=== PATIENT | male | born 1945 | race Caucasian/White ===

== ENCOUNTER 2019-12-21 21:16 | Observation (INO) | payer MEDICARE, SELFPAY ==
--- NOTE | ~2019-12-21 | US_ITS ---
EXAMINATION: US right upper quadrant DATE: 12/24/2019 08:32 INDICATION: Abnormal liver function tests. TECHNIQUE: Multiple grayscale and Doppler ultrasound images of the abdomen were obtained. COMPARISON: CT abdomen and pelvis 03/08/2019 FINDINGS: The visualized portions of the head and body of pancreas are normal. There is diffuse hepat ic steatosis. No liver surface nodularity. There is normal flow in main portal vein. The gallbladder is normal in size. There are 2 mm polyps in the gallbladder, likely benign. No gallstones or gallblad matt wall thickening. There was no sonographic Claire sign. The common duct is normal and measures 3 m m. IMPRESSION: 1. Diffuse hepatic steatosis. Reviewed, dictated and finalized at location A.
--- NOTE | ~2019-12-21 | XR_ITS ---
EXAMINATION: XR chest 1V portable 12/21/2019 22:39 INDICATION: Generalized weakness. Dyspnea. PROCEDURE: AP portable chest COMPARISON: 01/12/2019 FINDINGS: The lungs are clear. The cardiomediastinal silhouette is within normal limits. There are no pleural effusions. There is no pneumothorax suspected. IMPRESSION: 1: NO ACUTE CARDIOPULMONARY DISEASE. Reviewed, dictated and finalized at location A.
--- NOTE | 2019-12-21 22:19 | ECG_ITS ---
Measurements Intervals [place] Rate: 80 P: 71 [place]: 156 QRS: 3 QRSD: 118 T: 52 QT: 396 QTc: 459 Interpretive Statements SINUS RHYTHM RSR' IN V1 OR V2, CONSIDER RIGHT VENTRICULAR HYPERTROPHY OR RIGHT VCD BORDERLINE ECG Electronically Signed On 12-22-2019 6:51:19 CDT by José Raymundo D.O.
[2019-12-21] MEDS: SODIUM CHLORIDE 0.9% IV 1,000 ML 2000 ML IV CONT (22:25)
[2019-12-21] MEDS: ONDANSETRON INJ 4 MG/2 ML VIAL IV PUSH (22:25)
[2019-12-21 22:26] VITALS: BP 165/98; PULSE 98; RESP 16; TEMP 37.1; O2SAT 98
[2019-12-21 23:01] LABS: Mean Corpuscular HGB Conc 34.2 g/dL (32.0-36.0); Mean Corpuscular Hemoglobin 34.2 pg (27.0-31.0); Mean Platelet Volume 8.9 fl (8.7-11.0); Platelet Count Result 164 K/mm3 (150-420); Red Cell Distribution Width 15.4 % (11.6-14.4); White Blood Count 3.4 K/mm3 (4.8-10.8)
[2019-12-21 23:02] LABS: Add Urine Microscopic? YES; Appearance Urine Clear (Clear); Bilirubin Urine 2+ (Negative); Blood Urine Negative (Negative); Color Urine Yellow (Yellow); Glucose Urine UA Negative (Negative); Ketones Urine 2+ (Negative); Leukocyte Esterase Ur Negative LEU/UL (Negative); Nitrate Urine Negative (Negative); Protein Urine Trace (Negative); Specific Grav Ur >= 1.030 (1.010-1.020); Urobilinogen Urine 0.2 mg/dL (0.2-1.0)
[2019-12-21 23:10] LABS: Bacteria Urine 1+ /hpf; RBC Urine 0-2 /hpf (0-2); Squamous Epithelial Cell Urine Occasional /hpf (Few); WBC Urine 0-3 /hpf (0-3)
[2019-12-21 23:11] LABS: Mucus Urine Few /lpf
[2019-12-21 23:18] LABS: Alanine Aminotransferase 124 U/L (16-63); Albumin Level 4.2 g/dL (3.4-5.0); Alkaline Phosphatase 95 U/L (46-116); Anion Gap 25.4 mmol/L (7-16); Aspartate Amino Transferase 257 U/L (15-37); Bilirubin,Total 1.2 mg/dL (0.00-1.00); Blood Urea Nitrogen 22 mg/dL (7-18); Calcium 8.7 mg/dL (8.5-10.1); Carbon Dioxide 22 mmol/L (21-32); Chloride 95 mmol/L (98-108); Estimated Glomerular Filt Rate 60; Glucose 89 mg/dL (70-99); Lipase 379 U/L (73-393); Osmolality Calculated 288 mOsm/kg (285-295); Potassium 4.4 mmol/L (3.5-5.1); Sodium 138 mmol/L (136-145); Total Protein 7.4 g/dL (6.4-8.2)
[2019-12-21 23:22] LABS: Troponin I < 0.02 ng/mL (0.00-0.056)
[2019-12-21 23:23] VITALS: BP 111/70; PULSE 68; RESP 16
[2019-12-21 23:23] LABS: Band Neutrophils Percent 0 % (0-6); Basophils Absolute Manual 0.03 K/mm3 (0-0.1); Basophils Percent Manual 1 % (0-1); Eosinophils Percent Manual 0 % (1-6); Lymphocytes Absolute Manual 0.47 K/mm3 (1.1-4.5); Lymphocytes Percent Manual 14 % (18-44); Monocytes Absolute Manual 0.57 K/mm3 (0.1-0.90); Monocytes Percent Manual 17 % (3-9); Neutrophils Absolute Manual 2.31 K/mm3 (1.3-6.7); Neutrophils Percent Manual 68 % (46-73); Platelet Estimate Adequate (Adequate)
--- NOTE | 2019-12-21 23:53 | ED.WEAKNESS ---
HPI - Weakness General Chief complaint: Weakness Stated complaint: weak Source: patient Mode of arrival: ambulatory Limitations: no limitations History of Present Illness HPI Narrative: Pt reports that a week ago he fell down and had a large bruise on his chest He is very scared to be living alone and feels he is simply to weak to manuver around his house. He says 2 weeks ago he was getting around with his cane, but he has been using double canes and having trouble standing up at all. He said he has been vomiting for 2 days, and unable to tolerate even liquids. Complaint: generalized weakness Onset (ago): day(s) Duration: progressively worsening Location: generalized Migration: none Severity: moderate Relieving factors: none Exacerbating factors: none and exertion Associated symptoms: easy bruising, loss of appetite, nausea/vomiting and myalgias Related Data Home Medications Medication Instructions Recorded Confirmed pantoprazole [Protonix] See Rx Instructions .ROUTE .COMPLEX 12/21/19 12/21/19 Allergies Allergy/AdvReac Type Severity Reaction Status Date / Time Penicillins Allergy Mild Verified 10/01/15 15:02 Review of Systems Constitutional: Constitutional: Denies chills, Reports fatigue, Denies fever(s) and Reports weakness Eyes: Eyes: Reports no additional eye complaints ENT: Reports system reviewed and no additional complaints, except as documented Cardiovascular: Cardiovascular: Reports no additional cardiovascular complaints Respiratory: Respiratory: Reports no additional respiratory complaints Gastrointestinal: Gastrointestinal: Denies abdominal pain, Denies bloating, Denies constipation, Denies heartburn, Reports diarrhea, Reports nausea and Reports vomiting Genitourinary: Genitourinary: Reports no additional male genitourinary complaints Musculoskeletal: Musculoskeletal: Reports arthralgias (left shoulder) Integumentary/Breasts: Skin/Breast: Reports system reviewed and no additional complaints, except as docu Neurologic: Reports system reviewed and no additional complaints, except as documented Psychiatric: Psychiatric: Reports no additional psychiatric complaints Hematologic/Lymphatic: Hematologic/Lymphatic: Reports no additional hematologic/lymphatic complaints Allergic/Immunologic: Allergic/Immunologic: Reports no additional allergic/immunologic complaints [facility] Past Medical History Medical History Alcohol abuse HTN (hypertension) Social History Social History (Updated 12/21/19 @ 23:59 by Manju Moore MD) Social History: pt lives alone, and is fearful of falling Alcohol intake: current Alcohol use details: wine nightly Substance use: never Living arrangements: alone Exam Const: General: no acute distress Nutritional Appearance: thin Orientation/consciousness: patient oriented x3 and No confusion Limitations: No altered mental status HENMT: Head: normal to inspection Eyes: Conjunctivae: conjunctivae normal Pupils: Equal, round and reactive pupils present Chest: Chest palpation & inspection: normal inspection of the chest Resp: Effort & Inspection: normal respiratory effort Auscultation: clear to auscultation bilaterally Cardio: Rate: regular rate Rhythm: regular rhythm GI: GI Palp: Yes Soft to palpation, No Tenderness to palpation present (GI), No Guarding due to palpation present (GI), No Rigid due to palpation, No Hernia present, No Palpable mass present and No Rebound tenderness present Percussion: Yes normal to percussion Auscultation: normal bowel sounds Back/Spine/Pelvis: Back: no CVA tenderness Skin: General skin exam: normal color Other: large bruise on left chest wall Neuro: General: patient oriented x3 and moves all extremities Speech: normal speech Psych: Appearance: grossly normal Mental Status: mental status grossly normal Thought content: Yes Normal thought co
[2019-12-22] VITALS (7 sets, daily range): BP systolic 98–140; BP diastolic 60–78; PULSE 65–88; RESP 16–18; TEMP 36.6–37.5; O2SAT 95–100; BMI 19.5
--- NOTE | 2019-12-22 01:00 | PC.NURSE ---
Skin dry, scaly, poor turgor.
--- NOTE | 2019-12-22 01:35 | ADMGEN ---
This patient, Rik Thakur, was admitted to 2nd Floor Room 226-1 per stretcher for weakness,shakiness and history of falls and inability to care for self lately. reports a weight loss of 15 lbs in 2-3 weeks. Patient oriented to hospital policies and general routines including ID bracelet, bed and alarms, visiting hours, pain management, procedures, bathroom and other care routines, personal items, smoking policy, room service/diet, and visiting hours. Valuables list has been completed. Information on how to activate the Rapid Response Team has been discussed. Patient/Family are encouraged to report perceived risks to care and to ask questions if they do not understand what they are told or what they should do.
--- NOTE | 2019-12-22 01:58 | PC.NURSE ---
Stated had Flu shot last week; Unsure of Pneumonia shot date.
--- NOTE | 2019-12-22 03:30 | PC.NURSE ---
Sleeping, IV 1000ml 0.9NS infusing per pump @125ml/hr
--- NOTE | 2019-12-22 05:06 | PC.NURSE ---
1000ml 0.9NS hung in ER completed with 1000ml infused at 125ml per pump.
[2019-12-22] MEDS: SODIUM CHLORIDE 0.9% IV 1,000 ML 125 ML IV CONT ×3 (05:07→22:15)
--- NOTE | 2019-12-22 05:20 | PC.NURSE ---
States has to go to the bathroom. Refused to get out of bed; given bedpan per request
[2019-12-22 08:36] LABS: GGT 481 U/L (15-85)
[2019-12-22] MEDS: ACETAMINOPHEN 325 MG TABLET 650 MG PO (08:46)
[2019-12-22 10:37] LABS: Creatine Kinase 276 U/L (39-308)
--- NOTE | 2019-12-22 11:22 | PM.IMHP ---
H&P: HPI History of Present Illness Chief complaint: weak,vomiting <JACY Miller - Last Filed: 12/22/19 11:57> Narrative: Rik Thakur is a 74 year old male THAT WAS ADMITTED YESTERDAY FOR GENERALIZED WEAKNESS. PATIENT HAS A PAST MEDICAL HISTORY ALCOHOL ABUSE AND HYPERTENSION. ACCORDING TO PATIENT 2 WEEKS AGO HE FELL DOWN A FLIGHT OF STAIRS. HE WAS UNABLE TO TELL ME THE AMOUNT OF STAIRS HE FELL DOWN. A RESULT OF HE DEVELOPS A LARGE HEMATOMA TO HIS LEFT SHOULDER , HE ALSO HAS A SMALL BRUISE TO HIS LEFT LEG NEAR HIS KNEE. ACCORDING TO PATIENT HE DID VISIT HIS PRIMARY CARE PHYSICIAN WHO COMPLETED AN X-RAY. THERE WAS NO FRACTURE INDICATED ON THE X-RAY. PATIENT NOTED THAT THE BRUISING WORSENED ON HIS SHOULDER HE THEN WENT BACK TO HIS DOCTOR'S OFFICE , NO INTERVENTION NEEDED AT THAT TIME. PATIENT NOTED THAT HE WAS SO WEAK THAT HE HAD TO WALK WITH 2 CANES HE ALSO DEVELOPED NAUSEA WITH VOMITING WITH A DECREASED APPETITE. PATIENT USUALLY DRINKS 2 CHARDONNAY A DAY AND IF HE HAVE COMPANY HE WILL DRINK UP TO 3. PATIENT NOTED FOR THE LAST 3-4 DAYS HE HAS NOT HAD ANY WINE. HE SAID THAT HE NOTIFIED HIS WIRE TESTER AND CAKE KNOCKER WHEN HE BECAME WEAK ONCE THEY NOTICED HIS APPEARANCE THEY INSISTED THAT HE COME TO THE ED. HIS VITAL SIGNS CURRENTLY ARE 98/60, 73, 16, 99.5 AND 98% ON ROOM AIR. WHILE PATIENT WAS IN THE ED A CHEST X-RAY WAS COMPLETED WHICH WAS UNREMARKABLE EKG INDICATED SINUS RHYTHM. HE DID RECEIVE IV FLUID PATIENT TROPONIN WAS NEGATIVE LIPASE WAS NEGATIVE HIS LIVER FUNCTION TESTS WAS ELEVATED HIS GGT WAS ALSO ELEVATED. PATIENT IS BEING ADMITTED FOR GENERALIZED WEAKNESS , DEHYDRATION AND ELEVATED LIVER FUNCTION TESTS. PATIENT ALSO NOTED THAT HE DID HAVE DIARRHEA AND HE REMAINS WEAK HE WAS ABLE TO TOLERATE HIS CLEAR LIQUID DIET TODAY WITHOUT ANY NAUSEA VOMITING . PATIENT DENIES SOB, CP, PALPITATION, EXTREMITY NUMBNESS, LIGHTHEADNESS, DIZZINESS, CONSTIPATION, , CHILLS OR FEVER. PATIENT DOES STAY AT HOME ALONE HAS SOME CONCERNS ABOUT RETURNING HOME DUE TO HIS WEAKNESS. PATIENT IS CURRENTLY A HIGH FALL RISK. <JACY Miller - Last Filed: 12/22/19 11:57> Review of Systems Constitutional: Constitutional: Reports fatigue, Reports frequent falls, Reports poor appetite and Reports weakness <JACY Miller - Last Filed: 12/22/19 11:57> Cardiovascular: Cardiovascular: Denies chest pain, Denies pedal edema, Denies lightheadedness and Denies dyspnea <TIFFANIE Miller Last Filed: 12/22/19 11:57> Respiratory: Respiratory: Denies cough, Denies pain with cough, Denies dyspnea and Denies wheezing <NAUN MillerPM[place] Last Filed: 12/22/19 11:57> Gastrointestinal: Gastrointestinal: Denies abdominal pain, Denies melena, Denies hematochezia, Reports diarrhea, Reports nausea and Reports vomiting <[facility] [employer] Last Filed: 12/22/19 11:57> Genitourinary: Genitourinary: Denies hematuria, Denies dysuria, Denies urinary frequency, Denies urinary hesitancy and Denies urinary urgency <NAUN [facility] Last Filed: 12/22/19 11:57> Musculoskeletal: Musculoskeletal: Reports muscle weakness <[facility] Filed: 12/22/19 11:57> Integumentary/Breasts: Skin/Breast: Reports system reviewed and no additional complaints, except as docu <NAUN [facility] Filed: 12/22/19 11:57> Neurologic: Denies confusion, Denies vertigo, Denies dizziness, Denies syncope, Reports frequent falls, Denies headache(s), Denies seizure-like activity and Reports weakness <NAUN [facility] Last Filed: 12/22/19 11:57> Psychiatric: Psychiatric: Denies confusion, Denies depression and Denies hopelessness <NAUN [facility] Last Filed: 12/22/19 11:57> Endocrine: Endocrine: Reports fatigue <ARABELLA Miller [employer] [facility] Filed: 12/22/19 11:57> Hematologic/Lymphatic: Hematologic/Lymphatic: Reports no additional hematologic/lymphatic complaints <NAUN MillerPNetspira Networks [employer] [facility] F
--- NOTE | 2019-12-22 11:48 | P.PNCROSS_ITS ---
Event Note Event Note Event Note: Pt is feeling much stronger since receiving IVF. He denies vomiting or diarrhea. Wants to wait until tomorrow before he starts eating. Pt admits to drinking 2 - 3 Chardonnays daily. Pt. gave a vague answered when asked about previous abnormal liver tests. o). [place]. Pleasant male. Bruising on left upper chest. Abd. is soft and nontender without a liver edge palpated. Discussed with Clarence Haney, agree with note and plan. AST more than 2x ALT strongly suggests alcoholic hepatitis. Clarence will enquire with Dr. Rodriguez's office RE: previous hepatitis evaluation. Pt. to go to swing bed if he's a candidate, otherwise retirement for rehab.
--- NOTE | 2019-12-22 19:28 | PM.EVENT ---
Event Note Event Note Event Note: 19:15. Pt is starving; states he has been on a clear liquid diet since he fell and contused his chest 2 weeks ago. He is hungry and wants to pasta, chicken or something other than jello. He denies abdominal pain, nausea or recent vomiting. O) abdomen is flat, soft, no masses or organomegaly. No tenderness. A) pt. withhx of vomiting but now hungry. I think it's worth having him eat and monitoring response.
[2019-12-23] VITALS: BP 125/60; PULSE 58; RESP 20; TEMP 37.4; O2SAT 99
[2019-12-23] MEDS: SODIUM CHLORIDE 0.9% IV 1,000 ML 125 ML IV CONT (06:17)
[2019-12-23 07:05] LABS: Acetaminophen 3 ug/mL (10-30); Alanine Aminotransferase 69 U/L (16-63); Albumin Level 2.9 g/dL (3.4-5.0); Alkaline Phosphatase 62 U/L (46-116); Anion Gap 15.9 mmol/L (7-16); Aspartate Amino Transferase 104 U/L (15-37); Bilirubin Direct 0.4 mg/dL (0-0.2); Bilirubin,Total 1.1 mg/dL (0.00-1.00); Blood Urea Nitrogen 10 mg/dL (7-18); Calcium 7.7 mg/dL (8.5-10.1); Carbon Dioxide 23 mmol/L (21-32); Chloride 101 mmol/L (98-108); Estimated CRCL calculation 57 ml/min; Estimated Glomerular Filt Rate > 60; Ferritin 972 ng/mL (26-388); Folic Acid 8.9 ng/mL (8.6->20); Glucose 70 mg/dL (70-99); Iron 149 ug/dL (65-175); Osmolality Calculated 279 mOsm/kg (285-295); Percent Iron Saturation 58 % (12-57); Potassium 3.9 mmol/L (3.5-5.1); Sodium 136 mmol/L (136-145); Total Protein 5.4 g/dL (6.4-8.2); Vitamin B12 279 pg/mL (193-986)
[2019-12-23 07:07] LABS: Ammonia < 10 umol/L (11-32)
[2019-12-23 07:12] LABS: CRP < 0.2 mg/dL (0.0-0.9)
[2019-12-23 07:24] LABS: Magnesium 1.4 mg/dL (1.8-2.4); Phosphorus 2.5 mg/dL (2.6-4.7)
[2019-12-23 07:36] LABS: Thyroid Stimulating Hormone Reflex 3.17 u/IU/mL (0.36-3.74)
[2019-12-23 07:59] LABS: Hematocrit 33.1 % (37.0-46.0); Hemoglobin 11.3 g/dL (12.4-15.3); Mean Corpuscular HGB Conc 34.1 g/dL (32.0-36.0); Mean Corpuscular Hemoglobin 34.1 pg (27.0-31.0); Mean Platelet Volume 9.1 fl (8.7-11.0); Platelet Count Result 140 K/mm3 (150-420); Red Blood Count 3.31 M/mm3 (4.70-6.10); Red Cell Distribution Width 15.2 % (11.6-14.4); White Blood Count 3.2 K/mm3 (4.8-10.8)
[2019-12-23 08:00] VITALS: TEMP 36.6
[2019-12-23 08:27] LABS: INR 1.3; Partial Thromboplastin Time 28.7 SEC (22.3-31.6); Prothrombin Time 13.6 Seconds (9.64-11.0)
[2019-12-23] MEDS: FOLIC ACID 1 MG TABLET 0.5 MG PO (09:24)
[2019-12-23] MEDS: THIAMINE HCL 100 MG TABLET 50 MG PO (09:24)
[2019-12-23] MEDS: NIACIN SA 500 MG TABLET PO (09:32)
[2019-12-23 10:42] VITALS: BP 130/78; PULSE 71; RESP 14; TEMP 36.6; O2SAT 99
[2019-12-23] MEDS: MAGNESIUM SULF 4 GM/WATER100ML 4 GM/100 ML BAG IVPB (11:28)
--- NOTE | 2019-12-23 13:26 | P.PNIM_ITS ---
Progress Note: A&P Assessment and Plan (1) Weakness: Code(s): R53.1 - Weakness Status: Acute Assessment and Plan: * EXHIBIT TOLERANCE DURING PHYSICAL ACTIVITY EVIDENCED BY A NORMAL FLUCTUATION OF VITAL SIGNS DURING PHYSICAL ACTIVITY. * PATIENT WILL BE ABILITY TO PERFORM REQUIRED ACTIVITIES OF DAILY LIVING. * PROVIDE APPROPRIATE NUTRITION FOR HEALING AND STRENGTH. * USE APPROPRIATE TO PREVENT FALLS. * CONTINUE PHYSICAL THERAPY/OCCUPATIONAL THERAPY. * PATIENT WILL TRANSFER TO SWING BED/ REHAB ON TUESDAY (2) Nausea & vomiting: Qualifiers: Vomiting Intractability: unspecified Vomiting type: unspecified Qualified Code(s): R11.2 - Nausea with vomiting, unspecified Code(s): R11.2 - Nausea with vomiting, unspecified Status: Acute Assessment and Plan: * RESOLVED * POSSIBLY SECONDARY TO ALCOHOL USE * PATIENT ABLE TO TOLERATED CLEAR LIQUID DIET WITH ADVANCE DIET TOLERATED * CONTINUE ZOFRAN (3) Elevated liver function tests: Code(s): R79.89 - Other specified abnormal findings of blood chemistry Status: Acute Assessment and Plan: * POSSIBLY SECONDARY TO ALCOHOL ABUSE, ACCORDING TO RECORDS THIS IS NEW FOR THE PATIENT * HEPATIC PANEL PENDING * ACCORDING TO RECORDS ON 01/12/2019 AST 50 ALT 37, ON 03/10/2019 AST 47 ALT 53 * ULTRASOUND PENDING WILL BE COMPLETED ON TUESDAY * AVOID HEPATOTOXIC AGENTS * ammonia wnl, bili, ferritin elevated MARYANNE, mitrochonfdrin, IgG ab and hep panel pending (4) DVT prophylaxis: Code(s): Z29.9 - Encounter for prophylactic measures, unspecified Status: Acute Assessment and Plan: * CONTINUE LOVENOX (5) Dehydration: Code(s): E86.0 - Dehydration Status: Acute Assessment and Plan: * RESOLVED * SECONDARY TO NAUSEA VOMITING * CONTINUE IV HYDRATION (6) Alcohol abuse: Code(s): F10.10 - Alcohol abuse, uncomplicated Status: Acute Assessment and Plan: * PATIENT HAS 2-3 CUPS TO 1 A DAY * PATIENT EDUCATED ON ETOH ABUSE CESSATION * HAS ORDERED ATIVAN FOR WITHDRAWALS * PATIENT HAS NOT HAD A DRINK FOR 3-4 DAYS DUE TO NAUSEA VOMITING Subjective Date/time seen: 12/23/19 13:26 patient is in bed today he denies any nausea vomiting he was able to tolerate a regular meal. The only complaint patient has today is that his bed sheets were not changed. patient also noted that he would like outpatient PT OT instead of swing bed. I agree that this patient is suitable for outpatient PT OT. he is ambulating on the unit with a walker without a problem. Patient able to tolerate all meals , slept well and ambulate at baseline. Patient denies SOB, CP, palpitation, extremity numbness, lightheadness, dizziness, constipation, diarrhea, chills or fever. plan to discharge patient tomorrow after ultrasound and will contact his primary care physician concerning his elevated liver enzymes. Review of Systems Constitutional: Constitutional: Denies fatigue, Reports frequent falls, Denies headache(s), Denies poor appetite and Denies weakness ENT: Denies vertigo, Denies dizziness and Denies headache(s) Cardiovascular: Cardiovascular: Denies chest pain, Denies syncope, Denies pedal edema, Denies lightheadedness and Denies dyspnea Respiratory: Respiratory: Denies cough, Denies pain with cough, Denies dyspnea and Denies wheezing Gastrointestinal: Gastrointestinal: Denies abdominal pain, Denies melena, Denies hematochezia, Reports diarrhea, Reports nausea and Reports vomiting Genitourina
--- NOTE | 2019-12-23 13:26 | PM.IMPN ---
Progress Note: A&P Assessment and Plan (1) Weakness: Code(s): R53.1 - Weakness Status: Acute Assessment and Plan: EXHIBIT TOLERANCE DURING PHYSICAL ACTIVITY EVIDENCED BY A NORMAL FLUCTUATION OF VITAL SIGNS DURING PHYSICAL ACTIVITY. PATIENT WILL BE ABILITY TO PERFORM REQUIRED ACTIVITIES OF DAILY LIVING. PROVIDE APPROPRIATE NUTRITION FOR HEALING AND STRENGTH. USE APPROPRIATE TO PREVENT FALLS. CONTINUE PHYSICAL THERAPY/OCCUPATIONAL THERAPY. PATIENT WILL TRANSFER TO SWING BED/ REHAB ON TUESDAY (2) Nausea & vomiting: Qualifiers: Vomiting Intractability: unspecified Vomiting type: unspecified Qualified Code(s): R11.2 - Nausea with vomiting, unspecified Code(s): R11.2 - Nausea with vomiting, unspecified Status: Acute Assessment and Plan: RESOLVED POSSIBLY SECONDARY TO ALCOHOL USE PATIENT ABLE TO TOLERATED CLEAR LIQUID DIET WITH ADVANCE DIET TOLERATED CONTINUE ZOFRAN (3) Elevated liver function tests: Code(s): R79.89 - Other specified abnormal findings of blood chemistry Status: Acute Assessment and Plan: POSSIBLY SECONDARY TO ALCOHOL ABUSE, ACCORDING TO RECORDS THIS IS NEW FOR THE PATIENT HEPATIC PANEL PENDING ACCORDING TO RECORDS ON 01/12/2019 AST 50 ALT 37, ON 03/10/2019 AST 47 ALT 53 ULTRASOUND PENDING WILL BE COMPLETED ON TUESDAY AVOID HEPATOTOXIC AGENTS ammonia wnl, bili, ferritin elevated MARYANNE, mitrochonfdrin, IgG ab and hep panel pending (4) DVT prophylaxis: Code(s): Z29.9 - Encounter for prophylactic measures, unspecified Status: Acute Assessment and Plan: CONTINUE LOVENOX (5) Dehydration: Code(s): E86.0 - Dehydration Status: Acute Assessment and Plan: RESOLVED SECONDARY TO NAUSEA VOMITING CONTINUE IV HYDRATION (6) Alcohol abuse: Code(s): F10.10 - Alcohol abuse, uncomplicated Status: Acute Assessment and Plan: PATIENT HAS 2-3 CUPS TO 1 A DAY PATIENT EDUCATED ON ETOH ABUSE CESSATION HAS ORDERED ATIVAN FOR WITHDRAWALS PATIENT HAS NOT HAD A DRINK FOR 3-4 DAYS DUE TO NAUSEA VOMITING Subjective Date/time seen: 12/23/19 13:26 patient is in bed today he denies any nausea vomiting he was able to tolerate a regular meal. The only complaint patient has today is that his bed sheets were not changed. patient also noted that he would like outpatient PT OT instead of swing bed. I agree that this patient is suitable for outpatient PT OT. he is ambulating on the unit with a walker without a problem. Patient able to tolerate all meals , slept well and ambulate at baseline. Patient denies SOB, CP, palpitation, extremity numbness, lightheadness, dizziness, constipation, diarrhea, chills or fever. plan to discharge patient tomorrow after ultrasound and will contact his primary care physician concerning his elevated liver enzymes. Review of Systems Constitutional: Constitutional: Denies fatigue, Reports frequent falls, Denies headache(s), Denies poor appetite and Denies weakness ENT: Denies vertigo, Denies dizziness and Denies headache(s) Cardiovascular: Cardiovascular: Denies chest pain, Denies syncope, Denies pedal edema, Denies lightheadedness and Denies dyspnea Respiratory: Respiratory: Denies cough, Denies pain with cough, Denies dyspnea and Denies wheezing Gastrointestinal: Gastrointestinal: Denies abdominal pain, Denies melena, Denies hematochezia, Reports diarrhea, Reports nausea and Reports vomiting Genitourinary: Genitourinary: Denies hematuria, Denies dysuria, Denies urinary frequency, Denies urinary hesitancy and Denies urinary urgency Musculoskeletal: Musculoskeletal: Denies muscle weakness Integumentary/Breasts: Skin/Breast: Reports system reviewed and no additional complaints, except as docu Neurologic: Denies confusion, Denies vertigo, Denies dizziness, Denies syncope, Reports frequent falls, Denies headache(s), Denies seizur
[2019-12-23 16:00] VITALS: BP 121/75; PULSE 72; RESP 16; TEMP 36.6; O2SAT 98
--- NOTE | 2019-12-23 17:43 | PC.NURSE ---
notified that patient states he wants his IV taken out and that it was his body and he says to take the IV out. Dr. Castillo gave order to d/c IV.
--- NOTE | 2019-12-23 17:52 | PC.NURSE ---
IV to right forearm removed without difficulty.
--- NOTE | 2019-12-23 21:50 | PM.EVENT ---
Event Note Event Note Event Note: Patient clears and he does not want an IV after his car when infiltrated. Only IV medication at present is his Ativan. Alert and oriented. No acute distress. Lungs are clear to auscultation bilaterally. Regular rate and rhythm without murmur or gallop. Extremities are warm dry and pink. Abdomen is soft nontender. LFTs are improving. Ultrasound of the right upper quadrant tomorrow. Home soon with outpatient PT and OT. I have examined the patient and reviewed the chart. I discussed the patient's care with Edilia Haney APN and agree with her assessment and plan.
[2019-12-24] VITALS: BP 137/84; PULSE 84; RESP 16; TEMP 36.9; O2SAT 98
--- NOTE | 2019-12-24 00:34 | PC.NURSE ---
Pt resting quietly on his side and doesnt voice any c/o discomfort.
--- NOTE | 2019-12-24 01:40 | PC.NURSE ---
Pt asleep and no signs of discomfort noted.
--- NOTE | 2019-12-24 02:26 | PC.NURSE ---
Pt asleep and no signs of discomfort noted.
--- NOTE | 2019-12-24 03:36 | PC.NURSE ---
Pt asleep and no signs of discomfort noted.
--- NOTE | 2019-12-24 04:28 | PC.NURSE ---
Pt asleep and no signs of discomfort noted.
--- NOTE | 2019-12-24 05:23 | PC.NURSE ---
Pt asleep and no signs of discomfort noted.
[2019-12-24 06:16] LABS: Hematocrit 34.5 % (37.0-46.0); Hemoglobin 11.8 g/dL (12.4-15.3); Mean Corpuscular HGB Conc 34.2 g/dL (32.0-36.0); Mean Corpuscular Hemoglobin 34.1 pg (27.0-31.0); Mean Corpuscular Volume 99.7 fL (78.0-102.0); Mean Platelet Volume 9.2 fl (8.7-11.0); Platelet Count Result 144 K/mm3 (150-420); Red Blood Count 3.46 M/mm3 (4.70-6.10); Red Cell Distribution Width 15.1 % (11.6-14.4); White Blood Count 3.1 K/mm3 (4.8-10.8)
[2019-12-24 06:38] LABS: Band Neutrophils Percent 0 % (0-6); Basophils Percent Manual 0 % (0-1); Eosinophils Percent Manual 0 % (1-6); Lymphocytes Absolute Manual 0.93 K/mm3 (1.1-4.5); Lymphocytes Percent Manual 30 % (18-44); Monocytes Percent Manual 13 % (3-9); Neutrophils Absolute Manual 1.76 K/mm3 (1.3-6.7); Neutrophils Percent Manual 57 % (46-73); Platelet Estimate Adequate (Adequate); Total Cells Counted 100
--- NOTE | 2019-12-24 06:38 | PC.NURSE ---
Pt voided 450 ml of light, yello clear urine in the urinal. Pt doesnt voice any c/o discomfort.
[2019-12-24 06:39] LABS: Alanine Aminotransferase 69 U/L (16-63); Albumin Level 3.2 g/dL (3.4-5.0); Alkaline Phosphatase 65 U/L (46-116); Anion Gap 11.6 mmol/L (7-16); Aspartate Amino Transferase 88 U/L (15-37); Bilirubin,Total 0.9 mg/dL (0.00-1.00); Blood Urea Nitrogen 7 mg/dL (7-18); Calcium 8.2 mg/dL (8.5-10.1); Carbon Dioxide 28 mmol/L (21-32); Chloride 106 mmol/L (98-108); Estimated CRCL calculation 57 ml/min; Estimated Glomerular Filt Rate > 60; Glucose 80 mg/dL (70-99); Osmolality Calculated 291 mOsm/kg (285-295); Potassium 3.6 mmol/L (3.5-5.1); Sodium 142 mmol/L (136-145); Total Protein 5.6 g/dL (6.4-8.2)
[2019-12-24 08:00] VITALS: BP 148/97; PULSE 64; RESP 18; TEMP 37.4; O2SAT 100
[2019-12-24] MEDS: FOLIC ACID 1 MG TABLET 0.5 MG PO (08:46)
[2019-12-24] MEDS: NIACIN SA 500 MG TABLET PO (08:47)
[2019-12-24] MEDS: THIAMINE HCL 100 MG TABLET 50 MG PO (08:48)
--- NOTE | 2019-12-24 09:53 | PC.NURSE ---
Patient up walking in the hallways using wheeled walker and no assist. Patient reminded to call when he is getting up. Gait and balance steady
--- NOTE | 2019-12-24 11:27 | P.DS_ITS ---
DS: Diagnosis Admitting Diagnosis Admitting Diagnosis: Weakness Discharge Diagnosis (1) Weakness: Code(s): R53.1 - Weakness Status: Acute Assessment and Plan: * EXHIBIT TOLERANCE DURING PHYSICAL ACTIVITY EVIDENCED BY A NORMAL FLUCTUATION OF VITAL SIGNS DURING PHYSICAL ACTIVITY. * PATIENT WILL BE ABILITY TO PERFORM REQUIRED ACTIVITIES OF DAILY LIVING. * PROVIDE APPROPRIATE NUTRITION FOR HEALING AND STRENGTH. * USE APPROPRIATE TO PREVENT FALLS. * CONTINUE PHYSICAL THERAPY/OCCUPATIONAL THERAPY. * PATIENT WILL DISCHARGE WITH OUTPATIENT PHYSICA (2) Nausea & vomiting: Qualifiers: Vomiting Intractability: unspecified Vomiting type: unspecified Qualified Code(s): R11.2 - Nausea with vomiting, unspecified Code(s): R11.2 - Nausea with vomiting, unspecified Status: Acute Assessment and Plan: * RESOLVED * POSSIBLY SECONDARY TO ALCOHOL USE * PATIENT ABLE TO TOLERATED CLEAR LIQUID DIET WITH ADVANCE DIET TOLERATED * CONTINUE ZOFRAN (3) Elevated liver function tests: Code(s): R79.89 - Other specified abnormal findings of blood chemistry Status: Acute Assessment and Plan: * POSSIBLY SECONDARY TO ALCOHOL ABUSE, ACCORDING TO RECORDS THIS IS NEW FOR THE PATIENT * HEPATIC PANEL PENDING * ACCORDING TO RECORDS ON 01/12/2019 AST 50 ALT 37, ON 03/10/2019 AST 47 ALT 53 * ULTRASOUND PENDING WILL BE COMPLETED ON TUESDAY * AVOID HEPATOTOXIC AGENTS * ammonia wnl, bili, ferritin elevated MARYANNE, mitrochonfdrin, IgG ab and hep panel pending * PATIENT'S PRIMARY CARE PHYSICIAN NOTIFIED PENDING LIVER FUNCTION TESTS WILL FOLLOW-UP (4) DVT prophylaxis: Code(s): Z29.9 - Encounter for prophylactic measures, unspecified Status: Acute Assessment and Plan: * CONTINUE LOVENOX (5) Dehydration: Code(s): E86.0 - Dehydration Status: Acute Assessment and Plan: * RESOLVED * SECONDARY TO NAUSEA VOMITING (6) Alcohol abuse: Code(s): F10.10 - Alcohol abuse, uncomplicated Status: Acute Assessment and Plan: * PATIENT HAS 2-3 CUPS TO 1 A DAY * PATIENT EDUCATED ON ETOH ABUSE CESSATION * HAS ORDERED ATIVAN FOR WITHDRAWALS * PATIENT HAS NOT HAD A DRINK FOR 3-4 DAYS DUE TO NAUSEA VOMITING DS: Summary Hospital Course Hospital Course: ADMISSION FOR 12/22/2019 H&P Rik Thakur is a 74 year old male THAT WAS ADMITTED YESTERDAY FOR GENERALIZED WEAKNESS. PATIENT HAS A PAST MEDICAL HISTORY ALCOHOL ABUSE AND HYPERTENSION. ACCORDING TO PATIENT 2 WEEKS AGO HE FELL DOWN A FLIGHT OF STAIRS. HE WAS UNABLE TO TELL ME THE AMOUNT OF STAIRS HE FELL DOWN. A RESULT OF HE DEVELOPS A LARGE HEMATOMA TO HIS LEFT SHOULDER , HE ALSO HAS A SMALL BRUISE TO HIS LEFT LEG NEAR HIS KNEE. ACCORDING TO PATIENT HE DID VISIT HIS PRIMARY CARE PHYSICIAN WHO COMPLETED AN X-RAY. THERE WAS NO FRACTURE INDICATED ON THE X-RAY. PATIENT NOTED THAT THE BRUISING WORSENED ON HIS SHOULDER HE THEN WENT BACK TO HIS DOCTOR'S OFFICE , NO INTERVENTION NEEDED AT THAT TIME. PATIENT NOTED THAT HE WAS SO WEAK THAT HE HAD TO WALK WITH 2 CANES HE ALSO DEVELOPED NAUSEA WITH VOMITING WITH A DECREASED APPETITE. PATIENT USUALLY DRINKS 2 CHARDONNAY A DAY AND IF HE HAVE COMPANY HE WILL DRINK UP TO 3. PATIENT NOTED FOR THE LAST 3-4 DAYS HE HAS NOT HAD ANY WINE. HE SAID THAT HE NOTIFIED HIS RHINESTONE SETTER AND CREATIVE SERVICES COORDINATOR WHEN HE BECAME WEAK ONCE THEY NOTICED HIS APPEARANCE THEY INSISTED THAT HE COME TO THE ED. HIS VITAL SIGNS CURRENTLY ARE 98/60, 73, 16, 99.5 AND 98% ON ROOM AIR. WHILE PATIENT WAS IN THE ED A CHEST X-RAY WAS COMPLETED
--- NOTE | 2019-12-24 11:27 | PM.DS ---
DS: Diagnosis Admitting Diagnosis Admitting Diagnosis: Weakness Discharge Diagnosis (1) Weakness: Code(s): R53.1 - Weakness Status: Acute Assessment and Plan: EXHIBIT TOLERANCE DURING PHYSICAL ACTIVITY EVIDENCED BY A NORMAL FLUCTUATION OF VITAL SIGNS DURING PHYSICAL ACTIVITY. PATIENT WILL BE ABILITY TO PERFORM REQUIRED ACTIVITIES OF DAILY LIVING. PROVIDE APPROPRIATE NUTRITION FOR HEALING AND STRENGTH. USE APPROPRIATE TO PREVENT FALLS. CONTINUE PHYSICAL THERAPY/OCCUPATIONAL THERAPY. PATIENT WILL DISCHARGE WITH OUTPATIENT PHYSICA (2) Nausea & vomiting: Qualifiers: Vomiting Intractability: unspecified Vomiting type: unspecified Qualified Code(s): R11.2 - Nausea with vomiting, unspecified Code(s): R11.2 - Nausea with vomiting, unspecified Status: Acute Assessment and Plan: RESOLVED POSSIBLY SECONDARY TO ALCOHOL USE PATIENT ABLE TO TOLERATED CLEAR LIQUID DIET WITH ADVANCE DIET TOLERATED CONTINUE ZOFRAN (3) Elevated liver function tests: Code(s): R79.89 - Other specified abnormal findings of blood chemistry Status: Acute Assessment and Plan: POSSIBLY SECONDARY TO ALCOHOL ABUSE, ACCORDING TO RECORDS THIS IS NEW FOR THE PATIENT HEPATIC PANEL PENDING ACCORDING TO RECORDS ON 01/12/2019 AST 50 ALT 37, ON 03/10/2019 AST 47 ALT 53 ULTRASOUND PENDING WILL BE COMPLETED ON TUESDAY AVOID HEPATOTOXIC AGENTS ammonia wnl, bili, ferritin elevated MARYANNE, mitrochonfdrin, IgG ab and hep panel pending PATIENT'S PRIMARY CARE PHYSICIAN NOTIFIED PENDING LIVER FUNCTION TESTS WILL FOLLOW-UP (4) DVT prophylaxis: Code(s): Z29.9 - Encounter for prophylactic measures, unspecified Status: Acute Assessment and Plan: CONTINUE LOVENOX (5) Dehydration: Code(s): E86.0 - Dehydration Status: Acute Assessment and Plan: RESOLVED SECONDARY TO NAUSEA VOMITING (6) Alcohol abuse: Code(s): F10.10 - Alcohol abuse, uncomplicated Status: Acute Assessment and Plan: PATIENT HAS 2-3 CUPS TO 1 A DAY PATIENT EDUCATED ON ETOH ABUSE CESSATION HAS ORDERED ATIVAN FOR WITHDRAWALS PATIENT HAS NOT HAD A DRINK FOR 3-4 DAYS DUE TO NAUSEA VOMITING DS: Summary Hospital Course Hospital Course: ADMISSION FOR 12/22/2019 H&P Rik Thakur is a 74 year old male THAT WAS ADMITTED YESTERDAY FOR GENERALIZED WEAKNESS. PATIENT HAS A PAST MEDICAL HISTORY ALCOHOL ABUSE AND HYPERTENSION. ACCORDING TO PATIENT 2 WEEKS AGO HE FELL DOWN A FLIGHT OF STAIRS. HE WAS UNABLE TO TELL ME THE AMOUNT OF STAIRS HE FELL DOWN. A RESULT OF HE DEVELOPS A LARGE HEMATOMA TO HIS LEFT SHOULDER , HE ALSO HAS A SMALL BRUISE TO HIS LEFT LEG NEAR HIS KNEE. ACCORDING TO PATIENT HE DID VISIT HIS PRIMARY CARE PHYSICIAN WHO COMPLETED AN X-RAY. THERE WAS NO FRACTURE INDICATED ON THE X-RAY. PATIENT NOTED THAT THE BRUISING WORSENED ON HIS SHOULDER HE THEN WENT BACK TO HIS DOCTOR'S OFFICE , NO INTERVENTION NEEDED AT THAT TIME. PATIENT NOTED THAT HE WAS SO WEAK THAT HE HAD TO WALK WITH 2 CANES HE ALSO DEVELOPED NAUSEA WITH VOMITING WITH A DECREASED APPETITE. PATIENT USUALLY DRINKS 2 CHARDONNAY A DAY AND IF HE HAVE COMPANY HE WILL DRINK UP TO 3. PATIENT NOTED FOR THE LAST 3-4 DAYS HE HAS NOT HAD ANY WINE. HE SAID THAT HE NOTIFIED HIS SHIPPING MANAGER AND STATION MASTER WHEN HE BECAME WEAK ONCE THEY NOTICED HIS APPEARANCE THEY INSISTED THAT HE COME TO THE ED. HIS VITAL SIGNS CURRENTLY ARE 98/60, 73, 16, 99.5 AND 98% ON ROOM AIR. WHILE PATIENT WAS IN THE ED A CHEST X-RAY WAS COMPLETED WHICH WAS UNREMARKABLE EKG INDICATED SINUS RHYTHM. HE DID RECEIVE IV FLUID PATIENT TROPONIN WAS NEGATIVE LIPASE WAS NEGATIVE HIS LIVER FUNCTION TESTS WAS ELEVATED HIS GGT WAS ALSO ELEVATED. PATIENT IS BEING ADMITTED FOR GENERALIZED WEAKNESS , DEHYDRATION AND ELEVATED LIVER FUNCTION TESTS. PATIENT ALSO NOTED THAT HE DID HAVE DIARRHEA AND HE REMAINS WEAK HE WAS ABLE TO LILIAN
[2019-12-26 02:32] LABS: Hepatitis B Surface Antibody Reactive (Nonreactive); Hepatitis C Signal to Cutoff 0.02 ratio (<1.00); Hepatitis C Virus Antibody Nonreactive (Nonreactive)
[2019-12-26 20:23] LABS: Ceruloplasmin 20 mg/dL (18-36)
[2019-12-27 10:37] LABS: Mitochondrial (M2) Ab (IgG) <=20.0 U (<=20.0)
[2019-12-27 10:43] LABS: Actin Antibody (IgG) <20 U (<20)
[2019-12-27 13:32] LABS: Anti Nuclear Antibody Titer 1:40 (Negative)
== END 2019-12-24 13:45 | disposition home health service (06) ==
LOC: CHSED 12-22 00:04 → CHS2ND 12-22 00:41
PROVIDERS: Family Medicine; Nurse Practitioner; Admitting Provider Emergency Medicine; Emergency Provider Emergency Medicine; PCP Internal Medicine; Visit Provider Emergency Medicine
DX: E86.0 Dehydration (principal); R53.1 Weakness; R11.2 Nausea with vomiting, unspecified; I10 Essential (primary) hypertension; F10.10 Alcohol abuse, uncomplicated; S40.012D Contusion of left shoulder, subsequent encounter; W10.9XXD Fall (on) (from) unspecified stairs and steps, subsequent encounter; Z87.891 Personal history of nicotine dependence; R74.8 Abnormal levels of other serum enzymes; K76.0 Fatty (change of) liver, not elsewhere classified
CPT/HCPCS: 36415; 71045; 76705; 80053; 80307; 81001; 82103; 82140; 82248; 82390; 82550; 82607; 82728; 82746; 82977; 83516; 83520; 83540; 83550; 83690; 83735; 84100; 84443; 84484; 85025; 85027; 85610; 85730; 86038; 86039; 86140; 86706; 93005; 96361; 96365; 96374; 96375; 97161; 99285; A9270; G0378; J2405; J3475; J7030

== ENCOUNTER 2019-12-28 12:58 | Outpatient (RCR) | payer MEDICARE, SELFPAY ==
--- NOTE | 2019-12-28 13:39 | PTOPEVAL ---
Thank you for referring Rik Thakur to [facility]. Please review, sign, date and return this plan of care JP. I agree with and certify that the following plan of care is medically necessary. Referring Physician Date Admitting Provider: Attending Provider: JACY Miller Referring Provider: ESTHER Outpatient Evaluation Start: 12/28/19 12:59 Freq: Status: Active Protocol: Document 12/28/19 12:59 J (Rec: 12/28/19 13:30 GUNNER [id number]) Therapy Assessment Status Assessment Status Assessment Status Evaluation Outpatient Past Medical History Gastrointestinal History Hx Gastroesophageal Reflux Disease Yes Musculoskeletal History Hx Orthopedic Surgery Yes: BILATERAL HIP Other History Hx Other Surgeries Yes: Appendicitis Evaluation Information Problem Diagnosis generalized weakness Onset 12/23/19 Subjective Information patient reports he was Query Text:As Reported By Patient/ recently in the hospital for a Family few days due to dehydration. he reports he did have a fall due to not drinking enough fluids. he reports he was having difficulty getting up from a chair. he reports he is back home now. he reports he has been feeling much better since leaving the hospital. he reports he is wanting therapy to get stronger to get back to gardening and house work. 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 he reports he also swartz s alot of other work in his yard around the house. patient reports he has been walking with his cane since the hospital admittance. Pain Assessment Timing of Pain Assessment Timing of Pain Assessment Assessment Self Report Self Report Pain Level 0 Pain Score Pain Score 0: Self Report Lower Extremity Muscle Strength Testing Hip Strength Bilateral Hip Flexion Strength 4 Good Hip Extension Strength 4 Good Hip Abduction Strength 4 Good Knee Strength Bilateral Knee Flexion Strength 5 Normal Knee Extension Strength 4+ Good + Posture Posture Standing Position Head/C-Spine Posture Flexed,Forward Head Thoracic Spine Posture Increased Kyphosis Lumbar Spine Posture Decreased
== END 2020-01-15 15:24 | disposition home or self-care (01) ==
LOC: CHSPT 12:58
PROVIDERS: PCP Internal Medicine; Visit Provider Nurse Practitioner
DX: R53.1 Weakness (principal)
CPT/HCPCS: 97110; 97112; 97161

== ENCOUNTER 2020-02-01 08:36 | Outpatient (CLI) | payer MEDICARE, SELFPAY ==
[2020-02-01 08:47] LABS: Hematocrit 39.4 % (37.0-46.0); Hemoglobin 13.9 g/dL (12.4-15.3); Mean Corpuscular HGB Conc 35.3 g/dL (32.0-36.0); Mean Corpuscular Hemoglobin 35.6 pg (27.0-31.0); Mean Platelet Volume 8.9 fl (8.7-11.0); Platelet Count Result 217 K/mm3 (150-420); Red Cell Distribution Width 13.7 % (11.6-14.4); White Blood Count 2.9 K/mm3 (4.8-10.8)
[2020-02-01 09:20] LABS: Band Neutrophils Percent 3 % (0-6); Basophils Absolute Manual 0.05 K/mm3 (0-0.1); Basophils Percent Manual 2 % (0-1); Eosinophils Absolute Manual 0.08 K/mm3 (0.02-0.5); Eosinophils Percent Manual 3 % (1-6); Lymphocytes Absolute Manual 1.24 K/mm3 (1.1-4.5); Lymphocytes Percent Manual 43 % (18-44); Monocytes Absolute Manual 0.37 K/mm3 (0.1-0.90); Monocytes Percent Manual 13 % (3-9); Neutrophils Absolute Manual 1.13 K/mm3 (1.3-6.7); Neutrophils Percent Manual 36 % (46-73); Platelet Estimate Adequate (Adequate); Total Cells Counted 100
[2020-02-01 10:09] LABS: Alanine Aminotransferase 116 U/L (16-63); Albumin Level 3.8 g/dL (3.4-5.0); Alkaline Phosphatase 81 U/L (46-116); Anion Gap 12.7 mmol/L (7-16); Aspartate Amino Transferase 154 U/L (15-37); Bilirubin,Total 0.7 mg/dL (0.00-1.00); Blood Urea Nitrogen 4 mg/dL (7-18); Calcium 9.2 mg/dL (8.5-10.1); Carbon Dioxide 31 mmol/L (21-32); Chloride 96 mmol/L (98-108); Estimated Glomerular Filt Rate > 60; Glucose 72 mg/dL (70-99); Osmolality Calculated 275 mOsm/kg (285-295); Potassium 4.7 mmol/L (3.5-5.1); Sodium 135 mmol/L (136-145); Total Protein 6.9 g/dL (6.4-8.2)
== END 2020-02-01 08:37 | disposition home or self-care (01) ==
LOC: CHSLAB 08:38
PROVIDERS: PCP Internal Medicine; Visit Provider Internal Medicine
DX: K75.9 Inflammatory liver disease, unspecified (principal)
CPT/HCPCS: 36415; 80053; 85025

== ENCOUNTER 2020-03-19 17:15 | Outpatient (CLI) | payer MEDICARE, SELFPAY ==
[2020-03-19 17:44] LABS: Alanine Aminotransferase 207 U/L (16-63); Albumin Level 3.8 g/dL (3.4-5.0); Alkaline Phosphatase 112 U/L (46-116); Anion Gap 14.6 mmol/L (7-16); Aspartate Amino Transferase 296 U/L (15-37); Blood Urea Nitrogen 12 mg/dL (7-18); Calcium 9.7 mg/dL (8.5-10.1); Carbon Dioxide 26 mmol/L (21-32); Chloride 95 mmol/L (98-108); Estimated Glomerular Filt Rate > 60; Glucose 140 mg/dL (70-99); Magnesium 1.8 mg/dL (1.8-2.4); Osmolality Calculated 273 mOsm/kg (285-295); Potassium 4.6 mmol/L (3.5-5.1); Sodium 131 mmol/L (136-145); Total Protein 6.9 g/dL (6.4-8.2)
== END 2020-03-19 17:16 | disposition home or self-care (01) ==
LOC: CHSLAB 17:16
PROVIDERS: PCP Internal Medicine; Visit Provider Internal Medicine
DX: E87.5 Hyperkalemia (principal)
CPT/HCPCS: 36415; 80053; 83735

== ENCOUNTER 2020-03-30 17:04 | Inpatient (IN) | payer MEDICARE, SELFPAY ==
[2020-03-30] VITALS (12 sets, daily range): BP systolic 107–156; BP diastolic 67–97; PULSE 77–99; RESP 12–20; TEMP 36.6–36.9; O2SAT 97–100
--- NOTE | ~2020-03-30 | XR_ITS ---
EXAMINATION: XR knee RT min 4V EXAM DATE: 03/31/2020 09:10 INDICATION: Contusion, status post fall days ago. Generalized right knee pain. Patellar pain. TECHNIQUE: Right knee frontal, crosstable lateral, orthogonal oblique projections for interpretation . Comparison is made to prior examination from 05/20/2009. FINDINGS: There is been interval total right knee replacement. The hardware is in expected position. No periprosthetic lucency. There is small joint effusion. There are no acute fractures identified. T here is some edema within Hoffa's fat pad. IMPRESSION: 1. Intact right knee arthroplasty. 2. Small joint effusion. 3. Mild anterior edema. Reviewed, dictated and finalized at location B.
--- NOTE | ~2020-03-30 | CT_ITS ---
EXAMINATION: CT pelvis wo con DATE: 03/30/2020 20:27 INDICATION: Severe right hip pain. Possible occult fracture TECHNIQUE: Computed tomography (CT) of the pelvis was performed without intravenous contrast. Automat ed exposure control and iterative reconstruction technique were employed. Exam dose: 176.93 mGy-cm t otal exam DLP. COMPARISON: 03/30/2020 right hip FINDINGS: There is a virtually nondisplaced fracture of the right inferior pubic ramus. No other pelv ic fracture is detected. Normal alignment at the sacroiliac joints and pubic symphysis. There are bilateral fat-containing inguinal hernias. IMPRESSION: Virtually nondisplaced right inferior pubic ramus fracture Reviewed, dictated and finalized at Location A. Reviewed, dictated and finalized at location A.
--- NOTE | ~2020-03-30 | XR_ITS ---
XR hip RT 2V w AP pelvis DATE: 03/30/2020 18:08 INDICATION: Fall. Right hip pain. TECHNIQUE: AP pelvis. AP and lateral views of right hip COMPARISON: None FINDINGS: The pubic symphysis and sacroiliac joints are intact. No pelvic fracture or bone destructio n is detected. There is moderate osteopenia. Hip joint spaces are relatively preserved. There is abdominal aortic and bilateral iliac and femoral artery calcification. Incidentally noted is some degenerative disc disease of the lower lumbar spine. IMPRESSION: Osteopenia No pelvic or right hip fracture is evident Reviewed, dictated and finalized at location A.
--- NOTE | ~2020-03-30 | XR_ITS ---
EXAMINATION: XR shoulder LT min 2V DATE: 04/03/2020 13:03 INDICATION: Left shoulder pain. Fall. TECHNIQUE: 5 views of left shoulder were obtained. COMPARISON: None. FINDINGS: Bone alignment is normal. No fracture. There is mild osteoarthritis of glenohumeral and acr omioclavicular joint. IMPRESSION: 1. Mild polyarticular osteoarthritis. Reviewed, dictated and finalized at location A.
[2020-03-30] MEDS: ACETAMINOPHEN 325 MG TABLET 650 MG PO (17:50)
--- NOTE | 2020-03-30 17:55 | ED.FALL ---
HPI - Fall General Chief Complaint: Fall Stated Complaint: fever, fall Source: patient Mode of arrival: ambulatory Limitations: clinical condition History of Present Illness HPI Narrative: Lost balance and fell on right knee and right hip yesterday. Hip pain with flexion and attempted walking since, worse today. Lives alone in 3 story house. Had to scoot down steps on his buttocks because of pain with standing. Lives alone. Drinks alcohol daily. Hx. of elevated LFTs and chronic alcohol abuse. Related Data Home Medications Medication Instructions Recorded Confirmed timolol maleate 1 drp OPHTHALMIC (EYE) DAILY 03/30/20 03/30/20 Allergies Allergy/AdvReac Type Severity Reaction Status Date / Time Penicillins Allergy Mild Verified 10/01/15 15:02 Review of Systems Constitutional: Constitutional: Denies chills and Denies fever(s) Eyes: Eyes: Denies change in vision ENT: Denies vertigo and Denies dizziness Cardiovascular: Cardiovascular: Denies chest pain Gastrointestinal: Gastrointestinal: Denies abdominal pain, Reports diarrhea (chronic), Denies nausea and Denies vomiting Genitourinary: Genitourinary: Denies hematuria Musculoskeletal: Musculoskeletal: Reports no additional musculoskeletal complaints Integumentary/Breasts: Comments: rash on right knee Psychiatric: Psychiatric: Reports anxiety PMFSH Past Medical History Medical History (Updated 03/31/20 @ 08:45 by Rik Hermosillo MD) Alcohol abuse Anxiety Failed total knee replacement GERD (gastroesophageal reflux disease) Hip fracture HTN (hypertension) Surgical History Surgical History (Updated 03/31/20 @ 06:26 by Rik Hermosillo MD) History of appendectomy Family History Family History (Updated 12/22/19 @ 01:57 by Charlotte Owens RN) Mother Old age Father Old age Social History Social History Social History: pt lives alone, and is fearful of falling Smoking packs per day: 3 Smoking cigarettes per day: 60.0 Years smoked: 45 Smoking pack-years: 135.00 Smoking status: Former smoker Tobacco type: cigarettes Second hand tobacco smoke exposure: No Smoking end date: 08/15/87 Alcohol intake: current Drinks per week: 28 Substance use: never Substance use type: does not use Gender identity (if verbalized by the patient): Male Spiritual care concerns: No Exam Const: Nutritional Appearance: thin (Appears uncomfortable. Winces with any right leg movement. ) Orientation/consciousness: patient oriented x3 HENMT: Head: normal to inspection and no contusions Face and sinus: abnormal facial exam Eyes: Conjunctivae: conjunctivae normal Neck: Neck: no lymphadenopathy Other: No cervical tenderness. Chest: Chest palpation & inspection: normal inspection of the chest Resp: Auscultation: clear to auscultation bilaterally Cardio: Rate: regular rate Rhythm: regular rhythm GI: Other: nontender Back/Spine/Pelvis: Back: no CVA tenderness Skin: Rashes: no rashes Neuro: General: patient oriented x3 Extrem: Other: No right leg shortening. No greater trochanter tenderness. Abrasion over right medial patella. No patellor or knee tenderness or swelling. pain with rotation of right hip. no greater trochanter tenderness. No patellar tenderness. Course Course Emergency Course: Pain not controlled with morphine, switched to dilaudid. Dx. of pubic ramus fx. discussed. Pt. does not want an orthopedic doctor consult until after consulting with Dr. Rodriguez tomorrow. Pt admitted for pain control or right inferior ramus fx. I will sign off to Clarence Haney in the AM to arrange contact with orthopedic doctor regarding care and follow up. Reevaluation(s) Reevaluation #1: X ray of hip negative. Will check CT scan. Continued pain. Will tx. with [facility]. Date: 03/30/20 Time: 19:35 Vital Signs Vital signs: Vital Signs Temperature 36.9 C 03/30/20 17:10
[2020-03-30 18:34] LABS: Basophils Absolute Auto 0.05 K/mm3 (0.00-0.10); Basophils Percent Auto 1.1 % (0.0-1.0); Eosinophils Absolute Auto 0.02 K/mm3 (0.02-0.50); Eosinophils Percent Auto 0.4 % (1.0-6.0); Hematocrit 36.6 % (37.0-46.0); Hemoglobin 12.7 g/dL (12.4-15.3); Immature Granulocyte Absolute 0.02 K/mm3 (0.00-0.00); Immature Granulocyte Percent A 0.4 % (0.0-0.0); Lymphocytes Absolute Auto 1.14 K/mm3 (1.10-4.50); Lymphocytes Percent Auto 25.1 % (18.0-42.0); Mean Corpuscular HGB Conc 34.7 g/dL (32.0-36.0); Mean Corpuscular Hemoglobin 35.7 pg (27.0-31.0); Mean Corpuscular Volume 102.8 fL (78.0-102.0); Mean Platelet Volume 9.6 fl (8.7-11.0); Monocytes Absolute Auto 0.64 K/mm3 (0.10-0.90); Monocytes Percent Auto 14.1 % (2.0-11.0); Neutrophils Absolute Auto 2.7 K/mm3 (1.7-7.2); Neutrophils Percent Auto 58.9 % (50.0-70.0); Platelet Count Result 218 K/mm3 (150-420); Red Blood Count 3.56 M/mm3 (4.70-6.10); Red Cell Distribution Width 13.1 % (11.6-14.4); White Blood Count 4.5 K/mm3 (4.8-10.8)
[2020-03-30 18:49] LABS: Add Urine Microscopic? YES; Appearance Urine Clear (Clear); Bilirubin Urine 1+ (Negative); Blood Urine Negative (Negative); Color Urine Amber (Yellow); Glucose Urine UA Negative (Negative); Ketones Urine 1+ (Negative); Leukocyte Esterase Ur Negative (Negative); Nitrate Urine Negative (Negative); Protein Urine Negative (Negative); Urobilinogen Urine 0.2 mg/dL (0.2-1.0); pH Urine 6.5 (5.0-8.0)
[2020-03-30 18:55] LABS: RBC Urine None seen /hpf (0-2); WBC Urine None seen /hpf (0-3)
[2020-03-30 18:56] LABS: Bacteria Urine Trace /hpf; Mucus Urine Few /lpf; Squamous Epithelial Cell Urine Rare /hpf (Few)
[2020-03-30 18:58] LABS: Alanine Aminotransferase 125 U/L (16-63); Albumin Level 3.6 g/dL (3.4-5.0); Alkaline Phosphatase 101 U/L (46-116); Anion Gap 9 mmol/L (8-16); Aspartate Amino Transferase 146 U/L (15-37); Bilirubin,Total 0.8 mg/dL (0.00-1.00); Blood Urea Nitrogen 11 mg/dL (7-18); Calcium 9.2 mg/dL (8.5-10.1); Carbon Dioxide 29 mmol/L (21-32); Chloride 97 mmol/L (98-108); Creatine Kinase 162 U/L (39-308); Estimated CRCL calculation 46 ml/min; Estimated Glomerular Filt Rate > 60; Glucose 118 mg/dL (70-99); Osmolality Calculated 280 mOsm/kg (285-295); Potassium 4.3 mmol/L (3.5-5.1); Sodium 135 mmol/L (136-145); Total Protein 6.8 g/dL (6.4-8.2)
[2020-03-30] MEDS: MORPHINE SULFATE 2 MG/ML INJ IV PUSH (20:10)
[2020-03-30] MEDS: ONDANSETRON INJ 4 MG/2 ML VIAL IV PUSH (20:10)
--- NOTE | 2020-03-30 21:40 | PC.NURSE ---
RN CONTACTED EMMANUELLE VITAL RN, AT [id number] TO REQUEST INPATIENT ROOM ASSIGNMENT. ROOM 202 PROVIDED. REGISTRATION NOTIFIED.
[2020-03-30] MEDS: HYDROmorphone HCL 2 MG/ML VIAL 0.5 MG IV PUSH (21:45)
--- NOTE | 2020-03-30 23:12 | ADMGEN ---
This patient, Rik Thakur, was admitted to 2nd Floor Room 202-2. Patient oriented to hospital policies and general routines including ID bracelet, bed and alarms, visiting hours, pain management, procedures, bathroom and other care routines, personal items, smoking policy, room service/diet, and visiting hours. Valuables list includes clothing, 2 wallets, watch, 2 hearing aids, cell phone and sales floor manager. Information on how to activate the Rapid Response Team has been discussed. Patient are encouraged to report perceived risks to care and to ask questions if they do not understand what they are told or what they should do.
[2020-03-31] VITALS: BP 139/89; PULSE 83; RESP 18; TEMP 36.8; O2SAT 95
--- NOTE | 2020-03-31 03:11 | PC.NURSE ---
Notified Dr. Hermosillo of pt's c/o not being able to go back to sleep.
[2020-03-31] MEDS: ALPRAZolam 0.25 MG TABLET PO (03:42)
[2020-03-31 08:00] VITALS: BP 123/81; PULSE 65; RESP 18; TEMP 36.4; O2SAT 98
[2020-03-31] MEDS: TIMOLOL MALEATE 0.5% OP SOLN 5 ML BOTTLE 1 DROP EACH EYE (09:49)
[2020-03-31] MEDS: ENOXAPARIN 40 MG/0.4 ML SYRINGE SUB-Q (09:49)
--- NOTE | 2020-03-31 11:18 | PM.SD ---
Same Day Admit/Disch: HPI History of Present Illness Chief complaint: r pelvic fracture Narrative: Rik Thakur is a 75 year old male that presented to ED with right hip and knee pain post fall. Patient has a past medical history alcohol abuse, anxiety, failed total knee replacement, GERD, hip fracture, hypertension. According to patient he was at home yesterday attempting to change his seng litter and his lower extremities weekend and he fell on his left side. he was able to get himself up but had pain to the right hip with weight bearing. he then called his house keeper and maintenance vini to transfer him to the ED. Patient's vital Signs 139/89, 83, 18, 98.2, 95% on air. Patient's liver enzymes elevated, CT of the pelvis indicates Virtually nondisplaced right inferior pubic ramus fracture. imaging of the knee indicates some mild anterior edema no fractures noted I did contact the orthopedic for suggestions concerning weight bearing. does suggest that patient has weight-bearing as tolerated with walker it was also verified that this particular fracture is nonoperable. will treat this patient's for pain and possibly transfer swing bed.. Patient denies SOB, CP, palpitation, extremity numbness, lightheadness, dizziness, constipation, diarrhea, chills or fever. [facility] Past Medical History Medical History (Updated 03/31/20 @ 08:45 by Rik Hermosillo MD) Alcohol abuse Anxiety Failed total knee replacement GERD (gastroesophageal reflux disease) Hip fracture HTN (hypertension) Surgical History Surgical History (Updated 03/31/20 @ 06:26 by Rik Hermosillo MD) History of appendectomy Family History Family History (Updated 12/22/19 @ 01:57 by Charlotte Owens RN) Mother Old age Father Old age Social History Social History Social History: pt lives alone, and is fearful of falling Smoking packs per day: 3 Smoking cigarettes per day: 60.0 Years smoked: 45 Smoking pack-years: 135.00 Smoking status: Former smoker Tobacco type: cigarettes Second hand tobacco smoke exposure: No Smoking end date: 08/15/87 Alcohol intake: current Drinks per week: 28 Substance use: never Substance use type: does not use Gender identity (if verbalized by the patient): Male Spiritual care concerns: No Same Day Admit/Disch: Med Pre-admit Medications Home Medications Medication Instructions Recorded Confirmed Type timolol maleate 1 drp OPHTHALMIC (EYE) DAILY 03/30/20 03/30/20 History hydrocodone-acetaminophen 1 tablet PO Q6H PRN #20 tablet 03/31/20 Rx Exam Narrative: Exam Narrative: General: Frail in bed no acute distress. tenderness to the pelvis area HEENT: Normocephalic, atraumatic. PERRL, EOMI. Sclerae anicteric. Oral mucosa moist. Oropharynx clear. Neck: Supple. Respiratory: Lungs are clear to auscultation bilaterally. Cardiovascular: Regular rate and rhythm with S1-S2. Gastrointestinal: Abdomen is soft, nontender, and nondistended with positive bowel sounds. No organomegaly. Skin: Warm, dry, and slightly pale.. No rash or lesions on limited exam. Extremities: No cyanosis, clubbing, or edema. Radial and pedal pulses intact. limited range of motion with right lower extremity Neurological: Alert. Cranial nerves 2-12 are grossly intact. No gross focal deficits to casual conversation. Psychiatric: Pleasant and cooperative with normal mood and affect. Judgment and insight intact. DS: Data Data Completed and Pending Labs on day of discharge: Labs from last 24 hours 03/30/20 03/30/20 03/30/20 18:27 18:27 17:25 WBC 4.5 L RBC 3.56 L Hgb 12.7 Hct 36.6 L MCV 102.8 H MCH 35.7 H MCHC 34.7 RDW 13.1 Plt Count 218 MPV 9.6 Immature Gran % (Auto) 0.4 H Neut % (Auto) 58.9 Lymph % (Auto) 25.1 Wise % (Auto) 14.1 H Eos % (Auto) 0.4 L Baso % (Auto) 1.1 H Lymph # (Auto) 1.14 Wise #
[2020-03-31] MEDS: HYDROmorphone HCL 2 MG/ML VIAL 0.5 MG IV PUSH (15:24)
[2020-03-31 15:34] VITALS: BP 124/79; PULSE 67; RESP 18; TEMP 36.4; O2SAT 96
[2020-03-31] MEDS: ALPRAZolam 0.25 MG TABLET 0.125 MG PO (17:19)
[2020-03-31] MEDS: DOCUSATE SODIUM 100 MG CAPSULE PO (17:19)
[2020-03-31] MEDS: chlordiazePOXIDE 25 MG CAPSULE PO (20:41)
[2020-04-01] VITALS: BP 97/65; PULSE 66; RESP 16; TEMP 36.7; O2SAT 93
[2020-04-01 05:43] LABS: Hematocrit 33.8 % (37.0-46.0); Hemoglobin 11.3 g/dL (12.4-15.3); Mean Corpuscular HGB Conc 33.4 g/dL (32.0-36.0); Mean Corpuscular Hemoglobin 35.3 pg (27.0-31.0); Mean Corpuscular Volume 105.6 fL (78.0-102.0); Mean Platelet Volume 8.9 fl (8.7-11.0); Platelet Count Result 160 K/mm3 (150-420); Red Cell Distribution Width 13.1 % (11.6-14.4); White Blood Count 3.1 K/mm3 (4.8-10.8)
[2020-04-01 05:59] LABS: Alanine Aminotransferase 82 U/L (16-63); Alkaline Phosphatase 78 U/L (46-116); Anion Gap 4 mmol/L (8-16); Aspartate Amino Transferase 81 U/L (15-37); Bilirubin,Total 0.9 mg/dL (0.00-1.00); Blood Urea Nitrogen 7 mg/dL (7-18); Calcium 8.6 mg/dL (8.5-10.1); Carbon Dioxide 33 mmol/L (21-32); Chloride 98 mmol/L (98-108); Estimated CRCL calculation 50 ml/min; Estimated Glomerular Filt Rate > 60; Glucose 78 mg/dL (70-99); Osmolality Calculated 277 mOsm/kg (285-295); Potassium 4.4 mmol/L (3.5-5.1); Sodium 135 mmol/L (136-145); Total Protein 5.8 g/dL (6.4-8.2)
[2020-04-01 08:00] VITALS: BP 106/72; PULSE 69; RESP 16; TEMP 37.3; O2SAT 97
[2020-04-01] MEDS: HYDROmorphone HCL 2 MG/ML VIAL 0.5 MG IV PUSH ×3 (09:30→18:21)
[2020-04-01] MEDS: TIMOLOL MALEATE 0.5% OP SOLN 5 ML BOTTLE 1 DROP EACH EYE (09:33)
[2020-04-01] MEDS: ENOXAPARIN 40 MG/0.4 ML SYRINGE SUB-Q (09:33)
[2020-04-01] MEDS: PANTOPRAZOLE SOD SESQUIHYDRATE 20 MG TAB PO (09:34)
[2020-04-01] MEDS: chlordiazePOXIDE 25 MG CAPSULE PO ×2 (09:34→21:20)
[2020-04-01] MEDS: DOCUSATE SODIUM 100 MG CAPSULE PO (09:34)
--- NOTE | 2020-04-01 12:39 | PC.NURSE ---
PT UP IN BED WATCHING TV WITHOUT COMPLAINT. REMINDED TO CALL WITH NEEDS.
--- NOTE | 2020-04-01 12:44 | WPDPN ---
Progress Note: A&P Assessment and Plan (1) GERD (gastroesophageal reflux disease): Code(s): K21.9 - Gastro-esophageal reflux disease without esophagitis Status: Acute Assessment and Plan: started Protonix (2) Anxiety: Code(s): F41.9 - Anxiety disorder, unspecified Status: Acute Assessment and Plan: continue Xanax And Librium for withdrawal symptoms (3) Closed fracture of single pubic ramus of pelvis: Qualifiers: Encounter type: initial encounter Laterality: right Qualified Code(s): S32.591A - Other specified fracture of right pubis, initial encounter for closed fracture Code(s): S32.509A - Unspecified fracture of unspecified pubis, initial encounter for closed fracture Status: Acute Assessment and Plan: imaging indicates Virtually nondisplaced right inferior pubic ramus fracture manage pain weight-bearing as tolerated use walker non operable no need to follow-up with ortho (4) Alcohol abuse: Code(s): F10.10 - Alcohol abuse, uncomplicated Status: Acute Assessment and Plan: patient denies use of alcohol with this fall patient has a history of falls with the use of alcohol and has been admitted as results patient educated on cessation patient noted that he will probably eliminate alcohol use due to his age started Librium for withdrawal symptoms (5) Elevated liver function tests: Code(s): R79.89 - Other specified abnormal findings of blood chemistry Status: Acute Assessment and Plan: secondary to alcohol use patient liver enzymes at baseline will continue to monitor liver enzymes (6) Weakness: Code(s): R53.1 - Weakness Status: Acute Assessment and Plan: Exhibit tolerance during physical activity as evidenced by a normal fluctuation of vital signs during physical activity. Patient will be ability to perform required activities of daily living. Provide appropriate nutrition for healing and strength. Use appropriate to prevent falls. Continue physical therapy/occupational therapy. Review of Systems Review of Systems: All systems reviewed & are unremarkable except as noted in HPI and below ( Ten system review) Exam Narrative: Exam Narrative: .Exam Narrative: General: Frail in bed no acute distress. tenderness to the pelvis area HEENT: Normocephalic, atraumatic. PERRL, EOMI. Sclerae anicteric. Oral mucosa moist. Oropharynx clear. Neck: Supple. Respiratory: Lungs are clear to auscultation bilaterally. Cardiovascular: Regular rate and rhythm with S1-S2. Gastrointestinal: Abdomen is soft, nontender, and nondistended with positive bowel sounds. No organomegaly. Skin: Warm, dry, and slightly pale.. No rash or lesions on limited exam. Extremities: No cyanosis, clubbing, or edema. Radial and pedal pulses intact. limited range of motion with right lower extremity Neurological: Alert. Cranial nerves 2-12 are grossly intact. No gross focal deficits to casual conversation. Psychiatric: Pleasant and cooperative with normal mood and affect. Judgment and insight intact. Objective Data Vital Signs Vital Signs: Vital Signs - 24 hr 03/31/20 15:34 04/01/20 00:00 04/01/20 08:00 Temperature 97.6 F 98.0 F 99.1 F Pulse Rate 67 66 69 Respiratory Rate 18 16 16 Blood Pressure 124/79 97/65 L 106/72 Pulse Oximetry 96 93 97 Intake/Output Intake/Output: Intake & Output 03/29/20 03/30/20 03/31/20 04/01/20 23:59 23:59 23:59 23:59 Intake Total 1040 660 Output Total 200 675 Balance 840 -15 Meds/Results Medications: Active Medications Generic Name Dose Route Start Last Admin Trade Name Freq PRN Reason Stop Dose Admin Acetaminophen 650 mg 03/31/20 11:55 Tylenol Tablet PO Q4H PRN Mild Pain (1-3) or Fever Hydrocodone Bitart/Acetaminophen 1 tab 03/31/20 11:55 04/01/20 09:34 Steen 5-325 Mg PO 1 tab Q4H PRN Administra
--- NOTE | 2020-04-01 14:14 | PC.NURSE ---
Working in room with physical therapy.
[2020-04-01 16:00] VITALS: BP 96/65; PULSE 70; RESP 16; TEMP 36.4; O2SAT 96
--- NOTE | 2020-04-01 23:21 | PM.EVENT ---
Event Note Event Note Event Note: I have examined the patient and reviewed the chart. I discussed the patient's care with Edilia Haney APN and agree with her assessment and plan.
[2020-04-02] VITALS: BP 117/77; PULSE 78; RESP 16; TEMP 36.8; O2SAT 98
--- NOTE | 2020-04-02 05:36 | PC.NURSE ---
Pt expelled lg mushy brown BM.
[2020-04-02 05:55] LABS: Hemoglobin 10.7 g/dL (12.4-15.3); Mean Corpuscular HGB Conc 33.4 g/dL (32.0-36.0); Mean Corpuscular Hemoglobin 35.8 pg (27.0-31.0); Mean Platelet Volume 10.8 fl (8.7-11.0); Platelet Count Result 33 K/mm3 (150-420); Red Blood Count 2.99 M/mm3 (4.70-6.10); Red Cell Distribution Width 13.1 % (11.6-14.4); White Blood Count 2.8 K/mm3 (4.8-10.8)
[2020-04-02 06:14] LABS: Alanine Aminotransferase 84 U/L (16-63); Alkaline Phosphatase 77 U/L (46-116); Anion Gap 4 mmol/L (8-16); Aspartate Amino Transferase 101 U/L (15-37); Bilirubin,Total 0.7 mg/dL (0.00-1.00); Blood Urea Nitrogen 7 mg/dL (7-18); Calcium 8.8 mg/dL (8.5-10.1); Carbon Dioxide 32 mmol/L (21-32); Chloride 100 mmol/L (98-108); Estimated CRCL calculation 60 ml/min; Estimated Glomerular Filt Rate > 60; Glucose 74 mg/dL (70-99); Osmolality Calculated 279 mOsm/kg (285-295); Potassium 4.8 mmol/L (3.5-5.1); Sodium 136 mmol/L (136-145); Total Protein 5.7 g/dL (6.4-8.2)
[2020-04-02 08:00] VITALS: BP 122/59; PULSE 74; RESP 18; TEMP 37.2; O2SAT 98
[2020-04-02] MEDS: ENOXAPARIN 40 MG/0.4 ML SYRINGE SUB-Q (10:02)
[2020-04-02] MEDS: chlordiazePOXIDE 25 MG CAPSULE PO ×2 (10:02→20:22)
[2020-04-02] MEDS: PANTOPRAZOLE SOD SESQUIHYDRATE 20 MG TAB PO (10:02)
[2020-04-02] MEDS: DOCUSATE SODIUM 100 MG CAPSULE PO (10:02)
[2020-04-02] MEDS: TIMOLOL MALEATE 0.5% OP SOLN 5 ML BOTTLE 1 DROP EACH EYE (10:03)
[2020-04-02] MEDS: HYDROmorphone HCL 2 MG/ML VIAL 0.5 MG IV PUSH (10:40)
--- NOTE | 2020-04-02 11:28 | P.PN_ITS ---
Progress Note: A&P Assessment and Plan (1) GERD (gastroesophageal reflux disease): Code(s): K21.9 - Gastro-esophageal reflux disease without esophagitis <Clarence HaneyJACY - Last Filed: 04/02/20 11:35> Status: Acute <Clarence Haney ART SALES CONSULTANT-C - Last Filed: 04/02/20 11:35> Assessment and Plan: * continue Protonix <Clarence HaneyJACY - Last Filed: 04/02/20 11:35> (2) Anxiety: Code(s): F41.9 - Anxiety disorder, unspecified <Clarence Haney ART SALES CONSULTANT-C - Last Filed: 04/02/20 11:35> Status: Acute <Clarence Haney ART SALES CONSULTANT-C - Last Filed: 04/02/20 11:35> Assessment and Plan: * continue Xanax * And Librium q.12 hours schedule for withdrawal symptoms <Clarence Malhotra JACY Haney - Last Filed: 04/02/20 11:35> (3) Closed fracture of single pubic ramus of pelvis: Qualifiers: Encounter type: initial encounter Laterality: right Qualified Code(s): S32.591A - Other specified fracture of right pubis, initial encounter for closed fracture <Clarence HaneyJACY - Last Filed: 04/02/20 11:35> Code(s): S32.509A - Unspecified fracture of unspecified pubis, initial encounter for closed fracture <Clarence HaneyJACY - Last Filed: 04/02/20 11:35> Status: Acute <Clarence HaneyJACY - Last Filed: 04/02/20 11:35> Assessment and Plan: * imaging indicates Virtually nondisplaced right inferior pubic ramus fracture * manage pain patient Dilaudid discontinue. [place] increase 10-325 mg q.4 hours to better control pain * weight-bearing as tolerated use walker * non operable no need to follow-up with ortho <Clraence Malhotra JACY Haney - Last Filed: 04/02/20 11:35> (4) Alcohol abuse: Code(s): F10.10 - Alcohol abuse, uncomplicated <JACY Miller - Last Filed: 04/02/20 11:35> Status: Acute <JACY Miller - Last Filed: 04/02/20 11:35> Assessment and Plan: * patient denies use of alcohol with this fall * patient has a history of falls with the use of alcohol and has been admitted as results * patient educated on cessation * patient noted that he will probably eliminate alcohol use due to his age * started Librium for withdrawal symptoms <JACY Miller - Last Filed: 04/02/20 11:35> (5) Elevated liver function tests: Code(s): R79.89 - Other specified abnormal findings of blood chemistry <JACY Miller - Last Filed: 04/02/20 11:35> Status: Acute <JACY Miller - Last Filed: 04/02/20 11:35> Assessment and Plan: * patient with a history of 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 * Patient will be ability to perform required activities of daily living. * Provide appropriate nutrition for healing and strength. * Use appropriate to prevent falls. * Continue physical therapy/occupational therapy. <JACY Miller - Last Filed: 04/02/20 11:35> (7) Insomnia: Code(s): G47.00 - Insomnia, unspecified <JACY Miller - Last Filed: 04/02/20 11:35> Status:
--- NOTE | 2020-04-02 11:28 | WPDPN ---
Progress Note: A&P Assessment and Plan (1) GERD (gastroesophageal reflux disease): Code(s): K21.9 - Gastro-esophageal reflux disease without esophagitis <Clarence Malhotra JACY Haney - Last Filed: 04/02/20 11:35> Status: Acute <Clarence HaneyTIFFANIEC - Last Filed: 04/02/20 11:35> Assessment and Plan: continue Protonix <Clarence Malhotra JACY Haney - Last Filed: 04/02/20 11:35> (2) Anxiety: Code(s): F41.9 - Anxiety disorder, unspecified <Clarence Malhotra TIFFANIE HaneyC - Last Filed: 04/02/20 11:35> Status: Acute <Clarence Malhotra JACY Haney - Last Filed: 04/02/20 11:35> Assessment and Plan: continue Xanax And Librium q.12 hours schedule for withdrawal symptoms <Clarence OraJACY Bates - Last Filed: 04/02/20 11:35> (3) Closed fracture of single pubic ramus of pelvis: Qualifiers: Encounter type: initial encounter Laterality: right Qualified Code(s): S32.591A - Other specified fracture of right pubis, initial encounter for closed fracture <Clarence PayanJACY Bates - Last Filed: 04/02/20 11:35> Code(s): S32.509A - Unspecified fracture of unspecified pubis, initial encounter for closed fracture <Warrendashawn OraTIFFANIE BatesC - Last Filed: 04/02/20 11:35> Status: Acute <Clarence PayanTIFFANIE BatesC - Last Filed: 04/02/20 11:35> Assessment and Plan: imaging indicates Virtually nondisplaced right inferior pubic ramus fracture manage pain patient Dilaudid discontinue. [place] increase 10-325 mg q.4 hours to better control pain weight-bearing as tolerated use walker non operable no need to follow-up with ortho <JACY Miller - Last Filed: 04/02/20 11:35> (4) Alcohol abuse: Code(s): F10.10 - Alcohol abuse, uncomplicated <Clarence RJACY Bates - Last Filed: 04/02/20 11:35> Status: Acute <JACY Miller - Last Filed: 04/02/20 11:35> Assessment and Plan: patient denies use of alcohol with this fall patient has a history of falls with the use of alcohol and has been admitted as results patient educated on cessation patient noted that he will probably eliminate alcohol use due to his age started Librium for withdrawal symptoms <JACY Miller - Last Filed: 04/02/20 11:35> (5) Elevated liver function tests: Code(s): R79.89 - Other specified abnormal findings of blood chemistry <JACY Miller - Last Filed: 04/02/20 11:35> Status: Acute <JACY Miller - Last Filed: 04/02/20 11:35> Assessment and Plan: patient with a history of hepatitis secondary to alcohol use patient liver enzymes at baseline will continue to monitor liver enzymes <JACY Miller - Last Filed: 04/02/20 11:35> (6) Weakness: Code(s): R53.1 - Weakness <JACY Miller - Last Filed: 04/02/20 11:35> Status: Acute <JACY Miller - Last Filed: 04/02/20 11:35> Assessment and Plan: Exhibit tolerance during physical activity as evidenced by a normal fluctuation of vital signs during physical activity. Patient will be ability to perform required activities of daily living. Provide appropriate nutrition for healing and strength. Use appropriate to prevent falls. Continue physical therapy/occupational therapy. <Clarence Haney JACY - Last Filed: 04/02/20 11:35> (7) Insomnia: Code(s): G47.00 - Insomnia, unspecified <Clarence Haney JACY - Last Filed: 04/02/20 11:35> Status: Acute <Clarence Haney JACY - Last Filed: 04/02/20 11:35> Assessment and Plan: started trazodone <Clarence Haney JACY - Last Filed: 04/02/20 11:35> Review of Systems Review of Systems: All systems reviewed & are unremarkable except as noted in HPI and below ( 10 point system review) <Clarence Haney, PROGRAMMER BUSINESS-C - Last Filed: 04/02/
[2020-04-02 13:30] VITALS: BP 87/62; PULSE 64; RESP 18; TEMP 36.7; O2SAT 99
[2020-04-02 16:00] VITALS: BP 111/72; PULSE 70; RESP 18; TEMP 36.4; O2SAT 98
[2020-04-02] MEDS: LOPERAMIDE HCL 2 MG CAPSULE PO (17:36)
[2020-04-02] MEDS: traZODone HCL 25 MG TABLET PO (20:22)
[2020-04-03] VITALS: BP 97/64; PULSE 70; RESP 20; TEMP 36.7; O2SAT 96
--- NOTE | 2020-04-03 02:45 | PC.NURSE ---
pt had liquid stool in the bedside commode, cleaned up bsc and floor, pt sleeping respirations even and regular
[2020-04-03 04:20] VITALS: O2SAT 99
[2020-04-03] MEDS: LOPERAMIDE HCL 2 MG CAPSULE PO (04:22)
[2020-04-03 05:42] LABS: Hematocrit 32.9 % (37.0-46.0); Hemoglobin 11.1 g/dL (12.4-15.3); Mean Corpuscular HGB Conc 33.7 g/dL (32.0-36.0); Mean Corpuscular Hemoglobin 35.4 pg (27.0-31.0); Mean Corpuscular Volume 104.8 fL (78.0-102.0); Mean Platelet Volume 9.5 fl (8.7-11.0); Platelet Count Result 161 K/mm3 (150-420); Red Blood Count 3.14 M/mm3 (4.70-6.10); White Blood Count 2.9 K/mm3 (4.8-10.8)
[2020-04-03 06:04] LABS: Alanine Aminotransferase 75 U/L (16-63); Albumin Level 2.8 g/dL (3.4-5.0); Alkaline Phosphatase 68 U/L (46-116); Anion Gap 7 mmol/L (8-16); Aspartate Amino Transferase 86 U/L (15-37); Bilirubin,Total 0.6 mg/dL (0.00-1.00); Blood Urea Nitrogen 6 mg/dL (7-18); Calcium 8.6 mg/dL (8.5-10.1); Carbon Dioxide 29 mmol/L (21-32); Chloride 101 mmol/L (98-108); Estimated CRCL calculation 49 ml/min; Estimated Glomerular Filt Rate > 60; Glucose 85 mg/dL (70-99); Magnesium 1.4 mg/dL (1.8-2.4); Osmolality Calculated 280 mOsm/kg (285-295); Potassium 3.4 mmol/L (3.5-5.1); Sodium 137 mmol/L (136-145); Total Protein 5.6 g/dL (6.4-8.2)
[2020-04-03 06:11] LABS: Band Neutrophils Percent 0 % (0-6); Basophils Absolute Manual 0.02 K/mm3 (0-0.1); Basophils Percent Manual 1 % (0-1); Eosinophils Absolute Manual 0.02 K/mm3 (0.02-0.5); Eosinophils Percent Manual 1 % (1-6); Lymphocytes Absolute Manual 1.13 K/mm3 (1.1-4.5); Lymphocytes Percent Manual 39 % (18-44); Monocytes Absolute Manual 0.26 K/mm3 (0.1-0.90); Monocytes Percent Manual 9 % (3-9); Neutrophils Absolute Manual 1.45 K/mm3 (1.3-6.7); Neutrophils Percent Manual 50 % (46-73); Platelet Estimate Adequate (Adequate)
[2020-04-03] MEDS: ACETAMINOPHEN 325 MG TABLET 650 MG PO (07:33)
--- NOTE | 2020-04-03 07:33 | PC.NURSE ---
right hip pain, tylenol given
[2020-04-03 07:46] VITALS: BP 90/51; PULSE 70; RESP 18; TEMP 36.8; O2SAT 95
[2020-04-03] MEDS: TIMOLOL MALEATE 0.5% OP SOLN 5 ML BOTTLE 1 DROP EACH EYE (08:35)
[2020-04-03] MEDS: chlordiazePOXIDE 25 MG CAPSULE PO (08:36)
[2020-04-03] MEDS: PANTOPRAZOLE SOD SESQUIHYDRATE 20 MG TAB PO (08:36)
[2020-04-03] MEDS: MAGNESIUM SULF 4 GM/WATER100ML 4 GM/100 ML BAG IVPB (11:17)
[2020-04-03] MEDS: POTASSIUM CHLORIDE 20 MEQ PACKET (FOR LIQUID) 40 MEQ PO (11:17)
--- NOTE | 2020-04-03 12:58 | P.DS_ITS ---
DS: Admitting Diagnosis Admitting Diagnosis Admitting Diagnosis: r pelvic fracture DS: Discharge Diagnosis Discharge Diagnosis (1) GERD (gastroesophageal reflux disease): Code(s): K21.9 - Gastro-esophageal reflux disease without esophagitis Status: Acute Assessment and Plan: * continue Protonix (2) Anxiety: Code(s): F41.9 - Anxiety disorder, unspecified Status: Acute Assessment and Plan: * continue Xanax * And Librium q.12 hours schedule for withdrawal symptoms (3) Closed fracture of single pubic ramus of pelvis: Qualifiers: Encounter type: initial encounter Laterality: right Qualified Code(s): S32.591A - Other specified fracture of right pubis, initial encounter for closed fracture Code(s): S32.509A - Unspecified fracture of unspecified pubis, initial encounter for closed fracture Status: Acute Assessment and Plan: * imaging indicates Virtually nondisplaced right inferior pubic ramus fracture * manage pain patient Dilaudid discontinue. [place] increase 10-325 mg q.4 hours to better control pain * weight-bearing as tolerated use walker * non operable no need to follow-up with ortho (4) Alcohol abuse: Code(s): F10.10 - Alcohol abuse, uncomplicated Status: Acute Assessment and Plan: * patient denies use of alcohol with this fall * patient has a history of falls with the use of alcohol and has been admitted as results * patient educated on cessation * patient noted that he will probably eliminate alcohol use due to his age * started Librium for withdrawal symptoms (5) Elevated liver function tests: Code(s): R79.89 - Other specified abnormal findings of blood chemistry Status: Acute Assessment and Plan: * patient 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 * Patient will be ability to perform required activities of daily living. * Provide appropriate nutrition for healing and strength. * Use appropriate to prevent falls. * Continue physical therapy/occupational therapy. (7) Insomnia: Code(s): G47.00 - Insomnia, unspecified Status: Acute Assessment and Plan: * started trazodone DS: Summary Time Spent with Patient Time attestation: Total time spent providing and/or coordinating discharge services: Exam Narrative: Exam Narrative: .Exam Narrative: General: Frail in bed no acute distress. tenderness to the pelvis area HEENT: Normocephalic, atraumatic. PERRL, EOMI. Sclerae anicteric. Oral mucosa moist. Oropharynx clear. Neck: Supple. Respiratory: Lungs are clear to auscultation bilaterally. Cardiovascular: Regular rate and rhythm with S1-S2. Gastrointestinal: Abdomen is soft, nontender, and nondistended with positive bowel sounds. No organomegaly. Skin: Warm, dry, and slightly pale.. No rash or lesions on limited exam. Extremities: No cyanosis, clubbing, or edema. Radial and pedal pulses intact. limited range of motion with right lower extremity left shoulder pain Neurological: Alert. Cranial nerves 2-12 are grossly intact. No gross focal deficits to casual conversation. Psychiatric: Pleasant and cooperative with normal mood and affect. Judgment and insight intact.
--- NOTE | 2020-04-03 12:58 | PM.DS ---
DS: Admitting Diagnosis Admitting Diagnosis Admitting Diagnosis: r pelvic fracture DS: Discharge Diagnosis Discharge Diagnosis (1) GERD (gastroesophageal reflux disease): Code(s): K21.9 - Gastro-esophageal reflux disease without esophagitis Status: Acute Assessment and Plan: continue Protonix (2) Anxiety: Code(s): F41.9 - Anxiety disorder, unspecified Status: Acute Assessment and Plan: continue Xanax And Librium q.12 hours schedule for withdrawal symptoms (3) Closed fracture of single pubic ramus of pelvis: Qualifiers: Encounter type: initial encounter Laterality: right Qualified Code(s): S32.591A - Other specified fracture of right pubis, initial encounter for closed fracture Code(s): S32.509A - Unspecified fracture of unspecified pubis, initial encounter for closed fracture Status: Acute Assessment and Plan: imaging indicates Virtually nondisplaced right inferior pubic ramus fracture manage pain patient Dilaudid discontinue. [place] increase 10-325 mg q.4 hours to better control pain weight-bearing as tolerated use walker non operable no need to follow-up with ortho (4) Alcohol abuse: Code(s): F10.10 - Alcohol abuse, uncomplicated Status: Acute Assessment and Plan: patient denies use of alcohol with this fall patient has a history of falls with the use of alcohol and has been admitted as results patient educated on cessation patient noted that he will probably eliminate alcohol use due to his age started Librium for withdrawal symptoms (5) Elevated liver function tests: Code(s): R79.89 - Other specified abnormal findings of blood chemistry Status: Acute Assessment and Plan: patient with a history of hepatitis secondary to alcohol use patient liver enzymes at baseline will continue to monitor liver enzymes (6) Weakness: Code(s): R53.1 - Weakness Status: Acute Assessment and Plan: Exhibit tolerance during physical activity as evidenced by a normal fluctuation of vital signs during physical activity. Patient will be ability to perform required activities of daily living. Provide appropriate nutrition for healing and strength. Use appropriate to prevent falls. Continue physical therapy/occupational therapy. (7) Insomnia: Code(s): G47.00 - Insomnia, unspecified Status: Acute Assessment and Plan: started trazodone DS: Summary Time Spent with Patient Time attestation: Total time spent providing and/or coordinating discharge services: Exam Narrative: Exam Narrative: .Exam Narrative: General: Frail in bed no acute distress. tenderness to the pelvis area HEENT: Normocephalic, atraumatic. PERRL, EOMI. Sclerae anicteric. Oral mucosa moist. Oropharynx clear. Neck: Supple. Respiratory: Lungs are clear to auscultation bilaterally. Cardiovascular: Regular rate and rhythm with S1-S2. Gastrointestinal: Abdomen is soft, nontender, and nondistended with positive bowel sounds. No organomegaly. Skin: Warm, dry, and slightly pale.. No rash or lesions on limited exam. Extremities: No cyanosis, clubbing, or edema. Radial and pedal pulses intact. limited range of motion with right lower extremity left shoulder pain Neurological: Alert. Cranial nerves 2-12 are grossly intact. No gross focal deficits to casual conversation. Psychiatric: Pleasant and cooperative with normal mood and affect. Judgment and insight intact. DS: Data Data Completed and Pending Labs on day of discharge: Labs from last 24 hours 04/03/20 04/03/20 05:31 05:31 WBC 2.9 L RBC 3.14 L Hgb 11.1 L Hct 32.9 L MCV 104.8 H MCH 35.4 H MCHC 33.7 RDW 13.0 Plt Count 161 MPV 9.5 Immature Gran % (Auto) Not Reportable Neut % (Auto) Not Reportable Lymph % (Auto) Not Reportable [place] % (Auto) Not Reportable Eos % (Auto) Not Rep
--- NOTE | 2020-04-03 13:00 | PC.NURSE ---
switched to skilled swing bed
== END 2020-04-03 12:59 | disposition swing bed (61) | DRG 536 ==
LOC: CHSED 17:06 → CHS2ND 21:39
PROVIDERS: Nurse Practitioner; Admitting Provider Family Medicine; Emergency Provider Family Medicine; PCP Internal Medicine; Visit Provider Family Medicine
DX: S32.591A Other specified fracture of right pubis, initial encounter for closed fracture (principal); S80.01XA Contusion of right knee, initial encounter; I10 Essential (primary) hypertension; K21.9 Gastro-esophageal reflux disease without esophagitis; K52.9 Noninfective gastroenteritis and colitis, unspecified; F41.9 Anxiety disorder, unspecified; F10.10 Alcohol abuse, uncomplicated; W19.XXXA Unspecified fall, initial encounter; Y92.009 Unspecified place in unspecified non-institutional (private) residence as the place of occurrence of the external cause; Z91.81 History of falling; Z87.891 Personal history of nicotine dependence; Z96.651 Presence of right artificial knee joint; Y92.019 Unspecified place in single-family (private) house as the place of occurrence of the external cause
CPT/HCPCS: 36415; 72192; 73030; 73502; 73564; 80053; 81001; 82550; 83735; 85025; 85027; 96374; 96375; 97110; 97161; 97165; 97530; 99283; 99285; A9270; J1170; J1650; J2270; J2405; J3475

== ENCOUNTER 2020-04-03 13:00 | Inpatient (IN) | payer MEDICARE, SELFPAY ==
[2020-04-03 13:10] VITALS: BP 90/48; PULSE 60; RESP 18; TEMP 36.3; O2SAT 95; BMI 17.9
--- NOTE | 2020-04-03 13:10 | PC.NURSE ---
Admitted to skilled swing bed status, recent pelvic fracture, continue therapy due to pain and weakness, oriented to room and call system
--- NOTE | 2020-04-03 14:17 | PM.IMHP ---
H&P: HPI History of Present Illness Date/Time: 04/03/20 14:17 Chief complaint: R PELVIC FRACTURE Narrative: Rik Thakur is a 75 year old male that presented to ED with right hip and knee pain post fall. Patient has a past medical history alcohol abuse, anxiety, failed total knee replacement, GERD, hip fracture, hypertension. According to patient he was at home attempting to change his seng litter and his lower extremities weaken and he fell on his left side. he later admitted to having alcoholic for verge. he was able to get himself up but had pain to the right hip with weight bearing. he then called his house keeper and maintenance vini to transfer him to the ED. CT of the pelvis indicates Virtually nondisplaced right inferior pubic ramus fracture. Patient admitted in swing bed for rehabilitation due to decreased balance decreased mobility in severe limited function endurant and/or mobility. patient continues to complain about right hip pain and left shoulder pain. Review of Systems Review of Systems: All systems reviewed & are unremarkable except as noted in HPI and below ( 10 point review systems) [facility] Past Medical History Medical History (Updated 04/03/20 @ 09:08 by TIFFANIE MillerC) Alcohol abuse Anxiety Failed total knee replacement GERD (gastroesophageal reflux disease) Hip fracture HTN (hypertension) Surgical History Surgical History (Updated 03/31/20 @ 06:26 by Rik Hermosillo MD) History of appendectomy Family History Family History (Updated 12/22/19 @ 01:57 by Charlotte Owens RN) Mother Old age Father Old age Social History Social History Social History: pt lives alone, and is fearful of falling Smoking packs per day: 3 Smoking cigarettes per day: 60.0 Years smoked: 45 Smoking pack-years: 135.00 Smoking status: Former smoker Tobacco type: cigarettes Second hand tobacco smoke exposure: No Smoking end date: 08/15/87 Alcohol intake: current Drinks per week: 7 Substance use: never Substance use type: does not use Gender identity (if verbalized by the patient): Male Spiritual care concerns: No Meds Home Medications and Allergies Home Medications Medication Instructions Recorded Confirmed Type timolol maleate 1 drp OPHTHALMIC (EYE) DAILY 03/30/20 04/03/20 History hydrocodone-acetaminophen 1 tablet PO Q6H PRN #20 tablet 03/31/20 04/03/20 Rx acetaminophen [Mapap 650 mg PO Q4H PRN #30 tablet 04/03/20 04/03/20 Rx (acetaminophen)] alprazolam 0.125 mg PO TID PRN #30 tablet 04/03/20 04/03/20 Rx alum-mag hydroxide-simeth [Mag-Al 30 ml PO QID PRN #30 ml 04/03/20 04/03/20 Rx Plus] chlordiazepoxide HCl 25 mg PO Q12HR #30 cap 04/03/20 04/03/20 Rx cyclobenzaprine 5 mg PO Q8H PRN #30 tablet 04/03/20 04/03/20 Rx docusate sodium 100 mg PO BID #30 cap 04/03/20 04/03/20 Rx hydrocodone-acetaminophen [Nazlini] 1 tab PO Q4H PRN #30 tablet 04/03/20 04/03/20 Rx lidocaine [Lidoderm] 1 patch TRANSDERMAL DAILY #30 ea 04/03/20 04/03/20 Rx loperamide 2 mg PO PRN PRN #30 cap 04/03/20 04/03/20 Rx ondansetron HCl (PF) 4 mg IVPUSH Q6H PRN #30 ml 04/03/20 04/03/20 Rx pantoprazole [Protonix] 20 mg PO QAM #30 tablet 04/03/20 04/03/20 Rx potassium chloride 20 meq PO DAILY #30 ea 04/03/20 04/03/20 Rx trazodone 50 mg PO HS #30 tablet 04/03/20 04/03/20 Rx Allergies Allergy/AdvReac Type Severity Reaction Status Date / Time Penicillins Allergy Mild Verified 10/01/15 15:02 Vital Signs Vital Signs - 24 hr 04/03/20 13:10 Temperature 97.4 F L Pulse Rate 60 Respiratory Rate 18 Blood Pressure 90/48 L Pulse Oximetry 95 Exam Narrative: Exam Narrative: Exam Narrative: General: Frail in bed no acute distress. tenderness to the pelvis area HEENT: Normocephalic, atraumatic. PERRL, EOMI. Sclerae anicteric. Oral mucosa moist. Oropharynx clear. Neck: Supple. Respiratory: Lungs are clear to auscultation bilater
[2020-04-03 16:00] VITALS: BP 94/66; PULSE 60; RESP 16; TEMP 36.1; O2SAT 100
--- NOTE | 2020-04-03 16:19 | PC.NURSE ---
pt found in restroom upon entering room, reminded to call for assistance when getting up, walks back to bed sba with walker, pt asks when next pain med is due and if iv can come out, no other complaints
--- NOTE | 2020-04-03 19:03 | PC.NURSE ---
pt found out in hallway, asks how he can lock the door so he is protected from others trying to enter his room, assured no one but the nurses will enter the room, pt asks if we have alcohol, asks if someone can bring him alcohol, pt reminded there is no alcohol allowed on the floor, pt reminded of need to call for help when getting up and not to wander hallways unassisted
[2020-04-03] MEDS: chlordiazePOXIDE 25 MG CAPSULE PO (20:57)
[2020-04-03] MEDS: traZODone HCL 50 MG TABLET PO (20:57)
[2020-04-03] MEDS: traMADol HCL 50 MG TABLET PO (20:57)
--- NOTE | 2020-04-03 20:59 | PC.NURSE ---
pt is agitated due to bed alarm going off, informed it is on due to his getting up repeatedly without calling for assistance, pt states im ready to check out in the morning, this is ridiculous , pt walked to restroom and back to bed
[2020-04-04] VITALS: BP 95/61; PULSE 62; RESP 20; TEMP 36.4; O2SAT 98
--- NOTE | 2020-04-04 02:30 | PC.NURSE ---
Alarm sounding, typewriter mechanic found patient up on bedside commode, there was liquid BM on the bed, the floor, all over the commode, and on the wall. Swimming Pool Maintenance went to get linens to clean up the room and the patient and came back to find the patient bent over wiping up the floor with bath wipes. Swimming Pool Maintenance assisted patient with cleaning up and changing gown and socks and assisted him to the bedside chair and then changed bed linen and cleaned floor, commode and wall. once every thing was cleaned typewriter mechanic assisted the patient back to bed. Patient has a weak gait. He insists on walking with the walker and the cane at the same time and he refuses to wear the gait belt. Patient is asking that bed alarm be turned off typewriter mechanic explained that it was on because he was a a high risk for falls and that it needed to be left on for his safety. Before leaving the room typewriter mechanic explained to the patient that he needed to call for assistance with the call light before getting out of bed.
--- NOTE | 2020-04-04 02:45 | PC.NURSE ---
Patient called out to nurses station stating that he needed to use the commode. Allergist Immunologist entered the room and brought commode over to bed and asked the patient if he would rather use his cane or the walker to transfer. Patient became verbally aggressive and demanded to use both at the same time. When marketing writer explained that it was not safe to do that he held up the cane as though he were going to hit with it. Patient transferred independently to the commode. Once done, he refused to get back in bed until the commode was placed in a certain spot and the trash can had to in a particular spot as well, he became very agitated and combative when marketing writer moved the trash can to get to the commode to empty the bucket. Patient has a weak gait and he continues to refuse any assistance while ambulating. Once back in bed the patient was again reminded to call the nurse for assistance when getting out of bed.
--- NOTE | 2020-04-04 03:30 | PC.NURSE ---
Alarm sounding. Patient found up walking toward hallway stating that he is trying to turn off the lights. Explained to the patient that the lights are in the hallway and he became combative. Patient is able to answer orientation questions appropriately but he appears confused and he is exhibiting odd behaviors. Patient is becoming physically aggressive and is refusing any assistance.
[2020-04-04] MEDS: ALPRAZolam 0.25 MG TABLET 0.125 MG PO (04:07)
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
--- NOTE | 2020-04-04 04:19 | PC.NURSE ---
Patient is very confused. He is wandering around room and refuses to go back to bed but he is also refusing any assistance with ambulation. He is insistent on ambulating with both his walker and his cane, He refuses the gait belt. He is going around poking things with his cane stating that he is trying to get things in place. Once patient sat down he was holding on the his walker but also stating that he wanted nurses to bring him his walker from the [address] when we explained to him that he had ahold of his walker he would look at it and state that he wanted the other one from the [facility]. Patient was moved to room 207 for safety.
[2020-04-04 08:00] VITALS: BP 92/58; PULSE 58; RESP 18; TEMP 36.1; O2SAT 95
[2020-04-04] MEDS: LIDOCAINE 5% PATCH 1 PATCH TRANSDERM (09:12)
[2020-04-04] MEDS: TIMOLOL MALEATE 0.5% OP SOLN 5 ML BOTTLE 1 DROP EACH EYE (09:13)
[2020-04-04] MEDS: PANTOPRAZOLE SOD SESQUIHYDRATE 20 MG TAB PO (09:14)
[2020-04-04] MEDS: chlordiazePOXIDE 25 MG CAPSULE PO ×2 (09:14→21:07)
[2020-04-04] MEDS: traMADol HCL 50 MG TABLET PO ×2 (09:14→21:07)
[2020-04-04] MEDS: POTASSIUM CHLORIDE 20 MEQ PACKET (FOR LIQUID) PO (09:21)
--- NOTE | 2020-04-04 10:37 | PC.NURSE ---
Patient dressed self and is wanting to go home, states can go home with his sister, hospitalist in to speak with patient
--- NOTE | 2020-04-04 11:16 | PC.NURSE ---
PT dept in to work with patient, awaiting call back from sister to find out if he can go home with her
--- NOTE | 2020-04-04 13:22 | PC.NURSE ---
in chair, denies needs, awaiting to hear back from sister regarding going home with her
--- NOTE | 2020-04-04 14:08 | PC.NURSE ---
patient on the phone with health care power of piecer
[2020-04-04 15:24] VITALS: BP 121/67; PULSE 62; RESP 18; TEMP 36.1; O2SAT 93
--- NOTE | 2020-04-04 15:24 | PC.NURSE ---
Patient reports that he is agreeable to stay the weekend to get stronger, up in room with walker, tolerating well, denies pain at this time
--- NOTE | 2020-04-04 18:36 | PC.NURSE ---
Sitting on edge of bed, ate well for dinner, denies needs, no evidence of pain noted
[2020-04-04] MEDS: traZODone HCL 50 MG TABLET PO (21:07)
[2020-04-05] VITALS: BP 144/78; PULSE 71; RESP 18; TEMP 36.2; O2SAT 99
[2020-04-05 05:30] LABS: Hemoglobin 10.4 g/dL (12.4-15.3); Mean Corpuscular HGB Conc 33.5 g/dL (32.0-36.0); Mean Corpuscular Hemoglobin 34.9 pg (27.0-31.0); Mean Platelet Volume 9.5 fl (8.7-11.0); Platelet Count Result 150 K/mm3 (150-420); Red Blood Count 2.98 M/mm3 (4.70-6.10); Red Cell Distribution Width 13.2 % (11.6-14.4); White Blood Count 2.7 K/mm3 (4.8-10.8)
[2020-04-05 05:47] LABS: Alanine Aminotransferase 74 U/L (16-63); Albumin Level 2.6 g/dL (3.4-5.0); Alkaline Phosphatase 66 U/L (46-116); Anion Gap 6 mmol/L (8-16); Aspartate Amino Transferase 93 U/L (15-37); Bilirubin,Total 0.4 mg/dL (0.00-1.00); Blood Urea Nitrogen 7 mg/dL (7-18); Calcium 8.2 mg/dL (8.5-10.1); Carbon Dioxide 28 mmol/L (21-32); Chloride 102 mmol/L (98-108); Estimated CRCL calculation 61 ml/min; Estimated Glomerular Filt Rate > 60; Glucose 80 mg/dL (70-99); Magnesium 1.6 mg/dL (1.8-2.4); Osmolality Calculated 279 mOsm/kg (285-295); Potassium 4.1 mmol/L (3.5-5.1); Sodium 136 mmol/L (136-145); Total Protein 5.1 g/dL (6.4-8.2)
[2020-04-05 07:30] VITALS: BP 86/59; PULSE 74; RESP 18; TEMP 36.8; O2SAT 99
--- NOTE | 2020-04-05 07:48 | ECG_ITS ---
Measurements Intervals [place] Rate: 73 P: 47 AR: 174 QRS: -12 QRSD: 109 T: 39 QT: 381 QTc: 420 Interpretive Statements SINUS RHYTHM LOW QRS VOLTAGE IN PRECORDIAL LEADS RSR' IN V1 OR V2, CONSIDER RIGHT VENTRICULAR HYPERTROPHY OR RIGHT VCD BASELINE ARTIFACT- I, II, III, AVR, AVL, AVF, V1-V6 ABNORMAL ECG Electronically Signed On 04-05-2020 12:45:21 CDT by José Raymundo D.O.
--- NOTE | 2020-04-05 08:21 | P.PNIM_ITS ---
Progress Note: A&P Assessment and Plan (1) Hepatitis: Code(s): K75.9 - Inflammatory liver disease, unspecified <Lolis Villanueva NP - Last Filed: 04/05/20 15:20> Status: Acute <Lolis Villanueva NP - Last Filed: 04/05/20 15:20> Assessment and Plan: * secondary to alcohol use * patient liver enzymes at baseline * will continue to monitor liver enzymes * liver enzymes continue to improve with a normal alk-phos, ALT is down to 74 and AST is down to 93. * ammonia level is normal and found to be 13 today. * WBC 2.7, no fevers noted. <Lolis Villanueva NP - Last Filed: 04/05/20 15:20> (2) Insomnia: Code(s): G47.00 - Insomnia, unspecified <Lolis Villanueva NP - Last Filed: 04/05/20 15:20> Status: Acute <Lolis Villanueva NP - Last Filed: 04/05/20 15:20> Assessment and Plan: * continue trazodone * no complaints or fatigue noted at this time. <Lolis Villanueva NP - Last Filed: 04/05/20 15:20> (3) GERD (gastroesophageal reflux disease): Code(s): K21.9 - Gastro-esophageal reflux disease without esophagitis <Lolis Villanueva NP - Last Filed: 04/05/20 15:20> Status: Acute <Lolis Villanueva NP - Last Filed: 04/05/20 15:20> Assessment and Plan: * continue Protonix * no complaints or GERD/bleching/burping noted at this time. <Lolis Villanueva NP - Last Filed: 04/05/20 15:20> (4) Anxiety: Code(s): F41.9 - Anxiety disorder, unspecified <Lolis Villanueva NP - Last Filed: 04/05/20 15:20> Status: Acute <Lolis Villanueva NP - Last Filed: 04/05/20 15:20> Assessment and Plan: * continue Xanax * No sign of DTs at this time * continue Librium p.r.n. <Lolis Villanueva NP - Last Filed: 04/05/20 15:20> (5) Closed fracture of single pubic ramus of pelvis: Qualifiers: Encounter type: initial encounter Laterality: right Qualified Code(s): S32.591A - Other specified fracture of right pubis, initial encounter for closed fracture <Lolis Villanueva NP - Last Filed: 04/05/20 15:20> Code(s): S32.509A - Unspecified fracture of unspecified pubis, initial encounter for closed fracture <Lolis Villanueva NP - Last Filed: 04/05/20 15:20> Status: Acute <Lolis Villanueva NP - Last Filed: 04/05/20 15:20> Assessment and Plan: * imaging indicates Virtually nondisplaced right inferior pubic ramus fracture * manage/controlled pain at this time, continue tramadol 50 mg b.i.d. schedule and oxycodone 10 mg q.6 hours p.r.n. * weight-bearing as tolerated use walker * non operable no need to follow-up with ortho <Lolis Villanueva NP - Last Filed: 04/05/20 15:20> (6) Alcohol abuse: Code(s): F10.10 - Alcohol abuse, uncomplicated <Lolis Villanueva NP - Last Filed: 04/05/20 15:20> Status: Acute <Lolis Villanueva NP - Last Filed: 04/05/20 15:20> Assessment and Plan: * patient denies use of alcohol with this fall * patient has a history of falls with the use of alcohol and has been admitted as results * patient educated on cessation of alcohol * patient noted that he will probably eliminate alcohol use due to his age * no signs of alcohol withdrawal, no tremors, no agitation, no anxiety or anger, no DTs, no noted tachycardia on his vital signs, heart rate in the 70s with blood pressure is well controlled. * Potassium today was 4.1. And creatinine 0.68. * liver enzymes continue to improve with a normal alk-phos, ALT is down to 74 and AST is down to 93. * ammonia level is normal and found to be 13 today. * Nat
--- NOTE | 2020-04-05 08:21 | PM.IMPN ---
Progress Note: A&P Assessment and Plan (1) Hepatitis: Code(s): K75.9 - Inflammatory liver disease, unspecified <Lolis Villanueva NP - Last Filed: 04/05/20 15:20> Status: Acute <Lolis Villanueva NP - Last Filed: 04/05/20 15:20> Assessment and Plan: secondary to alcohol use patient liver enzymes at baseline will continue to monitor liver enzymes liver enzymes continue to improve with a normal alk-phos, ALT is down to 74 and AST is down to 93. ammonia level is normal and found to be 13 today. WBC 2.7, no fevers noted. <Lolis Villanueva NP - Last Filed: 04/05/20 15:20> (2) Insomnia: Code(s): G47.00 - Insomnia, unspecified <Lolis Villanueva NP - Last Filed: 04/05/20 15:20> Status: Acute <Lolis Villanueva NP - Last Filed: 04/05/20 15:20> Assessment and Plan: continue trazodone no complaints or fatigue noted at this time. <Lolis Villanueva NP - Last Filed: 04/05/20 15:20> (3) GERD (gastroesophageal reflux disease): Code(s): K21.9 - Gastro-esophageal reflux disease without esophagitis <Lolis Villanueva NP - Last Filed: 04/05/20 15:20> Status: Acute <Lolis Villanueva NP - Last Filed: 04/05/20 15:20> Assessment and Plan: continue Protonix no complaints or GERD/bleching/burping noted at this time. <Lolis Villanueva NP - Last Filed: 04/05/20 15:20> (4) Anxiety: Code(s): F41.9 - Anxiety disorder, unspecified <Lolis Villanueva NP - Last Filed: 04/05/20 15:20> Status: Acute <Lolis Villanueva NP - Last Filed: 04/05/20 15:20> Assessment and Plan: continue Xanax No sign of DTs at this time continue Librium p.r.n. <Lolis Villanueva NP - Last Filed: 04/05/20 15:20> (5) Closed fracture of single pubic ramus of pelvis: Qualifiers: Encounter type: initial encounter Laterality: right Qualified Code(s): S32.591A - Other specified fracture of right pubis, initial encounter for closed fracture <Lolis Villanueva NP - Last Filed: 04/05/20 15:20> Code(s): S32.509A - Unspecified fracture of unspecified pubis, initial encounter for closed fracture <Lolis Villanueva NP - Last Filed: 04/05/20 15:20> Status: Acute <Lolis Villanueva NP - Last Filed: 04/05/20 15:20> Assessment and Plan: imaging indicates Virtually nondisplaced right inferior pubic ramus fracture manage/controlled pain at this time, continue tramadol 50 mg b.i.d. schedule and oxycodone 10 mg q.6 hours p.r.n. weight-bearing as tolerated use walker non operable no need to follow-up with ortho <Lolis Villanueva NP - Last Filed: 04/05/20 15:20> (6) Alcohol abuse: Code(s): F10.10 - Alcohol abuse, uncomplicated <Lolis Villanueva NP - Last Filed: 04/05/20 15:20> Status: Acute <Lolis Villanueva NP - Last Filed: 04/05/20 15:20> Assessment and Plan: patient denies use of alcohol with this fall patient has a history of falls with the use of alcohol and has been admitted as results patient educated on cessation of alcohol patient noted that he will probably eliminate alcohol use due to his age no signs of alcohol withdrawal, no tremors, no agitation, no anxiety or anger, no DTs, no noted tachycardia on his vital signs, heart rate in the 70s with blood pressure is well controlled. Potassium today was 4.1. And creatinine 0.68. liver enzymes continue to improve with a normal alk-phos, ALT is down to 74 and AST is down to 93. ammonia level is normal and found to be 13 today. Magnesium was 1.6, given a Mag IV rider and started on oral Mag daily. low blood pressures may be due to combining Librium with tramadol with oxycodone. continues to have diarrhea per the nursing staff so have ordered stool cultures. intake and output record shows 2 BMs today and 1 BM yesterday - not necessarily evidence of diarrhea may be from alcohol wit
[2020-04-05 08:41] LABS: Ammonia 13 umol/L (11-32)
[2020-04-05 09:09] LABS: Occult Blood Negative (Negative)
[2020-04-05] MEDS: POTASSIUM CHLORIDE 20 MEQ PACKET (FOR LIQUID) PO (09:19)
[2020-04-05] MEDS: traMADol HCL 50 MG TABLET PO ×2 (09:19→21:11)
[2020-04-05] MEDS: LIDOCAINE 5% PATCH 2 PATCH TRANSDERM (09:19)
[2020-04-05] MEDS: TIMOLOL MALEATE 0.5% OP SOLN 5 ML BOTTLE 1 DROP EACH EYE (09:19)
[2020-04-05] MEDS: PANTOPRAZOLE SOD SESQUIHYDRATE 20 MG TAB PO (09:19)
[2020-04-05] MEDS: MAGNESIUM SULF 2 GM/WATER 50ML 2 GM/50 ML BAG IVPB (10:24)
[2020-04-05 12:00] VITALS: BP 126/67; PULSE 76; RESP 18; TEMP 36.4; O2SAT 98
[2020-04-05 16:00] VITALS: BP 122/64; PULSE 82; RESP 16; TEMP 36.5; O2SAT 97
[2020-04-05 20:00] VITALS: BP 85/56; PULSE 88; RESP 16; TEMP 37.1; O2SAT 96
[2020-04-05] MEDS: traZODone HCL 50 MG TABLET 25 MG PO (21:10)
[2020-04-06] VITALS (9 sets, daily range): BP systolic 80–131; BP diastolic 48–82; PULSE 68–79; RESP 12–18; TEMP 36.4–37.2; O2SAT 92–99
--- NOTE | 2020-04-06 02:10 | PC.NURSE ---
0210 foun up in bathroom by self, incontinent of stool and urine. cleaned self up, and returned to bed with assist of 1 and walker. reminded to call for assistance if needs to get up again.
[2020-04-06] MEDS: MAGNESIUM OXIDE 400 MG TABLET PO (09:02)
[2020-04-06] MEDS: TIMOLOL MALEATE 0.5% OP SOLN 5 ML BOTTLE 1 DROP EACH EYE (09:02)
[2020-04-06] MEDS: PANTOPRAZOLE SOD SESQUIHYDRATE 20 MG TAB PO (09:02)
[2020-04-06] MEDS: traMADol HCL 50 MG TABLET PO ×2 (09:03→20:44)
[2020-04-06] MEDS: POTASSIUM CHLORIDE 20 MEQ PACKET (FOR LIQUID) PO (09:03)
[2020-04-06] MEDS: LIDOCAINE 5% PATCH 2 PATCH TRANSDERM (09:03)
[2020-04-06] MEDS: traZODone HCL 50 MG TABLET 25 MG PO (20:44)
[2020-04-07 04:00] VITALS: BP 111/75; PULSE 79; RESP 16; TEMP 36.6; O2SAT 97
[2020-04-07 08:00] VITALS: BP 90/65; PULSE 76; RESP 18; TEMP 36.9; O2SAT 98
--- NOTE | 2020-04-07 08:00 | PC.NURSE ---
SN knocked on patients door, patient standing behind door holding cane. SN entered to assist patient, retrieved walker for patient. Patient refuses to unhand cane, holding onto walker and cane together. SN advised this is an unsafe practice and may may trip patient. He continued to refuse to release cane. SN stood by to assist patient back to bed, requested patient call for help when he needs to get up. Patient states he doesn't see why he needs anyone to walk with him when he has been doing it by himself.
[2020-04-07] MEDS: LIDOCAINE 5% PATCH 2 PATCH TRANSDERM (09:14)
[2020-04-07] MEDS: POTASSIUM CHLORIDE 20 MEQ PACKET (FOR LIQUID) PO (09:14)
[2020-04-07] MEDS: traMADol HCL 50 MG TABLET PO ×2 (09:14→21:00)
[2020-04-07] MEDS: PANTOPRAZOLE SOD SESQUIHYDRATE 20 MG TAB PO (09:14)
[2020-04-07] MEDS: MAGNESIUM OXIDE 400 MG TABLET PO (09:14)
[2020-04-07] MEDS: TIMOLOL MALEATE 0.5% OP SOLN 5 ML BOTTLE 1 DROP EACH EYE (09:16)
[2020-04-07 12:00] VITALS: BP 110/68; PULSE 79; RESP 18; TEMP 36.4; O2SAT 98
[2020-04-07 16:00] VITALS: BP 126/78; PULSE 73; RESP 18; TEMP 36.6; O2SAT 99
--- NOTE | 2020-04-07 19:27 | PC.NURSE ---
Patient lying in bed. When asked if he needed anything, stated he wanted cat food and water for the cat. When I attempted to reorient to time and place, he said it was for a stray cat that had come into the room
[2020-04-07 20:00] VITALS: BP 124/87; PULSE 72; RESP 14; TEMP 37.3; O2SAT 97
[2020-04-07] MEDS: ALPRAZolam 0.25 MG TABLET 0.125 MG PO (20:42)
[2020-04-07] MEDS: traZODone HCL 50 MG TABLET 25 MG PO (20:42)
[2020-04-08] VITALS: BP 105/58; PULSE 68; RESP 14; TEMP 36.6; O2SAT 98
[2020-04-08 07:55] VITALS: BP 103/65; PULSE 67; RESP 18; TEMP 36.1; O2SAT 99
[2020-04-08] MEDS: LIDOCAINE 5% PATCH 2 PATCH TRANSDERM (09:05)
[2020-04-08] MEDS: TIMOLOL MALEATE 0.5% OP SOLN 5 ML BOTTLE 1 DROP EACH EYE (09:06)
[2020-04-08] MEDS: POTASSIUM CHLORIDE 20 MEQ PACKET (FOR LIQUID) PO (09:06)
[2020-04-08] MEDS: PANTOPRAZOLE SOD SESQUIHYDRATE 20 MG TAB PO (09:06)
[2020-04-08] MEDS: MAGNESIUM OXIDE 400 MG TABLET PO (09:06)
[2020-04-08] MEDS: traMADol HCL 50 MG TABLET PO ×2 (09:06→21:17)
[2020-04-08 11:15] VITALS: BP 106/71; PULSE 66; RESP 20; O2SAT 100
[2020-04-08] MEDS: ACETAMINOPHEN 500 MG TABLET 1000 MG PO (12:11)
[2020-04-08 15:55] VITALS: BP 85/55; PULSE 58; RESP 18; TEMP 35.9; O2SAT 99
[2020-04-08 16:36] LABS: Add Urine Microscopic? NO; Appearance Urine Clear (Clear); Bilirubin Urine Negative (Negative); Blood Urine Negative (Negative); Color Urine Yellow (Yellow); Glucose Urine UA Negative (Negative); Ketones Urine Negative (Negative); Leukocyte Esterase Ur Negative LEU/UL (Negative); Nitrate Urine Negative (Negative); Protein Urine Negative (Negative); Specific Grav Ur 1.025 (1.010-1.020); Urobilinogen Urine 0.2 mg/dL (0.2-1.0)
--- NOTE | 2020-04-08 18:50 | PC.NURSE ---
Nurse noted patient sitting on floor by bed. Patient states he was on his way back from the bathroom. Patient did not call for assist to walk back. Patient any denies pain. No signs of injury noted. Patient reports that he caught himself but that he bumped his head, but not very hard. Patient assisted to sitting position on side of bed by 2x nurses. Bed alarm applied. Patient reminded to call for assist before getting up.MD to be notified.
--- NOTE | 2020-04-08 19:40 | PC.NURSE ---
notified that patient attempted to amb without assist and fell to his knees landing on a pillow. No new orders at this time.
[2020-04-08 20:00] VITALS: BP 102/58; PULSE 61; RESP 22; TEMP 36.1; O2SAT 99
[2020-04-08] MEDS: traZODone HCL 50 MG TABLET 25 MG PO (21:16)
--- NOTE | 2020-04-08 21:27 | PC.NURSE ---
04/08/[id number] MD in patient's room examining patient after fall. No new orders at this time.
--- NOTE | 2020-04-08 23:06 | PM.EVENT ---
Event Note Event Note Event Note: Patient was noted to have had a fall trying to get out of bed. There is a pill on the floor and he landed on the pillow. He denies hurting his head and denies having any pain in his knees, hips, back, head or elsewhere. He denies hitting his head having loss of consciousness or weakness or chest pain. Exam finds him alert and cooperative. Pupils are equal and equally reactive to light. Head is atraumatic and nontender. Neck is atraumatic and nontender. Trunk is a to medic and nontender. Lungs are clear to auscultation bilaterally. heart sounds are regular and without murmur. Distal pulses are full and symmetric and there is no tenderness with range of motion of ankles knees and hips. Plan: Observation for debility or increasing pain.
[2020-04-09] VITALS: BP 99/70; PULSE 72; RESP 18; TEMP 36.2; O2SAT 99
--- NOTE | 2020-04-09 | PC.NURSE ---
Patient denies having any injury/pain from fall this evening. Denies pain/complaints/needs @ this time. No distress noted. Call light in reach.
--- NOTE | 2020-04-09 00:12 | PC.NURSE ---
report received from Chayito KIMBALL, transfer of care at this time.
[2020-04-09 08:00] VITALS: BP 105/69; PULSE 64; RESP 18; TEMP 36.3; O2SAT 95
--- NOTE | 2020-04-09 08:05 | PC.NURSE ---
Sitting on edge of bed to eat breakfast, no needs voiced, reminded to call for assistance up call light in reach
[2020-04-09] MEDS: LIDOCAINE 5% PATCH 2 PATCH TRANSDERM (08:46)
[2020-04-09] MEDS: POTASSIUM CHLORIDE 20 MEQ PACKET (FOR LIQUID) PO (08:48)
[2020-04-09] MEDS: PANTOPRAZOLE SOD SESQUIHYDRATE 20 MG TAB PO (08:49)
[2020-04-09] MEDS: TIMOLOL MALEATE 0.5% OP SOLN 5 ML BOTTLE 1 DROP EACH EYE (08:49)
[2020-04-09] MEDS: MAGNESIUM OXIDE 400 MG TABLET PO (08:50)
[2020-04-09] MEDS: traMADol HCL 50 MG TABLET PO ×2 (08:50→20:50)
[2020-04-09 12:00] VITALS: BP 98/62; PULSE 60; RESP 18; TEMP 36.3; O2SAT 95
[2020-04-09] MEDS: ACETAMINOPHEN 500 MG TABLET 1000 MG PO (13:44)
[2020-04-09 16:00] VITALS: BP 93/62; PULSE 71; RESP 18; TEMP 36.8; O2SAT 95
[2020-04-09 18:19] LABS: SARS-CoV-2 RNA PCR Negative
--- NOTE | 2020-04-09 18:25 | PC.NURSE ---
slow and steady gait with walker, is unsteady when using cane, encouraged to use walker until stronger, personal items in reach of patient
[2020-04-09 20:00] VITALS: BP 92/64; PULSE 70; RESP 18; TEMP 36.2; O2SAT 99
[2020-04-09] MEDS: traZODone HCL 50 MG TABLET 25 MG PO (20:50)
[2020-04-10] VITALS: BP 104/67; PULSE 62; RESP 20; TEMP 36.4; O2SAT 96
[2020-04-10 08:00] VITALS: BP 133/68; PULSE 80; RESP 16; TEMP 37.1; O2SAT 97
[2020-04-10 08:52] LABS: Hematocrit 36.7 % (37.0-46.0); Hemoglobin 12.2 g/dL (12.4-15.3); Mean Corpuscular HGB Conc 33.2 g/dL (32.0-36.0); Mean Corpuscular Hemoglobin 34.6 pg (27.0-31.0); Mean Platelet Volume 9.5 fl (8.7-11.0); Platelet Count Result 300 K/mm3 (150-420); Red Blood Count 3.53 M/mm3 (4.70-6.10); Red Cell Distribution Width 13.2 % (11.6-14.4); White Blood Count 3.8 K/mm3 (4.8-10.8)
[2020-04-10] MEDS: POTASSIUM CHLORIDE 20 MEQ PACKET (FOR LIQUID) PO (08:54)
[2020-04-10] MEDS: LIDOCAINE 5% PATCH 2 PATCH TRANSDERM (08:54)
[2020-04-10] MEDS: TIMOLOL MALEATE 0.5% OP SOLN 5 ML BOTTLE 1 DROP EACH EYE (08:54)
[2020-04-10] MEDS: MAGNESIUM OXIDE 400 MG TABLET PO ×2 (08:54→16:38)
[2020-04-10] MEDS: traMADol HCL 50 MG TABLET PO ×2 (08:54→20:10)
[2020-04-10] MEDS: PANTOPRAZOLE SOD SESQUIHYDRATE 20 MG TAB PO (08:54)
[2020-04-10 09:18] LABS: Alanine Aminotransferase 80 U/L (16-63); Albumin Level 2.9 g/dL (3.4-5.0); Alkaline Phosphatase 118 U/L (46-116); Anion Gap 5 mmol/L (8-16); Aspartate Amino Transferase 85 U/L (15-37); Bilirubin,Total 0.5 mg/dL (0.00-1.00); Blood Urea Nitrogen 7 mg/dL (7-18); Calcium 8.9 mg/dL (8.5-10.1); Carbon Dioxide 30 mmol/L (21-32); Chloride 102 mmol/L (98-108); Estimated CRCL calculation 61 ml/min; Estimated Glomerular Filt Rate > 60; Glucose 80 mg/dL (70-99); Magnesium 1.6 mg/dL (1.8-2.4); Osmolality Calculated 281 mOsm/kg (285-295); Phosphorus 4.2 mg/dL (2.6-4.7); Potassium 4.1 mmol/L (3.5-5.1); Sodium 137 mmol/L (136-145); Total Protein 6.4 g/dL (6.4-8.2)
[2020-04-10 09:32] LABS: Band Neutrophils Percent 2 % (0-6); Basophils Percent Manual 0 % (0-1); Eosinophils Absolute Manual 0.03 K/mm3 (0.02-0.5); Eosinophils Percent Manual 1 % (1-6); Lymphocytes Absolute Manual 1.29 K/mm3 (1.1-4.5); Lymphocytes Percent Manual 34 % (18-44); Monocytes Absolute Manual 0.53 K/mm3 (0.1-0.90); Monocytes Percent Manual 14 % (3-9); Neutrophils Absolute Manual 1.93 K/mm3 (1.3-6.7); Neutrophils Percent Manual 49 % (46-73); Platelet Estimate Adequate (Adequate); Total Cells Counted 100
[2020-04-10 12:00] VITALS: BP 104/72; PULSE 80; RESP 18; TEMP 37; O2SAT 96
--- NOTE | 2020-04-10 12:13 | PM.EVENT ---
Event Note Event Note Event Note: Closed fracture of single pubic ramus of pelvis: weight-bearing as tolerated and MUST use walker non operable no need to follow-up with ortho patient has a history of falls Patient will benefit from use of walker status post fall with fracture and now has significant impairment requiring the use of a walker. His mobility is significantly impaired and requires the use of a walker to safely complete his ADLs at home and at the assisted living facility. This is necessary to reduce his risk of injury while performing his ADLs at home. Rik is alert and able to safely use a walker to resolve this mobility deficit. Weakness: Exhibit tolerance during physical activity as evidenced by a normal fluctuation of vital signs during physical activity. Patient will be ability to perform required activities of daily living. Provide appropriate nutrition for healing and strength. Use appropriate DME to prevent falls. Patient will benefit from use of walker status post fall with fracture and now has significant impairment requiring the use of a walker. His mobility is significantly impaired and requires the use of a walker to safely complete his ADLs at home and at the assisted living facility. This is necessary to reduce his risk of injury while performing his ADLs at home. Rik is alert and able to safely use a walker to resolve this mobility deficit. Continue physical therapy/occupational therapy. PT/OT / Swing Rehab
--- NOTE | 2020-04-10 12:16 | P.PNIM_ITS ---
Progress Note: A&P Assessment and Plan (1) Hepatitis: Code(s): K75.9 - Inflammatory liver disease, unspecified Status: Acute Assessment and Plan: * secondary to alcohol use * patient liver enzymes at baseline * will continue to monitor liver enzymes * liver enzymes stable, mildly elevated and fluctuate slightly, need to keep up with oral hydration better too. * avoid hepatic toxic medications such as statins, etc. * no ascites or swelling or edema on exam * ammonia level is normal and found to be 13 * WBC 2.7 and 3.8, no fevers noted. (2) Insomnia: Code(s): G47.00 - Insomnia, unspecified Status: Acute Assessment and Plan: * continue trazodone * no complaints or fatigue noted at this time. (3) GERD (gastroesophageal reflux disease): Code(s): K21.9 - Gastro-esophageal reflux disease without esophagitis Status: Acute Assessment and Plan: * continue Protonix * no complaints or GERD/bleching/burping noted at this time. (4) Anxiety: Code(s): F41.9 - Anxiety disorder, unspecified Status: Acute Assessment and Plan: * continue Xanax * No sign of DTs at this time * continue Librium p.r.n. (5) Closed fracture of single pubic ramus of pelvis: Qualifiers: Encounter type: initial encounter Laterality: right Qualified Code(s): S32.591A - Other specified fracture of right pubis, initial encounter for closed fracture Code(s): S32.509A - Unspecified fracture of unspecified pubis, initial encounter for closed fracture Status: Acute Assessment and Plan: * imaging indicates Virtually nondisplaced right inferior pubic ramus fracture * manage/controlled pain at this time, continue tramadol 50 mg b.i.d. schedule and oxycodone 10 mg q.6 hours p.r.n. * weight-bearing as tolerated and MUST use walker * non operable no need to follow-up with ortho * patient has a history of falls * Patient will benefit from use of walker status post fall with fracture and now has significant impairment requiring the use of a walker. His mobility is significantly impaired and requires the use of a walker to safely complete his ADLs at home and at the assisted living facility. This is necessary to reduce his risk of injury while performing his ADLs at home. Rik is alert and able to safely use a walker to resolve this mobility deficit. (6) Alcohol abuse: Code(s): F10.10 - Alcohol abuse, uncomplicated Status: Acute Assessment and Plan: * patient denies use of alcohol with this fall * patient has a history of falls with the use of alcohol and has been admitted as results * patient educated on cessation of alcohol * patient noted that he will probably eliminate alcohol use due to his age * no signs of alcohol withdrawal, no tremors, no agitation, no anxiety or anger, no DTs, no noted tachycardia on his vital signs, heart rate in the 70s with blood pressure is well controlled. * Potassium stable was 4.1. And creatinine 0.68. * ammonia level and liver enzymes discussed above * Magnesium was 1.6, given a Mag IV rider and started on oral Mag daily. * low blood pressures may be due to combining Librium with tramadol with oxycodone. * no further diarrhea, stool cultures pending * checked orthostatic blood pressures, changed to Librium to p.r.n.. (7) Weakness: Code(s): R53.1 - Weakness Status: Acute Assessment and Plan: * Exhibit tolerance during physical activity as evidenced by a normal fluctuation of vital signs during physical activity. * Patient will be amor
--- NOTE | 2020-04-10 12:16 | PM.IMPN ---
Progress Note: A&P Assessment and Plan (1) Hepatitis: Code(s): K75.9 - Inflammatory liver disease, unspecified Status: Acute Assessment and Plan: secondary to alcohol use patient liver enzymes at baseline will continue to monitor liver enzymes liver enzymes stable, mildly elevated and fluctuate slightly, need to keep up with oral hydration better too. avoid hepatic toxic medications such as statins, etc. no ascites or swelling or edema on exam ammonia level is normal and found to be 13 WBC 2.7 and 3.8, no fevers noted. (2) Insomnia: Code(s): G47.00 - Insomnia, unspecified Status: Acute Assessment and Plan: continue trazodone no complaints or fatigue noted at this time. (3) GERD (gastroesophageal reflux disease): Code(s): K21.9 - Gastro-esophageal reflux disease without esophagitis Status: Acute Assessment and Plan: continue Protonix no complaints or GERD/bleching/burping noted at this time. (4) Anxiety: Code(s): F41.9 - Anxiety disorder, unspecified Status: Acute Assessment and Plan: continue Xanax No sign of DTs at this time continue Librium p.r.n. (5) Closed fracture of single pubic ramus of pelvis: Qualifiers: Encounter type: initial encounter Laterality: right Qualified Code(s): S32.591A - Other specified fracture of right pubis, initial encounter for closed fracture Code(s): S32.509A - Unspecified fracture of unspecified pubis, initial encounter for closed fracture Status: Acute Assessment and Plan: imaging indicates Virtually nondisplaced right inferior pubic ramus fracture manage/controlled pain at this time, continue tramadol 50 mg b.i.d. schedule and oxycodone 10 mg q.6 hours p.r.n. weight-bearing as tolerated and MUST use walker non operable no need to follow-up with ortho patient has a history of falls Patient will benefit from use of walker status post fall with fracture and now has significant impairment requiring the use of a walker. His mobility is significantly impaired and requires the use of a walker to safely complete his ADLs at home and at the assisted living facility. This is necessary to reduce his risk of injury while performing his ADLs at home. Rik is alert and able to safely use a walker to resolve this mobility deficit. (6) Alcohol abuse: Code(s): F10.10 - Alcohol abuse, uncomplicated Status: Acute Assessment and Plan: patient denies use of alcohol with this fall patient has a history of falls with the use of alcohol and has been admitted as results patient educated on cessation of alcohol patient noted that he will probably eliminate alcohol use due to his age no signs of alcohol withdrawal, no tremors, no agitation, no anxiety or anger, no DTs, no noted tachycardia on his vital signs, heart rate in the 70s with blood pressure is well controlled. Potassium stable was 4.1. And creatinine 0.68. ammonia level and liver enzymes discussed above Magnesium was 1.6, given a Mag IV rider and started on oral Mag daily. low blood pressures may be due to combining Librium with tramadol with oxycodone. no further diarrhea, stool cultures pending checked orthostatic blood pressures, changed to Librium to p.r.n.. (7) Weakness: Code(s): R53.1 - Weakness Status: Acute Assessment and Plan: Exhibit tolerance during physical activity as evidenced by a normal fluctuation of vital signs during physical activity. Patient will be ability to perform required activities of daily living. Provide appropriate nutrition for healing and strength. Use appropriate DME to prevent falls. Continue physical therapy/occupational therapy. PT/OT / Swing Rehab Patient will benefit from use of walker status post fall with fracture and now has significant impairment requiring the use of a walker. His mobility is significantly i
[2020-04-10 16:00] VITALS: BP 102/74; PULSE 74; RESP 18; TEMP 36.6; O2SAT 97
[2020-04-10 19:45] VITALS: BP 136/85; PULSE 71; RESP 18; TEMP 36.3; O2SAT 100
[2020-04-10] MEDS: traZODone HCL 50 MG TABLET 25 MG PO (20:09)
[2020-04-10 23:53] VITALS: PULSE 73; RESP 16; O2SAT 99
[2020-04-11 08:00] VITALS: BP 104/68; PULSE 64; RESP 16; TEMP 36.2; O2SAT 98
[2020-04-11] MEDS: LIDOCAINE 5% PATCH 2 PATCH TRANSDERM (08:57)
[2020-04-11] MEDS: MAGNESIUM OXIDE 400 MG TABLET PO (08:58)
[2020-04-11] MEDS: traMADol HCL 50 MG TABLET PO (08:58)
[2020-04-11] MEDS: POTASSIUM CHLORIDE 20 MEQ PACKET (FOR LIQUID) PO (08:58)
[2020-04-11] MEDS: PANTOPRAZOLE SOD SESQUIHYDRATE 20 MG TAB PO (08:58)
[2020-04-11] MEDS: TIMOLOL MALEATE 0.5% OP SOLN 5 ML BOTTLE 1 DROP EACH EYE (08:58)
--- NOTE | 2020-04-11 11:42 | P.DS_ITS ---
DS: Admitting Diagnosis Admitting Diagnosis Admitting Diagnosis: R PELVIC FRACTURE DS: Discharge Diagnosis Discharge Diagnosis (1) Hepatitis: Code(s): K75.9 - Inflammatory liver disease, unspecified Status: Acute Assessment and Plan: * secondary to alcohol use * patient liver enzymes at baseline * Follow up with PCP * liver enzymes stable, mildly elevated and fluctuate slightly, need to keep up with oral hydration better too. * avoid hepatic toxic medications such as statins, etc. * no ascites or swelling or edema on exam * ammonia level is normal and found to be 13 * WBC 2.7 and 3.8, no fevers noted. (2) Insomnia: Code(s): G47.00 - Insomnia, unspecified Status: Acute Assessment and Plan: * sleeping better now that alcohol withdrawal has resolved, and patient has been weaned from Multi-pharmacy medications. * no complaints or fatigue noted at this time. (3) GERD (gastroesophageal reflux disease): Code(s): K21.9 - Gastro-esophageal reflux disease without esophagitis Status: Acute Assessment and Plan: * continue Protonix * no complaints or GERD/bleching/burping noted at this time. (4) Anxiety: Code(s): F41.9 - Anxiety disorder, unspecified Status: Acute Assessment and Plan: * has not had Xanax dose for >3 days. * No sign of DTs at this time * has not had Librium for >3 days. (5) Closed fracture of single pubic ramus of pelvis: Qualifiers: Encounter type: initial encounter Laterality: right Qualified Code(s): S32.591A - Other specified fracture of right pubis, initial encounter for closed fracture Code(s): S32.509A - Unspecified fracture of unspecified pubis, initial encounter for closed fracture Status: Acute Assessment and Plan: * imaging indicates Virtually nondisplaced right inferior pubic ramus fracture * manage/controlled pain at this time, continue tramadol 50 mg b.i.d. schedule and oxycodone 10 mg q.6 hours p.r.n. * weight-bearing as tolerated and MUST use walker * non operable and currently no complications noted; but if patient continues to have pain after 4-6 weeks, then he may need to follow-up with ortho for eval. on outpatient basis * patient has a history of falls * Patient will benefit from use of walker status post fall with fracture and now has significant impairment requiring the use of a walker. His mobility is significantly impaired and requires the use of a walker to safely complete his ADLs at home and at the assisted living facility. This is necessary to reduce his risk of injury while performing his ADLs at home. Rik is alert and able to safely use a walker to resolve this mobility deficit. (6) Alcohol abuse: Code(s): F10.10 - Alcohol abuse, uncomplicated Status: Acute Assessment and Plan: * patient denies use of alcohol with this fall * patient has a history of falls with the use of alcohol and has been admitted as results * patient educated on cessation of alcohol * patient noted that he will probably eliminate alcohol use due to his age * no signs of alcohol withdrawal, no tremors, no agitation, no anxiety or anger, no DTs, no noted tachycardia on his vital signs, heart rate in the 70s with blood pressure is well controlled. * Potassium stable was 4.1. And creatinine 0.68. * ammonia level and liver enzymes discussed above * Magnesium was 1.6, given a Mag IV rider and started on oral Mag daily. * low blood pressures may be due to combining Librium with tramadol with oxycodone. * no further diarrhea, sto
--- NOTE | 2020-04-11 11:42 | PM.DS ---
DS: Admitting Diagnosis Admitting Diagnosis Admitting Diagnosis: R PELVIC FRACTURE DS: Discharge Diagnosis Discharge Diagnosis (1) Hepatitis: Code(s): K75.9 - Inflammatory liver disease, unspecified Status: Acute Assessment and Plan: secondary to alcohol use patient liver enzymes at baseline Follow up with PCP liver enzymes stable, mildly elevated and fluctuate slightly, need to keep up with oral hydration better too. avoid hepatic toxic medications such as statins, etc. no ascites or swelling or edema on exam ammonia level is normal and found to be 13 WBC 2.7 and 3.8, no fevers noted. (2) Insomnia: Code(s): G47.00 - Insomnia, unspecified Status: Acute Assessment and Plan: sleeping better now that alcohol withdrawal has resolved, and patient has been weaned from Multi-pharmacy medications. no complaints or fatigue noted at this time. (3) GERD (gastroesophageal reflux disease): Code(s): K21.9 - Gastro-esophageal reflux disease without esophagitis Status: Acute Assessment and Plan: continue Protonix no complaints or GERD/bleching/burping noted at this time. (4) Anxiety: Code(s): F41.9 - Anxiety disorder, unspecified Status: Acute Assessment and Plan: has not had Xanax dose for >3 days. No sign of DTs at this time has not had Librium for >3 days. (5) Closed fracture of single pubic ramus of pelvis: Qualifiers: Encounter type: initial encounter Laterality: right Qualified Code(s): S32.591A - Other specified fracture of right pubis, initial encounter for closed fracture Code(s): S32.509A - Unspecified fracture of unspecified pubis, initial encounter for closed fracture Status: Acute Assessment and Plan: imaging indicates Virtually nondisplaced right inferior pubic ramus fracture manage/controlled pain at this time, continue tramadol 50 mg b.i.d. schedule and oxycodone 10 mg q.6 hours p.r.n. weight-bearing as tolerated and MUST use walker non operable and currently no complications noted; but if patient continues to have pain after 4-6 weeks, then he may need to follow-up with ortho for eval. on outpatient basis patient has a history of falls Patient will benefit from use of walker status post fall with fracture and now has significant impairment requiring the use of a walker. His mobility is significantly impaired and requires the use of a walker to safely complete his ADLs at home and at the assisted living facility. This is necessary to reduce his risk of injury while performing his ADLs at home. Rik is alert and able to safely use a walker to resolve this mobility deficit. (6) Alcohol abuse: Code(s): F10.10 - Alcohol abuse, uncomplicated Status: Acute Assessment and Plan: patient denies use of alcohol with this fall patient has a history of falls with the use of alcohol and has been admitted as results patient educated on cessation of alcohol patient noted that he will probably eliminate alcohol use due to his age no signs of alcohol withdrawal, no tremors, no agitation, no anxiety or anger, no DTs, no noted tachycardia on his vital signs, heart rate in the 70s with blood pressure is well controlled. Potassium stable was 4.1. And creatinine 0.68. ammonia level and liver enzymes discussed above Magnesium was 1.6, given a Mag IV rider and started on oral Mag daily. low blood pressures may be due to combining Librium with tramadol with oxycodone. no further diarrhea, stool cultures pending checked orthostatic blood pressures, changed to Librium to p.r.n.. (7) Weakness: Code(s): R53.1 - Weakness Status: Acute Assessment and Plan: Exhibit tolerance during physical activity as evidenced by a normal fluctuation of vital signs during physical activity. Patient will be ability to perform required activities of daily living. Pr
[2020-04-11 12:00] VITALS: BP 102/48; PULSE 74; RESP 18; TEMP 36.6; O2SAT 97
[2020-04-11 16:00] VITALS: BP 155/95; PULSE 64; RESP 16; TEMP 35.9; O2SAT 100
--- NOTE | 2020-04-12 01:36 | PM.EVENT ---
Event Note Event Note Event Note: For 04/11/20: I have examined the patient and reviewed chart. I discussed the patient's care with A Rich RIBEIRO and agree with her assessment and plan.
== END 2020-04-11 18:50 | DRG 561 ==
PROVIDERS: Nurse Practitioner; Admitting Provider Emergency Medicine; PCP Internal Medicine; Visit Provider Emergency Medicine
DX: S32.591D Other specified fracture of right pubis, subsequent encounter for fracture with routine healing (principal); K75.9 Inflammatory liver disease, unspecified; K21.9 Gastro-esophageal reflux disease without esophagitis; I10 Essential (primary) hypertension; G47.00 Insomnia, unspecified; F41.9 Anxiety disorder, unspecified; F10.10 Alcohol abuse, uncomplicated; W19.XXXD Unspecified fall, subsequent encounter; Z20.828 Contact with and (suspected) exposure to other viral communicable diseases; Z96.659 Presence of unspecified artificial knee joint; Z91.81 History of falling; Z87.891 Personal history of nicotine dependence
CPT/HCPCS: 36415; 80053; 81003; 82140; 83735; 84100; 85025; 85027; 87045; 87046; 87177; 87209; 87269; 87272; 87324; 87427; 87635; 89055; 93005; 97110; 97161; 97165; 97530; 97535; A9270; C9803; J3475; U0003

== ENCOUNTER 2020-04-11 22:39 | Emergency (ER) | payer MEDICARE, SELFPAY ==
[2020-04-11 22:46] VITALS: BP 138/70; PULSE 78; RESP 18; TEMP 36.6; O2SAT 96
--- NOTE | 2020-04-11 22:55 | ED.GENADULT ---
HPI - General Adult General Chief complaint: Unspecified Stated complaint: Left assisted living Time Seen by Provider: 04/11/20 22:55 Source: patient and police Mode of arrival: ambulatory Limitations: no limitations History of Present Illness HPI narrative: 75-year-old man brought into the emergency department today for by the police. He was found walking down the road. Patient states he does not want to stay at the [facility]. Patient was admitted to this hospital on March 31 after a pelvic ramus fracture. He went to [facility] and was discharged today to the [facility]. Patient was well aware of the discharge plans. Patient states that he wants to stay closer to [place], namely his house. His sister states his house is filthy (including cat feces on the floor), hot and has broken windows. She also states that he has piles of unpaid bills. He denies falls or injury. Onset (ago): hour(s) (1) Related Data Home Medications Medication Instructions Recorded Confirmed acetaminophen [Acetaminophen Extra 1,000 mg PO Q6H PRN 04/11/20 04/11/20 Strength] docusate sodium [Colace] 100 mg PO BID PRN 04/11/20 04/11/20 timolol maleate [Timoptic] 1 drp OPHTHALMIC (EYE) DAILY 04/11/20 04/11/20 Allergies Allergy/AdvReac Type Severity Reaction Status Date / Time Penicillins Allergy Mild Verified 10/01/15 15:02 Review of Systems Constitutional: Constitutional: Denies chills and Denies fever(s) Cardiovascular: Cardiovascular: Denies chest pain and Denies radiating jaw, neck or arm pain Respiratory: Respiratory: Denies cough and Denies dyspnea Gastrointestinal: Gastrointestinal: Denies abdominal pain, Denies nausea and Denies vomiting Musculoskeletal: Musculoskeletal: Reports arthralgias ( Chronic) and Denies joint swelling Integumentary/Breasts: Skin/Breast: Denies pruritus, Denies erythema and Denies rash Neurologic: Denies vertigo, Denies dizziness, Denies syncope, Denies focal weakness and Denies numbness Hematologic/Lymphatic: Hematologic/Lymphatic: Denies easy bleeding and Denies easy bruising Allergic/Immunologic: Allergic/Immunologic: Denies lip swelling, Denies throat swelling and Denies tongue swelling PMFSH Past Medical History Medical History Alcohol abuse Anxiety Failed total knee replacement GERD (gastroesophageal reflux disease) Hip fracture HTN (hypertension) Surgical History Surgical History History of appendectomy Family History Family History (Updated 12/22/19 @ 01:57 by Charlotte Owens RN) Mother Old age Father Old age Social History Social History Social History: pt lives alone, and is fearful of falling Smoking packs per day: 3 Smoking cigarettes per day: 60.0 Years smoked: 45 Smoking pack-years: 135.00 Smoking status: Former smoker Tobacco type: cigarettes Second hand tobacco smoke exposure: No Smoking end date: 08/15/87 Alcohol intake: current Drinks per week: 7 Substance use: never Substance use type: does not use Gender identity (if verbalized by the patient): Male Spiritual care concerns: No Exam Const: General: no acute distress and alert Orientation/consciousness: patient oriented x3 Limitations: no limitations Resp: Effort & Inspection: normal respiratory effort and not labored Auscultation: clear to auscultation bilaterally, no rales, no rhonchi and no wheezes Cardio: Rate: regular rate Rhythm: regular rhythm Heart sounds: no murmurs GI: Inspection: non-distended GI Palp: Yes Soft to palpation, No Tenderness to palpation present (GI) and No Guarding due to palpation present (GI) Skin: General skin exam: normal color, no jaundice and no pallor Rashes: no rashes Neuro: General: patient oriented x3, moves all extremities, no focal motor deficits and CN's II-XI i
--- NOTE | 2020-04-11 23:28 | PC.NURSE ---
sister feels like he doesn't have a safe home, he is a hoarder. The sister dropped him off at the [facility], she got into a fight with him & left. She would not answer phone for [place] or the patient when he called.
--- NOTE | 2020-04-11 23:34 | PC.NURSE ---
freelance writer called Shiloh Kaplan [phone] a friend, she refuse to come get him. States he is unstable, freelance writer asked how is he unstable. She said his house is dirty & he hoards. Paperboard Box Maker explained that is not unstable thats a life choice. Shiloh went on to say, he isn't himself he wanted the [facility] and now he doesn't. He wants to go home explained. Shiloh states talk to the sister.
--- NOTE | 2020-04-12 00:21 | PC.NURSE ---
patient sleeping, trying to make a plan of care. No social service on weekend at hosp.
[2020-04-12 00:22] VITALS: BP 132/66; PULSE 77; RESP 18
--- NOTE | 2020-04-12 00:47 | PC.NURSE ---
MD reviewing old notes, family not wanting to be involved--patient agrees to spend weekend at [facility]. Called [facility], trying to find a ride. Sister & friend will not answer phone now for ride to [facility].
--- NOTE | 2020-04-12 01:05 | PC.NURSE ---
[facility] enmariela to get patient home --he cont to agree tos spend the weekend at [facility]
[2020-04-12 01:25] VITALS: BP 138/76; PULSE 80; RESP 18; TEMP 36.6; O2SAT 97
== END 2020-04-12 01:27 ==
PROVIDERS: Emergency Provider Emergency Medicine; PCP Internal Medicine
DX: Z04.89 Encounter for examination and observation for other specified reasons (principal)
CPT/HCPCS: 99281

== ENCOUNTER 2020-06-02 10:46 | Outpatient (NON) | payer MEDICARE, SELFPAY ==
[2020-06-02 11:18] LABS: Basophils Absolute Auto 0.07 K/mm3 (0.00-0.10); Basophils Percent Auto 1.2 % (0.0-1.0); Eosinophils Absolute Auto 0.12 K/mm3 (0.02-0.50); Eosinophils Percent Auto 2.1 % (1.0-6.0); Hematocrit 38.7 % (37.0-46.0); Hemoglobin 13.1 g/dL (12.4-15.3); Immature Granulocyte Absolute 0.04 K/mm3 (0.00-0.00); Immature Granulocyte Percent A 0.7 % (0.0-0.0); Lymphocytes Percent Auto 33.6 % (18.0-42.0); Mean Corpuscular HGB Conc 33.9 g/dL (32.0-36.0); Mean Corpuscular Hemoglobin 31.3 pg (27.0-31.0); Mean Corpuscular Volume 92.6 fL (78.0-102.0); Mean Platelet Volume 9.8 fl (8.7-11.0); Monocytes Absolute Auto 0.75 K/mm3 (0.10-0.90); Monocytes Percent Auto 13.3 % (2.0-11.0); Neutrophils Absolute Auto 2.8 K/mm3 (1.7-7.2); Neutrophils Percent Auto 49.1 % (50.0-70.0); Platelet Count Result 282 K/mm3 (150-420); Red Blood Count 4.18 M/mm3 (4.70-6.10); Red Cell Distribution Width 12.7 % (11.6-14.4); White Blood Count 5.7 K/mm3 (4.8-10.8)
[2020-06-02 11:37] LABS: Alanine Aminotransferase 71 U/L (16-63); Albumin Level 4.2 g/dL (3.4-5.0); Alkaline Phosphatase 90 U/L (46-116); Anion Gap 7 mmol/L (8-16); Aspartate Amino Transferase 55 U/L (15-37); Bilirubin,Total 0.6 mg/dL (0.00-1.00); Blood Urea Nitrogen 7 mg/dL (7-18); Calcium 9.6 mg/dL (8.5-10.1); Carbon Dioxide 32 mmol/L (21-32); Chloride 95 mmol/L (98-108); Estimated Glomerular Filt Rate > 60; Glucose 56 mg/dL (70-99); Osmolality Calculated 274 mOsm/kg (285-295); Potassium 3.7 mmol/L (3.5-5.1); Sodium 134 mmol/L (136-145); Total Protein 7.5 g/dL (6.4-8.2)
== END 2020-06-02 10:47 ==
LOC: CHSLAB 10:47
PROVIDERS: Visit Provider Internal Medicine
DX: E87.1 Hypo-osmolality and hyponatremia (principal)
CPT/HCPCS: 36415; 80053; 85025

== ENCOUNTER 2020-06-30 09:57 | Outpatient (NON) | payer MEDICARE, SELFPAY ==
[2020-06-30 11:31] LABS: Basophils Absolute Auto 0.04 K/mm3 (0.00-0.10); Basophils Percent Auto 0.9 % (0.0-1.0); Eosinophils Absolute Auto 0.09 K/mm3 (0.02-0.50); Hematocrit 39.4 % (37.0-46.0); Hemoglobin 13.4 g/dL (12.4-15.3); Immature Granulocyte Absolute 0.01 K/mm3 (0.00-0.00); Immature Granulocyte Percent A 0.2 % (0.0-0.0); Lymphocytes Percent Auto 42.7 % (18.0-42.0); Mean Corpuscular Hemoglobin 30.6 pg (27.0-31.0); Mean Platelet Volume 10.6 fl (8.7-11.0); Monocytes Absolute Auto 0.44 K/mm3 (0.10-0.90); Monocytes Percent Auto 9.9 % (2.0-11.0); Neutrophils Percent Auto 44.3 % (50.0-70.0); Platelet Count Result 269 K/mm3 (150-420); Red Blood Count 4.38 M/mm3 (4.70-6.10); Red Cell Distribution Width 13.5 % (11.6-14.4); White Blood Count 4.5 K/mm3 (4.8-10.8)
== END 2020-06-30 09:58 ==
PROVIDERS: Visit Provider Internal Medicine
DX: D64.9 Anemia, unspecified (principal)
CPT/HCPCS: 36415; 85025

== ENCOUNTER 2020-08-10 09:43 | Observation (INO) | payer MEDICARE, SELFPAY ==
--- NOTE | ~2020-08-10 | CT_ITS ---
EXAMINATION: CT chest abdomen pelvis w con EXAM DATE: 08/10/2020 11:45 INDICATION: Left lower chest pain, lactic acidosis. TECHNIQUE: Spiral CT of the chest, abdomen and pelvis was performed following intravenous injection o f 100 mL Omnipaque 350. Axial, coronal and sagittal images were reviewed. Coronal maximum intensity pixel images of chest reviewed. The dose-length product (DLP) for this examination was 287.24 mGy-c m. The exposure was tailored according to patient size (auto mA exposure control), and iterative rec onstruction (ASIR) was used as additional dose reduction technique. Comparison is made to prior exami nation from 02/26/2019. FINDINGS: CHEST: Small amount of right upper lobe reticulonodular airspace disease not significantly changed, likely postinfectious. No central pulmonary emboli. There are no pleural or pericardial effusions. Tracheobronchial tree is patent. There is no mediastinal, hilar or axillary lymphadenopathy. The re is no pneumothorax. Heart normal in size. There are likely coronary arterial stent or stents. Correlate with prior cardiac history. ABDOMEN PELVIS: There is hepatic steatosis without suspicious focal lesion identified. Spleen, adrena l glands, pancreas are unremarkable. Gallbladder is unremarkable. No biliary obstruction. Portal a nd splenic veins are patent. Kidneys enhance symmetrically. There is no hydronephrosis. There is m ild prostatomegaly. The bladder is unremarkable. There is no retroperitoneal or pelvic lymphadenopa thy. There is moderate scattered arteriosclerotic disease. Small to moderate left, small right ingu inal fat-containing hernias. The appendix is not positively visualized. There is no pericecal inflammatory change to suggest appe ndicitis. The stomach and small bowel are unremarkable. There is colonic fluid, correlate for diar pattie. The mesenteric vasculature enhances as expected. No free intraperitoneal gas. There are no os teoblastic or osteolytic lesions identified. Old left rib fractures. IMPRESSION: 1. Colonic fluid, correlate for diarrhea. No colonic wall thickening. 2. Small to moderate left, small right inguinal fat-containing hernia. 3. Hepatic steatosis. Reviewed, dictated and finalized at location A. [facility] ASSOC[facility]ATE
[2020-08-10 09:45] VITALS: BP 113/87; PULSE 70; RESP 20; TEMP 36.3; O2SAT 78
[2020-08-10] MEDS: KETOROLAC 30 MG/ML VIAL (*BKC) IM (10:26)
[2020-08-10 10:32] LABS: Basophils Absolute Auto 0.04 K/mm3 (0.00-0.10); Basophils Percent Auto 0.9 % (0.0-1.0); Eosinophils Absolute Auto 0.02 K/mm3 (0.02-0.50); Eosinophils Percent Auto 0.5 % (1.0-6.0); Hematocrit 44.4 % (37.0-46.0); Hemoglobin 15.2 g/dL (12.4-15.3); Immature Granulocyte Absolute 0.01 K/mm3 (0.00-0.00); Immature Granulocyte Percent A 0.2 % (0.0-0.0); Lymphocytes Absolute Auto 1.24 K/mm3 (1.10-4.50); Lymphocytes Percent Auto 28.3 % (18.0-42.0); Mean Corpuscular HGB Conc 34.2 g/dL (32.0-36.0); Mean Corpuscular Hemoglobin 30.3 pg (27.0-31.0); Mean Corpuscular Volume 88.4 fL (78.0-102.0); Mean Platelet Volume 8.9 fl (8.7-11.0); Monocytes Absolute Auto 0.58 K/mm3 (0.10-0.90); Monocytes Percent Auto 13.2 % (2.0-11.0); Neutrophils Absolute Auto 2.5 K/mm3 (1.7-7.2); Neutrophils Percent Auto 56.9 % (50.0-70.0); Platelet Count Result 191 K/mm3 (150-420); Red Blood Count 5.02 M/mm3 (4.70-6.10); Red Cell Distribution Width 15.7 % (11.6-14.4); White Blood Count 4.4 K/mm3 (4.8-10.8)
[2020-08-10 10:33] LABS: Add Urine Microscopic? NO; Appearance Urine Clear (Clear); Bilirubin Urine Negative (Negative); Blood Urine Negative (Negative); Color Urine Yellow (Yellow); Glucose Urine UA Negative (Negative); Ketones Urine Negative (Negative); Leukocyte Esterase Ur Negative (Negative); Nitrate Urine Negative (Negative); Protein Urine Negative (Negative); Urobilinogen Urine 0.2 mg/dL (0.2-1.0)
--- NOTE | 2020-08-10 10:37 | PC.NURSE ---
report to helen zapata
[2020-08-10 10:48] LABS: Alanine Aminotransferase 48 U/L (16-63); Albumin Level 4.5 g/dL (3.4-5.0); Alkaline Phosphatase 102 U/L (46-116); Anion Gap 14 mmol/L (8-16); Aspartate Amino Transferase 65 U/L (15-37); Bilirubin,Total 1.5 mg/dL (0.00-1.00); Blood Urea Nitrogen 11 mg/dL (7-18); Calcium 9.4 mg/dL (8.5-10.1); Carbon Dioxide 28 mmol/L (21-32); Chloride 93 mmol/L (98-108); Estimated CRCL calculation 48 ml/min; Estimated Glomerular Filt Rate > 60; Glucose 84 mg/dL (70-99); Osmolality Calculated 278 mOsm/kg (285-295); Potassium 3.8 mmol/L (3.5-5.1); Sodium 135 mmol/L (136-145); Total Protein 8.1 g/dL (6.4-8.2)
[2020-08-10 10:51] LABS: Lactic Acid Reflex 5.9 mmol/L (0.4-2.0)
--- NOTE | 2020-08-10 10:57 | ECG_ITS ---
Measurements Intervals [place] Rate: 88 P: 70 VA: 169 QRS: -17 QRSD: 113 T: 52 QT: 395 QTc: 479 Interpretive Statements SINUS RHYTHM RIGHT BUNDLE BRANCH BLOCK BASELINE ARTIFACT- II, III, AVL, AVF ABNORMAL ECG Electronically Signed On 08-11-2020 7:21:13 MACHINE DEBURRER by Jsoé Raymundo D.O.
[2020-08-10 11:22] LABS: Troponin I 7.9 ng/L (0.00-60.4)
[2020-08-10 11:30] LABS: BNP 17 pg/mL (0-100)
[2020-08-10] MEDS: SODIUM CHLORIDE 0.9% IV 1,000 ML 500 ML IV CONT (11:51)
[2020-08-10 12:50] VITALS: BP 124/83; PULSE 71; O2SAT 100
[2020-08-10 13:00] VITALS: BP 107/65; PULSE 89; RESP 16; TEMP 37.2; O2SAT 97
[2020-08-10 13:27] LABS: Reflex Lactic Acid Yes or No Add Lactic
[2020-08-10 14:02] LABS: Lactic Acid 2.5 mmol/L (0.4-2.0)
--- NOTE | 2020-08-10 14:03 | PM.IMHP ---
H&P: HPI History of Present Illness Date/Time: 08/10/20 14:03 <GUILLAUME Rowley - Last Filed: 08/10/20 14:56> Chief Complaint: Feels like he is falling apart <GUILLAUME Rowley - Last Filed: 08/10/20 14:56> Narrative: Rik Thakur is a 75 year old male who admits to getting depressed around the holidays and resorts to EtOH. Pt states he lost his partner he was with for 50 years and that his parents have also and does not have contact with the rest of his family. He states that he is falling apart and that he has been falling down frequently lately. He points out bruising and to a tender area to his left lower ribs. Pt admits to drinking a bottle of wine a day and that his last drink was 2 days ago. <GUILLAUME Rowley - Last Filed: 08/10/20 14:56> Review of Systems Constitutional: Constitutional: Reports no additional constitutional complaints <GUILLAUME Rowley - Last Filed: 08/10/20 14:56> Cardiovascular: Cardiovascular: Reports no additional cardiovascular complaints, Denies chest pain, Denies chest pain at rest and Denies chest pain with activity <GUILLAUME Rowley - Last Filed: 08/10/20 14:56> Respiratory: Respiratory: Reports no additional respiratory complaints, Denies dyspnea and Denies dyspnea on exertion <GUILLAUME Rowley - Last Filed: 08/10/20 14:56> Gastrointestinal: Comments: Pt admits to having diarrhea <GUILLAUME Rowley - Last Filed: 08/10/20 14:56> Genitourinary: Genitourinary: Reports no additional male genitourinary complaints <GUILLAUME Rowley - Last Filed: 08/10/20 14:56> Musculoskeletal: Comments: denies having any tremmors <GUILLAUME Rowley - Last Filed: 08/10/20 14:56> PMF Past Medical History Medical History: Medical History (Updated 08/10/20 @ 14:51 by GUILLAUME Rowley) Alcohol abuse Anxiety Failed total knee replacement GERD (gastroesophageal reflux disease) Hip fracture HTN (hypertension) <GUILLAUME Rowley - Last Filed: 08/10/20 14:56> Surgical History Surgical History: Surgical History History of appendectomy <GUILLAUME Rowley - Last Filed: 08/10/20 14:56> Family History Family History: Family History Mother Old age Father Old age <GUILLAUME Rowley - Last Filed: 08/10/20 14:56> Social History Social History: Social History Social History: pt lives alone, and is fearful of falling Smoking packs per day: 3 Smoking cigarettes per day: 60.0 Years smoked: 25 Smoking pack-years: 75.00 Smoking status: Former smoker Tobacco type: cigarettes Second hand tobacco smoke exposure: No Smoking end date: 08/15/87 Alcohol intake: current Drinks per week: 7 Substance use: never Substance use type: does not use Gender identity (if verbalized by the patient): Male Spiritual care concerns: No <GUILLAUME Rowley - Last Filed: 08/10/20 14:56> Meds Home Medications and Allergies Home medications: Home Medications Medication Instructions Recorded Confirmed Type hydrocodone-acetaminophen 1 tablet PO Q6H PRN #20 tablet 03/31/20 04/03/20 Rx acetaminophen [Acetaminophen Extra 1,000 mg PO Q6H PRN 04/11/20 08/10/20 History Strength] docusate sodium [Colace] 100 mg PO BID PRN 04/11/20 08/10/20 History lidocaine [Lidoderm] 3 patch TRANSDERMAL DAILY 30 Days 04/11/20 08/10/20 Rx #90 each magnesium oxide 400 mg PO BID 90 Days #180 tablet 04/11/20 08/10/20 Rx pantoprazole [Protonix] 20 mg PO QAM 30 Days #30 tablet 04/11/20 08/10/20 Rx potassium chloride 20 meq PO DAILY 30 Days #30 ea 04/11/20 08/10/20 Rx timolol maleate [Timoptic] 1 drp OPHTHALMIC (EYE) DAILY 04/11/20 08/10/20 History tramadol 50 mg PO Q12HR PRN 30 Days #20 04/11/20 08/10/20 Rx tab
[2020-08-10 15:04] VITALS: BMI 19.3
[2020-08-10] MEDS: SODIUM CHLORIDE 0.9% IV 1,000 ML 100 ML IV CONT (15:30)
[2020-08-10 16:00] VITALS: BP 142/82; PULSE 76; RESP 16; TEMP 37; O2SAT 100
[2020-08-10] MEDS: MAGNESIUM OXIDE 400 MG TABLET PO (16:46)
--- NOTE | 2020-08-10 20:08 | ED.WEAKNESS ---
HPI - Weakness General Source: patient Mode of arrival: ambulatory Limitations: no limitations History of Present Illness HPI Narrative: Patient presents with weakness, and says he has had constant diarrhea for several days. He states this is severe and ongoing, to the point he can't get to the bathroom before he goes. He cannot think of anything it is related to. He also complains of severe pain in left upper quadrant and lower left chest. Duration is ongoing. He says this is related to a fall on the floor some days ago. MD Complaint: generalized weakness Duration: constant Location: generalized Relieving factors: none Context: new medication Related Data Home Medications Medication Instructions Recorded Confirmed acetaminophen [Acetaminophen Extra 1,000 mg PO Q6H PRN 04/11/20 08/10/20 Strength] docusate sodium [Colace] 100 mg PO BID PRN 04/11/20 08/10/20 timolol maleate [Timoptic] 1 drp OPHTHALMIC (EYE) DAILY 04/11/20 08/10/20 Allergies Allergy/AdvReac Type Severity Reaction Status Date / Time Penicillins Allergy Mild Verified 10/01/15 15:02 Review of Systems Constitutional: Constitutional: Reports no additional constitutional complaints Eyes: Eyes: Reports no additional eye complaints ENT: Reports system reviewed and no additional complaints, except as documented Cardiovascular: Cardiovascular: Reports no additional cardiovascular complaints Respiratory: Respiratory: Reports no additional respiratory complaints Gastrointestinal: Gastrointestinal: Reports no additional gastrointestinal complaints Genitourinary: Genitourinary: Reports no additional male genitourinary complaints Musculoskeletal: Comments: weakness, diffuse muscle pain Integumentary/Breasts: Skin/Breast: Reports system reviewed and no additional complaints, except as docu Neurologic: Reports system reviewed and no additional complaints, except as documented Psychiatric: Psychiatric: Reports no additional psychiatric complaints Endocrine: Endocrine: Reports no additional endocrine complaints Hematologic/Lymphatic: Hematologic/Lymphatic: Reports no additional hematologic/lymphatic complaints Allergic/Immunologic: Allergic/Immunologic: Reports no additional allergic/immunologic complaints [facility] Past Medical History Medical History (Updated 08/10/20 @ 20:40 by Jaiden Guerrero MD) Alcohol abuse Anxiety Failed total knee replacement GERD (gastroesophageal reflux disease) Hip fracture HTN (hypertension) Surgical History Surgical History History of appendectomy Family History Family History Mother Old age Father Old age Social History Social History Social History: pt lives alone, and is fearful of falling Smoking packs per day: 3 Smoking cigarettes per day: 60.0 Years smoked: 25 Smoking pack-years: 75.00 Smoking status: Former smoker Tobacco type: cigarettes Second hand tobacco smoke exposure: No Smoking end date: 08/15/87 Alcohol intake: current Drinks per week: 7 Substance use: never Substance use type: does not use Gender identity (if verbalized by the patient): Male Spiritual care concerns: No Exam Const: General: no acute distress Other: Appears chronically ill HENMT: Head: normal to inspection Ears: external ears normal and TM's normal bilaterally Face and sinus: normal facial exam Eyes: Conjunctivae: conjunctivae normal Neck: Neck: normal visual inspection Chest: Chest palpation & inspection: normal inspection of the chest Resp: Effort & Inspection: normal respiratory effort Auscultation: clear to auscultation bilaterally Cardio: Rate: regular rate Rhythm: regular rhythm GI: GI Palp: Yes Soft to palpation (nontender ) Skin: General skin exam: normal color Neuro: General: patient oriented x3 and moves a
[2020-08-10] MEDS: traMADol HCL (*CRX) 50 MG TABLET PO (20:13)
[2020-08-10] MEDS: LORazepam (*CRX) 1 MG TABLET PO (20:15)
--- NOTE | 2020-08-10 22:05 | PC.NURSE ---
pt resting in bed, iv running, rails up, pt states ativan has helped, c/o bruised feeling in ribs, pt reports this is where he landed when he fell at the [facility], no bruising noted on ribs
[2020-08-10] MEDS: SODIUM CHLORIDE 0.9% IV 1,000 ML 150 ML IV CONT (22:07)
--- NOTE | 2020-08-10 22:15 | PC.NURSE ---
2205 new bag ns started at 150/hr, unable to document in mar
[2020-08-10 23:00] VITALS: BP 114/74; PULSE 62; RESP 18; TEMP 36.2; O2SAT 99
[2020-08-11] MEDS: SODIUM CHLORIDE 0.9% IV 1,000 ML 100 ML IV CONT (04:50)
[2020-08-11 07:15] LABS: Hematocrit 37.3 % (37.0-46.0); Hemoglobin 12.7 g/dL (12.4-15.3); Mean Corpuscular Hemoglobin 30.9 pg (27.0-31.0); Mean Corpuscular Volume 90.8 fL (78.0-102.0); Mean Platelet Volume 9.2 fl (8.7-11.0); Platelet Count Result 150 K/mm3 (150-420); Red Blood Count 4.11 M/mm3 (4.70-6.10); Red Cell Distribution Width 15.5 % (11.6-14.4); White Blood Count 3.5 K/mm3 (4.8-10.8)
[2020-08-11 07:27] LABS: Anion Gap 5 mmol/L (8-16); Blood Urea Nitrogen 10 mg/dL (7-18); Calcium 8.4 mg/dL (8.5-10.1); Carbon Dioxide 30 mmol/L (21-32); Chloride 96 mmol/L (98-108); Estimated CRCL calculation 46 ml/min; Estimated Glomerular Filt Rate > 60; Glucose 86 mg/dL (70-99); Osmolality Calculated 270 mOsm/kg (285-295); Potassium 3.8 mmol/L (3.5-5.1); Sodium 131 mmol/L (136-145)
[2020-08-11 07:36] LABS: Lactic Acid Reflex 0.9 mmol/L (0.4-2.0)
[2020-08-11 08:00] VITALS: BP 124/88; PULSE 62; RESP 16; TEMP 36.6; O2SAT 97
[2020-08-11] MEDS: traMADol HCL (*CRX) 50 MG TABLET PO (08:01)
[2020-08-11] MEDS: LIDOCAINE 5% PATCH 3 PATCH TRANSDERM (08:02)
[2020-08-11] MEDS: LORazepam (*CRX) 1 MG TABLET PO (08:02)
[2020-08-11] MEDS: PANTOPRAZOLE SOD SESQUIHYDRATE 20 MG TAB PO (08:02)
[2020-08-11] MEDS: POTASSIUM CHLORIDE 20 MEQ PACKET (FOR LIQUID) PO (08:02)
[2020-08-11] MEDS: ENOXAPARIN 40 MG/0.4 ML SYRINGE SUB-Q (08:02)
[2020-08-11] MEDS: TIMOLOL MALEATE 0.25% OP SOLN 5 ML BOTTLE 1 DROP EACH EYE (08:02)
[2020-08-11] MEDS: MAGNESIUM OXIDE 400 MG TABLET PO (08:02)
[2020-08-11] MEDS: SODIUM CHLORIDE 1 GM TABLET PO (08:31)
--- NOTE | 2020-08-11 10:30 | PM.DS ---
DS: Admitting Diagnosis Admitting Diagnosis Admitting Diagnosis: LL rib pain, EtOH abuse/withdrawal <MONALISA RowleyC - Last Filed: 08/11/20 12:02> DS: Discharge Diagnosis Discharge Diagnosis (1) Diarrhea: Code(s): R19.7 - Diarrhea, unspecified <Rd Mckeon APN-C - Last Filed: 08/11/20 12:02> Status: Acute <Rd EdiliaMONALISA CaseyC - Last Filed: 08/11/20 12:02> Assessment and Plan: 08/10/2020 Stool Cx, C-diff, Stool WBC ordered, IV fluids NS @ 100mL/h 08/11/2020 patient tolerating oral fluids well <MONALISA RowleyC - Last Filed: 08/11/20 12:02> (2) Rib pain on left side: Code(s): R07.81 - Pleurodynia <MONALISA RowleyC - Last Filed: 08/11/20 12:02> Status: Acute <Rd Mckeon APN-C - Last Filed: 08/11/20 12:02> Assessment and Plan: 08/10/2020 No rib Fx on CT, will order pain meds if needed 08/11/2020 will discharge patient with a short script of tramadol patient will then need to follow-up primary care provider for any further medication <MONALISA RowleyC - Last Filed: 08/11/20 12:02> (3) Alcohol withdrawal: Code(s): F10.239 - Alcohol dependence with withdrawal, unspecified <MONALISA RowleyC - Last Filed: 08/11/20 12:02> Status: Acute <Rd Mckeon APN-C - Last Filed: 08/11/20 12:02> Assessment and Plan: 08/10/2020 Ativan PRN for withdrawal symptoms 08/11/2020 patient has been symptom free over the last 24 hours <MONALISA RowleyC - Last Filed: 08/11/20 12:02> (4) Lactic acidosis: Code(s): E87.2 - Acidosis <Rd Mckeon APN-C - Last Filed: 08/11/20 12:02> Status: Acute <Rd Mortensen GUILLAUME Mckeon - Last Filed: 08/11/20 12:02> Assessment and Plan: 08/10/2020 This has improved since initial 5.9 down to 2.5 08/11/2020 levels this morning was 0.9 <Rd EdiliaGUILLAUME Casey - Last Filed: 08/11/20 12:02> (5) Electrolyte abnormality: Code(s): E87.8 - Other disorders of electrolyte and fluid balance, not elsewhere classified <Rd EdiliaGUILLAUME Casey - Last Filed: 08/11/20 12:02> Status: Acute <Rd EdiliaGUILLAUME Casey - Last Filed: 08/11/20 12:02> Assessment and Plan: 08/10/2020 low Na and Cl, NS @ 100 mL/h 08/11/2020 will discharge patient on sodium chloride tabs and patient will need to follow-up with his PCP to follow-up on his electrolytes <GUILLAUME Rowley - Last Filed: 08/11/20 12:02> DS: Summary Hospital Course Hospital Course: patient has improved, no signs of alcohol withdrawal, electrolytes normalizing, patient still has left lower rib pain will need to follow with primary care provider <GUILLAUME Rowley - Last Filed: 08/11/20 12:02> Time Spent with Patient Time attestation: Total time spent providing and/or coordinating discharge services: < 30 minutes <GUILLAUME Rowley - Last Filed: 08/11/20 12:02> Exam Const: General: cooperative, comfortable, no acute distress, alert, awake and Physically active <GUILLAUME Rowley - Last Filed: 08/11/20 12:02> Nutritional Appearance: average body habitus <GUILLAUME Rowley - Last Filed: 08/11/20 12:02> Chest: Other: tenderness to left lower rib area, has lidocaine patches in place <GUILLAUME Rowley - Last Filed: 08/11/20 12:02> Resp: Effort & Inspection: normal respiratory effort <GUILLAUME Rowley - Last Filed: 08/11/20 12:02> Auscultation: clear to auscultation bilaterally <GUILLAUME Rowley - Last Filed: 08/11/20 12:02> Cardio: Rate: regular rate <GUILLAUME Rowley - Last Filed: 08/11/20 12:02> Rhythm: regular rhythm <GUILLAUME Rowley - Last Filed: 08/11/20 12:02> Heart sounds: S1 normal heart sound present and S2 normal heart sound present <GUILLAUME Rowley - Last Filed: 08/11/20 12:02> GI: GI Palp: Yes Soft to palpation and No Tenderness to palpation present (GI)
--- NOTE | 2020-08-21 11:48 | PC.NURSE ---
Pt states he received and understood his discharge instructions. Pt also states you took excellent care of me .
== END 2020-08-11 14:05 | disposition home health service (06) ==
LOC: CHSED 09:46 → CHS2ND 12:39
PROVIDERS: Nurse Practitioner Family; Admitting Provider Emergency Medicine; Emergency Provider Emergency Medicine; PCP Internal Medicine; Visit Provider Emergency Medicine
DX: R19.7 Diarrhea, unspecified (principal); E87.2 Acidosis; R07.81 Pleurodynia; K21.9 Gastro-esophageal reflux disease without esophagitis; I10 Essential (primary) hypertension; R29.6 Repeated falls; F10.139 Alcohol abuse with withdrawal, unspecified; F10.10 Alcohol abuse, uncomplicated; F41.9 Anxiety disorder, unspecified; Z87.891 Personal history of nicotine dependence; Z91.81 History of falling; E87.8 Other disorders of electrolyte and fluid balance, not elsewhere classified
CPT/HCPCS: 36415; 71260; 74177; 80048; 80053; 81003; 83605; 83880; 84484; 85025; 85027; 87177; 87209; 87269; 87272; 87324; 89055; 93005; 96360; 96361; 96372; 97161; 99285; A9270; G0378; J1650; J1885; J7030; Q9965; Q9967

== ENCOUNTER 2020-08-12 08:31 | Outpatient (CLI) | payer MEDICARE, SELFPAY ==
--- NOTE | ~2020-08-12 | XR_ITS ---
EXAMINATION: XR UGIAC wo kub EXAM DATE: 08/12/2020 09:23 INDICATION: Dysphagia, pt losing wt due to difficulty swallowing. Had growth removed from throat 3 m onths ago. TECHNIQUE: Limited double contrast barium upper GI examination was performed according to patient ab ilities. There is no prior study for comparison. FINDINGS: Small amount of contrast suspected within the airway penetration to the level of the vocal cords. No cough was elicited. Consider modified esophagram. Some tortuosity of the esophagus, with no focal stricturing or mucosal abnormality identified. Stomac h has normal contour, no evidence of mass. Duodenal bulb and duodenum are normal in appearance. IMPRESSION: Suspect laryngeal penetration to level of vocal cords. Consider modified esophagram. Reviewed, dictated and finalized at location B. R MARINE IMPRESSION: Suspect laryngeal penetration to level of vocal cords. Consider mo dified esophagram.
== END 2020-08-12 08:32 | disposition home or self-care (01) ==
LOC: CHSIMG 08:33
PROVIDERS: PCP Internal Medicine; Visit Provider Internal Medicine
DX: R13.10 Dysphagia, unspecified (principal)
CPT/HCPCS: 74246

== ENCOUNTER 2020-09-01 17:36 | Emergency (ER) | payer MEDICARE, SELFPAY ==
--- NOTE | ~2020-09-01 | XR_ITS ---
EXAMINATION: XR abdomen obstructive series DATE: 09/01/2020 19:20 INDICATION: Nausea and vomiting TECHNIQUE: Upright and supine views of the abdomen were obtained. COMPARISON: None. FINDINGS: There is no free intraperitoneal gas. No dilated loops of bowel are evident. The visualized lung bases are clear. There is levocurvature of the lumbar spine. Calcified atherosclerosis is noted . IMPRESSION: 1. Nonobstructive bowel gas pattern. Reviewed, dictated and finalized at location A. OR ELECTRICAL ENGINEER
--- NOTE | ~2020-09-01 | XR_ITS ---
EXAMINATION: XR chest 1V INDICATION: Vomiting and fever TECHNIQUE: PA view of the chest is obtained. COMPARISON: 12/21/2019 FINDINGS: The lungs are free of acute opacities. There is no pleural effusion or pneumothorax. There is tortuosity of the thoracic aorta. The visualized osseous structures are unremarkable. IMPRESSION: 1. No acute cardiopulmonary abnormality. Reviewed, dictated and finalized at location A. ATING SYSTEM DESIGNER
[2020-09-01 17:40] VITALS: BP 170/103; PULSE 89; RESP 14; TEMP 36.5; O2SAT 98
--- NOTE | 2020-09-01 17:51 | ED.NAVMDI ---
HPI - Nausea/Vomiting/Diarrhea General Chief complaint: Nausea/Vomiting/Diarrhea Stated complaint: AMB Time Seen by Provider: 09/01/20 17:51 Source: patient Mode of arrival: EMS Limitations: physical limitation (hard of hearing) History of Present Illness HPI Narrative: 75-year-old man brought to the emergency department by EMS after he began complaining at the [place] of having chills and nausea. Took a small sip of water and vomited it. He has had no vomiting since. Patient states he has been drinking and has had no abdominal pain, cough or cold symptoms, chest pain, shortness of breath, fever, abdominal pain, dysuria or syncope. Patient states that he has had watery diarrhea for few days. Patient was given IV thiamine by EMS. MD elicited complaint: nausea, vomiting and diarrhea Pertinent past history: alcohol abuse Onset (ago): hour(s) Description of vomiting: food contents and watery Description of diarrhea: watery Associated nausea: Yes Associated abdominal pain: No Exacerbating factors: eating Relieving factors: none Associated symptoms: fever/chills and nausea/vomiting Treatment prior to arrival: none Related Data Home Medications Medication Instructions Recorded Confirmed acetaminophen 1,000 mg PO BID 09/01/20 09/01/20 torsemide 10 mg PO QAM 09/01/20 09/01/20 Allergies Allergy/AdvReac Type Severity Reaction Status Date / Time Penicillins Allergy Mild Verified 10/01/15 15:02 Review of Systems Constitutional: Constitutional: Reports chills, Denies fatigue, Denies fever(s) and Denies weakness Eyes: Eyes: Denies change in vision and Denies photophobia ENT: Denies dysphagia, Denies nasal congestion and Denies sore throat Cardiovascular: Cardiovascular: Denies chest pain and Denies radiating jaw, neck or arm pain Respiratory: Respiratory: Denies cough, Denies dyspnea and Denies wheezing Gastrointestinal: Gastrointestinal: Denies abdominal pain, Reports diarrhea, Reports nausea and Reports vomiting Genitourinary: Genitourinary: Denies hematuria and Denies dysuria Musculoskeletal: Musculoskeletal: Denies arthralgias and Denies joint swelling Integumentary/Breasts: Skin/Breast: Denies pruritus, Denies erythema and Denies rash Neurologic: Denies vertigo, Denies dizziness and Denies syncope Hematologic/Lymphatic: Hematologic/Lymphatic: Denies easy bleeding and Denies easy bruising Allergic/Immunologic: Allergic/Immunologic: Denies lip swelling and Denies throat swelling PMFSH Past Medical History Medical History (Updated 09/01/20 @ 19:54 by Rik Castillo MD) Alcohol abuse Anxiety Failed total knee replacement GERD (gastroesophageal reflux disease) Hip fracture HTN (hypertension) Surgical History Surgical History History of appendectomy Family History Family History Mother Old age Father Old age Social History Social History (Updated 09/01/20 @ 18:08 by Rik Castillo MD) Smoking packs per day: 3 Smoking cigarettes per day: 60.0 Years smoked: 25 Smoking pack-years: 75.00 Smoking status: Former smoker Tobacco type: cigarettes Second hand tobacco smoke exposure: No Smoking end date: 08/15/87 Alcohol intake: current Drinks per week: 7 Substance use: never Substance use type: does not use Living arrangements: assisted living Gender identity (if verbalized by the patient): Male Spiritual care concerns: No Exam Const: General: no acute distress, alert and ill appearing chronically Nutritional Appearance: thin HENMT: Head: normal to inspection Ears: external ears normal, TM's normal bilaterally and EAC's normal General nose exam: Normal nares present Face and sinus: normal facial exam Mouth: Yes moist mucous membranes Throat: posterior oropharynx normal Eyes: Cornea: corneas normal EOM: EOMs intact bilaterally Resp: Effort & Ins
--- NOTE | 2020-09-01 17:53 | ECG_ITS ---
Measurements Intervals Sarah Ann Rate: 87 P: 67 [place]: 174 QRS: -43 QRSD: 119 T: 8 QT: 390 QTc: 471 Interpretive Statements SINUS RHYTHM LEFT AXIS DEVIATION RIGHT BUNDLE BRANCH BLOCK ABNORMAL ECG Electronically Signed On 09-01-2020 21:51:37 HEAD COOK by José Raymundo D.O.
[2020-09-01 18:08] VITALS: BP 144/97
[2020-09-01 18:24] LABS: Basophils Absolute Auto 0.04 K/mm3 (0.00-0.10); Basophils Percent Auto 0.9 % (0.0-1.0); Eosinophils Absolute Auto 0.02 K/mm3 (0.02-0.50); Eosinophils Percent Auto 0.5 % (1.0-6.0); Hematocrit 40.6 % (37.0-46.0); Hemoglobin 14.1 g/dL (12.4-15.3); Immature Granulocyte Absolute 0.01 K/mm3 (0.00-0.00); Immature Granulocyte Percent A 0.2 % (0.0-0.0); Lymphocytes Absolute Auto 1.57 K/mm3 (1.10-4.50); Lymphocytes Percent Auto 35.5 % (18.0-42.0); Mean Corpuscular HGB Conc 34.7 g/dL (32.0-36.0); Mean Corpuscular Hemoglobin 31.7 pg (27.0-31.0); Mean Corpuscular Volume 91.2 fL (78.0-102.0); Mean Platelet Volume 9.6 fl (8.7-11.0); Monocytes Absolute Auto 0.45 K/mm3 (0.10-0.90); Monocytes Percent Auto 10.2 % (2.0-11.0); Neutrophils Absolute Auto 2.3 K/mm3 (1.7-7.2); Neutrophils Percent Auto 52.7 % (50.0-70.0); Platelet Count Result 204 K/mm3 (150-420); Red Blood Count 4.45 M/mm3 (4.70-6.10); Red Cell Distribution Width 16.9 % (11.6-14.4); White Blood Count 4.4 K/mm3 (4.8-10.8)
[2020-09-01 18:25] LABS: Add Urine Microscopic? YES; Appearance Urine Clear (Clear); Bilirubin Urine Negative (Negative); Blood Urine Negative (Negative); Color Urine Yellow (Yellow); Glucose Urine UA Negative (Negative); Ketones Urine Trace (Negative); Leukocyte Esterase Ur Negative LEU/UL (Negative); Nitrate Urine Negative (Negative); Protein Urine Negative (Negative); Specific Grav Ur 1.025 (1.010-1.020); Urobilinogen Urine 0.2 mg/dL (0.2-1.0)
[2020-09-01 18:30] LABS: Bacteria Urine Trace /hpf; Mucus Urine Few /lpf; RBC Urine None seen /hpf (0-2); Squamous Epithelial Cell Urine Rare /hpf (Few); WBC Urine None seen /hpf (0-3)
[2020-09-01 18:37] LABS: Partial Thromboplastin Time 26.8 SEC (23.90-30.70); Prothrombin Time 11.4 Seconds (9.50-12.10)
[2020-09-01 18:38] LABS: SARS-CoV-2 Ag Negative (Negative)
[2020-09-01 18:40] LABS: Alanine Aminotransferase 54 U/L (16-63); Albumin Level 4.2 g/dL (3.4-5.0); Alkaline Phosphatase 100 U/L (46-116); Anion Gap 12 mmol/L (8-16); Aspartate Amino Transferase 73 U/L (15-37); Bilirubin,Total 0.9 mg/dL (0.00-1.00); Blood Urea Nitrogen 11 mg/dL (7-18); Calcium 9.1 mg/dL (8.5-10.1); Carbon Dioxide 30 mmol/L (21-32); Chloride 95 mmol/L (98-108); Estimated Glomerular Filt Rate > 60; Glucose 108 mg/dL (70-99); Lipase 150 U/L (73-393); Osmolality Calculated 284 mOsm/kg (285-295); Potassium 3.7 mmol/L (3.5-5.1); Sodium 137 mmol/L (136-145); Total Protein 7.8 g/dL (6.4-8.2); Troponin I 5.8 ng/L (0.00-60.4)
[2020-09-01 18:41] LABS: CRP < 0.2 mg/dL (0.0-0.9); Ethanol 3 mg/dL (0-6)
[2020-09-01 18:43] LABS: Lactic Acid Reflex 1.9 mmol/L (0.4-2.0)
[2020-09-01 19:28] VITALS: BP 142/93; PULSE 81; RESP 20; O2SAT 100
[2020-09-01] MEDS: ONDANSETRON INJ 4 MG/2 ML VIAL IV PUSH (19:39)
[2020-09-01 19:53] VITALS: BP 134/89; PULSE 91; RESP 20; TEMP 37.1; O2SAT 97
--- NOTE | 2020-09-01 20:16 | PC.NURSE ---
[facility] information given to pt and friend bubba. calling [facility] [employer]
== END 2020-09-01 19:59 ==
PROVIDERS: Emergency Provider Emergency Medicine; PCP Internal Medicine
DX: F10.10 Alcohol abuse, uncomplicated (principal); K52.9 Noninfective gastroenteritis and colitis, unspecified; K21.9 Gastro-esophageal reflux disease without esophagitis; I10 Essential (primary) hypertension; Z87.891 Personal history of nicotine dependence; Z79.899 Other long term (current) drug therapy; Z20.822 Contact with and (suspected) exposure to COVID-19
CPT/HCPCS: 36415; 71045; 74019; 80053; 80307; 81001; 83605; 83690; 84484; 85025; 85610; 85730; 86140; 87040; 87426; 93005; 96374; 99283; 99284; C9803; J2405

== ENCOUNTER 2020-10-14 09:40 | Outpatient (CLI) | payer MEDICARE, SELFPAY ==
[2020-10-14 10:13] LABS: Basophils Absolute Auto 0.04 K/mm3 (0.00-0.10); Basophils Percent Auto 0.9 % (0.0-1.0); Eosinophils Absolute Auto 0.15 K/mm3 (0.02-0.50); Eosinophils Percent Auto 3.2 % (1.0-6.0); Hematocrit 42.3 % (37.0-46.0); Hemoglobin 14.1 g/dL (12.4-15.3); Immature Granulocyte Absolute 0.01 K/mm3 (0.00-0.00); Immature Granulocyte Percent A 0.2 % (0.0-0.0); Lymphocytes Absolute Auto 1.93 K/mm3 (1.10-4.50); Lymphocytes Percent Auto 41.8 % (18.0-42.0); Mean Corpuscular HGB Conc 33.3 g/dL (32.0-36.0); Mean Corpuscular Hemoglobin 31.5 pg (27.0-31.0); Mean Corpuscular Volume 94.6 fL (78.0-102.0); Mean Platelet Volume 9.3 fl (8.7-11.0); Monocytes Absolute Auto 0.49 K/mm3 (0.10-0.90); Monocytes Percent Auto 10.6 % (2.0-11.0); Neutrophils Percent Auto 43.3 % (50.0-70.0); Platelet Count Result 298 K/mm3 (150-420); Red Blood Count 4.47 M/mm3 (4.70-6.10); Red Cell Distribution Width 14.6 % (11.6-14.4); White Blood Count 4.6 K/mm3 (4.8-10.8)
[2020-10-14 11:23] LABS: Alanine Aminotransferase 51 U/L (16-63); Albumin Level 3.8 g/dL (3.4-5.0); Alkaline Phosphatase 120 U/L (46-116); Anion Gap 9 mmol/L (8-16); Aspartate Amino Transferase 38 U/L (15-37); Bilirubin,Total 0.5 mg/dL (0.00-1.00); Blood Urea Nitrogen 3 mg/dL (7-18); Calcium 9.6 mg/dL (8.5-10.1); Carbon Dioxide 29 mmol/L (21-32); Chloride 101 mmol/L (98-108); Estimated Glomerular Filt Rate > 60; Glucose 88 mg/dL (70-99); Magnesium 1.8 mg/dL (1.8-2.4); Osmolality Calculated 283 mOsm/kg (285-295); Potassium 4.4 mmol/L (3.5-5.1); Sodium 139 mmol/L (136-145); Total Protein 6.9 g/dL (6.4-8.2)
[2020-10-14 13:47] LABS: Ethanol < 3 mg/dL (0-6)
== END 2020-10-14 09:41 | disposition home or self-care (01) ==
LOC: CHSLAB 09:42
PROVIDERS: PCP Internal Medicine; Visit Provider Internal Medicine
DX: I10 Essential (primary) hypertension (principal); F10.10 Alcohol abuse, uncomplicated; Z79.899 Other long term (current) drug therapy
CPT/HCPCS: 36415; 80053; 80307; 83735; 85025

== ENCOUNTER 2020-11-24 15:00 | Outpatient (CLI) | payer MEDICARE, SELFPAY ==
[2020-11-24 15:17] LABS: Basophils Absolute Auto 0.04 K/mm3 (0.00-0.10); Basophils Percent Auto 0.8 % (0.0-1.0); Eosinophils Percent Auto 8.4 % (1.0-6.0); Hematocrit 36.2 % (37.0-46.0); Hemoglobin 11.9 g/dL (12.4-15.3); Immature Granulocyte Absolute 0.01 K/mm3 (0.00-0.00); Immature Granulocyte Percent A 0.2 % (0.0-0.0); Lymphocytes Absolute Auto 1.75 K/mm3 (1.10-4.50); Lymphocytes Percent Auto 36.8 % (18.0-42.0); Mean Corpuscular HGB Conc 32.9 g/dL (32.0-36.0); Mean Corpuscular Hemoglobin 30.2 pg (27.0-31.0); Mean Corpuscular Volume 91.9 fL (78.0-102.0); Mean Platelet Volume 9.7 fl (8.7-11.0); Monocytes Absolute Auto 0.52 K/mm3 (0.10-0.90); Monocytes Percent Auto 10.9 % (2.0-11.0); Neutrophils Percent Auto 42.9 % (50.0-70.0); Platelet Count Result 219 K/mm3 (150-420); Red Blood Count 3.94 M/mm3 (4.70-6.10); Red Cell Distribution Width 13.2 % (11.6-14.4); White Blood Count 4.8 K/mm3 (4.8-10.8)
[2020-11-24 15:42] LABS: Alanine Aminotransferase 40 U/L (16-63); Albumin Level 3.7 g/dL (3.4-5.0); Alkaline Phosphatase 79 U/L (46-116); Anion Gap 9 mmol/L (8-16); Aspartate Amino Transferase 37 U/L (15-37); Bilirubin,Total 0.5 mg/dL (0.00-1.00); Blood Urea Nitrogen 10 mg/dL (7-18); Calcium 9.1 mg/dL (8.5-10.1); Carbon Dioxide 26 mmol/L (21-32); Chloride 97 mmol/L (98-108); Estimated Glomerular Filt Rate > 60; Glucose 100 mg/dL (70-99); Osmolality Calculated 273 mOsm/kg (285-295); Potassium 3.9 mmol/L (3.5-5.1); Sodium 132 mmol/L (136-145); Total Protein 6.6 g/dL (6.4-8.2)
== END 2020-11-24 15:01 | disposition home or self-care (01) ==
LOC: CHSLAB 15:02
PROVIDERS: PCP Internal Medicine; Visit Provider Internal Medicine
DX: I10 Essential (primary) hypertension (principal)
CPT/HCPCS: 36415; 80053; 85025

== ENCOUNTER 2021-02-25 10:41 | Observation (INO) | payer MEDICARE, SELFPAY ==
[2021-02-25 11:16] VITALS: BP 149/98; PULSE 84; RESP 16; TEMP 36.3; O2SAT 98
[2021-02-25 11:46] LABS: Basophils Absolute Auto 0.04 K/mm3 (0.00-0.10); Basophils Percent Auto 0.6 % (0.0-1.0); Eosinophils Absolute Auto 0.01 K/mm3 (0.02-0.50); Eosinophils Percent Auto 0.2 % (1.0-6.0); Hematocrit 42.8 % (37.0-46.0); Hemoglobin 15.1 g/dL (12.4-15.3); Immature Granulocyte Absolute 0.02 K/mm3 (0.00-0.00); Immature Granulocyte Percent A 0.3 % (0.0-0.0); Lymphocytes Absolute Auto 1.93 K/mm3 (1.10-4.50); Lymphocytes Percent Auto 30.3 % (18.0-42.0); Mean Corpuscular HGB Conc 35.3 g/dL (32.0-36.0); Mean Corpuscular Hemoglobin 30.2 pg (27.0-31.0); Mean Corpuscular Volume 85.6 fL (78.0-102.0); Mean Platelet Volume 9.7 fl (8.7-11.0); Monocytes Absolute Auto 0.48 K/mm3 (0.10-0.90); Monocytes Percent Auto 7.5 % (2.0-11.0); Neutrophils Absolute Auto 3.9 K/mm3 (1.7-7.2); Neutrophils Percent Auto 61.1 % (50.0-70.0); Platelet Count Result 215 K/mm3 (150-420); Red Cell Distribution Width 14.7 % (11.6-14.4); White Blood Count 6.4 K/mm3 (4.8-10.8)
--- NOTE | 2021-02-25 11:49 | ED.GENADULT ---
HPI - General Adult General Chief complaint: Nausea/Vomiting/Diarrhea Stated complaint: vomiting/possible alcohol withdrawal Source: patient and family Mode of arrival: ambulatory Limitations: no limitations History of Present Illness HPI narrative: Rik Thakur is a 75M with a PMH of insomnia, GERD, anxiety/depression, pubic rami fracture and alcohol abuse that presented to the ER with agitation, nausea, vomiting and diarrhea. He was sober for 5 months but fell off the wagon a few weeks ago and has been drinking a few small bottles of wine daily. Last drink was last night. He reports that he has had a lot of agitation today and racing thoughts. He prayed for yesterday but has no plan and says he would not do it himself. He also has had nausea and vomiting with watery diarrhea for a few days. He also reports being very depressed for about 6 years since his partner . No hallucinations, delusions, CP or SOB. Related Data Home Medications Medication Instructions Recorded Confirmed No Home Medications 02/25/21 02/25/21 Allergies Allergy/AdvReac Type Severity Reaction Status Date / Time Penicillins Allergy Mild Verified 10/01/15 15:02 Review of Systems Constitutional: Constitutional: Denies chills, Reports fatigue and Denies fever(s) Eyes: Eyes: Reports no additional eye complaints ENT: Reports system reviewed and no additional complaints, except as documented Cardiovascular: Cardiovascular: Reports no additional cardiovascular complaints Respiratory: Respiratory: Reports no additional respiratory complaints Gastrointestinal: Gastrointestinal: Reports as per HPI Genitourinary: Genitourinary: Reports no additional male genitourinary complaints Musculoskeletal: Musculoskeletal: Reports no additional musculoskeletal complaints Integumentary/Breasts: Skin/Breast: Reports system reviewed and no additional complaints, except as docu Neurologic: Reports system reviewed and no additional complaints, except as documented Psychiatric: Psychiatric: Reports as per HPI Endocrine: Endocrine: Reports no additional endocrine complaints Hematologic/Lymphatic: Hematologic/Lymphatic: Reports no additional hematologic/lymphatic complaints Allergic/Immunologic: Allergic/Immunologic: Reports no additional allergic/immunologic complaints [facility] Past Medical History Medical History (Updated 02/25/21 @ 15:17 by Saad Overton DO) Alcohol abuse Failed total knee replacement GERD (gastroesophageal reflux disease) Hip fracture HTN (hypertension) Surgical History Surgical History History of appendectomy Family History Family History Mother Old age Father Old age Social History Social History Smoking packs per day: 3 Smoking cigarettes per day: 60.0 Years smoked: 25 Smoking pack-years: 75.00 Smoking status: Former smoker Tobacco type: cigarettes Second hand tobacco smoke exposure: No Smoking end date: 08/15/87 Alcohol intake: current Drinks per week: 7 Alcohol use details: wine nightly Substance use: never Substance use type: does not use Gender identity (if verbalized by the patient): Male Spiritual care concerns: No Exam Const: General: no acute distress and alert Orientation/consciousness: patient oriented x3 Limitations: No altered mental status HENMT: Head: normal to inspection Mouth: Yes Normal oral and palatal mucosa present Other: atraumatic Eyes: Conjunctivae: conjunctivae normal Pupils: Equal, round and reactive pupils present Neck: Neck: normal visual inspection Chest: Chest palpation & inspection: normal inspection of the chest Resp: Effort & Inspection: normal respiratory effort Cardio: Rate: regular rate Rhythm: regular rhythm GI: Inspection: non-distended GI Palp: Yes So
[2021-02-25 12:02] LABS: Alanine Aminotransferase 45 U/L (16-63); Albumin Level 4.3 g/dL (3.4-5.0); Alkaline Phosphatase 85 U/L (46-116); Anion Gap 17 mmol/L (8-16); Aspartate Amino Transferase 58 U/L (15-37); Bilirubin,Total 1.5 mg/dL (0.00-1.00); Blood Urea Nitrogen 12 mg/dL (7-18); Calcium 9.2 mg/dL (8.5-10.1); Carbon Dioxide 21 mmol/L (21-32); Chloride 98 mmol/L (98-108); Estimated Glomerular Filt Rate > 60; Glucose 89 mg/dL (70-99); Lipase 172 U/L (73-393); Osmolality Calculated 280 mOsm/kg (285-295); Potassium 3.9 mmol/L (3.5-5.1); Sodium 136 mmol/L (136-145); Total Protein 7.4 g/dL (6.4-8.2)
[2021-02-25 12:05] LABS: Lactic Acid Reflex 1.2 mmol/L (0.4-2.0)
[2021-02-25] MEDS: diazePAM (*CRX) 5 MG TABLET PO (12:08)
[2021-02-25] MEDS: ONDANSETRON INJ 4 MG/2 ML VIAL IV PUSH (12:15)
--- NOTE | 2021-02-25 12:26 | PC.NURSE ---
RN REQUESTS ROOM FROM EMMANUELLE BARKER RN. ROOM 205 PROVIDED.
[2021-02-25 12:41] VITALS: PULSE 77; RESP 16; O2SAT 99
[2021-02-25 12:54] VITALS: BP 110/78; PULSE 80; RESP 14; O2SAT 98
--- NOTE | 2021-02-25 13:05 | PC.NURSE ---
Patient admitted to 205 observation status for alcohol withdrawal and monitoring.
--- NOTE | 2021-02-25 13:24 | PM.IMHP ---
H&P: HPI History of Present Illness Date/Time: 02/25/21 13:24 this is a 75-year-old gentleman that is well-known to our establishment who is being admitted for observation for alcohol withdrawal. Patient does have a history of alcohol abuse, anxiety, GERD and hypertension. Patient came to our emergency department with complaints of agitation, nausea, vomiting and diarrhea. Patient does not have his hearing aid in that he is very hard of hearing right now. Patient has been sober for 5-month but had his first drink after 5 months of sobriety last night. Afterward he started to experiencing nausea vomiting ,diarrhea and shaking. Patient's vital signs and labs are stable. He is being admitted for observation and to manage his withdrawal symptoms. The patient denies SOB, CP, palpitation, extremity numbness, lightheadedness, dizziness, constipation,, chills, or fever. Patient continues to feel shaky, agitated has diarrhea and nausea. <JACY Miller - Last Filed: 02/25/21 13:45> Chief Complaint: Withdrawal symptoms <JACY Miller - Last Filed: 02/25/21 13:45> Review of Systems Review of Systems: Narrative: A 14 organ system Review of Systems was performed and pertinent positives included in the HPI, otherwise remaining ROS is negative. <JACY Miller - Last Filed: 02/25/21 13:45> All systems reviewed & are unremarkable except as noted in HPI and below <JACY Miller - Last Filed: 02/25/21 13:45> [facility] Past Medical History Medical History: Medical History (Updated 02/25/21 @ 15:17 by Saad Overton DO) Alcohol abuse Failed total knee replacement GERD (gastroesophageal reflux disease) Hip fracture HTN (hypertension) <JACY Miller - Last Filed: 02/25/21 13:45> Surgical History Surgical History: Surgical History History of appendectomy <JACY Miller - Last Filed: 02/25/21 13:45> Family History Family History: Family History Mother Old age Father Old age <JACY Miller - Last Filed: 02/25/21 13:45> Social History Social History: Social History Smoking packs per day: 3 Smoking cigarettes per day: 60.0 Years smoked: 25 Smoking pack-years: 75.00 Smoking status: Former smoker Tobacco type: cigarettes Second hand tobacco smoke exposure: No Smoking end date: 08/15/87 Alcohol intake: current Drinks per week: 7 Alcohol use details: wine nightly Substance use: never Substance use type: does not use Gender identity (if verbalized by the patient): Male Spiritual care concerns: No <JACY Miller - Last Filed: 02/25/21 13:45> Meds Home Medications and Allergies Home medications: Home Medications Medication Instructions Recorded Confirmed Type hydrocodone-acetaminophen 1 tablet PO Q6H PRN #20 tablet 03/31/20 04/03/20 Rx No Home Medications 02/25/21 02/25/21 History <JACY Miller - Last Filed: 02/25/21 13:45> Allergies/Adverse reactions: Allergies Allergy/AdvReac Type Severity Reaction Status Date / Time Penicillins Allergy Mild Verified 10/01/15 15:02 <JACY Miller - Last Filed: 02/25/21 13:45> Vital Signs Vital Signs - 24 hr 02/25/21 11:16 02/25/21 12:54 Temperature 97.3 F L Pulse Rate 84 80 Respiratory Rate 16 14 Blood Pressure 149/98 H 110/78 Pulse Oximetry 98 98 <JACY Miller - Last Filed: 02/25/21 13:45> Exam Narrative: Exam Narrative: GENERAL: Elderly frail gentleman, in no apparent distress. HEAD: normocephalic, atraumatic. EYES: PERRL. Sclera clear/white. Vision is grossly intact. EARS: External ears normal, auditory canals clear and without drainage, TMs normal without perforation. Hearing grossly intact. NOSE: Externa
[2021-02-25 14:00] VITALS: BP 113/84; PULSE 77; RESP 16; TEMP 36.4; O2SAT 99
[2021-02-25] MEDS: chlordiazePOXIDE (*CRX) 25 MG CAPSULE PO ×2 (14:13→20:57)
[2021-02-25] MEDS: THIAMINE HCL INJ 100 MG, FOLIC ACID INJ 1 MG, MULTIVITAMINS-12 INJ VIAL 1 5 ML, MULTIVI... 150 MG IV CONT (14:17)
[2021-02-25 14:49] LABS: Add Urine Microscopic? YES; Appearance Urine Clear (Clear); Bilirubin Urine 2+ (Negative); Blood Urine Negative (Negative); Color Urine Yellow (Yellow); Glucose Urine UA Negative (Negative); Ketones Urine 3+ (Negative); Leukocyte Esterase Ur Negative LEU/UL (Negative); Nitrate Urine Negative (Negative); Protein Urine 1+ (Negative); Specific Grav Ur >= 1.030 (1.010-1.020); Urobilinogen Urine 0.2 mg/dL (0.2-1.0)
[2021-02-25 15:20] LABS: Calcium Oxalate Crystals Urine Present /hpf; RBC Urine None seen /hpf (0-2); Squamous Epithelial Cell Urine Rare /hpf (Few); WBC Urine None seen /hpf (0-3)
[2021-02-25 15:21] LABS: Bacteria Urine Trace /hpf; Mucus Urine Few /lpf
[2021-02-25 16:00] VITALS: BP 141/84; PULSE 68; RESP 18; TEMP 36.4; O2SAT 100
[2021-02-25] MEDS: DOCUSATE SODIUM 100 MG CAPSULE PO (16:44)
[2021-02-25] MEDS: ENOXAPARIN 40 MG/0.4 ML SYRINGE SUB-Q (16:44)
[2021-02-25 20:00] VITALS: PULSE 74
--- NOTE | 2021-02-25 20:16 | PC.NURSE ---
Patient ambulated with mask on in hallways with cane and typewriter aligner KATIE. Ambulated well. Denies any pain, chills or shakes at this time. Continues with IV fluids. A/O x4.
[2021-02-25] MEDS: SODIUM CHLORIDE 0.9% IV 1,000 ML 100 ML IV CONT (20:58)
[2021-02-25] MEDS: traZODone HCL 50 MG TABLET PO (20:58)
[2021-02-26] VITALS: BP 92/54; PULSE 75; RESP 18; TEMP 37.1; O2SAT 98
--- NOTE | 2021-02-26 00:02 | PC.NURSE ---
Patient is resting comfortably at this time. Denies any c/o pain. CIWA score of 0. Continues with IV fluids to RFA, 20g, at 100cc/hr.
--- NOTE | 2021-02-26 00:24 | PC.NURSE ---
Stool specimen was sent to lab for C.diff. Awaiting results. Stool was dark, mucous present and loose. ammunition components inspector notified.
[2021-02-26 04:00] VITALS: PULSE 72
[2021-02-26 05:17] LABS: Hematocrit 36.6 % (37.0-46.0); Hemoglobin 12.6 g/dL (12.4-15.3); Mean Corpuscular HGB Conc 34.4 g/dL (32.0-36.0); Mean Corpuscular Hemoglobin 29.6 pg (27.0-31.0); Mean Corpuscular Volume 85.9 fL (78.0-102.0); Mean Platelet Volume 9.5 fl (8.7-11.0); Platelet Count Result 174 K/mm3 (150-420); Red Blood Count 4.26 M/mm3 (4.70-6.10); Red Cell Distribution Width 14.8 % (11.6-14.4); White Blood Count 3.8 K/mm3 (4.8-10.8)
[2021-02-26] MEDS: chlordiazePOXIDE (*CRX) 25 MG CAPSULE PO ×3 (05:22→21:28)
--- NOTE | 2021-02-26 05:28 | PC.NURSE ---
Patient rested well this shift. Denies any c/o pain. Ambulates well with can and SBA. CIWA score of 0. Continues with IV fluids.
[2021-02-26 05:38] LABS: Alanine Aminotransferase 35 U/L (16-63); Albumin Level 3.1 g/dL (3.4-5.0); Alkaline Phosphatase 65 U/L (46-116); Anion Gap 10 mmol/L (8-16); Aspartate Amino Transferase 33 U/L (15-37); Bilirubin,Total 0.8 mg/dL (0.00-1.00); Blood Urea Nitrogen 10 mg/dL (7-18); Calcium 8.4 mg/dL (8.5-10.1); Carbon Dioxide 26 mmol/L (21-32); Chloride 104 mmol/L (98-108); Estimated Glomerular Filt Rate > 60; Glucose 118 mg/dL (70-99); Magnesium 1.7 mg/dL (1.8-2.4); Osmolality Calculated 290 mOsm/kg (285-295); Potassium 3.2 mmol/L (3.5-5.1); Sodium 140 mmol/L (136-145); Total Protein 5.5 g/dL (6.4-8.2)
[2021-02-26 07:24] VITALS: BP 116/72; PULSE 60; RESP 16; TEMP 36.1; O2SAT 100
--- NOTE | 2021-02-26 08:00 | WPDPN ---
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 difficile ordered Imodium ordered (3) Insomnia: Qualifiers: Insomnia type: primary Qualified Code(s): F51.01 - Primary insomnia Code(s): G47.00 - Insomnia, unspecified Status: Acute Assessment and Plan: Chronic Continue trazodone (4) GERD (gastroesophageal reflux disease): Qualifiers: Esophagitis presence: without esophagitis Qualified Code(s): K21.9 - Gastro-esophageal reflux disease without esophagitis Code(s): K21.9 - Gastro-esophageal reflux disease without esophagitis Status: Acute Assessment and Plan: Pantoprazole ordered (5) Weakness: Code(s): R53.1 - Weakness Status: Acute Assessment and Plan: Will consult PT OT (6) Nausea & vomiting: Qualifiers: Vomiting Intractability: unspecified Vomiting type: unspecified Qualified Code(s): R11.2 - Nausea with vomiting, unspecified Code(s): R11.2 - Nausea with vomiting, unspecified Status: Acute Assessment and Plan: Secondary to withdrawal symptoms (7) Anxiety: Code(s): F41.9 - Anxiety disorder, unspecified Status: Acute Assessment and Plan: Chronic Patient receiving scheduled Librium, as needed Ativan hydroxyzine for anxiety (8) Hypertension: Qualifiers: Hypertension type: primary hypertension Qualified Code(s): I10 - Essential (primary) hypertension Code(s): I10 - Essential (primary) hypertension Status: Acute Assessment and Plan: Blood pressure stable soft right now Vital signs as ordered Hydralazine with parameters (9) Electrolyte imbalance: Code(s): E87.8 - Other disorders of electrolyte and fluid balance, not elsewhere classified Status: Acute Assessment and Plan: Hypokalemia with hypomagnesia Replace with supplement (10) Depression: Code(s): F32.9 - Major depressive disorder, single episode, unspecified Status: Acute Assessment and Plan: Patient denies any SI/HI Started Prozac 20 mg daily Will need to follow-up with PCP for any adjustments Subjective Date/time seen: 02/26/21 08:00 patient notes that he had a difficult time sleeping overnight but after taking his sleep day he slept well he also continues to have diarrhea and complaints of weakness and depression. Patient was under the assumption that he could stay here for depression I explained to patient that this is not a behavioral health facility and he would need to transfer to outside hospital to be treated for his depression. Patient notes that he is unable to go home due to his weakness,will place a PT/ OT consult. I did speak to patient's family member he will be able to go back to [facility] living on Tuesday. The patient denies SOB, CP, palpitation, extremity numbness, lightheadedness, dizziness, constipation, chills, or fever. Observation Time spent 60 minutes Disposition discharge to assisted living Review of Systems Review of Systems: Narrative: A 14 organ system Review of Systems was performed and pertinent pos
--- NOTE | 2021-02-26 08:02 | PC.NURSE ---
Patient awake and alert w/CIWA score of 0 for alcohol withdrawal. No c/o pain or discomfort noted at this time.
[2021-02-26] MEDS: POTASSIUM CHLORIDE 20 MEQ TABLET 40 MEQ PO (08:39)
[2021-02-26] MEDS: THIAMINE HCL 100 MG TABLET PO (08:39)
[2021-02-26] MEDS: DOCUSATE SODIUM 100 MG CAPSULE PO (08:39)
[2021-02-26] MEDS: FLUoxetine HCL 10 MG CAPSULE 20 MG PO (08:39)
[2021-02-26] MEDS: FOLIC ACID 1 MG TABLET PO (08:39)
[2021-02-26] MEDS: MAGNESIUM OXIDE 400 MG TABLET PO (08:39)
[2021-02-26] MEDS: PANTOPRAZOLE SODIUM IV 40 MG VIAL IV PUSH (08:40)
[2021-02-26] MEDS: TIMOLOL MALEATE 0.5% OP SOLN 5 ML BOTTLE 1 DROP EACH EYE ×2 (08:42→21:28)
[2021-02-26] MEDS: SODIUM CHLORIDE 0.9% IV 1,000 ML 100 ML IV CONT (11:08)
[2021-02-26 16:00] VITALS: BP 123/76; PULSE 59; RESP 16; TEMP 36.2; O2SAT 100
[2021-02-26] MEDS: ENOXAPARIN 40 MG/0.4 ML SYRINGE SUB-Q (16:27)
[2021-02-26] MEDS: traZODone HCL 50 MG TABLET 100 MG PO (21:27)
[2021-02-27] VITALS: BP 116/70; PULSE 58; RESP 18; TEMP 36.1; O2SAT 98
[2021-02-27 05:29] LABS: Hematocrit 37.3 % (37.0-46.0); Hemoglobin 12.6 g/dL (12.4-15.3); Mean Corpuscular HGB Conc 33.8 g/dL (32.0-36.0); Mean Corpuscular Hemoglobin 29.6 pg (27.0-31.0); Mean Corpuscular Volume 87.8 fL (78.0-102.0); Platelet Count Result 170 K/mm3 (150-420); Red Blood Count 4.25 M/mm3 (4.70-6.10); Red Cell Distribution Width 15.4 % (11.6-14.4); White Blood Count 2.8 K/mm3 (4.8-10.8)
[2021-02-27 05:52] LABS: Alanine Aminotransferase 30 U/L (16-63); Albumin Level 3.1 g/dL (3.4-5.0); Alkaline Phosphatase 60 U/L (46-116); Anion Gap 8 mmol/L (8-16); Aspartate Amino Transferase 27 U/L (15-37); Bilirubin,Total 0.6 mg/dL (0.00-1.00); Blood Urea Nitrogen 7 mg/dL (7-18); Calcium 8.6 mg/dL (8.5-10.1); Carbon Dioxide 26 mmol/L (21-32); Chloride 109 mmol/L (98-108); Estimated Glomerular Filt Rate > 60; Glucose 109 mg/dL (70-99); Osmolality Calculated 295 mOsm/kg (285-295); Potassium 3.7 mmol/L (3.5-5.1); Sodium 143 mmol/L (136-145); Total Protein 5.5 g/dL (6.4-8.2)
[2021-02-27] MEDS: chlordiazePOXIDE (*CRX) 25 MG CAPSULE PO ×2 (05:58→13:30)
[2021-02-27 07:00] VITALS: BP 126/81; PULSE 64; RESP 16; TEMP 36.3; O2SAT 99
--- NOTE | 2021-02-27 07:27 | PM.DS ---
DS: Admitting Diagnosis Admitting Diagnosis Admitting Diagnosis: Withdrawal DS: Discharge Diagnosis Discharge Diagnosis (1) Alcohol withdrawal: Qualifiers: Complication of substance-induced condition: uncomplicated Qualified Code(s): F10.230 - Alcohol dependence with withdrawal, uncomplicated Code(s): F10.239 - Alcohol dependence with withdrawal, unspecified Status: Acute Assessment and Plan: Resolved History of alcohol abuse Patient received banana bag Started scheduled Librium, as needed Ativan, hydroxyzine, dicyclomine and methocarbamol for muscle cramping, abdominal and anxiety CIWA implemented (2) Diarrhea: Qualifiers: Diarrhea type: due to malabsorption Qualified Code(s): 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 difficile ordered Imodium ordered (3) Insomnia: Qualifiers: Insomnia type: primary Qualified Code(s): F51.01 - Primary insomnia Code(s): G47.00 - Insomnia, unspecified Status: Acute Assessment and Plan: Chronic Continue trazodone (4) GERD (gastroesophageal reflux disease): Qualifiers: Esophagitis presence: without esophagitis Qualified Code(s): K21.9 - Gastro-esophageal reflux disease without esophagitis Code(s): K21.9 - Gastro-esophageal reflux disease without esophagitis Status: Acute Assessment and Plan: Pantoprazole ordered (5) Weakness: Code(s): R53.1 - Weakness Status: Acute Assessment and Plan: consulted PT OT (6) Nausea & vomiting: Qualifiers: Vomiting Intractability: unspecified Vomiting type: unspecified Qualified Code(s): R11.2 - Nausea with vomiting, unspecified Code(s): R11.2 - Nausea with vomiting, unspecified Status: Acute Assessment and Plan: Secondary to withdrawal symptoms (7) Anxiety: Code(s): F41.9 - Anxiety disorder, unspecified Status: Acute Assessment and Plan: Chronic Patient receiving scheduled Librium, as needed Ativan hydroxyzine for anxiety (8) Hypertension: Qualifiers: Hypertension type: primary hypertension Qualified Code(s): I10 - Essential (primary) hypertension Code(s): I10 - Essential (primary) hypertension Status: Acute Assessment and Plan: Blood pressure stable soft right now (9) Electrolyte imbalance: Code(s): E87.8 - Other disorders of electrolyte and fluid balance, not elsewhere classified Status: Acute Assessment and Plan: Hypokalemia with hypomagnesia Replace with supplement (10) Depression: Code(s): F32.9 - Major depressive disorder, single episode, unspecified Status: Acute Assessment and Plan: Patient denies any SI/HI Started Prozac 20 mg daily Will need to follow-up with PCP for any adjustment DS: Summary Hospital Course Hospital Course: this is a 75-year-old gentleman that is well-known to our establishment was admitted for observation for alcohol withdrawal. Patient does have a history of alcohol abuse, anxiety, GERD and hypertension. Patient came to our emergency department with complaints of agitation, nausea, vomiting and diarrhea. Patient was sober for 5-month but had his first drink after 5 months of sobriety the day of admission. Afterward he started to experiencing nausea vomiting ,diarrhea and shaking. Patient's vital signs and labs are stable. He will be discharged to an assisted living and follow-up with counseling for alcohol addiction. The patient denies SOB, CP, palpitation, extremity numbness, lightheadedness, dizziness, constipation,, chills, or fever. Patient is currently not experiencing withdrawal symptoms Time spent 60 minutes Disposition discharge to assisted living Obs[facility]
[2021-02-27] MEDS: PANTOPRAZOLE SODIUM IV 40 MG VIAL IV PUSH (08:21)
[2021-02-27] MEDS: TIMOLOL MALEATE 0.5% OP SOLN 5 ML BOTTLE 1 DROP EACH EYE (08:21)
[2021-02-27] MEDS: POTASSIUM CHLORIDE 20 MEQ TABLET 40 MEQ PO (08:22)
[2021-02-27] MEDS: THIAMINE HCL 100 MG TABLET PO (08:22)
[2021-02-27] MEDS: FOLIC ACID 1 MG TABLET PO (08:22)
[2021-02-27] MEDS: FLUoxetine HCL 10 MG CAPSULE 20 MG PO (08:22)
[2021-02-27] MEDS: MAGNESIUM OXIDE 400 MG TABLET PO (08:22)
--- NOTE | 2021-02-27 08:40 | PC.NURSE ---
Patient up ad abram in room and currently in chair for breakfast w/no c/o pain or discomfort at this time.
[2021-02-27 16:00] VITALS: BP 125/85; PULSE 71; RESP 16; TEMP 36.3; O2SAT 99
[2021-02-27] MEDS: ENOXAPARIN 40 MG/0.4 ML SYRINGE SUB-Q (16:43)
--- NOTE | 2021-02-27 18:31 | PC.NURSE ---
Patient discharged to [facility] and transported by [facility] staff. All personal property sent with patient to facility. Sister has been notified that [facility] transported patient and that there are medications to be picked up at [facility].
--- NOTE | 2021-03-05 14:34 | PC.NURSE ---
Unable to contact [facility] for discharge call back.
== END 2021-02-27 18:25 ==
LOC: CHSED 10:45 → CHS2ND 12:50
PROVIDERS: Nurse Practitioner; Admitting Provider Family Medicine; Emergency Provider Family Medicine; PCP Internal Medicine; Visit Provider Family Medicine
DX: F10.239 Alcohol dependence with withdrawal, unspecified (principal); R11.2 Nausea with vomiting, unspecified; R19.7 Diarrhea, unspecified; E87.8 Other disorders of electrolyte and fluid balance, not elsewhere classified; K21.9 Gastro-esophageal reflux disease without esophagitis; I10 Essential (primary) hypertension; R53.1 Weakness; G47.00 Insomnia, unspecified; F41.9 Anxiety disorder, unspecified; F32.9 Major depressive disorder, single episode, unspecified; Z87.891 Personal history of nicotine dependence
CPT/HCPCS: 36415; 80053; 81001; 83605; 83690; 83735; 85025; 85027; 87324; 96361; 96365; 96366; 96372; 96374; 96375; 96376; 97161; 97165; 99284; 99285; A9270; C9113; G0378; J1650; J2405; J3411; J7030; J7120

== ENCOUNTER 2021-05-04 14:00 | Outpatient (RCR) | payer MEDICARE, SELFPAY | END 2021-05-05 09:53 | LOC: CHSSENLIFE 14:00 | PROVIDERS: PCP Internal Medicine; Visit Provider Psychiatry & Neurology Psychiatry | DX: F33.1 Major depressive disorder, recurrent, moderate (principal); F01.50 Vascular dementia, unspecified severity, without behavioral disturbance, psychotic disturbance, mood disturbance, and anxiety | CPT/HCPCS: 90792; 90837 ==

== ENCOUNTER 2021-06-15 14:11 | Outpatient (CLI) | payer MEDICARE, SELFPAY ==
[2021-06-15 14:42] LABS: Basophils Absolute Auto 0.05 K/mm3 (0.00-0.10); Basophils Percent Auto 0.8 % (0.0-1.0); Eosinophils Absolute Auto 0.07 K/mm3 (0.02-0.50); Eosinophils Percent Auto 1.1 % (1.0-6.0); Hematocrit 43.9 % (37.0-46.0); Hemoglobin 14.8 g/dL (12.4-15.3); Immature Granulocyte Absolute 0.02 K/mm3 (0.00-0.00); Immature Granulocyte Percent A 0.3 % (0.0-0.0); Lymphocytes Absolute Auto 1.59 K/mm3 (1.10-4.50); Lymphocytes Percent Auto 25.3 % (18.0-42.0); Mean Corpuscular HGB Conc 33.7 g/dL (32.0-36.0); Mean Corpuscular Hemoglobin 29.8 pg (27.0-31.0); Mean Corpuscular Volume 88.3 fL (78.0-102.0); Mean Platelet Volume 9.3 fl (8.7-11.0); Monocytes Absolute Auto 0.66 K/mm3 (0.10-0.90); Monocytes Percent Auto 10.5 % (2.0-11.0); Neutrophils Absolute Auto 3.9 K/mm3 (1.7-7.2); Platelet Count Result 239 K/mm3 (150-420); Red Blood Count 4.97 M/mm3 (4.70-6.10); Red Cell Distribution Width 13.8 % (11.6-14.4); White Blood Count 6.3 K/mm3 (4.8-10.8)
[2021-06-15 14:47] LABS: Add Urine Microscopic? YES; Appearance Urine Clear (Clear); Bilirubin Urine Negative (Negative); Blood Urine Negative (Negative); Color Urine Dark Yellow (Yellow); Glucose Urine UA Negative (Negative); Ketones Urine Trace (Negative); Leukocyte Esterase Ur Negative LEU/UL (Negative); Nitrate Urine Negative (Negative); Protein Urine 1+ (Negative); Specific Grav Ur 1.025 (1.010-1.020); Urobilinogen Urine 0.2 mg/dL (0.2-1.0)
[2021-06-15 14:57] LABS: Bacteria Urine 1+ /hpf; Squamous Epithelial Cell Urine Few /hpf (Few)
[2021-06-15 15:30] LABS: Alanine Aminotransferase 33 U/L (16-63); Albumin Level 4.4 g/dL (3.4-5.0); Alkaline Phosphatase 75 U/L (46-116); Anion Gap 11 mmol/L (8-16); Aspartate Amino Transferase 24 U/L (15-37); Bilirubin,Total 0.7 mg/dL (0.00-1.00); Blood Urea Nitrogen 10 mg/dL (7-18); Carbon Dioxide 27 mmol/L (21-32); Chloride 99 mmol/L (98-108); Estimated Glomerular Filt Rate > 60; Glucose 94 mg/dL (70-99); Osmolality Calculated 283 mOsm/kg (285-295); Potassium 4.1 mmol/L (3.5-5.1); Prostate Specific Antigen 7.5 ng/mL (< OR = 4.0); Sodium 137 mmol/L (136-145); Thyroid Stimulating Hormone 2.26 uIU/mL (0.36-3.74); Total Protein 7.5 g/dL (6.4-8.2); Vitamin B12 599 pg/mL (193-986)
[2021-06-15 15:43] LABS: Ammonia 23 umol/L (11-32)
[2021-06-15 15:51] LABS: Calcium 9.7 mg/dL (8.5-10.1)
[2021-06-18 11:56] LABS: Red Blood Cell Folate 680 ng/mL RBC (>280)
[2021-06-19 11:25] LABS: Methylmalonic Acid 138 nmol/L (87-318)
== END 2021-06-15 14:12 | disposition home or self-care (01) ==
PROVIDERS: PCP Internal Medicine; Visit Provider Internal Medicine
DX: K76.89 Other specified diseases of liver (principal); R97.20 Elevated prostate specific antigen [PSA]; R41.89 Other symptoms and signs involving cognitive functions and awareness; R63.4 Abnormal weight loss; R53.83 Other fatigue
CPT/HCPCS: 36415; 80053; 81001; 82140; 82607; 82747; 83921; 84153; 84443; 85025; G0103

== ENCOUNTER 2021-10-19 21:07 | Emergency (ER) | payer MEDICARE, SELFPAY ==
--- NOTE | ~2021-10-19 | CT_ITS ---
EXAMINATION: CT abdomen pelvis wo con DATE: 10/19/2021 22:29 INDICATION: Lower abdominal and pelvic pain TECHNIQUE: Computed tomography (CT) of the abdomen and pelvis was performed without intravenous contr ast. Automated exposure control and iterative reconstruction technique were employed. The dose-length product was 244.02 mGy-cm. COMPARISON: 08/10/2020 FINDINGS: Mild bibasilar atelectasis. Mild cardiomegaly. Atherosclerotic coronary artery calcification. Aortic valve calcific lesion. No pericardial effusion. Small sliding-type hiatal hernia. A few small splenic and hepatic calcifications consistent with old granulomatous disease. Gallbladder, pancreas, bilater al adrenal glands are normal. A few tiny less than 2 mm calcification is at both kidneys which could represent either nonobstructing renal stones or atherosclerotic calcifications. A couple subcentimete r low-attenuation left renal cyst. 8.3 cm diameter ball of stool at the rectum suggestive of constipa tion with fecal impaction. There is moderate amount of additional stool in the sigmoid colon and flui d layering in the more proximal colon consistent with diarrhea. No dilated small bowel to suggest obs truction. There is diffuse mild wall thickening of the partially decompressed bladder. Prostatomegaly . No free intraperitoneal gas or fluid. No pathologically enlarged abdominal or pelvic lymphadenopath y. Small bilateral fat-containing inguinal hernias. Mild lumbar levocurvature with mild spondylosis. IMPRESSION: 1. 8.3 cm diameter ball of stool at rectum suggestive of constipation with fecal impaction. 2. Small sliding-type hiatal hernia. 3. Mild cardiomegaly. 4. Tiny bilateral renal calcifications which could represent either nonobstructing nephrolithiasis or atherosclerotic calcifications. 5. Mild wall thickening of the bladder which could be due to partially decompressed state, obstructi on from the enlarged prostate or cystitis either acute or chronic. 6. Bilateral small fat-containing inguinal hernias. Reviewed, dictated and finalized at location [facility]. [facility] IMPRESSION: 1. 8.3 cm diameter ball of stool at rectum suggestive of constipation with feca l impaction. 2. Small sliding-type hiatal hernia. 3. Mild cardiomegaly. 4. Tiny bilateral renal calcifications which could represent either nonobstruct ing nephrolithiasis or atherosclerotic calcifications. 5. Mild wall thickening of the bladder which could be due to partially decompre ssed state, obstruction from the enlarged prostate or cystitis either acute or chronic. 6. Bilateral small fat-containing inguinal hernias.
--- NOTE | 2021-10-19 21:16 | ED.ABDPAIN ---
HPI - Abdominal Pain General Chief Complaint: Abdominal Pain Stated Complaint: stomach pain Time Seen by Provider: 10/19/21 21:18 Source: patient Mode of arrival: ambulatory Limitations: no limitations History of Present Illness MD elicited complaint: abdominal pain Onset (ago): hour(s) (12) Pain Consistency: intermittent Location: diffuse Severity: severe Quality: stabbing and sharp Radiation: other (rectum) Migration to: no migration Exacerbating factors: movement Relieving factors: nothing Associated symptoms: constipation and anorexia Related Data Home Medications Medication Instructions Recorded Confirmed memantine 10 mg tablet 10 mg PO BID 07/01/21 10/19/21 duloxetine 20 mg PO DAILY 10/19/21 10/19/21 jtxjoyyixtzy-xnwfyzzh-lvxiim 1 tablet PO DAILY 10/19/21 10/19/21 [Centrum Silver] vit C,X-Kf-vzrlg-lutein-zeaxan 1 tablet PO BID 10/19/21 10/19/21 [PreserVision AREDS-2] Allergies Allergy/AdvReac Type Severity Reaction Status Date / Time Penicillins Allergy Mild unknown Verified 07/01/21 10:06 Review of Systems Review of Systems: All systems reviewed & are unremarkable except as noted in HPI and below Constitutional: Constitutional: Denies chills and Denies fever(s) Gastrointestinal: Gastrointestinal: Denies diarrhea, Reports nausea and Denies vomiting Genitourinary: Genitourinary: Denies hematuria, Denies oliguria, Denies dysuria and Denies urinary frequency PMF Past Medical History Medical History Alcohol abuse Failed total knee replacement GERD (gastroesophageal reflux disease) Hip fracture HTN (hypertension) Surgical History Surgical History History of appendectomy Family History Family History Mother Old age Father Old age Social History Social History Years smoked: 25 Smoking status: Former smoker Tobacco type: cigarettes Second hand tobacco smoke exposure: No Smoking end date: 08/15/87 Alcohol intake: former Drinks per week: 7 Alcohol use details: wine nightly Substance use: never Substance use type: does not use Gender identity (if verbalized by the patient): Male Spiritual care concerns: No Exam Const: General: healthy appearing, no acute distress and alert Nutritional Appearance: well nourished Orientation/consciousness: patient oriented x3 HENMT: Head: normal to inspection Ears: external ears normal Face and sinus: normal facial exam Eyes: Conjunctivae: conjunctivae normal Pupils: Equal, round and reactive pupils present EOM: EOMs intact bilaterally Neck: Neck: normal visual inspection Resp: Effort & Inspection: normal respiratory effort Auscultation: clear to auscultation bilaterally Cardio: Rate: regular rate Rhythm: regular rhythm GI: GI Palp: Yes Soft to palpation, Yes Tenderness to palpation present (GI), Yes Guarding due to palpation present (GI) and Yes Rebound tenderness present Auscultation: Hyperactive bowel sounds present Back/Spine/Pelvis: Cervical Spine: cervical ROM normal Thoracic/Lumbar Spine: thoraco-lumbar ROM normal Skin: General skin exam: normal color Rashes: no rashes Neuro: General: patient oriented x3, moves all extremities, no focal motor deficits and CN's II-XI intact bilaterally Speech: normal speech Gait exam (Neuro): Normal gait present Extrem: General: normal to inspection and no clubbing, cyanosis or edema Psych: Appearance: grossly normal and well kempt Mental Status: mental status grossly normal Affect: normal affect Attitude: cooperative Thought content: Yes Normal thought content present Course Course Emergency Course: Patient has large amount of stool impaction. He is given soapsuds enemas without any results. He is given Mag citrate orally which she then throws up and
[2021-10-19 21:47] VITALS: BP 156/86; PULSE 60; RESP 18; TEMP 36.6; O2SAT 99
[2021-10-19 21:48] LABS: Basophils Absolute Auto 0.04 K/mm3 (0.00-0.10); Basophils Percent Auto 0.5 % (0.0-1.0); Eosinophils Absolute Auto 0.15 K/mm3 (0.02-0.50); Eosinophils Percent Auto 1.9 % (1.0-6.0); Hematocrit 39.7 % (37.0-46.0); Hemoglobin 13.4 g/dL (12.4-15.3); Immature Granulocyte Absolute 0.02 K/mm3 (0.00-0.00); Immature Granulocyte Percent A 0.3 % (0.0-0.0); Lymphocytes Absolute Auto 1.17 K/mm3 (1.10-4.50); Lymphocytes Percent Auto 14.8 % (18.0-42.0); Mean Corpuscular HGB Conc 33.8 g/dL (32.0-36.0); Mean Corpuscular Hemoglobin 30.6 pg (27.0-31.0); Mean Corpuscular Volume 90.6 fL (78.0-102.0); Mean Platelet Volume 9.4 fl (8.7-11.0); Monocytes Absolute Auto 0.72 K/mm3 (0.10-0.90); Monocytes Percent Auto 9.1 % (2.0-11.0); Neutrophils Absolute Auto 5.8 K/mm3 (1.7-7.2); Neutrophils Percent Auto 73.4 % (50.0-70.0); Platelet Count Result 193 K/mm3 (150-420); Red Blood Count 4.38 M/mm3 (4.70-6.10); Red Cell Distribution Width 13.9 % (11.6-14.4); White Blood Count 7.9 K/mm3 (4.8-10.8)
[2021-10-19] MEDS: HYDROmorphone HCL INJ (*CRX) 2 MG/ML VIAL 1 MG IM (22:00)
[2021-10-19 22:04] LABS: Alanine Aminotransferase 24 U/L (16-63); Albumin Level 3.9 g/dL (3.4-5.0); Alkaline Phosphatase 65 U/L (46-116); Anion Gap 7 mmol/L (8-16); Aspartate Amino Transferase 19 U/L (15-37); Bilirubin,Total 0.5 mg/dL (0.00-1.00); Blood Urea Nitrogen 15 mg/dL (7-18); Calcium 8.9 mg/dL (8.5-10.1); Carbon Dioxide 31 mmol/L (21-32); Chloride 99 mmol/L (98-108); Estimated CRCL calculation 51 ml/min; Estimated Glomerular Filt Rate > 60; Glucose 110 mg/dL (70-99); Lipase 163 U/L (73-393); Osmolality Calculated 285 mOsm/kg (285-295); Potassium 4.2 mmol/L (3.5-5.1); Sodium 137 mmol/L (136-145); Total Protein 7.2 g/dL (6.4-8.2)
[2021-10-19 22:06] LABS: CRP < 0.2 mg/dL (0.0-0.9)
[2021-10-19 22:09] LABS: Lactic Acid Reflex 0.5 mmol/L (0.4-2.0)
[2021-10-19 22:21] LABS: Add Urine Microscopic? YES; Appearance Urine Clear (Clear); Bilirubin Urine Negative (Negative); Blood Urine 3+ (Negative); Color Urine Yellow (Yellow); Glucose Urine UA Negative (Negative); Ketones Urine Negative (Negative); Leukocyte Esterase Ur Negative LEU/UL (Negative); Nitrate Urine Negative (Negative); Protein Urine Negative (Negative); Specific Grav Ur 1.015 (1.010-1.020); Urobilinogen Urine 0.2 mg/dL (0.2-1.0)
[2021-10-19 22:28] LABS: Bacteria Urine None seen /hpf; RBC Urine 21-50 /hpf (0-2); Squamous Epithelial Cell Urine None seen /hpf (Few); WBC Urine 0-3 /hpf (0-3)
--- NOTE | 2021-10-20 | PC.NURSE ---
Pt given SSE of 1500 ml and had very poor toleration. Liquid brown stool c small soft BM mostly noted and pt unable to hold most of SSE. Pt c/o severe abd cramping and pain p giving enema and refused anymore at this time. ERP notified of results and pts poor toleration. Order obtained for mag citrate po.
[2021-10-20] MEDS: MAGNESIUM CITRATE 300 ML BTL 150 ML PO (00:15)
[2021-10-20 00:30] VITALS: BP 171/87; PULSE 80; RESP 20; O2SAT 100
--- NOTE | 2021-10-20 01:05 | PC.NURSE ---
Pt resting in bed at this time, pt reports some less pain and cramping. Pt monae mag citrate and awaiting more stool production.
--- NOTE | 2021-10-20 01:22 | PC.NURSE ---
Pt reports cramping back and assisted to BSC, pt unable to have complete BM and c/o severe lower rectal and abd pain, pt began vomiting lrg amts of mag citrate and reports feeling terrible . ERP Dr Degroot made aware of pt c/o.
--- NOTE | 2021-10-20 01:41 | PC.NURSE ---
ERP Dr Degroot wanting to transfer pt to GI for possible surgical consult. Explained POC to pt and he wishes to go to [place]. Call placed to house supv. at [place] and spoke to Veronica.
[2021-10-20 03:23] VITALS: BP 152/89; PULSE 102; RESP 18; TEMP 36.8; O2SAT 100
--- NOTE | 2021-10-20 03:50 | PC.NURSE ---
Report given to [facility] and pt loaded for transfer.
== END 2021-10-20 03:50 | disposition short-term general hospital (02) ==
PROVIDERS: Emergency Provider Emergency Medicine; PCP Internal Medicine
DX: K56.41 Fecal impaction (principal)
CPT/HCPCS: 36415; 74176; 80053; 81001; 83605; 83690; 85025; 86140; 96372; 99285; A9270; J1170

== ENCOUNTER 2021-10-20 04:41 | Observation (INO) | payer MEDICARE, SELFPAY ==
--- NOTE | ~2021-10-20 | XR_ITS ---
EXAMINATION: XR abdomen obstructive series DATE: 10/20/2021 08:34 INDICATION: Fecal impaction. TECHNIQUE: Upright and supine views of the abdomen on 3 radiographs were obtained. COMPARISON: CT abdomen and pelvis 10/19/2021 FINDINGS: A stool ball distends the rectum. The colon is distended. The small bowel is normal in rosana shira. There are surgical clips in the pelvis. No free intraperitoneal gas. IMPRESSION: 1. Rectal stool ball with dilated colon, consistent with stool impaction. Reviewed, dictated and finalized at location A. N CALLER
--- NOTE | ~2021-10-20 | XR_ITS ---
EXAMINATION: XR abdomen obstructive series DATE: 10/21/2021 05:57 INDICATION: Small bowel obstruction. TECHNIQUE: Upright and supine views of the abdomen on 3 radiographs were obtained. COMPARISON: Abdomen radiographs 10/20/2021 FINDINGS: There is gaseous distention of the proximal colon. The small bowel is normal in caliber. No free intraperitoneal gas. There are surgical clips in the pelvis. IMPRESSION: 1. Gaseous distention of the proximal colon, likely adynamic ileus. Reviewed, dictated and finalized at location A. 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
--- NOTE | 2021-10-20 04:25 | ADMGEN ---
This patient, Rik Thakur, was admitted to Medical Room 251-01. Patient/family oriented to hospital policies and general routines including ID bracelet, bed and alarms, visiting hours, pain management, procedures, bathroom and other care routines, personal items, smoking policy, room service/diet, and visiting hours. Information on how to activate the Rapid Response Team has been discussed. Patient/Family are encouraged to report perceived risks to care and to ask questions if they do not understand what they are told or what they should do.
[2021-10-20 05:54] LABS: Basophils Percent Auto 0.4 % (0.2-1.2); Eosinophils Absolute Auto 0.1 K/mm3 (0-0.3); Eosinophils Percent Auto 0.7 % (0-4.4); Hematocrit 39.8 % (42.0-52.0); Hemoglobin 13.8 g/dL (14.0-18.0); Immature Granulocyte Absolute 0.03 K/mm3 (0.00-0.031); Immature Granulocyte Percent A 0.3 % (0-0.5); Lymphocytes Absolute Auto 1.44 K/mm3 (0.9-3.2); Lymphocytes Percent Auto 15.7 % (18.3-44.2); Mean Corpuscular HGB Conc 34.7 g/dl (32-36); Mean Corpuscular Hemoglobin 30.5 pg (26-34); Mean Corpuscular Volume 87.9 fl (80-100); Mean Platelet Volume 10.4 fl (7.4-10.4); Monocytes Absolute Auto 0.8 K/mm3 (0.1-0.6); Monocytes Percent Auto 8.5 % (2.6-8.5); Neutrophils Absolute Auto 6.8 K/mm3 (1.3-6.7); Neutrophils Percent Auto 74.4 % (45.5-73.1); Platelet Count Result 205 k/mm3 (150-375); Red Blood Count 4.53 M/mm3 (4.6-6.20); White Blood Count 9.2 K/mm3 (4.5-10.0)
[2021-10-20 06:14] LABS: Anion Gap 7 mmol/L (8-16); Blood Urea Nitrogen 17 mg/dL (9-20); Carbon Dioxide 31 mmol/L (22-30); Chloride 96 mmol/L (98-107); Estimated Glomerular Filt Rate > 60; Glucose 111 mg/dL (65-110); Magnesium 2.1 mg/dL (1.6-2.3); Phosphorus 4.6 mg/dL (2.5-4.5); Potassium 4.9 mmol/L (3.4-5.0); Sodium 134 mmol/L (137-145)
[2021-10-20] MEDS: DEXTROSE 5%/0.45% SOD CHL 1,000 ML 100 ML IV CONT ×2 (06:20→13:52)
--- NOTE | 2021-10-20 08:16 | PM.IMHP ---
H&P: HPI History of Present Illness Date/Time: 10/20/21 08:16 Chief Complaint: abdominal pain, constipation Narrative: 76 year old male admitted directly from [facility] with fecal impaction. Patient is a poor historian. He lives at home alone and reports recently being constipated. He had not had a bowel movement in at least a week, but he thinks maybe even 2-3 weeks. He developed generalized abdominal pain and rectal pain over the past few weeks He had tried taking an over the counter laxative without any relief. He was brought into the ER by his friend due to the persistent abdominal and rectal pain. CT scan of the abdomen and pelvis showed an 8.3 cm ball of stool at the rectum, suggesting constipation with fecal impaction. While in the ER, he apparently was given mag citrate and vomited. He was also given a soaps suds enema without any results. Was transferred overnight for further management.Had large BM overnight but repeat xray still shows fecal ball with colonic dilation. Still c/o pain. Had prostate biopsy 6 days ago. Later while on floor he had an episode of vomiting with was brown/maroon colored blood. Had recieved 1 dose of prophylactic Sub Q heparin few mins before.Stat H/H was ordered. Review of Systems Constitutional: Constitutional: Reports fatigue and Reports weakness Eyes: Eyes: Reports no additional eye complaints ENT: Reports system reviewed and no additional complaints, except as documented Cardiovascular: Cardiovascular: Reports no additional cardiovascular complaints Respiratory: Respiratory: Reports no additional respiratory complaints Gastrointestinal: Gastrointestinal: Reports constipation, Reports nausea and Reports hematemesis Musculoskeletal: Musculoskeletal: Reports no additional musculoskeletal complaints Neurologic: Reports as per HPI Hematologic/Lymphatic: Hematologic/Lymphatic: Reports as per HPI [facility] Past Medical History Medical History Alcohol abuse Failed total knee replacement GERD (gastroesophageal reflux disease) Hip fracture HTN (hypertension) Surgical History Surgical History History of appendectomy Family History Family History Mother Old age Father Old age Social History Social History Years smoked: 25 Smoking status: Former smoker Tobacco type: cigarettes Second hand tobacco smoke exposure: No Smoking end date: 08/15/87 Alcohol intake: current Drinks per week: 7 Alcohol use details: wine nightly Substance use: never Substance use type: does not use Living arrangements: alone Occupation/Education: retired Gender identity (if verbalized by the patient): Male Spiritual care concerns: No Meds Home Medications and Allergies Home Medications Medication Instructions Recorded Confirmed Type hydrocodone-acetaminophen 1 tablet PO Q6H PRN #20 tablet 03/31/20 04/03/20 Rx fluoxetine [Prozac] 20 mg PO QAM #60 cap 02/27/21 10/20/21 Rx timolol maleate 1 drp EACH EYE Q12HR 30 Days #10 ml 02/27/21 10/20/21 Rx trazodone 100 mg PO HS 60 Days #120 tablet 02/27/21 10/20/21 Rx memantine 10 mg tablet 10 mg PO BID 07/01/21 10/20/21 History duloxetine 20 mg PO DAILY 10/19/21 10/20/21 History ahwgmlqskzhl-mpcadske-lngsjb 1 tablet PO DAILY 10/19/21 10/20/21 History [Centrum Silver] vit C,Y-Yr-pvyux-lutein-zeaxan 1 tablet PO BID 10/19/21 10/20/21 History [PreserVision AREDS-2] Allergies Allergy/AdvReac Type Severity Reaction Status Date / Time Penicillins Allergy Mild unknown Verified 10/20/21 11:05 Exam Const: General: alert, awake and tired appearing Limitations: no limitations HENMT: Mouth: Yes moist mucous membranes Eyes: Pupils: Equal, round and reactive pupils present Neck: Neck: supple Resp: Effort & Inspection
[2021-10-20 09:52] VITALS: BP 153/88; PULSE 65; RESP 18; TEMP 36.7; O2SAT 99
[2021-10-20] MEDS: HEPARIN SODIUM 5,000 UNITS/ML VIAL 5000 UNITS SUB-Q (10:09)
--- NOTE | 2021-10-20 10:14 | PM.CNGS ---
Assessment and Plan Assessment and plan (1) Fecal impaction of colon: Code(s): K56.41 - Fecal impaction Status: Acute Assessment and Plan: CT scan reviewed and discussed with the patient. He has evidence of a fecal impaction with an 8 cm stool ball in the rectum. He has had one enema at [facility] yesterday evening and one more enema overnight while at [place]. He has had one good bowel movement per nursing since his admission. Plain films this morning still showed colonic distention with a stool ball in the rectum, no free intraperitoneal gas. Unable to try and digitally disimpact him due to his intolerance of a rectal exam. Will give a mineral oil enema this morning and stimulate him from above with milk of mag. Hopefully, this will continue to improve with enemas and bowel stimulation. Will monitor with serial exams and imaging. Thank you for allowing us to see the patient in consultation and we will continue to follow along with you. (2) Constipation: Code(s): K59.00 - Constipation, unspecified Status: Acute Assessment and Plan: Will likely need a bowel regimen on discharge to prevent future issues with constipation. Additional Plan I have discussed the patient's case and plan of care with Dr. Pinedo. History of Present Illness Consult details Consult date: 10/20/21 Reason for consult: other (Fecal impaction) Requesting physician: Chip Persaud MD Narrative: This is a 76 year old male who we have been asked to see for a fecal impaction. He was a direct admission from [facility] last night. The patient is alert and oriented x 3 but is a poor historian. He lives at home alone and reports recently being constipated. He had not had a bowel movement in at least a week, but he thinks maybe even 2-3 weeks. He reports that he has lost track of time. He reports that he developed generalized abdominal pain and rectal pain over the past few weeks as well. He had tried taking an over the counter laxative once, without any relief. He cannot recall what the medication was or when he took it. He denies ever having issues with constipation in the past. He was brought into the ER by his friend due to the persistent abdominal and rectal pain. CT scan of the abdomen and pelvis showed an 8.3 cm ball of stool at the rectum, suggesting constipation with fecal impaction. While in the ER, he apparently was given mag citrate and vomited. He was also given a soaps suds enema without any results. The ER provider contacted our service and requested the transfer to [place] for further evaluation. The was made NPO and given one soap suds enema last night. Per nursing, the patient had a large bowel movement. The patient is now seen on the medical floor. He is still reporting abdominal pain and rectal pain. He states that it is extremely painful to have a bowel movement. After reviewing his records, I questioned him about recently having a prostate biopsy 6 days ago. With questioning, he does recall the biopsy but cannot recall where or when he had this done. No other complaints at this time. Review of Systems Review of Systems: All systems reviewed & are unremarkable except as noted in HPI and below Constitutional: Constitutional: Reports as per HPI, Denies chills, Denies fatigue, Denies fever(s) and Denies poor appetite Eyes: Eyes: Reports no additional eye complaints ENT: Reports system reviewed and no additional complaints, except as documented and Reports Normal hearing present Cardiovascular: Cardiovascular: Reports no additional cardiovascular complaints, Denies chest pain and Denies leg edema Respiratory: Respiratory: Reports no additional respiratory complaints, Denies cough and Denies dyspnea Gastrointestinal: Gastrointestinal: Reports as per HPI, Reports no additional gastrointestinal complaints, Reports abdominal pain (generalized), Reports bloating, Reports hematochezia (noticed some blood-tinged appearance to his s
[2021-10-20 11:30] LABS: Hematocrit 35.7 % (42.0-52.0); Hemoglobin 11.6 g/dL (14.0-18.0)
--- NOTE | 2021-10-20 13:51 | WPDGICN ---
Assessment and Plan Assessment and plan (1) Fecal impaction of colon: Code(s): K56.41 - Fecal impaction Status: Acute Assessment and Plan: despite citrated magnesium orally and soapsuds enemas he still has a still has a large fecal impaction per x-ray. I believe that this need to be removed digitally under sedation. I can attempt to do this tomorrow when I sedate him for an EGD to investigate his hematemesis. I told him that there is a chance he will have anorectal pain from removing a fecal impaction particularly having read the note from his last colonoscopy that shows that he has anal stenosis (2) Constipation: Code(s): K59.00 - Constipation, unspecified Status: Acute Assessment and Plan: he apparently has not had a chronic problem with Constipation but had been found to have an anal stenosis when he had a colonoscopy 2015. The examining physician could not get his finger completely into his anus due to this stenosis. (3) Anemia: Code(s): D64.9 - Anemia, unspecified Status: Acute Assessment and Plan: hemoglobin was 13.8 and now is 11.6. And I was before he vomited blood today (4) Hematemesis: Code(s): K92.0 - Hematemesis Status: Acute Assessment and Plan: he had vomiting last night but apparently there was no blood in that emesis. So far he has had 1 episode today witnessed of hematemesis. I will schedule for EGD to be done tomorrow morning GI Consult Note Consult date/time: 10/20/21 13:51 HPI: Rik Thakur is a 76 year old male Was brought to the emergency room at [facility] last evening because he had not had a bowel movement for about a week. He had tried an xlnz-xpx-rkvyfia laxative that resulted in vomiting. He was having severe rectal pain. He was unable to tolerate attempted rectal disimpaction in the emergency room. He was given a soapsuds enema. He has been given additional laxatives here and has passed some stool but CT scan still shows a large ball of stool in the rectum. Reportedly he recently vomited some blood. He apparently had prostate biopsies about 1 week ago in [place]. He is fairly certain that he has not had a bowel movement since that procedure and continues to have rectal pain. He is not a very good historian. He had a hard time expressing words but when I asked about vomiting blood today he said it was because of his rectum passing blood. he states that he also has blood in his urine and that a all 3 are tied together he tells me that he usually has diarrhea but said that as you can see those medicines fix that I believe he is talking about some recent changes in medication but he cannot tell me what those might be. Review of Systems Review of Systems: All systems reviewed & are unremarkable except as noted in HPI and below PMFSH Past Medical History Medical History Alcohol abuse Failed total knee replacement GERD (gastroesophageal reflux disease) Hip fracture HTN (hypertension) Surgical History Surgical History History of appendectomy Family History Family History Mother Old age Father Old age Social History Social History Years smoked: 25 Smoking status: Former smoker Tobacco type: cigarettes Second hand tobacco smoke exposure: No Smoking end date: 08/15/87 Alcohol intake: current Drinks per week: 7 Alcohol use details: wine nightly Substance use: never Substance use type: does not use Living arrangements: alone Occupation/Education: retired Gender identity (if verbalized by the patient): Male Spiritual care concerns: No Meds Home Medications and Allergies Home Medications Medication Instructions Recorded Confir
[2021-10-20] MEDS: MAGNESIUM HYDROXIDE SUSP 30 ML UDC PO (13:52)
[2021-10-20] MEDS: PANTOPRAZOLE SODIUM IV 40 MG VIAL IV PUSH ×2 (13:52→21:37)
[2021-10-20 14:18] VITALS: BP 134/74; PULSE 65; RESP 18; TEMP 36.6; O2SAT 99
[2021-10-20 16:00] VITALS: PULSE 70
[2021-10-20 19:31] VITALS: BP 157/88; PULSE 69; RESP 19; TEMP 37.2; O2SAT 99
[2021-10-20 19:42] LABS: Hemoglobin 13.4 g/dL (14.0-18.0)
[2021-10-20 20:00] VITALS: PULSE 69; RESP 19; O2SAT 99
[2021-10-20] MEDS: ONDANSETRON INJ 4 MG/2 ML VIAL IV PUSH (21:38)
[2021-10-20] MEDS: TIMOLOL MALEATE 0.5% OP SOLN 5 ML BOTTLE 1 DROP EACH EYE (21:38)
[2021-10-20] MEDS: MORPHINE SULFATE (*CRX) 4 MG/ML INJ 0.5 MG IV PUSH (21:38)
[2021-10-20 23:18] VITALS: BP 137/85; PULSE 61; RESP 17; TEMP 35.9; O2SAT 96
[2021-10-21] VITALS (8 sets, daily range): BP systolic 105–156; BP diastolic 67–83; PULSE 53–66; RESP 15–17; TEMP 36.2–37.1; O2SAT 97–100; BMI 19.5
--- NOTE | 2021-10-21 01:22 | PC.NURSE ---
Pt is refusing assistance with ambulation, hygiene and toileting. He is also uncooperative with nursing cares, he attempts to disconnect PIV from fluids and states that he Does this at home all by myself , pt is reminded that he is in a hospital environment and asked to leave PIV alone. Due to pt's use of cane he is informed that verbal aggression and physical assault with not be tolerated.
--- NOTE | 2021-10-21 02:10 | PC.NURSE ---
Pt has turned off bed alarm, closed door and took off his tele monitor and is refusing to give nurse the equipment. Pt is uncooperative with all cares at this time and states that he does not want this RN in his room at home. Pt, wire charger and front door staff are informed that family friend will come sit with him to ease his confusion and aggression.
--- NOTE | 2021-10-21 03:18 | PC.NURSE ---
Pt walked out of his room completely dressed and states that he is ready to go home. Pt is encouraged to return to his room for the protection of his medical information. Pt's visitor/friend arrives to attempt to calm pt down and to provide a familiar face.
[2021-10-21 05:40] LABS: Basophils Percent Auto 0.5 % (0.2-1.2); Eosinophils Absolute Auto 0.1 K/mm3 (0-0.3); Eosinophils Percent Auto 1.6 % (0-4.4); Hematocrit 35.9 % (42.0-52.0); Hemoglobin 12.1 g/dL (14.0-18.0); Immature Granulocyte Absolute 0.02 K/mm3 (0.00-0.031); Immature Granulocyte Percent A 0.3 % (0-0.5); Lymphocytes Absolute Auto 1.26 K/mm3 (0.9-3.2); Mean Corpuscular HGB Conc 33.7 g/dl (32-36); Mean Corpuscular Hemoglobin 30.5 pg (26-34); Mean Corpuscular Volume 90.4 fl (80-100); Mean Platelet Volume 9.4 fl (7.4-10.4); Monocytes Absolute Auto 0.8 K/mm3 (0.1-0.6); Monocytes Percent Auto 13.4 % (2.6-8.5); Neutrophils Percent Auto 64.2 % (45.5-73.1); Platelet Count Result 195 k/mm3 (150-375); Red Blood Count 3.97 M/mm3 (4.6-6.20); Red Cell Distribution Width 13.9 % (11.5-14.5); White Blood Count 6.3 K/mm3 (4.5-10.0)
[2021-10-21 05:50] LABS: Alanine Aminotransferase 15 U/L (4-50); Albumin Level 3.6 g/dL (3.5-5.1); Alkaline Phosphatase 56 U/L (38-126); Anion Gap 9 mmol/L (8-16); Aspartate Amino Transferase 30 U/L (17-59); Bilirubin,Total 0.7 mg/dL (0.2-1.3); Blood Urea Nitrogen 16 mg/dL (9-20); Calcium 7.9 mg/dL (8.4-10.2); Carbon Dioxide 27 mmol/L (22-30); Chloride 96 mmol/L (98-107); Estimated Glomerular Filt Rate > 60; Glucose 109 mg/dL (65-110); Potassium 3.1 mmol/L (3.4-5.0); Sodium 132 mmol/L (137-145)
[2021-10-21] MEDS: PANTOPRAZOLE SODIUM IV 40 MG VIAL IV PUSH ×2 (08:20→20:05)
[2021-10-21] MEDS: TIMOLOL MALEATE 0.5% OP SOLN 5 ML BOTTLE 1 DROP EACH EYE ×2 (08:21→20:05)
--- NOTE | 2021-10-21 09:46 | PM.PNGS ---
Progress Note: A&P Assessment and Plan (1) Fecal impaction of colon: Code(s): K56.41 - Fecal impaction Status: Resolved Assessment and Plan: Bowels moving now. No surgical needs at this time. Will sign off. Subjective Subjective Date/Time Seen: 10/21/21 09:46 Interval history: Feeling better. Bowels moving. No nausea/vomiting. Exam GI: Inspection: non-distended GI Palp: Yes Soft to palpation, No Tenderness to palpation present (GI) and No Guarding due to palpation present (GI) Auscultation: normal bowel sounds Objective Data Vital Signs Vital Signs: Vital Signs - 24 hr 10/20/21 09:52 10/20/21 14:18 10/20/21 16:00 Temperature 36.7 C 36.6 C Pulse Rate 65 65 70 Respiratory Rate 18 18 Blood Pressure 153/88 H 134/74 Pulse Oximetry 99 99 10/20/21 19:31 10/20/21 20:00 10/20/21 23:18 Temperature 37.2 C 35.9 C L Pulse Rate 69 69 61 Respiratory Rate 19 19 17 Blood Pressure 157/88 H 137/85 Pulse Oximetry 99 99 96 10/21/21 00:00 10/21/21 04:31 Temperature 36.4 C L Pulse Rate 59 L 60 Respiratory Rate 16 Blood Pressure 126/67 Pulse Oximetry 97 Intake/Output Intake/Output: Intake & Output 10/18/21 10/19/21 10/20/21 10/21/21 23:59 23:59 23:59 23:59 Intake Total 1000 Output Total 600 Balance 400 Meds/Results Medications: Active Medications Generic Name Dose Route Start Last Admin Trade Name Freq PRN Reason Stop Dose Admin Heparin Sodium (Porcine) 5,000 units 10/20/21 09:00 10/20/21 10:09 Heparin Sodium 5,000 Units/Ml Vial SUB-Q 5,000 units Q12HR AIRAM Administration Dextrose/Sodium Chloride 1,000 mls @ 70 mls/hr 10/20/21 04:45 10/21/21 02:19 Dextrose 5% Sodium Chloride 0.45% IV CONT 0 mls/hr .[id number] AIRAM Infusion Lactated Ringer's 1,000 mls @ 150 mls/hr 10/21/21 09:05 Lr - Lactated Ringers Iv IV CONT .[id number] AIRAM Morphine Sulfate 0.5 mg 10/20/21 10:49 10/20/21 21:38 Morphine Sulfate (*Crx) 4 Mg/Ml Inj IV PUSH 0.5 mg Q4H PRN Administration Pain Rated 7-10 Ondansetron HCl 4 mg 10/20/21 10:41 10/20/21 21:38 Ondansetron Inj 4 Mg/2 Ml Vial IV PUSH 4 mg Q4H PRN Administration Nausea And Vomiting Pantoprazole Sodium 40 mg 10/20/21 10:50 10/21/21 08:20 Pantoprazole Sodium Iv 40 Mg Vial IV PUSH 40 mg Q12HR AIRAM Administration Timolol Maleate 1 drop 10/20/21 21:00 10/21/21 08:21 Timolol Maleate 0.5% Op Soln 5 Ml Bottle EACH EYE 1 drop Q12HR AIRAM Administration Radiology Results: ITS Impressions Abdomen X-Ray 10/21/21 06:48 IMPRESSION: 1. Gaseous distention of the proximal colon, likely adynamic ileus. Labs Labs: Laboratory Results - last 24 hr 10/20/21 10/20/21 10/21/21 11:05 19:26 05:20 WBC 6.3 RBC 3.97 L Hgb 11.6 L 13.4 L 12.1 L Hct 35.7 L 41.0 L 35.9 L MCV 90.4 MCH 30.5 MCHC 33.7 RDW 13.9 Plt Count 195 MPV 9.4 Immature Gran % (Auto) 0.3 Neut % (Auto) 64.2 Lymph % (Auto) 20.0 Steele % (Auto) 13.4 H Eos % (Auto) 1.6 Baso % (Auto) 0.5 Lymph # (Auto) 1.26 [place] # (Auto) 0.8 H Eos # (Auto) 0.1 Baso # (Auto) 0.0 Abs Immat Gran (auto) 0.02 Absolute Neuts (auto) 4.0 Absolute Nucleated RBC 0.0 Nucleated RBC % 0.0 Sodium Potassium Chloride Carbon Dioxide Anion Gap BUN Creatinine Estim Creat Clear Calc Estimated GFR Glucose Calcium Magnesium Total Bilirubin AST ALT Alkaline Phosphatase Total Protein Albumin 10/21/21 05:20 WBC RBC Hgb Hct MCV MCH MCHC RDW Plt Count MPV Immature Gran % (Auto) Neut % (Auto) Lymph % (Auto) Steele % (Auto) Eos % (Auto) Baso % (Auto) Lymph # (Auto) Steele # (Auto) Eos # (Auto) Baso # (Auto) Abs Immat Gran (auto) Absolute Neuts (auto) Absolute Nucleated RBC Nucleated RBC % Sodium 132 L Potassium 3.1 L Chloride 96 L Carbon Dioxide 27 Anio
[2021-10-21] MEDS: DEXTROSE 5%/0.45% SOD CHL 1,000 ML 70 ML IV CONT (12:11)
--- NOTE | 2021-10-21 13:05 | WPDANESEPPF ---
Anes - Initial Pre Proc Eval Procedure: Operation Date: 10/21/21 15:00 Proposed Procedures p Esophagogastroduodenoscopy - Vernon Joseph MD Date/Time: 10/21/21 13:05 Surgeon: Rowdy Ying MD Pre Op Diagnosis: Fecal Impaction Patient Data Age: 76 Gender: M Height: Weight: Last Vital Signs Temp 36.4 C L 10/21/21 04:31 Pulse 60 10/21/21 04:31 Resp 16 10/21/21 04:31 BP 126/67 10/21/21 04:31 Pulse Ox 97 10/21/21 04:31 Allergies Allergy/AdvReac Type Severity Reaction Status Date / Time Penicillins Allergy Mild unknown Verified 10/21/21 13:48 Home Medications Medication Instructions Recorded Confirmed Type hydrocodone-acetaminophen 1 tablet PO Q6H PRN #20 tablet 03/31/20 04/03/20 Rx fluoxetine [Prozac] 20 mg PO QAM #60 cap 02/27/21 10/20/21 Rx timolol maleate 1 drp EACH EYE Q12HR 30 Days #10 ml 02/27/21 10/20/21 Rx trazodone 100 mg PO HS 60 Days #120 tablet 02/27/21 10/20/21 Rx memantine 10 mg tablet 10 mg PO BID 07/01/21 10/20/21 History duloxetine 20 mg PO DAILY 10/19/21 10/20/21 History qcljbpiblgcp-gwnihhjo-oiqbyd 1 tablet PO DAILY 10/19/21 10/20/21 History [Centrum Silver] vit C,M-Uf-rhlwk-lutein-zeaxan 1 tablet PO BID 10/19/21 10/20/21 History [PreserVision AREDS-2] Laboratory Tests 10/20/21 10/21/21 10/21/21 19:26 05:20 05:20 WBC 6.3 K/mm3 K/mm3 (4.5-10.0) RBC 3.97 M/mm3 L M/mm3 (4.6-6.20) Hgb 13.4 g/dL L g/dL 12.1 g/dL L g/dL (14.0-18.0) (14.0-18.0) Hct 41.0 % L % 35.9 % L % (42.0-52.0) (42.0-52.0) MCV 90.4 fl fl (80-100) MCH 30.5 pg pg (26-34) MCHC 33.7 g/dl g/dl (32-36) RDW 13.9 % % (11.5-14.5) Plt Count 195 k/mm3 k/mm3 (150-375) MPV 9.4 fl fl (7.4-10.4) Immature Gran % (Auto) 0.3 % % (0-0.5) Neut % (Auto) 64.2 % % (45.5-73.1) Lymph % (Auto) 20.0 % % (18.3-44.2) [place] % (Auto) 13.4 % H % (2.6-8.5) Eos % (Auto) 1.6 % % (0-4.4) Baso % (Auto) 0.5 % % (0.2-1.2) Lymph # (Auto) 1.26 K/mm3 K/mm3 (0.9-3.2) [place] # (Auto) 0.8 K/mm3 H K/mm3 (0.1-0.6) Eos # (Auto) 0.1 K/mm3 K/mm3 (0-0.3) Baso # (Auto) 0.0 K/mm3 K/mm3 (0.0-0.1) Abs Immat Gran (auto) 0.02 K/mm3 K/mm3 (0.00-0.031) Absolute Neuts (auto) 4.0 K/mm3 K/mm3 (1.3-6.7) Absolute Nucleated RBC 0.0 K/mm3 K/mm3 (0.0-0.012) Nucleated RBC % 0.0 % % (0.0-0.2) Sodium 132 mmol/L L mmol/L (137-145) Potassium 3.1 mmol/L L mmol/L (3.4-5.0) Chloride 96 mmol/L L mmol/L (98-107) Carbon Dioxide 27 mmol/L mmol/L (22-30) Anion Gap 9 mmol/L mmol/L (8-16) BUN 16 mg/dL mg/dL (9-20) Creatinine 0.70 mg/dL mg/dL (0.7-1.3) Estim Creat Clear Calc Not Reportable Estimated GFR > 60 (59 - ) Glucose 109 mg/dL mg/dL (65-110) Calcium 7.9 mg/dL L mg/dL (8.4-10.2) Magnesium 2.0 mg/dL mg/dL (1.6-2.3) Total Bilirubin 0.7 mg/dL mg/dL (0.2-1.3) AST 30 U/L U/L (17-59) ALT 15 U/L U/L (4-50) Alkaline Phosphatase 56 U/L U/L (38-126) Total Protein 6.0 g/dL L g/dL (6.3-8.2) Albumin 3.6 g/dL g/dL (3.5-5.1) Patient hx anesthesia problems: none Family hx anesthesia problems: none Results Review: All pre-operative results and documents have been reviewed as part of the pre-operative evaluation. [facility] Past Medical History Medical History (Updated 10/21/21 @ 13:11 by Figueroa Webber MD) Alcohol abuse Dementia Depression Failed total knee replacement Fecal impaction of colon GERD (gastroesophageal reflux disease) Hematemesis Hip fracture HTN (hypertension) Hypertension Surgical History Surgical History
[2021-10-21] MEDS: LACTATED RINGERS 1,000 ML 150 ML IV CONT (14:44)
--- NOTE | 2021-10-21 14:54 | SUR.OPER ---
RN called report to floor RN. RN also gave report to GI RN
--- NOTE | 2021-10-21 15:58 | PHAR ---
PER TERESA @ [facility] IN [place] PT TAKES 20MG DULOXETINE AND 20MG FLUOXETINE
--- NOTE | 2021-10-21 17:16 | PM.IMPN ---
Progress Note: A&P Additional Plan 76 year old male admitted directly from [place] ER with fecal impaction # Constipation with fecal impaction: Admit to gen with tele Pain control Surgery has been consulted Enema and laxatives as per surgery Patient underwent EGD and during sedation rectal exam was performed revealing an empty vault with no impaction. # Hematemesis: Unclear etiology. NPO GI was consulted. PPI was started. H&H was monitored. Heparin subQ on hold. Underwent EGD which showed no signs of bleeding but noted nonerosive reflux disease and Schatzki's ring. # DVT ppx: SCD # Code:Full # dementia # hypertension # GERD # recent prostatic biopsy # Dispo: Labs in a.m.. Monitor for further hematemesis. If stable discharge home Subjective Date/time seen: 10/21/21 17:16 Interval history: He underwent EGD this afternoon. He is feeling well. No nausea vomiting or any pain complain. No further hematemesis. Review of Systems Review of Systems: All systems reviewed & are unremarkable except as noted in HPI and below (HPI) Exam Narrative: GENERAL: The patient is well developed, not in acute distress HEENT: Nonicteric sclerae, PERRLA, EOMI. Oropharynx clear. Moist mucous membranes. Conjunctivae appear well perfused. CHEST: Chest wall is nontender. HEART: Regular rate and rhythm without murmur, rubs, or gallops LUNGS: Clear to auscultation bilaterally. no respiratory distress ABDOMEN: Soft, positive bowel sounds, non-tender, no organomegaly. SKIN: No rash, no excessive bruising, petechiae, or purpura. NEUROLOGIC: Cranial nerves II-XII intact, alert and oriented x 3, no gross motor deficits EXTREMITIES: no edema, cyanosis or clubbing Extrem: General: normal exam except as noted and no edema Objective Data Vital Signs Vital Signs: Vital Signs - 24 hr 10/20/21 19:31 10/20/21 20:00 10/20/21 23:18 Temperature 98.9 F 96.7 F L Pulse Rate 69 69 61 Respiratory Rate 19 19 17 Blood Pressure 157/88 H 137/85 Pulse Oximetry 99 99 96 10/21/21 00:00 10/21/21 04:31 10/21/21 13:35 Temperature 97.5 F L 97.2 F L Pulse Rate 59 L 60 59 L Respiratory Rate 16 16 Blood Pressure 126/67 156/83 H Pulse Oximetry 97 99 10/21/21 14:44 10/21/21 14:54 10/21/21 15:04 Temperature Pulse Rate 54 L 53 L 54 L Respiratory Rate 15 15 16 Blood Pressure 112/72 105/68 124/78 Pulse Oximetry 100 100 100 Intake/Output Intake/Output: Intake & Output 10/18/21 10/19/21 10/20/21 10/21/21 23:59 23:59 23:59 23:59 Intake Total 1000 1200 Output Total 600 Balance 400 1200 Meds/Results Medications: Active Medications Generic Name Dose Route Start Last Admin Trade Name Freq PRN Reason Stop Dose Admin Duloxetine HCl 20 mg 10/21/21 16:00 Duloxetine Hcl 20 Mg Capsule. PO DAILY AIRAM Fluoxetine HCl 20 mg 10/21/21 16:00 Fluoxetine Hcl 20 Mg Capsule PO QAM [facility] Heparin Sodium (Porcine) 5,000 units 10/20/21 09:00 10/20/21 10:09 Heparin Sodium 5,000 Units/Ml Vial SUB-Q 5,000 units Q12HR AIRAM Administration Dextrose/Sodium Chloride 1,000 mls @ 70 mls/hr 10/20/21 04:45 10/21/21 12:11 Dextrose 5% Sodium Chloride 0.45% IV CONT 70 mls/hr .[id number] AIRAM Administration Memantine 10 mg 10/21/21 17:00 Memantine 10 Mg Tablet PO BID AIRAM Morphine Sulfate 0.5 mg 10/20/21 10:49 10/20/21 21:38 Morphine Sulfate (*Crx) 4 Mg/Ml Inj IV PUSH 0.5 mg Q4H PRN Administration Pain Rated 7-10 Multivitamins/Minerals 1 tablet 10/22/21 09:00 Opti-Gen Tab PO DAILY [facility] Non-Formulary Medication 1 tablet 10/21/21 17:00 Vit C,P-Qa-Beort-Lutein-Zeaxan [Preservision Areds-2] PO 11/20/21 16:59 BID AIRAM Ondansetron HCl 4 mg 10/20/21 10:41 10/20/21 21:38 Ondansetron Inj 4 Mg/2 Ml Vial IV PUSH 4 mg Q4H PRN Administration Nausea And Vomiting Pantoprazole Sodium 40 mg 10/20/21 10:50 10/21/21 08:20 Pantoprazole Sodium Iv [address] Mg Via
[2021-10-21] MEDS: FLUoxetine HCL 20 MG CAPSULE PO (17:44)
[2021-10-21] MEDS: DULoxetine HCL 20 MG CAPSULE.DR PO (17:44)
[2021-10-21] MEDS: MEMANTINE 10 MG TABLET PO (17:45)
[2021-10-21] MEDS: traZODone HCL 50 MG TABLET 100 MG PO (20:05)
[2021-10-22 03:47] VITALS: BP 100/60; PULSE 53; RESP 16; TEMP 37; O2SAT 97
[2021-10-22 05:31] LABS: Basophils Percent Auto 0.6 % (0.2-1.2); Eosinophils Absolute Auto 0.3 K/mm3 (0-0.3); Eosinophils Percent Auto 4.6 % (0-4.4); Hematocrit 34.2 % (42.0-52.0); Hemoglobin 11.5 g/dL (14.0-18.0); Immature Granulocyte Absolute 0.03 K/mm3 (0.00-0.031); Immature Granulocyte Percent A 0.6 % (0-0.5); Lymphocytes Absolute Auto 1.76 K/mm3 (0.9-3.2); Lymphocytes Percent Auto 32.5 % (18.3-44.2); Mean Corpuscular HGB Conc 33.6 g/dl (32-36); Mean Corpuscular Hemoglobin 29.8 pg (26-34); Mean Corpuscular Volume 88.6 fl (80-100); Mean Platelet Volume 9.7 fl (7.4-10.4); Monocytes Absolute Auto 0.7 K/mm3 (0.1-0.6); Monocytes Percent Auto 13.7 % (2.6-8.5); Neutrophils Absolute Auto 2.6 K/mm3 (1.3-6.7); Platelet Count Result 184 k/mm3 (150-375); Red Blood Count 3.86 M/mm3 (4.6-6.20); White Blood Count 5.4 K/mm3 (4.5-10.0)
[2021-10-22 05:46] LABS: Alanine Aminotransferase 12 U/L (4-50); Albumin Level 3.1 g/dL (3.5-5.1); Alkaline Phosphatase 48 U/L (38-126); Anion Gap 4 mmol/L (8-16); Aspartate Amino Transferase 26 U/L (17-59); Bilirubin,Total 0.4 mg/dL (0.2-1.3); Blood Urea Nitrogen 13 mg/dL (9-20); Calcium 7.8 mg/dL (8.4-10.2); Carbon Dioxide 29 mmol/L (22-30); Chloride 98 mmol/L (98-107); Estimated CRCL calculation 56 ml/min; Estimated Glomerular Filt Rate > 60; Glucose 104 mg/dL (65-110); Potassium 3.3 mmol/L (3.4-5.0); Sodium 131 mmol/L (137-145)
[2021-10-22] MEDS: DEXTROSE 5%/0.45% SOD CHL 1,000 ML 70 ML IV CONT (08:19)
[2021-10-22] MEDS: OPTI-GEN TAB 1 TABLET PO (08:22)
[2021-10-22] MEDS: DULoxetine HCL 20 MG CAPSULE.DR PO (08:22)
[2021-10-22] MEDS: FLUoxetine HCL 20 MG CAPSULE PO (08:22)
[2021-10-22] MEDS: TIMOLOL MALEATE 0.5% OP SOLN 5 ML BOTTLE 1 DROP EACH EYE (08:23)
[2021-10-22] MEDS: PANTOPRAZOLE SODIUM IV 40 MG VIAL IV PUSH (08:23)
[2021-10-22] MEDS: MEMANTINE 10 MG TABLET PO (08:23)
--- NOTE | 2021-10-22 10:15 | WPDANESPN ---
Anes - Prog Note Post-Op Date/Time: 10/22/21 10:15 Cardiovascular status: normal Respiratory status: normal Airway patency: baseline Mental status: baseline Post-Op hydration status: normal Vital Signs: Last Vital Signs Temp 37.0 C 10/22/21 03:47 Pulse 53 L 10/22/21 03:47 Resp 16 10/22/21 03:47 BP 100/60 10/22/21 03:47 Pulse Ox 97 10/22/21 03:47 Pain Score (VAS): 0 I/O: Intake & Output 10/21/21 10/22/21 10/22/21 23:59 07:59 15:59 Intake Total 240 1200 360 Output Total 300 Balance 240 900 360 Laboratory Tests 10/22/21 05:03 10/22/21 05:03 10/22/21 10/22/21 05:03 05:03 WBC 5.4 RBC 3.86 L Hgb 11.5 L Hct 34.2 L MCV 88.6 MCH 29.8 MCHC 33.6 RDW 14.0 Plt Count 184 MPV 9.7 Immature Gran % (Auto) 0.6 H Neut % (Auto) 48.0 Lymph % (Auto) 32.5 [place] % (Auto) 13.7 H Eos % (Auto) 4.6 H Baso % (Auto) 0.6 Lymph # (Auto) 1.76 [place] # (Auto) 0.7 H Eos # (Auto) 0.3 Baso # (Auto) 0.0 Abs Immat Gran (auto) 0.03 Absolute Neuts (auto) 2.6 Absolute Nucleated RBC 0.0 Nucleated RBC % 0.0 Sodium 131 L Potassium 3.3 L Chloride 98 Carbon Dioxide 29 Anion Gap 4 L BUN 13 Creatinine 0.80 Estim Creat Clear Calc 56 Estimated GFR > 60 Glucose 104 Calcium 7.8 L Total Bilirubin 0.4 AST 26 ALT 12 Alkaline Phosphatase 48 Total Protein 5.0 L Albumin 3.1 L Post-procedural complaints: none Patient Feedback: Patient satisfied with anesthetic care.
[2021-10-22] MEDS: HEPARIN SODIUM 5,000 UNITS/ML VIAL 5000 UNITS SUB-Q (10:39)
[2021-10-22 12:51] VITALS: BP 117/75; PULSE 60; RESP 18; TEMP 36.2; O2SAT 98
[2021-10-22] MEDS: POTASSIUM CHLORIDE 20 MEQ PACKET (FOR LIQUID) 40 MEQ PO (14:32)
--- NOTE | 2021-10-22 15:47 | PM.DS ---
DS: Admitting Diagnosis Discharge Date 10/22/2021 Admitting Diagnosis Abdominal pain constipation DS: Discharge Diagnosis Discharge Diagnosis (1) Dementia: Code(s): F03.90 - Unspecified dementia without behavioral disturbance Status: Acute (2) Hematemesis: Code(s): K92.0 - Hematemesis Status: Acute (3) Fecal impaction of colon: Code(s): K56.41 - Fecal impaction Status: Resolved (4) Constipation: Code(s): K59.00 - Constipation, unspecified Status: Acute DS: Summary Hospital Course Hospital Course: # Constipation with fecal impaction: Admit to [facility] with tele Pain control Surgery has been consulted Enema and laxatives were ordered subsequent to which he had multiple bowel movements. Patient underwent EGD and during sedation rectal exam was performed revealing an empty vault with no impaction. # Hematemesis: Unclear etiology. NPO GI was consulted. PPI was started. H&H was monitored. Heparin subQ on hold. Underwent EGD which showed no signs of bleeding but noted nonerosive reflux disease and Schatzki's ring. Krueger send him home on omeprazole 40 mg daily. H&H was monitored during the hospital stay which remains stable. # DVT ppx: SCD # Code:Full # dementia # hypertension # GERD # recent prostatic biopsy which could have resulted in constipation and fecal impaction. # Dispo: PT OT evaluated and suggested home health which was arranged at the time of discharge Time Spent with Patient Time attestation: Total time spent providing and/or coordinating discharge services: 45 minutes Exam Narrative: GENERAL: The patient is well developed, not in acute distress HEENT: Nonicteric sclerae, PERRLA, EOMI. Oropharynx clear. Moist mucous membranes. Conjunctivae appear well perfused. CHEST: Chest wall is nontender. HEART: Regular rate and rhythm without murmur, rubs, or gallops LUNGS: Clear to auscultation bilaterally. no respiratory distress ABDOMEN: Soft, positive bowel sounds, non-tender, no organomegaly. SKIN: No rash, no excessive bruising, petechiae, or purpura. NEUROLOGIC: Cranial nerves II-XII intact, alert and oriented x 3, no gross motor deficits EXTREMITIES: no edema, cyanosis or clubbing DS: Data Data Completed and Pending Pending studies at discharge: Pending at discharge 10/21/21 14:45 Surgical [PTH] Routine Labs on day of discharge: Labs from last 24 hours 10/22/21 10/22/21 05:03 05:03 WBC 5.4 RBC 3.86 L Hgb 11.5 L Hct 34.2 L MCV 88.6 MCH 29.8 MCHC 33.6 RDW 14.0 Plt Count 184 MPV 9.7 Immature Gran % (Auto) 0.6 H Neut % (Auto) 48.0 Lymph % (Auto) 32.5 [place] % (Auto) 13.7 H Eos % (Auto) 4.6 H Baso % (Auto) 0.6 Lymph # (Auto) 1.76 [place] # (Auto) 0.7 H Eos # (Auto) 0.3 Baso # (Auto) 0.0 Abs Immat Gran (auto) 0.03 Absolute Neuts (auto) 2.6 Absolute Nucleated RBC 0.0 Nucleated RBC % 0.0 Sodium 131 L Potassium 3.3 L Chloride 98 Carbon Dioxide 29 Anion Gap 4 L BUN 13 Creatinine 0.80 Estim Creat Clear Calc 56 Estimated GFR > 60 Glucose 104 Calcium 7.8 L Total Bilirubin 0.4 AST 26 ALT 12 Alkaline Phosphatase 48 Total Protein 5.0 L Albumin 3.1 L Procedures/Treatments: EGD done on 10/21/2021: Nonerosive reflux disease was present in the distal esophagus A mild Schatzki's ring was present at the GE junction. Multiple cold forceps biopsies were taken from the GE junction for the pathology and to break fibrotic tissue. The stomach at the body, cardia and fundus was examined and was knee a normal with no ulcers or masses. A cold forceps biopsy was taken from the antrum for rapid urease/RONALD test The bulb and 2nd portion of the duodenum was normal with no ulcers or masses. Rectal exam was performed revealing an empty vault with no impaction. Imaging Radiologist's impression: ITS Impressions Abdomen X-Ray 10/20/21 08:41 IMPRESSION: 1. Rectal
== END 2021-10-22 17:15 | disposition home health service (06) ==
LOC: ANH2MED 04:58 → ANH3MED 13:05
PROVIDERS: Internal Medicine; Internal Medicine Gastroenterology; Admitting Provider Internal Medicine; PCP Internal Medicine; Visit Provider Internal Medicine
PROC: 0DJ08ZZ Inspection of Upper Intestinal Tract, Via Natural or Artificial Opening Endoscopic (ICD-10-PCS; CPT 43235; principal; 2021-10-21 15:00)
DX: K56.41 Fecal impaction (principal); K92.0 Hematemesis; D64.9 Anemia, unspecified; K21.9 Gastro-esophageal reflux disease without esophagitis; K22.2 Esophageal obstruction; F03.90 Unspecified dementia, unspecified severity, without behavioral disturbance, psychotic disturbance, mood disturbance, and anxiety; Z98.890 Other specified postprocedural states; I10 Essential (primary) hypertension; Z87.891 Personal history of nicotine dependence
CPT/HCPCS: 43239; 45990; 36415; 74019; 80048; 80053; 83735; 84100; 85014; 85018; 85025; 87081; 88305; 96361; 96372; 96374; 96375; 96376; 97161; A9270; C9113; G0378; G0379; J1644; J2270; J2405; J2704; J7120

== ENCOUNTER 2021-12-12 19:22 | Emergency (ER) | payer MEDICARE, SELFPAY ==
--- NOTE | 2021-12-12 19:27 | ECG_ITS ---
Measurements Intervals [place] Rate: 57 P: 72 IA: 209 QRS: -24 QRSD: 122 T: 54 QT: 438 QTc: 428 Interpretive Statements SINUS BRADYCARDIA WITH FIRST DEGREE AV BLOCK POSSIBLE LEFT ATRIAL ENLARGEMENT RIGHT BUNDLE BRANCH BLOCK BASELINE ARTIFACT- I, II, III, AVR, AVL, AVF, V1, V3 ABNORMAL ECG Electronically Signed On 12-13-2021 6:48:11 CDT by José Raymundo D.O.
--- NOTE | 2021-12-12 19:31 | ED.PSYCH ---
HPI - Psych General Chief Complaint: Psychiatric Symptoms <Benjamin Flannery MD - Last Filed: 12/13/21 07:12> Stated Complaint: ambulance <Benjamin Flannery MD - Last Filed: 12/13/21 07:12> Time Seen by Provider: 12/12/21 19:32 <Benjamin Flannery MD - Last Filed: 12/13/21 07:12> Source: patient and EMS <Benjamin Flannery MD - Last Filed: 12/13/21 07:12> Mode of arrival: EMS <Benjamin Flannery MD - Last Filed: 12/13/21 07:12> Limitations: altered mental status <Benjamin Flannery MD - Last Filed: 12/13/21 07:12> History of Present Illness HPI Narrative: This is a 76-year-old gentleman that was brought in via EMS with some voicing thoughts of suicide, family friend called police and EMS initially the patient was combative toward the family friend, but is more common with EMS and police. Patient states that he has been drinking throughout the day and had approximately 2 and half bottles of wine consumed. The patient states that he drinks on a regular basis, patient denies any chest pain or shortness of breath no fever chills no nausea vomiting patient is incontinent of urine no diarrhea constipation. <Benjamin Flannery MD - Last Filed: 12/13/21 07:12> MD complaint: suicidal ideation <Benjamin Flannery MD - Last Filed: 12/13/21 07:12> Onset (ago): hour(s) <Benjamin Flannery MD - Last Filed: 12/13/21 07:12> Duration: constant <Benjamin Flannery MD - Last Filed: 12/13/21 07:12> History of same: No <Benjamin Flannery MD - Last Filed: 12/13/21 07:12> Relieving factors: none <Benjamin Flannery MD - Last Filed: 12/13/21 07:12> Exacerbating factors: none <Benjamin Flannery MD - Last Filed: 12/13/21 07:12> Context: recent alcohol abuse <Benjamin Flannery MD - Last Filed: 12/13/21 07:12> Associated psychiatric symptoms: depression <Benjamin Flannery MD - Last Filed: 12/13/21 07:12> Related Data Home Medications: Home Medications Medication Instructions Recorded Confirmed memantine 10 mg tablet 10 mg PO BID 07/01/21 12/12/21 PreserVision AREDS-2 1 tablet PO BID 10/19/21 12/12/21 duloxetine 20 mg PO DAILY 10/19/21 12/12/21 owivbzwqdlej-uegtxdeb-ibmcru 1 tablet PO DAILY 10/19/21 12/12/21 <Benjamin Flannery MD - Last Filed: 12/13/21 07:12> Allergies/Adverse Reactions: Allergies Allergy/AdvReac Type Severity Reaction Status Date / Time Penicillins Allergy Mild unknown Verified 12/12/21 19:50 <Benjamin Flannery MD - Last Filed: 12/13/21 07:12> Review of Systems Review of Systems: All systems reviewed & are unremarkable except as noted in HPI and below <Benjamin Flannery MD - Last Filed: 12/13/21 07:12> [facility] Past Medical History Medical History: Medical History Alcohol abuse Dementia Depression Failed total knee replacement Fecal impaction of colon GERD (gastroesophageal reflux disease) Hematemesis Hip fracture HTN (hypertension) Hypertension <Benjamin Flannery MD - Last Filed: 12/13/21 07:12> Surgical History Surgical History: Surgical History History of appendectomy <Benjamin Flannery MD - Last Filed: 12/13/21 07:12> Family History Family History: Family History Mother Old age Father Old age <Benjamin Flannery MD - Last Filed: 12/13/21 07:12> Social History Social History: Social History Years smoked: 25 Smoking status: Former smoker Tobacco type: cigarettes Second hand tobacco smoke exposure: No Smoking end date: 08/15/87 Alcohol intake: current Drinks per week: 7 Alcohol use details: wine nightly Substance use: never Substance use type: does not use Gender identity (if verbalized by the patient): Male Spiritu
[2021-12-12 19:38] VITALS: BP 192/100; PULSE 66; RESP 16; TEMP 36.5; O2SAT 100
[2021-12-12] MEDS: THIAMINE HCL INJ 100 MG, FOLIC ACID 1 MG, MULTIVITAMINS-12 INJ 10 ML, MAGNESIUM SULFATE... IV CONT (20:27)
[2021-12-12 20:32] LABS: Basophils Absolute Auto 0.04 K/mm3 (0.00-0.10); Basophils Percent Auto 0.7 % (0.0-1.0); Eosinophils Absolute Auto 0.16 K/mm3 (0.02-0.50); Eosinophils Percent Auto 2.9 % (1.0-6.0); Hematocrit 40.5 % (37.0-46.0); Hemoglobin 13.7 g/dL (12.4-15.3); Immature Granulocyte Absolute 0.02 K/mm3 (0.00-0.00); Immature Granulocyte Percent A 0.4 % (0.0-0.0); Lymphocytes Absolute Auto 2.45 K/mm3 (1.10-4.50); Lymphocytes Percent Auto 43.8 % (18.0-42.0); Mean Corpuscular HGB Conc 33.8 g/dL (32.0-36.0); Mean Corpuscular Volume 88.6 fL (78.0-102.0); Mean Platelet Volume 9.4 fl (8.7-11.0); Monocytes Absolute Auto 0.45 K/mm3 (0.10-0.90); Neutrophils Absolute Auto 2.5 K/mm3 (1.7-7.2); Neutrophils Percent Auto 44.2 % (50.0-70.0); Platelet Count Result 200 K/mm3 (150-420); Red Blood Count 4.57 M/mm3 (4.70-6.10); Red Cell Distribution Width 13.8 % (11.6-14.4); White Blood Count 5.6 K/mm3 (4.8-10.8)
[2021-12-12 20:47] LABS: Amphetamine Screen Urine Negative (Negative); Barbiturate Screen Urine Negative (Negative); Benzodiazepines Screen Urine Negative (Negative); Cannabinoid Screen Urine Negative (Negative); Cocaine Screen Urine Negative (Negative); Methadone Screen Urine Negative (Negative); Opiate Screen Urine Negative (Negative); Phencyclidine Screen Urine Negative (Negative)
[2021-12-12 20:54] LABS: SARS-CoV-2 Ag Negative (Negative)
[2021-12-12 20:57] LABS: Alanine Aminotransferase 20 U/L (16-63); Albumin Level 3.8 g/dL (3.4-5.0); Alkaline Phosphatase 86 U/L (46-116); Anion Gap 6 mmol/L (8-16); Aspartate Amino Transferase 23 U/L (15-37); Bilirubin,Total 0.3 mg/dL (0.00-1.00); Blood Urea Nitrogen 9 mg/dL (7-18); Calcium 8.8 mg/dL (8.5-10.1); Carbon Dioxide 30 mmol/L (21-32); Chloride 92 mmol/L (98-108); Estimated Glomerular Filt Rate > 60; Ethanol 163 mg/dL (0-6); Glucose 79 mg/dL (70-99); Osmolality Calculated 263 mOsm/kg (285-295); Potassium 4.1 mmol/L (3.5-5.1); Sodium 128 mmol/L (136-145); Thyroid Stimulating Hormone 2.94 uIU/mL (0.36-3.74); Total Protein 7.4 g/dL (6.4-8.2)
[2021-12-12 20:58] LABS: Acetaminophen < 2 ug/mL (10-30)
[2021-12-12] MEDS: SODIUM CHLORIDE 0.9% IV 500 ML 999 ML IV CONT (21:14)
--- NOTE | 2021-12-12 21:47 | PC.NURSE ---
pt sleeping, no needs at this time
--- NOTE | 2021-12-13 01:50 | PC.NURSE ---
Pt woke up and stated he was trying to drink himself to . agitated to find himself in psych room
[2021-12-13 04:52] LABS: Sodium 132 mmol/L (136-145)
[2021-12-13 04:55] LABS: Ethanol < 3 mg/dL (0-6)
--- NOTE | 2021-12-13 04:57 | PC.NURSE ---
pt medically clear
--- NOTE | 2021-12-13 05:00 | PC.NURSE ---
[facility] paged
--- NOTE | 2021-12-13 05:13 | PC.NURSE ---
pk cortez returned call, in route
--- NOTE | 2021-12-13 06:31 | PC.NURSE ---
[facility] arrived
--- NOTE | 2021-12-13 07:10 | PC.NURSE ---
Luda Lara is at bedside speaking with patient at this time.
--- NOTE | 2021-12-13 08:30 | PC.NURSE ---
RN contacted Zoraida Herr patient's childcare director, she will be up to get him within the hour.
[2021-12-13] MEDS: cloNIDine HCL 0.2 MG TABLET PO (08:58)
[2021-12-13 09:46] VITALS: BP 157/91; PULSE 95; RESP 16; TEMP 36.6; O2SAT 98
== END 2021-12-13 10:20 | disposition home or self-care (01) ==
PROVIDERS: Emergency Provider Emergency Medicine; PCP Internal Medicine
DX: F10.10 Alcohol abuse, uncomplicated (principal); R45.851 Suicidal ideations; I10 Essential (primary) hypertension; Z20.822 Contact with and (suspected) exposure to COVID-19; K21.9 Gastro-esophageal reflux disease without esophagitis; Z87.891 Personal history of nicotine dependence; Z79.899 Other long term (current) drug therapy
CPT/HCPCS: 36415; 80053; 80307; 83735; 84295; 84443; 85025; 87426; 93005; 96365; 96366; 99284; A9270; C9803; J3411; J3475; J7040; J7121

== ENCOUNTER 2022-02-18 12:01 | Outpatient (CLI) | payer MEDICARE, SELFPAY ==
--- NOTE | ~2022-02-18 | XR_ITS ---
EXAMINATION: XR ribs LT 2V w CXR 2V INDICATION: Left chest pain TECHNIQUE: PA and lateral views of the chest and 3 views of the left ribs were obtained. COMPARISON: 09/01/2020; CT, 08/10/2020 FINDINGS: There is a chronic, stable nodule of the right upper lobe. No pleural effusion or pneumotho rax. The cardiomediastinal silhouette is normal. There is moderate thoracic spondylosis. There are ac robinson fractures at the lateral aspects of the left fourth through seventh ribs. IMPRESSION: 1. Acute fractures of the lateral aspects of the left fourth through seventh ribs. No acute cardiopul monary abnormality. Reviewed, dictated and finalized at location B. IMPRESSION: 1. Acute fractures of the lateral aspects of the left fourth through seventh ri bs. No acute cardiopulmonary abnormality.
[2022-02-18 12:26] LABS: Basophils Absolute Auto 0.04 K/mm3 (0.00-0.10); Basophils Percent Auto 0.6 % (0.0-1.0); Eosinophils Absolute Auto 0.03 K/mm3 (0.02-0.50); Eosinophils Percent Auto 0.5 % (1.0-6.0); Hematocrit 48.3 % (37.0-46.0); Hemoglobin 15.2 g/dL (12.4-15.3); Immature Granulocyte Absolute 0.03 K/mm3 (0.00-0.00); Immature Granulocyte Percent A 0.5 % (0.0-0.0); Immature Platelet Fraction Pct 3.9 % (1.0-7.0); Lymphocytes Absolute Auto 2.59 K/mm3 (1.10-4.50); Lymphocytes Percent Auto 40.7 % (18.0-42.0); Mean Corpuscular HGB Conc 31.5 g/dL (32.0-36.0); Mean Corpuscular Hemoglobin 28.8 pg (27.0-31.0); Mean Corpuscular Volume 91.7 fL (78.0-102.0); Mean Platelet Volume 10.3 fl (8.7-11.0); Monocytes Absolute Auto 0.47 K/mm3 (0.10-0.90); Monocytes Percent Auto 7.4 % (2.0-11.0); Neutrophils Absolute Auto 3.2 K/mm3 (1.7-7.2); Neutrophils Percent Auto 50.3 % (50.0-70.0); Platelet Count Result 167 K/mm3 (150-420); Red Blood Count 5.27 M/mm3 (4.70-6.10); Red Cell Distribution Width 14.5 % (11.6-14.4); White Blood Count 6.4 K/mm3 (4.8-10.8)
[2022-02-18 12:51] LABS: Alanine Aminotransferase 12 U/L (16-63); Albumin Level 4.5 g/dL (3.4-5.0); Alkaline Phosphatase 93 U/L (46-116); Amylase 80 U/L (25-115); Anion Gap 9 mmol/L (8-16); Aspartate Amino Transferase 25 U/L (15-37); Bilirubin,Total 0.5 mg/dL (0.00-1.00); Blood Urea Nitrogen 18 mg/dL (7-18); Carbon Dioxide 28 mmol/L (21-32); Chloride 97 mmol/L (98-108); Estimated Glomerular Filt Rate > 60; Glucose 106 mg/dL (70-99); Lipase 109 U/L (73-393); Osmolality Calculated 279 mOsm/kg (285-295); Potassium 4.9 mmol/L (3.5-5.1); Prostate Specific Antigen 2.4 ng/mL (< OR = 4.0); Sodium 134 mmol/L (136-145); Total Protein 8.4 g/dL (6.4-8.2)
[2022-02-18 13:05] LABS: Add Urine Microscopic? YES; Appearance Urine Clear (Clear); Bilirubin Urine Negative (Negative); Blood Urine Negative (Negative); Color Urine Yellow (Yellow); Glucose Urine UA Negative (Negative); Ketones Urine Trace (Negative); Leukocyte Esterase Ur Negative LEU/UL (Negative); Nitrate Urine Negative (Negative); Protein Urine Negative (Negative); Specific Grav Ur 1.025 (1.010-1.020); Urobilinogen Urine 0.2 mg/dL (0.2-1.0)
[2022-02-18 13:08] LABS: CRP < 0.2 mg/dL (0.0-0.9); Calcium 9.8 mg/dL (8.5-10.1)
[2022-02-18 13:19] LABS: Bacteria Urine Trace /hpf; RBC Urine None seen /hpf (0-2); WBC Urine None seen /hpf (0-3)
== END 2022-02-18 12:02 | disposition home or self-care (01) ==
PROVIDERS: PCP Internal Medicine; Visit Provider Internal Medicine
DX: R63.0 Anorexia (principal); R53.83 Other fatigue; R07.89 Other chest pain; C61 Malignant neoplasm of prostate
CPT/HCPCS: 36415; 71046; 71100; 80053; 81001; 82150; 83690; 84153; 84443; 85025; 85055; 86140

== ENCOUNTER 2022-11-30 16:36 | Emergency (ER) | payer MEDICARE, SELFPAY ==
[2022-11-30 16:40] VITALS: BP 164/99; PULSE 71; RESP 18; TEMP 36.6; O2SAT 98
--- NOTE | 2022-11-30 16:42 | ED.ALCOHOL ---
HPI - Alcohol General Chief Complaint: Nausea/Vomiting/Diarrhea Stated Complaint: NOT FEELING WELL Time Seen by Provider: 11/30/22 16:38 Source: patient Mode of arrival: ambulatory Limitations: no limitations History of Present Illness HPI narrative: 77-year-old male alcoholic, ex-smoker with a history of dementia, depression, anxiety, prostate cancer diagnosed last year status post treatment,alcoholic hepatitis, GERD, colonic ischemia, hematemesis with an EGD which revealed Schatzki's ring and nonerosive reflux esophagitis presents to the ER with -- alcohol withdrawal symptoms including anxiety, tremor and nausea. -- significant weight loss over the past few weeks The patient is very hard of hearing. The patient has dementia and does not have any other complaints MD complaint: alcohol withdrawal Last drink: days (ago) ( possibly yesterday) Amount of alcohol consumed: drinks 2 bottles every day Chronic alcohol use: Yes Previous visits for alcohol intoxication: No Recent trauma: No Associated symptoms: nausea, vomiting and tremors Related Data Home Medications Medication Instructions Recorded Confirmed memantine 10 mg tablet 10 mg PO BID 07/01/21 11/30/22 duloxetine 20 mg capsule,delayed 20 mg PO DAILY 10/19/21 11/30/22 release lbkxbmbezmsb-phjjzdjb-olzjpa tablet 1 tablet PO DAILY 10/19/21 11/30/22 vit C 250 mg-vit E 90 mg-zinc 40 1 tablet PO BID 10/19/21 11/30/22 mg-copper 1 ri-ronzmo-cfhykf capsule (PreserVision AREDS-2) Allergies Allergy/AdvReac Type Severity Reaction Status Date / Time Penicillins Allergy Mild unknown Verified 11/30/22 16:48 Review of Systems Review of Systems: All systems reviewed & are unremarkable except as noted in HPI and below Constitutional: Constitutional: Reports as per HPI and Reports no additional constitutional complaints Eyes: Eyes: Reports as per HPI and Reports no additional eye complaints ENT: Reports system reviewed and no additional complaints, except as documented and Reports as per HPI Cardiovascular: Cardiovascular: Reports as per HPI and Reports no additional cardiovascular complaints Respiratory: Respiratory: Reports as per HPI and Reports no additional respiratory complaints Gastrointestinal: Gastrointestinal: Reports as per HPI, Reports no additional gastrointestinal complaints, Reports nausea and Reports vomiting Genitourinary: Genitourinary: Reports no additional male genitourinary complaints and Reports as per HPI Musculoskeletal: Musculoskeletal: Reports no additional musculoskeletal complaints and Reports as per HPI Integumentary/Breasts: Skin/Breast: Reports system reviewed and no additional complaints, except as docu and Reports as per HPI Neurologic: Reports system reviewed and no additional complaints, except as documented and Reports as per HPI Psychiatric: Psychiatric: Reports no additional psychiatric complaints and Reports as per HPI Endocrine: Endocrine: Reports no additional endocrine complaints and Reports as per HPI Hematologic/Lymphatic: Hematologic/Lymphatic: Reports no additional hematologic/lymphatic complaints and Reports as per HPI Allergic/Immunologic: Allergic/Immunologic: Reports no additional allergic/immunologic complaints and Reports as per HPI PMFSH Past Medical History Medical History Alcohol abuse Dementia Depression Failed total knee replacement Fecal impaction of colon GERD (gastroesophageal reflux disease) Hematemesis Hip fracture HTN (hypertension) Hypertension Surgical History Surgical History History of appendectomy Family History Family History Mother Old age Father Old age Social History Social History Years smoked: 25 Smoking status: Former smoker Tobacco type: ci
[2022-11-30] MEDS: DEXTROSE 5%/0.45% SOD CHL 1,000 ML 125 ML IV CONT (17:26)
[2022-11-30] MEDS: ONDANSETRON INJ 4 MG/2 ML VIAL IV PUSH (17:28)
[2022-11-30] MEDS: LORazepam INJ (*CRX) 2 MG/ML VIAL IV PUSH (17:30)
[2022-11-30] MEDS: THIAMINE HCL 200 MG/2 ML VIAL 100 MG IV PUSH (17:31)
[2022-11-30 17:39] LABS: Basophils Absolute Auto 0.05 K/mm3 (0.00-0.10); Basophils Percent Auto 0.9 % (0.0-1.0); Eosinophils Absolute Auto 0.02 K/mm3 (0.02-0.50); Eosinophils Percent Auto 0.3 % (1.0-6.0); Hematocrit 40.5 % (37.0-46.0); Hemoglobin 14.4 g/dL (12.4-15.3); Immature Granulocyte Absolute 0.01 K/mm3 (0.00-0.00); Immature Granulocyte Percent A 0.2 % (0.0-0.0); Lymphocytes Absolute Auto 2.49 K/mm3 (1.10-4.50); Lymphocytes Percent Auto 43.4 % (18.0-42.0); Mean Corpuscular HGB Conc 35.6 g/dL (32.0-36.0); Mean Corpuscular Hemoglobin 32.2 pg (27.0-31.0); Mean Corpuscular Volume 90.6 fL (78.0-102.0); Monocytes Absolute Auto 0.77 K/mm3 (0.10-0.90); Monocytes Percent Auto 13.4 % (2.0-11.0); Neutrophils Absolute Auto 2.4 K/mm3 (1.7-7.2); Neutrophils Percent Auto 41.8 % (50.0-70.0); Platelet Count Result 222 K/mm3 (150-420); Red Blood Count 4.47 M/mm3 (4.70-6.10); Red Cell Distribution Width 14.3 % (11.6-14.4); White Blood Count 5.7 K/mm3 (4.8-10.8)
[2022-11-30 17:47] VITALS: BP 152/87; PULSE 74; RESP 16; O2SAT 97
[2022-11-30 17:57] LABS: Prothrombin Time 10.9 Seconds (9.50-12.10)
[2022-11-30 18:00] LABS: Alanine Aminotransferase 22 U/L (16-63); Albumin Level 4.5 g/dL (3.4-5.0); Alkaline Phosphatase 81 U/L (46-116); Anion Gap 12 mmol/L (8-16); Aspartate Amino Transferase 26 U/L (15-37); Bilirubin,Total 0.7 mg/dL (0.00-1.00); Blood Urea Nitrogen 25 mg/dL (7-18); Calcium 9.9 mg/dL (8.5-10.1); Carbon Dioxide 26 mmol/L (21-32); Chloride 94 mmol/L (98-108); Creatine Kinase 89 U/L (39-308); Estimated CRCL calculation 46 ml/min; Estimated Glomerular Filt Rate > 60; Glucose 81 mg/dL (70-99); Magnesium 1.9 mg/dL (1.8-2.4); Osmolality Calculated 277 mOsm/kg (285-295); Phosphorus 2.7 mg/dL (2.6-4.7); Potassium 4.8 mmol/L (3.5-5.1); Sodium 132 mmol/L (136-145); Total Protein 7.9 g/dL (6.4-8.2); Troponin I 6.8 ng/L (0.00-60.4)
[2022-11-30 19:20] VITALS: BP 141/82; PULSE 87; RESP 20; TEMP 36.4; O2SAT 95
== END 2022-11-30 19:30 | disposition home or self-care (01) ==
PROVIDERS: Emergency Provider Internal Medicine Critical Care Medicine; PCP Internal Medicine
DX: F10.239 Alcohol dependence with withdrawal, unspecified (principal); E86.0 Dehydration; E87.1 Hypo-osmolality and hyponatremia; I10 Essential (primary) hypertension; F03.90 Unspecified dementia, unspecified severity, without behavioral disturbance, psychotic disturbance, mood disturbance, and anxiety; F41.9 Anxiety disorder, unspecified; F32.A Depression, unspecified; Z85.46 Personal history of malignant neoplasm of prostate; Z87.891 Personal history of nicotine dependence; Z79.899 Other long term (current) drug therapy
CPT/HCPCS: 36415; 80053; 82550; 83735; 84100; 84484; 85025; 85610; 96361; 96374; 96375; 99284; J2060; J2405; J3411

== ENCOUNTER 2023-05-09 12:57 | Inpatient (IN) | payer MEDICARE, SELFPAY ==
[2023-05-09] VITALS (8 sets, daily range): BP systolic 90–112; BP diastolic 69–80; PULSE 65–81; RESP 14–20; TEMP 36.1–37; O2SAT 97–100; BMI 17.4
--- NOTE | ~2023-05-09 | CT_ITS ---
EXAMINATION: CT abdomen pelvis w con DATE: 05/09/2023 15:09 INDICATION: DIARRHEA TECHNIQUE: Computed tomography (CT) of the abdomen and pelvis was performed with 100 mL Omnipaque-350 intravenous contrast. Automated exposure control and iterative reconstruction technique were employe d. The dose-length product was 305.37 mGy-cm. COMPARISON: 10/19/2021. FINDINGS: Lower thorax: Coronary artery and aortic valve calcification. Senescent changes in the lung bases. Liver: Normal. Biliary/Gallbladder: Cholelithiasis. No inflammatory change. No bile duct dilation. Pancreas: No mass or duct dilation. Spleen: Normal. Adrenals:No mass. Kidneys: Bilateral subcentimeter hypodensities too small to characterize but most likely represent cy sts. Simple left upper and mid pole cysts. Punctate nonobstructing bilateral calculi No suspicious ma ss, obstructing stone, or hydronephrosis. GI tract: Mild distal esophageal and gastric wall edema No small or large bowel dilation. Diffuse col onic wall edema and mucosal hyperemia appendix not confidently visualized Mesentery/Peritoneum: No ascites, mass, or free air. Retroperitoneum: No mass. Atherosclerotic abdominal aortic and/or arterial calcifications. Pelvis: Marked prostatomegaly. Mostly anterior bladder with marked wall edema.. Soft Tissues: Soft tissues and body wall unremarkable. Bones: No acute osseous finding. IMPRESSION: Mild esophagitis/gastritis. Diffuse infectious, inflammatory, or ischemic colitis. Severe cystitis. Reviewed, dictated and finalized at location K.
--- NOTE | 2023-05-09 13:22 | ED.GENADULT ---
HPI - General Adult General Chief complaint: Nausea/Vomiting/Diarrhea Stated complaint: unspecified Time Seen by Provider: 05/09/23 13:03 Source: patient and EMS History of Present Illness HPI narrative: 78-year-old male presenting with abdominal pain and nausea and vomiting. Per patient EMS, patient's symptoms have been ongoing. Patient reportedly has been consuming excessive amounts of alcohol and not nurse in himself. He denies any complaints at the moment. No reported known injuries or illnesses. Related Data Home Medications Medication Instructions Recorded Confirmed memantine 10 mg tablet 10 mg PO BID 07/01/21 05/09/23 tjonpasfscwv-kqiycfvn-qlkovi tablet 1 tablet PO DAILY 10/19/21 05/09/23 vit C 250 mg-vit E 90 mg-zinc 40 1 tablet PO BID 10/19/21 05/09/23 mg-copper 1 al-axnsnc-evkkpo capsule (PreserVision AREDS-2) acamprosate 333 mg tablet,delayed 333 mg PO BID 03/17/23 05/09/23 release thiamine HCl (vitamin B1) 100 mg 100 mg PO DAILY 03/17/23 05/09/23 tablet Allergies Allergy/AdvReac Type Severity Reaction Status Date / Time Penicillins Allergy Mild unknown Verified 05/09/23 15:38 [facility] Past Medical History Medical History Alcohol abuse Dementia Depression Failed total knee replacement Fecal impaction of colon GERD (gastroesophageal reflux disease) Hematemesis Hip fracture HTN (hypertension) Hypertension Surgical History Surgical History History of appendectomy Family History Family History Mother Old age Father Old age Social History Social History Social History: Caffeine- coffee daily Years smoked: 25 Smoking status: Former smoker Tobacco type: cigarettes Second hand tobacco smoke exposure: No Smoking end date: 08/15/87 Alcohol intake: current Alcohol use details: occasional wine Substance use: never Substance use type: does not use Lack of Transportation: No Lack of Food: Never True Current Housing: I Have Housing Concerned About Future Housing: No Difficulty Paying Gas/Electric Bills: No Difficulty Paying for Meds: No Currently Unemployed: No Education: Bachelor's Degree Difficulty w/ Childcare or Family Care: No Living arrangements: alone Occupation/Education: retired Gender identity (if verbalized by the patient): Male Spiritual care concerns: No Exam Narrative: Tenderness to palpation in all abdominal quadrants. Negative Claire's. Negative McBurney's. Dry mucosal membranes. Patient is alert and oriented. No focal deficits. No evidence of trauma. All other systems unremarkable and negative. Course Vital Signs Vital signs: Vital Signs Temperature 37.0 C 05/09/23 13:04 Pulse Rate 81 05/09/23 13:04 Respiratory Rate 20 05/09/23 13:04 Blood Pressure 112/80 05/09/23 13:04 Pulse Oximetry 97 05/09/23 13:04 Oxygen Delivery Room Air 05/09/23 13:04 Temperature 36.4 C L 05/09/23 13:34 Pulse Rate 80 05/09/23 13:34 Respiratory Rate 18 05/09/23 13:34 Blood Pressure 112/80 05/09/23 13:34 Pulse Oximetry 99 05/09/23 13:34 Oxygen Delivery Room Air 05/09/23 13:34 Medical Decision Making MDM Narrative Medical decision making narrative: Workup concerning for cystitis and hypokalemia. Patient also appears clinically dehydrated. Receiving IV rehydration as well as potassium repletion. We will also start on antibiotics. Patient will need to be admitted for further management. He is amenable to this plan. He has been accepted to the hospitalist service. Medical Records Medical records reviewed: Yes I reviewed the external patient's medical records. Vital Signs Vital Signs: Vital Signs Temperature 37.0 C 05/09/23 13:04 Pulse R
[2023-05-09 13:59] LABS: Basophils Percent Auto 0.6 % (0.0-1.0); Eosinophils Absolute Auto 0.01 K/mm3 (0.02-0.50); Eosinophils Percent Auto 0.1 % (1.0-6.0); Hematocrit 41.3 % (37.0-46.0); Hemoglobin 14.6 g/dL (12.4-15.3); Immature Granulocyte Absolute 0.18 K/mm3 (0.00-0.00); Immature Granulocyte Percent A 1.1 % (0.0-0.0); Lymphocytes Absolute Auto 1.17 K/mm3 (1.10-4.50); Lymphocytes Percent Auto 7.1 % (18.0-42.0); Mean Corpuscular HGB Conc 35.4 g/dL (32.0-36.0); Mean Corpuscular Hemoglobin 32.7 pg (27.0-31.0); Mean Corpuscular Volume 92.6 fL (78.0-102.0); Mean Platelet Volume 9.4 fl (8.7-11.0); Monocytes Absolute Auto 1.59 K/mm3 (0.10-0.90); Monocytes Percent Auto 9.6 % (2.0-11.0); Neutrophils Absolute Auto 13.4 K/mm3 (1.7-7.2); Neutrophils Percent Auto 81.5 % (50.0-70.0); Platelet Count Result 245 K/mm3 (150-420); Red Blood Count 4.46 M/mm3 (4.70-6.10); Red Cell Distribution Width 13.3 % (11.6-14.4); White Blood Count 16.5 K/mm3 (4.8-10.8)
[2023-05-09] MEDS: ONDANSETRON INJ 4 MG/2 ML VIAL IV PUSH (14:17)
[2023-05-09] MEDS: SODIUM CHLORIDE 0.9% IV 1,000 ML 999 ML IV CONT (14:17)
[2023-05-09 14:18] LABS: Alanine Aminotransferase 17 U/L (16-63); Albumin Level 2.7 g/dL (3.4-5.0); Alkaline Phosphatase 114 U/L (46-116); Anion Gap 11 mmol/L (8-16); Aspartate Amino Transferase 21 U/L (15-37); Bilirubin,Total 0.5 mg/dL (0.00-1.00); Blood Urea Nitrogen 35 mg/dL (7-18); Calcium 8.8 mg/dL (8.5-10.1); Carbon Dioxide 22 mmol/L (21-32); Chloride 98 mmol/L (98-108); Estimated CRCL calculation 39 ml/min; Estimated Glomerular Filt Rate > 60; Glucose 177 mg/dL (70-99); Lipase 18 U/L (16-77); Osmolality Calculated 284 mOsm/kg (285-295); Potassium 2.8 mmol/L (3.5-5.1); Sodium 131 mmol/L (136-145); Total Protein 6.5 g/dL (6.4-8.2)
[2023-05-09 14:22] LABS: Ethanol < 3 mg/dL (0-6)
[2023-05-09 14:34] LABS: Influenza A QL RT-PCR Negative (Negative); Influenza B QL RT-PCR Negative (Negative); SARS-CoV-2 RNA PCR Negative (Negative)
[2023-05-09 14:36] LABS: RSV RNA, RT-PCR Negative (Negative)
[2023-05-09 15:04] LABS: Appearance Urine Cloudy (Clear); Bilirubin Urine Negative (Negative); Blood Urine 1+ (Negative); Color Urine Yellow (Yellow); Glucose Urine UA Negative (Negative); Ketones Urine Trace (Negative); Leukocyte Esterase Ur 3+ LEU/UL (Negative); Nitrate Urine Positive (Negative); Protein Urine 2+ (Negative); Specific Grav Ur 1.025 (1.010-1.020); Urobilinogen Urine 0.2 mg/dL (0.2-1.0)
[2023-05-09 15:09] LABS: Add Urine Microscopic? YES; Bacteria Urine 2+ /hpf; Squamous Epithelial Cell Urine Rare /hpf (Few); WBC Urine >75 /hpf (0-3)
--- NOTE | 2023-05-09 16:00 | PC.NURSE ---
On 05/09/23, the student, [PABLO LOERA ], provided care and completed [facility] documentation on this patient. I have reviewed the student's documentation and agree with the findings.
[2023-05-09] MEDS: CEFEPIME 2 GM/NS 50 ML 2 GM/50 ML BAG IVPB (16:58)
[2023-05-09 17:10] LABS: Magnesium 1.8 mg/dL (1.8-2.4)
[2023-05-09] MEDS: KCL 40 MEQ/0.9% SOD CHL 1,000 ML 100 ML IV CONT (17:13)
--- NOTE | 2023-05-09 18:25 | PC.NURSE ---
On 05/09/23, the student, [PABLO LOERA ], provided care and completed [facility] documentation on this patient. I have reviewed the student's documentation and agree with the findings.
--- NOTE | 2023-05-09 18:25 | ADMGEN ---
This patient, Rik Thakur, was admitted to 2nd Floor Room 207-2. Patient/family oriented to hospital policies and general routines including ID bracelet, bed and alarms, visiting hours, pain management, procedures, bathroom and other care routines, personal items, smoking policy, room service/diet, and visiting hours. Information on how to activate the Rapid Response Team has been discussed. Patient/Family are encouraged to report perceived risks to care and to ask questions if they do not understand what they are told or what they should do.
[2023-05-09] MEDS: KCL 20 MEQ/SW 100 ML 100 ML 50 MEQ IVPB (19:33)
[2023-05-09] MEDS: MEMANTINE 5 MG TABLET 10 MG PO (19:38)
[2023-05-09] MEDS: SODIUM CHLORIDE 0.9% IV 1,000 ML 100 ML IV CONT (19:38)
[2023-05-09] MEDS: LORazepam INJ (*CRX) 2 MG/ML VIAL 1 MG IV PUSH (19:47)
[2023-05-09] MEDS: HEPARIN SODIUM 5,000 UNITS/ML VIAL 5000 UNITS SUB-Q (21:50)
[2023-05-10] VITALS: BP 111/75; PULSE 71; RESP 16; TEMP 36.4; O2SAT 99
[2023-05-10] MEDS: SODIUM CHLORIDE 0.9% IV 1,000 ML 100 ML IV CONT ×2 (04:09→14:22)
[2023-05-10 05:28] LABS: Basophils Absolute Auto 0.06 K/mm3 (0.00-0.10); Basophils Percent Auto 0.5 % (0.0-1.0); Eosinophils Absolute Auto 0.04 K/mm3 (0.02-0.50); Eosinophils Percent Auto 0.3 % (1.0-6.0); Hematocrit 33.8 % (37.0-46.0); Hemoglobin 11.5 g/dL (12.4-15.3); Immature Granulocyte Absolute 0.17 K/mm3 (0.00-0.00); Immature Granulocyte Percent A 1.4 % (0.0-0.0); Lymphocytes Absolute Auto 1.28 K/mm3 (1.10-4.50); Lymphocytes Percent Auto 10.6 % (18.0-42.0); Mean Corpuscular Hemoglobin 31.8 pg (27.0-31.0); Mean Corpuscular Volume 93.4 fL (78.0-102.0); Mean Platelet Volume 9.1 fl (8.7-11.0); Monocytes Absolute Auto 1.16 K/mm3 (0.10-0.90); Monocytes Percent Auto 9.6 % (2.0-11.0); Neutrophils Absolute Auto 9.3 K/mm3 (1.7-7.2); Neutrophils Percent Auto 77.6 % (50.0-70.0); Platelet Count Result 230 K/mm3 (150-420); Red Blood Count 3.62 M/mm3 (4.70-6.10); Red Cell Distribution Width 13.6 % (11.6-14.4)
[2023-05-10 05:40] LABS: Anion Gap 8 mmol/L (8-16); Blood Urea Nitrogen 25 mg/dL (7-18); Calcium 8.2 mg/dL (8.5-10.1); Carbon Dioxide 21 mmol/L (21-32); Chloride 107 mmol/L (98-108); Estimated CRCL calculation 44 ml/min; Estimated Glomerular Filt Rate > 60; Glucose 91 mg/dL (70-99); Osmolality Calculated 286 mOsm/kg (285-295); Potassium 3.7 mmol/L (3.5-5.1); Sodium 136 mmol/L (136-145)
[2023-05-10 07:52] VITALS: BP 107/67; PULSE 66; RESP 18; TEMP 36; O2SAT 95
--- NOTE | 2023-05-10 08:15 | PHAR ---
Verified pt's home meds: acamprosate 333mg d3 cap, 2 po bid; preservision AREDS2, 1 po bid.
[2023-05-10] MEDS: HEPARIN SODIUM 5,000 UNITS/ML VIAL 5000 UNITS SUB-Q ×2 (09:03→20:08)
[2023-05-10] MEDS: OPTI-GEN TAB 1 TABLET PO (09:04)
[2023-05-10] MEDS: THIAMINE HCL 100 MG TABLET PO (09:05)
[2023-05-10] MEDS: LOPERAMIDE HCL 2 MG CAPSULE PO ×2 (09:05→13:55)
[2023-05-10] MEDS: FLUoxetine HCL 10 MG CAPSULE 20 MG PO (09:05)
[2023-05-10] MEDS: MEMANTINE 5 MG TABLET 10 MG PO ×2 (09:05→16:47)
[2023-05-10] MEDS: PANTOPRAZOLE SODIUM IV 40 MG VIAL IV PUSH (09:07)
[2023-05-10] MEDS: LOPERAMIDE HCL 2 MG CAPSULE 4 MG PO (09:08)
--- NOTE | 2023-05-10 09:57 | PM.IMHP ---
H&P: HPI History of Present Illness Date/Time: 05/10/23 09:57 Chief Complaint: Diarrhea and weight loss Narrative: This is an 78-year-old male patient who was admitted to the hospital with findings diffuse colitis and hypokalemia. Patient came to the emergency department due to complaints of diarrhea. He was found to be dehydrated with hypokalemia and a urinary tract infection. Patient was started on IV antibiotics and IV fluids and admitted overnight. This morning patient states that he came in because he has been losing weight. Patient reports that he consumes excess alcohol with known history of alcohol abuse. He says that he drinks instead of eating and that is why he has been losing weight. Patient complained diarrhea and abdominal pain the abdominal pain is getting better. Patient denies any symptoms of withdrawal at this time. Patient has a known history of dementia and is pleasantly confused. He states that he lives alone and plans to go back to living alone after hospitalization. Patient reports that he drove to the hospital and plans to drive home. Review of Systems Review of Systems: All systems reviewed & are unremarkable except as noted in HPI and below PMFSH Past Medical History Medical History Alcohol abuse Dementia Depression Failed total knee replacement Fecal impaction of colon GERD (gastroesophageal reflux disease) Hematemesis Hip fracture HTN (hypertension) Hypertension Surgical History Surgical History History of appendectomy Family History Family History Mother Old age Father Old age Social History Social History Social History: Caffeine- coffee daily Years smoked: 25 Smoking status: Former smoker Tobacco type: cigarettes Second hand tobacco smoke exposure: No Smoking end date: 08/15/82 Alcohol intake: current Alcohol use details: occasional wine Substance use: never Substance use type: does not use Lack of Transportation: No Lack of Food: Never True Current Housing: I Have Housing Concerned About Future Housing: No Difficulty Paying Gas/Electric Bills: No Difficulty Paying for Meds: No Currently Unemployed: No Education: Bachelor's Degree Difficulty w/ Childcare or Family Care: No Living arrangements: alone Occupation/Education: retired Gender identity (if verbalized by the patient): Male Spiritual care concerns: No Meds Home Medications and Allergies Home Medications Medication Instructions Recorded Confirmed Type fluoxetine 10 mg capsule (Prozac) 20 mg PO QAM #60 caps 02/27/21 05/09/23 Rx memantine 10 mg tablet 10 mg PO BID 07/01/21 05/09/23 History mpakiblprgdy-xxywdptq-mfrvay tablet 1 tablet PO DAILY 10/19/21 05/09/23 History vit C 250 mg-vit E 90 mg-zinc 40 1 tablet PO BID 10/19/21 05/09/23 History mg-copper 1 hw-jrpnuf-vpuwaw capsule (PreserVision AREDS-2) acamprosate 333 mg tablet,delayed 333 mg PO BID 03/17/23 05/09/23 History release thiamine HCl (vitamin B1) 100 mg 100 mg PO DAILY 03/17/23 05/09/23 History tablet Allergies Allergy/AdvReac Type Severity Reaction Status Date / Time Penicillins Allergy Mild unknown Verified 05/09/23 15:38 Vital Signs Vital Signs - 24 hr 05/09/23 13:04 05/09/23 13:34 05/09/23 15:16 Temperature 37.0 C 36.4 C L Pulse Rate 81 80 66 Respiratory Rate 20 18 20 Blood Pressure 112/80 112/80 96/71 L Pulse Oximetry 97 99 100 Oxygen Delivery Room Air Room Air Room Air 05/09/23 17:17 05/09/23 18:07 05/09/23 18:11 Temperature Pulse Rate 68 68 68 Respiratory Rate 20 20 20 Blood Pressure 97/69 L 98/70 L Pulse Oximetry 100 98 98 Oxygen Delivery Room Air Room Air Room Air 05/09/23 18:34 05/09/23 20:00 05/10/23 00:00 [facility]
[2023-05-10] MEDS: FOLIC ACID 1 MG TABLET PO (11:04)
[2023-05-10] MEDS: cefTRIAXone 2 GM/NS 100 ML 2 GM/100 ML BAG IVPB (11:04)
--- NOTE | 2023-05-10 11:36 | PC.NURSE ---
went to inpatient at 11:24am on 05-10-23.
[2023-05-10 16:00] VITALS: BP 116/72; PULSE 70; RESP 18; TEMP 36.4; O2SAT 97
[2023-05-10 20:00] VITALS: PULSE 70; RESP 18; O2SAT 97
[2023-05-10] MEDS: LORazepam INJ (*CRX) 2 MG/ML VIAL 1 MG IV PUSH (20:07)
[2023-05-11] VITALS: BP 106/65; PULSE 67; RESP 16; TEMP 36.3; O2SAT 97
[2023-05-11] MEDS: SODIUM CHLORIDE 0.9% IV 1,000 ML 100 ML IV CONT ×3 (00:07→23:28)
--- NOTE | 2023-05-11 03:35 | PC.NURSE ---
On 05/11/23, the COMMERCIAL SHRIMPING CAPTAIN, [Mary Cortes ], provided care and completed [facility] documentation on this patient. I have reviewed the COMMERCIAL SHRIMPING CAPTAIN's documentation and agree with the findings.
[2023-05-11 05:18] LABS: Basophils Absolute Auto 0.07 K/mm3 (0.00-0.10); Basophils Percent Auto 0.8 % (0.0-1.0); Eosinophils Absolute Auto 0.07 K/mm3 (0.02-0.50); Eosinophils Percent Auto 0.8 % (1.0-6.0); Hematocrit 39.8 % (37.0-46.0); Hemoglobin 13.9 g/dL (12.4-15.3); Immature Granulocyte Absolute 0.09 K/mm3 (0.00-0.00); Immature Granulocyte Percent A 1.1 % (0.0-0.0); Lymphocytes Absolute Auto 1.31 K/mm3 (1.10-4.50); Lymphocytes Percent Auto 15.7 % (18.0-42.0); Mean Corpuscular HGB Conc 34.9 g/dL (32.0-36.0); Mean Corpuscular Hemoglobin 32.3 pg (27.0-31.0); Mean Corpuscular Volume 92.3 fL (78.0-102.0); Mean Platelet Volume 8.9 fl (8.7-11.0); Monocytes Absolute Auto 0.82 K/mm3 (0.10-0.90); Monocytes Percent Auto 9.8 % (2.0-11.0); Neutrophils Percent Auto 71.8 % (50.0-70.0); Platelet Count Result 268 K/mm3 (150-420); Red Blood Count 4.31 M/mm3 (4.70-6.10); Red Cell Distribution Width 13.7 % (11.6-14.4); White Blood Count 8.4 K/mm3 (4.8-10.8)
[2023-05-11 05:37] LABS: Alanine Aminotransferase 48 U/L (16-63); Albumin Level 2.5 g/dL (3.4-5.0); Alkaline Phosphatase 93 U/L (46-116); Anion Gap 10 mmol/L (8-16); Aspartate Amino Transferase 51 U/L (15-37); Bilirubin,Total 0.2 mg/dL (0.00-1.00); Blood Urea Nitrogen 10 mg/dL (7-18); Calcium 8.1 mg/dL (8.5-10.1); Carbon Dioxide 22 mmol/L (21-32); Chloride 105 mmol/L (98-108); Estimated CRCL calculation 50 ml/min; Estimated Glomerular Filt Rate > 60; Glucose 89 mg/dL (70-99); Osmolality Calculated 282 mOsm/kg (285-295); Potassium 2.9 mmol/L (3.5-5.1); Sodium 137 mmol/L (136-145); Total Protein 5.9 g/dL (6.4-8.2)
--- NOTE | 2023-05-11 06:30 | PC.NURSE ---
CHISEL TRIMMER called in to get an update on pt's condition; She said she would put in orders.
[2023-05-11 07:18] LABS: Magnesium 1.4 mg/dL (1.8-2.4)
[2023-05-11 08:00] VITALS: BP 106/73; PULSE 70; RESP 14; TEMP 36.3; O2SAT 100
[2023-05-11] MEDS: KCL 20 MEQ/SW 100 ML 100 ML 50 MEQ IVPB (08:32)
[2023-05-11] MEDS: PANTOPRAZOLE SODIUM IV 40 MG VIAL IV PUSH (08:34)
[2023-05-11] MEDS: LORazepam INJ (*CRX) 2 MG/ML VIAL 1 MG IV PUSH ×2 (08:37→19:19)
[2023-05-11] MEDS: HEPARIN SODIUM 5,000 UNITS/ML VIAL 5000 UNITS SUB-Q ×2 (08:38→21:32)
[2023-05-11] MEDS: FLUoxetine HCL 10 MG CAPSULE 20 MG PO (08:41)
[2023-05-11] MEDS: FOLIC ACID 1 MG TABLET PO (08:41)
[2023-05-11] MEDS: MEMANTINE 5 MG TABLET 10 MG PO ×2 (08:41→16:45)
[2023-05-11] MEDS: OPTI-GEN TAB 1 TABLET PO (08:41)
[2023-05-11] MEDS: THIAMINE HCL 100 MG TABLET PO (08:42)
[2023-05-11] MEDS: LOPERAMIDE HCL 2 MG CAPSULE PO ×2 (08:42→16:46)
[2023-05-11] MEDS: cefTRIAXone 2 GM/NS 100 ML 2 GM/100 ML BAG IVPB (10:26)
--- NOTE | 2023-05-11 11:04 | PC.NURSE ---
Patient's sister from [place] called to check on patient.
[2023-05-11] MEDS: MAGNESIUM SULF 2 GM/WATER 50ML 2 GM/50 ML BAG IVPB (12:53)
--- NOTE | 2023-05-11 13:01 | PM.IMPN ---
Progress Note: A&P Assessment and Plan (1) UTI (urinary tract infection): Code(s): N39.0 - Urinary tract infection, site not specified Status: Acute Assessment and Plan: Urinalysis consistent with urinary tract infection and imaging consistent with diffuse cystitis. Moderate confusion noted likely combination UTI and chronic dementia. antibiotics changed to ceftriaxone from cefepime. Urine cultures pending. (2) Colitis: Code(s): K52.9 - Noninfective gastroenteritis and colitis, unspecified Status: Acute Assessment and Plan: Patient reports diarrhea, weight loss and was noted to be dehydrated upon arrival. Diffuse colitis noted on CT imaging. Ordered C diff and stool culture but suspect this is likely from a chronic alcohol abuse and poor nutrition (3) Acute hypokalemia: Code(s): E87.6 - Hypokalemia Status: Acute Assessment and Plan: initial potassium 2.8 in the emergency department, this was repleted and is improved IV potassium levels will be redrawn to check levels (4) Alcohol abuse: Code(s): F10.10 - Alcohol abuse, uncomplicated Status: Acute Assessment and Plan: chronic alcohol abuse with poor nutrition. Continue thiamin add folic acid. monitor for withdrawal symptoms, Ativan as needed. (5) Hypertension: Code(s): I10 - Essential (primary) hypertension Status: Acute Assessment and Plan: Blood pressure reviewed on 05/10. Stable. Continue home medications. (6) GERD (gastroesophageal reflux disease): Qualifiers: Esophagitis presence: with esophagitis Esophagitis bleeding: without hemorrhage Qualified Code(s): K21.00 - Gastro-esophageal reflux disease with esophagitis, without bleeding Code(s): K21.9 - Gastro-esophageal reflux disease without esophagitis Status: Acute Assessment and Plan: No signs of bleeding. Pantoprazole ordered IV daily. Imaging finding consistent with esophagitis and gastritis as well as diffuse colitis Plan admit inpatient to medical unit continue IV fluids regular diet as tolerated loperamide for frequent diarrhea stool to be collected for C diff and stool culture, nursing reports large watery bowel movement this morning monitor for alcohol withdrawal IV antibiotics for UTI/cystitis, monitor urine culture and target treatment accordingly boost with meals Subjective Date/time seen: 05/11/23 13:01 Interval history: Patient seems somewhat confused and hard to understand. Patient cannot ambulate the greatest but is wanting to go home on his own and he has refused a lot of activities for staff. he was given Imodium for his loose stool and he has agreed to have boost with his meals Exam Narrative: GENERAL: thin elderly male, alert but moderately confused, known history of dementia, in no apparent distress. He is pleasant HEENT: Pupils are equally round and briskly reactive to light. Extraocular muscles are intact. Oral mucous membranes are moist without lesions. CHEST/LUNGS: Lungs are clear bilaterally There is no tenderness to the chest wall. HEART: The patient has a regular rate and rhythm. Distal pulses are 2+. ABDOMEN: The patient's abdomen is soft, nontender, and nondistended. Bowel sounds are positive. EXTREMITIES: The patient has no peripheral edema. There is no focal long bone tenderness or deformity. SKIN: The patient's skin is warm and dry, without rashes or lesions. PSYCHIATRIC: The patient has normal mental status and has an appropriate affect. some what confusion NEUROLOGIC: There are no gross deficits to the cranial nerves. Patient moves all extremities well, 5/5 strength Objective Data Vital Signs Vital Signs: Vital Signs - 24 hr 05/10/23 16:00 05/10/23 20:00 05/11/23 00:00 Temperature 97.6 F 97.3 F L Pulse Rate 70 70 67 Respiratory Rate 18 18 16 Blood Pressure 116/72 106/65 Pulse Oximetry 97 97 97 Oxygen Delivery Room
--- NOTE | 2023-05-11 15:59 | PC.NURSE ---
Patient was standing in room by chair. Patient had turned chair alarm off and placed it behind on bedside table. Stated he had to poop and was pointing at the waste can. Assisted to bedside commode. Patient did allow belt to put on this time. Chair alarm turned on and bed alarm unti was placed behind patient on bedside table-hopefully out of reach. cords under blanket and pad
[2023-05-11 16:00] VITALS: BP 91/60; PULSE 68; RESP 16; TEMP 36.3; O2SAT 98
[2023-05-11 19:56] VITALS: PULSE 68; RESP 16; O2SAT 98
[2023-05-12] VITALS: BP 125/83; PULSE 70; RESP 16; TEMP 36.2; O2SAT 96
[2023-05-12 05:24] LABS: Basophils Absolute Auto 0.07 K/mm3 (0.00-0.10); Basophils Percent Auto 0.9 % (0.0-1.0); Eosinophils Absolute Auto 0.09 K/mm3 (0.02-0.50); Eosinophils Percent Auto 1.1 % (1.0-6.0); Hematocrit 35.7 % (37.0-46.0); Hemoglobin 12.5 g/dL (12.4-15.3); Immature Granulocyte Absolute 0.14 K/mm3 (0.00-0.00); Immature Granulocyte Percent A 1.8 % (0.0-0.0); Lymphocytes Absolute Auto 1.64 K/mm3 (1.10-4.50); Lymphocytes Percent Auto 20.8 % (18.0-42.0); Mean Corpuscular Hemoglobin 32.3 pg (27.0-31.0); Mean Corpuscular Volume 92.2 fL (78.0-102.0); Mean Platelet Volume 8.7 fl (8.7-11.0); Monocytes Absolute Auto 0.74 K/mm3 (0.10-0.90); Monocytes Percent Auto 9.4 % (2.0-11.0); Neutrophils Absolute Auto 5.2 K/mm3 (1.7-7.2); Platelet Count Result 275 K/mm3 (150-420); Red Blood Count 3.87 M/mm3 (4.70-6.10); White Blood Count 7.9 K/mm3 (4.8-10.8)
[2023-05-12 05:41] LABS: Alanine Aminotransferase 36 U/L (16-63); Alkaline Phosphatase 76 U/L (46-116); Anion Gap 10 mmol/L (8-16); Aspartate Amino Transferase 34 U/L (15-37); Bilirubin,Total 0.2 mg/dL (0.00-1.00); Blood Urea Nitrogen 4 mg/dL (7-18); Calcium 7.7 mg/dL (8.5-10.1); Carbon Dioxide 24 mmol/L (21-32); Chloride 107 mmol/L (98-108); Estimated CRCL calculation 54 ml/min; Estimated Glomerular Filt Rate > 60; Glucose 85 mg/dL (70-99); Osmolality Calculated 287 mOsm/kg (285-295); Potassium 3.1 mmol/L (3.5-5.1); Sodium 141 mmol/L (136-145); Total Protein 5.1 g/dL (6.4-8.2)
[2023-05-12 08:00] VITALS: BP 122/80; PULSE 74; RESP 17; TEMP 36.6; O2SAT 97
[2023-05-12] MEDS: PANTOPRAZOLE SODIUM IV 40 MG VIAL IV PUSH (08:24)
[2023-05-12] MEDS: FLUoxetine HCL 10 MG CAPSULE 20 MG PO (08:25)
[2023-05-12] MEDS: FOLIC ACID 1 MG TABLET PO (08:25)
[2023-05-12] MEDS: THIAMINE HCL 100 MG TABLET PO (08:25)
[2023-05-12] MEDS: MEMANTINE 5 MG TABLET 10 MG PO ×2 (08:25→17:31)
[2023-05-12] MEDS: OPTI-GEN TAB 1 TABLET PO (08:25)
--- NOTE | 2023-05-12 08:34 | PM.DS ---
DS: Admitting Diagnosis Discharge Date 05/12/2023 Admitting Diagnosis UTI , Dehyration, diarrhea, Acute kidney injury DS: Discharge Diagnosis Discharge Diagnosis (1) UTI (urinary tract infection): Code(s): N39.0 - Urinary tract infection, site not specified Status: Acute Assessment and Plan: Urinalysis consistent with urinary tract infection and imaging consistent with diffuse cystitis. Moderate confusion noted likely combination UTI and chronic dementia. antibiotics changed to ceftriaxone from cefepime. Urine cultures pending. (2) Colitis: Code(s): K52.9 - Noninfective gastroenteritis and colitis, unspecified Status: Acute Assessment and Plan: Patient reports diarrhea, weight loss and was noted to be dehydrated upon arrival. Diffuse colitis noted on CT imaging. Ordered C diff and stool culture but suspect this is likely from a chronic alcohol abuse and poor nutrition (3) Acute hypokalemia: Code(s): E87.6 - Hypokalemia Status: Acute Assessment and Plan: initial potassium 2.8 in the emergency department, this was repleted and is improved IV potassium levels will be redrawn to check levels (4) Alcohol abuse: Code(s): F10.10 - Alcohol abuse, uncomplicated Status: Acute Assessment and Plan: chronic alcohol abuse with poor nutrition. Continue thiamin add folic acid. monitor for withdrawal symptoms, Ativan as needed. (5) Hypertension: Code(s): I10 - Essential (primary) hypertension Status: Acute Assessment and Plan: Blood pressure reviewed on 05/10. Stable. Continue home medications. (6) GERD (gastroesophageal reflux disease): Qualifiers: Esophagitis bleeding: without hemorrhage Esophagitis presence: with esophagitis Qualified Code(s): K21.00 - Gastro-esophageal reflux disease with esophagitis, without bleeding Code(s): K21.9 - Gastro-esophageal reflux disease without esophagitis Status: Acute Assessment and Plan: No signs of bleeding. Pantoprazole ordered IV daily. Imaging finding consistent with esophagitis and gastritis as well as diffuse colitis Plan admit inpatient to medical unit continue IV fluids regular diet as tolerated loperamide for frequent diarrhea stool to be collected for C diff and stool culture, nursing reports large watery bowel movement this morning monitor for alcohol withdrawal IV antibiotics for UTI/cystitis, monitor urine culture and target treatment accordingly boost with meals DS: Summary Hospital Course Reason for hospitalization: UTI, Dehydration, Abdominal pain , gastritis, Hypokalemia Hospital Course: This is a 78 year old that was treated from Urinary tract infection and was required IVF with IV antibiotics of rocephin. Patient electrolytes were replenished as was hypokalemic. At this time patient alcohol levels was normal on admission and he informes me he does not want to quit drinking . Patient continue to have high blood pressure as he has not been taking medication and we have reordered his medication. Patient for the past 48 hours has had no nausea and or vomiting he has been eating and drinking without any difficulties . Patient would benefit from usp placement although he declines and states that he is feeling better. Patient has agreed to home health and a rollator has been ordered for him as well and he seems to be able to use and get around safely. Patient was on a home dose medication of antibiotic I did send him of on Cefdnir . All home medication have been reordered to the pharmacy and patient scheduled for an appointment with his PCP he will also need to follow up with GI if his PCP agrees. Time Spent with Patient Time attestation: Total time spent providing and/or coordinating discharge services: Exam Narrative: GENERAL: thin elderly male, alert but moderately confused, known history of dementia, in no apparent distress
[2023-05-12] MEDS: CEFDINIR 300 MG CAPSULE PO (13:12)
[2023-05-12 16:00] VITALS: BP 151/90; PULSE 84; RESP 16; TEMP 36.3; O2SAT 98
--- NOTE | 2023-05-12 18:00 | PC.NURSE ---
Patient discharged from facility via wheelchair to private vehicle. Discharge instructions, personal belongings, and personal medications with patient at time of discharge.
--- NOTE | 2023-05-17 20:01 | PC.NURSE ---
Nurse spoke with Edgardo Kaplan, caregiver. Shiloh states that patient's discharge orders were explained well and patient is doing very well at home and attending outpatient therapy twice a week.
== END 2023-05-12 18:00 | disposition home health service (06) | DRG 690 ==
LOC: CHSED 16:59 → CHS2ND 17:30
PROVIDERS: Nurse Practitioner; Nurse Practitioner Family; Admitting Provider Internal Medicine; Emergency Provider Emergency Medicine; PCP Internal Medicine; Visit Provider Internal Medicine
DX: N30.90 Cystitis, unspecified without hematuria (principal); K52.9 Noninfective gastroenteritis and colitis, unspecified; E87.6 Hypokalemia; E86.0 Dehydration; I10 Essential (primary) hypertension; K21.9 Gastro-esophageal reflux disease without esophagitis; F03.90 Unspecified dementia, unspecified severity, without behavioral disturbance, psychotic disturbance, mood disturbance, and anxiety; F10.10 Alcohol abuse, uncomplicated; F32.A Depression, unspecified; Z87.891 Personal history of nicotine dependence
CPT/HCPCS: 36415; 74177; 80048; 80053; 80307; 81001; 83690; 83735; 85025; 87045; 87077; 87086; 87088; 87186; 87324; 87427; 87449; 87637; 96361; 96365; 96366; 96367; 96375; 97161; 97165; 97530; 97535; 99285; A9270; C9113; G0378; J0692; J0696; J1644; J2060; J2405; J3475; J3480; J7030; Q9967

== ENCOUNTER 2023-05-16 10:44 | Outpatient (RCR) | payer MEDICARE, SELFPAY ==
--- NOTE | 2023-05-16 11:53 | OPREHPOC ---
Outpatient Therapy Plan of Care This is a Multidisciplinary Plan of Care that may contain components documented by all disciplines (PT, OT, and ST.) PT Problem 1 PT Problem #1 Knowledge Deficit PT Goal 1 Goal Patient to demonstrate independence with HEP Target Visit 5 PT Problem 2 PT Problem #2 Impaired Strength PT Goal 1 Goal Patient to demonstrate 5/5 B LE strength to improve ability to navigate stairs within his home Target Visit 10 PT Problem 3 PT Problem #3 Impaired Functional Mobil PT Goal 1 Goal 1. Patient to improve Tinetti balance scoring by 5 pts to decrease fall risk within the home 2. Patient to improve 5TSTS to 15 seconds to decrease fall risk with house hold tasks Target Visit 10
--- NOTE | 2023-05-16 11:53 | PTOPEVAL1 ---
Assessment and note entered by Shonda Torres DPT Evaluation Information Assessment Status Evaluation Diagnosis weakness Onset 05/12/23 Subjective Information Patient reports he has felt an onset of weakness lately. He reports he uses a cane at home and in the community. He reports he did have a fall about 6 weeks ago out in the yard. He reports he does have stairs in the home but railings are presents. He has difficulty with prolonged ambulation, caring for his pets and completing self care tasks . He reports he does have a daycare teacher who checks in on him. He is independent with dressing, bathing, cooking and driving. He denies pain. Reported Pain Level Pain Score 0: Self Report Assessment PT Clinical Summary Patient is a 78 year old male who presents to PT with LE weakness. Patient demonstrates decreased B LE strength, impaired gait mechanics and impaired balance limiting his ability to complete house hold tasks, care for his animals and complete self care tasks. He would benefit from skilled PT to address impairments and return to PLOF. Plan of Care Interventions Gait Training,Hot Pack/Cold Pack,Manual Therapy, Neuro Re-education,Patient/Caregiver Educati, Therapeutic Activities,Therapeutic Exercise PT Services Indicated Yes Treatment Frequency and 2x weekly for 10 visits Duration These treatments will address the objective and functional deficits as defined above. The patient will be advanced safely and appropriately in order for the patient to progress towards his/her prior level of function. Additional exercises will be introduced and as well as a comprehensive home exercise program upon discharge, if needed, ?to ensure carryover of functional gains achieved in the clinic. This treatment plan has been reviewed and agreement upon by the patient.
--- NOTE | 2023-06-17 11:23 | PCPTNOTE ---
patient arrived to therapy this date for his appointment, but complains of increased pain in the L hip and L shoulder again from his fall on tuesday. he fell on tuesday about 1 hour prior to coming to therapy. he was able to tolerate a modified therapy program that day, but today was unable to tolerate exercises due to increased pain in the L hip. he is also noted to be tender around the L proximal femur (greater trochanter) and L proximal humerus. passive hip extension and hip rotation recreate pain in the L hip. patient struggles with lifting the L arm up infront of him. uses the R arm to help lift the L. appointment was cancelled today. patient was taken to ER for xrays and further evaluation.
--- NOTE | 2023-06-21 11:43 | OPREHPOC ---
Outpatient Therapy Plan of Care This is a Multidisciplinary Plan of Care that may contain components documented by all disciplines (PT, OT, and ST.) PT Problem 1 PT Problem #1 Knowledge Deficit PT Goal 1 Goal Patient to demonstrate independence with HEP Target Visit 5 Progress Met PT Problem 2 PT Problem #2 Impaired Strength PT Goal 1 Goal Patient to demonstrate 5/5 B LE strength to improve ability to navigate stairs within his home Target Visit 10 Progress Partially Met PT Problem 3 PT Problem #3 Impaired Functional Mobil PT Goal 1 Goal 1. Patient to improve Tinetti balance scoring by 5 pts to decrease fall risk within the home 2. Patient to improve 5TSTS to 15 seconds to decrease fall risk with house hold tasks Target Visit 10 Progress Met
--- NOTE | 2023-06-21 11:43 | PTOPDC ---
Assessment and note entered by Sally Palacio, PT Evaluation Information Assessment Status Discharge Diagnosis weakness Onset 05/12/23 Subjective Information Rik Thakur reports he is feeling stronger and has been going out into his yard to take care of his mg and moving them into a greenhouse. He notes he forgets to use his cane around the house but does have furniture and weathers to hold onto as needed. He denies falls since initiating PT. Reported Pain Level Pain Score 0: Self Report Assessment PT Clinical Summary Rik Thakur has completed 10 skilled PT visits for weakness. He is reporting improved strength with daily activities and has been able to return to yard work. He has not had any falls. He objectively demonstrates improved strength, improved balance, and improved functional mobility . He demonstrates a low fall risk now per standardized balance tests. He will be discharged to an independent home exercise program and was given a hand out for a fall prevention class sponsored by [facility]. Plan of Care PT Services Indicated No
== END 2023-06-21 13:26 | disposition home or self-care (01) ==
LOC: CHSPT 10:44
PROVIDERS: PCP Internal Medicine; Visit Provider Internal Medicine
DX: R53.1 Weakness (principal)
CPT/HCPCS: 97110; 97112; 97150; 97161; 97530; 97750

== ENCOUNTER 2023-05-22 13:05 | Emergency (ER) | payer MEDICARE, SELFPAY ==
--- NOTE | ~2023-05-22 | CT_ITS ---
EXAMINATION: CT brain wo con DATE: 05/22/2023 13:51 INDICATION: increased weakness, lightheadedness . TECHNIQUE: Computed tomography (CT) of the head was performed without intravenous contrast. The mA wa s adjusted according to patient size. Iterative reconstruction technique was employed. The dose-lengt h product was 681.00 mGy-cm. COMPARISON: 04/06/2019. FINDINGS: No acute intracranial hemorrhage or extra-axial fluid collection. No hydrocephalus, mass, or herniation. No acute ischemic infarct. Unremarkable dural venous sinus attenuation. No acute osseous abnormality. The aerated spaces are clear. Moderate atrophy and chronic white matter change. Atherosclerotic intracranial calcification. Bilater al lens replacements. IMPRESSION: No acute intracranial process. Reviewed, dictated and finalized at location K.
--- NOTE | ~2023-05-22 | XR_ITS ---
XR chest 2V DATE: 05/22/2023 13:52 INDICATION: Weakness, chills, body aches. Diarrhea. TECHNIQUE: AP and lateral views COMPARISON: 02/18/2022 PA and lateral chest FINDINGS: Normal heart size. Is aortic calcification and tortuosity. No hilar or mediastinal enlargem ent. Bilateral hyperinflation. No pulmonary infiltrate or consolidation, pleural effusion or pulmonary vas cular congestion or pneumothorax. Diffuse osteopenia. Dextroscoliosis and degenerative spurring of the thoracic spine. IMPRESSION: Bilateral hyperinflation No active cardiac pulmonary disease Aortic atherosclerosis Osteopenia Reviewed, dictated and finalized at location A.
[2023-05-22 13:10] VITALS: BP 103/72; PULSE 65; RESP 16; TEMP 36.6; O2SAT 100
--- NOTE | 2023-05-22 13:11 | ECG_ITS ---
Measurements Intervals [place] Rate: 63 P: 61 UT: 175 QRS: -9 QRSD: 118 T: 50 QT: 437 QTc: 448 Interpretive Statements SINUS RHYTHM RIGHT BUNDLE BRANCH BLOCK [120+ ms QRS DURATION, UPRIGHT V1, 40+ ms S IN I/aVL/V4/V5/V6] POSSIBLE SEPTAL MYOCARDIAL INFARCTION , PROBABLY OLD [30 ms Q WAVE IN V1/V2] ABNORMAL ECG COMPARED TO ECG 12/12/2021 20:05:26 SINUS RHYTHM NOW PRESENT Electronically Signed On 05-23-2023 9:31:35 CDT by Erwin Dickerson M.D.
--- NOTE | 2023-05-22 13:28 | ED.WEAKNESS ---
HPI - Weakness General Chief complaint: Weakness Stated complaint: weakness Time Seen by Provider: 05/22/23 13:10 Source: patient and family Mode of arrival: ambulatory Limitations: no limitations History of Present Illness HPI Narrative: patient is an 78-year-old male with known alcoholism. He has cut back recently significantly on his alcohol intake. He was in the hospital for detox for 4 days recently as well. He went back to drinking however. He has been feeling weak for the past few days and now here for evaluation of generalized weakness. MD Complaint: generalized weakness Onset (ago): day(s) (3) Duration: constant Location: generalized Migration: none Severity: mild Severity scale (1-10): 4 Relieving factors: none Exacerbating factors: other ( Alcohol intake) Context: history of similar Associated symptoms: other ( diarrhea) Related Data Home Medications Medication Instructions Recorded Confirmed memantine 10 mg tablet 10 mg PO BID 07/01/21 05/22/23 [id number]-neqxufvn-ekjsru tablet 1 tablet PO DAILY 10/19/21 05/22/23 vit C 250 mg-vit E 90 mg-zinc 40 1 tablet PO BID 10/19/21 05/22/23 mg-copper 1 rv-rhxauv-roablz capsule (PreserVision AREDS-2) acamprosate 333 mg tablet,delayed 333 mg PO BID 03/17/23 05/22/23 release thiamine HCl (vitamin B1) 100 mg 100 mg PO DAILY 03/17/23 05/22/23 tablet Allergies Allergy/AdvReac Type Severity Reaction Status Date / Time Penicillins Allergy Mild unknown Verified 05/09/23 15:38 Review of Systems Review of Systems: All systems reviewed & are unremarkable except as noted in HPI and below Constitutional: Constitutional: Reports no additional constitutional complaints Eyes: Eyes: Reports no additional eye complaints ENT: Reports system reviewed and no additional complaints, except as documented Cardiovascular: Cardiovascular: Reports no additional cardiovascular complaints Respiratory: Respiratory: Reports no additional respiratory complaints Gastrointestinal: Gastrointestinal: Reports no additional gastrointestinal complaints Genitourinary: Genitourinary: Reports no additional male genitourinary complaints Musculoskeletal: Musculoskeletal: Reports no additional musculoskeletal complaints Integumentary/Breasts: Skin/Breast: Reports system reviewed and no additional complaints, except as docu Neurologic: Reports system reviewed and no additional complaints, except as documented Psychiatric: Psychiatric: Reports no additional psychiatric complaints Endocrine: Endocrine: Reports no additional endocrine complaints Hematologic/Lymphatic: Hematologic/Lymphatic: Reports no additional hematologic/lymphatic complaints Allergic/Immunologic: Allergic/Immunologic: Reports no additional allergic/immunologic complaints PMFSH Past Medical History Medical History Alcohol abuse Dementia Depression Failed total knee replacement Fecal impaction of colon GERD (gastroesophageal reflux disease) Hematemesis Hip fracture HTN (hypertension) Hypertension Surgical History Surgical History History of appendectomy Family History Family History Mother Old age Father Old age Social History Social History Social History: Caffeine- coffee daily Years smoked: 25 Smoking status: Former smoker Tobacco type: cigarettes Second hand tobacco smoke exposure: No Smoking end date: 08/15/82 Alcohol intake: current Alcohol use details: occasional wine Substance use: never Substance use type: does not use Lack of Transportation: No Lack of Food: Never True Current Housing: I Have Housing Concerned About Future Housing: No Difficulty Paying Gas/Electric Bills: No Difficulty Paying for Meds: No Currently Unemployed: No
[2023-05-22 13:48] VITALS: BP 104/70; PULSE 66; RESP 16; O2SAT 98
[2023-05-22 14:20] LABS: Basophils Absolute Auto 0.06 K/mm3 (0.00-0.10); Basophils Percent Auto 0.9 % (0.0-1.0); Eosinophils Absolute Auto 0.11 K/mm3 (0.02-0.50); Eosinophils Percent Auto 1.6 % (1.0-6.0); Hematocrit 39.9 % (37.0-46.0); Hemoglobin 13.4 g/dL (12.4-15.3); Immature Granulocyte Absolute 0.03 K/mm3 (0.00-0.00); Immature Granulocyte Percent A 0.4 % (0.0-0.0); Lymphocytes Absolute Auto 1.99 K/mm3 (1.10-4.50); Mean Corpuscular HGB Conc 33.6 g/dL (32.0-36.0); Mean Corpuscular Hemoglobin 31.8 pg (27.0-31.0); Mean Corpuscular Volume 94.8 fL (78.0-102.0); Mean Platelet Volume 9.4 fl (8.7-11.0); Monocytes Percent Auto 10.2 % (2.0-11.0); Neutrophils Percent Auto 57.9 % (50.0-70.0); Platelet Count Result 331 K/mm3 (150-420); Red Blood Count 4.21 M/mm3 (4.70-6.10); Red Cell Distribution Width 14.6 % (11.6-14.4); White Blood Count 6.9 K/mm3 (4.8-10.8)
[2023-05-22 14:30] VITALS: BP 104/70; PULSE 60; RESP 20; TEMP 37.2; O2SAT 99
[2023-05-22 14:42] LABS: Alanine Aminotransferase 38 U/L (16-63); Albumin Level 3.1 g/dL (3.4-5.0); Alkaline Phosphatase 78 U/L (46-116); Anion Gap 12 mmol/L (8-16); Aspartate Amino Transferase 23 U/L (15-37); Bilirubin,Total 0.8 mg/dL (0.00-1.00); Blood Urea Nitrogen 16 mg/dL (7-18); Calcium 9.6 mg/dL (8.5-10.1); Carbon Dioxide 28 mmol/L (21-32); Chloride 97 mmol/L (98-108); Creatine Kinase 30 U/L (39-308); Estimated CRCL calculation 44 ml/min; Estimated Glomerular Filt Rate > 60; Glucose 79 mg/dL (70-99); Magnesium 1.9 mg/dL (1.8-2.4); NT Pro B Type Natriuretic Pept 440 pg/mL (0-450); Osmolality Calculated 284 mOsm/kg (285-295); Sodium 137 mmol/L (136-145); Total Protein 6.7 g/dL (6.4-8.2)
[2023-05-22 15:15] VITALS: BP 112/58; PULSE 62; RESP 16; O2SAT 96
[2023-05-22 15:17] LABS: Lactic Acid Reflex 1.9 mmol/L (0.4-2.0)
[2023-05-22 15:19] LABS: Appearance Urine Clear (Clear); Bilirubin Urine Negative (Negative); Blood Urine Negative (Negative); Glucose Urine UA Negative (Negative); Ketones Urine Negative (Negative); Leukocyte Esterase Ur Trace LEU/UL (Negative); Nitrate Urine Negative (Negative); Protein Urine 1+ (Negative); Specific Grav Ur 1.025 (1.010-1.020); Urobilinogen Urine 0.2 mg/dL (0.2-1.0)
[2023-05-22 15:31] LABS: Add Urine Microscopic? YES; Amorphous Sediment Urine Moderate; Bacteria Urine 1+ /hpf; Color Urine Dark Orange (Yellow); Squamous Epithelial Cell Urine Few /hpf (Few)
[2023-05-22 15:32] LABS: Hyaline Casts Urine 20-29 /lpf; Mucus Urine Heavy /lpf
[2023-05-22] MEDS: SODIUM CHLORIDE 0.9% IV 1,000 ML 999 ML IV CONT (15:45)
[2023-05-22] MEDS: CIPROFLOXACIN 500 MG TAB PO (15:55)
[2023-05-22 16:49] VITALS: BP 104/72; PULSE 60; RESP 20; O2SAT 96
[2023-05-22 17:24] VITALS: BP 112/60; PULSE 68; RESP 16; TEMP 36.6; O2SAT 98
== END 2023-05-22 17:25 | disposition home or self-care (01) ==
PROVIDERS: Emergency Provider Emergency Medicine; PCP Internal Medicine
DX: E86.0 Dehydration (principal); N39.0 Urinary tract infection, site not specified; R19.7 Diarrhea, unspecified; R53.1 Weakness; F10.20 Alcohol dependence, uncomplicated; I10 Essential (primary) hypertension; F03.90 Unspecified dementia, unspecified severity, without behavioral disturbance, psychotic disturbance, mood disturbance, and anxiety; K21.9 Gastro-esophageal reflux disease without esophagitis; F32.A Depression, unspecified; Z87.891 Personal history of nicotine dependence
CPT/HCPCS: 36415; 70450; 71046; 80053; 81001; 82550; 83605; 83735; 83880; 84484; 85025; 93005; 96360; 99284; A9270; J7030

== ENCOUNTER 2023-06-17 11:18 | Emergency (ER) | payer MEDICARE, SELFPAY ==
--- NOTE | ~2023-06-17 | CT_ITS ---
EXAMINATION: CT cervical spine wo con DATE: 06/17/2023 11:52 INDICATION: Cervical spine injury. TECHNIQUE: Computed tomography (CT) of the cervical spine was performed without intravenous contrast. Automated exposure control and iterative reconstruction technique were employed. The dose-length pro duct was 116.87 mGy-cm. COMPARISON: Chest CT 02/26/19 FINDINGS: There is a 2.9 cm nodule in right thyroid lobe, stable from 02/26/2019, probably benign. Bon e alignment is normal. There is mild chronic anterior wedging of T1-T3 vertebral bodies. There is mil dly decreased disc height at C2-C3 and C3-C4 and severely decreased disc height from C4-C5 through C6 -C7. The following disc levels are specifically discussed: C2-C3: There is no uncovertebral joint osteoarthritis. There is severe right and mild left facet join t osteoarthritis. There is no neural foraminal stenosis. There is no central canal stenosis. C3-C4: There is no uncovertebral joint osteoarthritis. There is mild bilateral facet joint osteoarthr itis. There is no neural foraminal stenosis. There is mild central canal stenosis. C4-C5: There is severe bilateral uncovertebral joint osteoarthritis. There is mild right and moderate left facet joint osteoarthritis. There is mild bilateral neural foraminal stenosis. There is mild ce ntral canal stenosis. C5-C6: There is severe bilateral uncovertebral joint osteoarthritis. There is mild bilateral facet mirian int osteoarthritis. There is mild bilateral neural foraminal stenosis. There is mild central canal st enosis. C6-C7: There is severe bilateral uncovertebral joint osteoarthritis. There is mild right and moderate left facet joint osteoarthritis. There is mild bilateral neural foraminal stenosis. There is mild ce ntral canal stenosis. C7-T1: There is no uncovertebral joint osteoarthritis. There is severe bilateral facet joint osteoart hritis. There is no neural foraminal stenosis. There is no central canal stenosis. IMPRESSION: 1. No acute fracture. 2. Severe cervical spondylosis. Reviewed, dictated and finalized at location E.
--- NOTE | ~2023-06-17 | XR_ITS ---
EXAMINATION: XR shoulder LT min 2V DATE: 06/17/2023 12:12 INDICATION: Left shoulder pain post fall TECHNIQUE: AP internally and externally rotated, AP oblique externally rotated and transscapular Y vi ews of the left shoulder were obtained. COMPARISON: Chest radiograph dated 05/22/2023 and shoulder radiograph dated 04/03/2020 FINDINGS: Normal alignment. Chronic widening of the acromioclavicular joint with contour of the lateral head of the left clavicle suggesting possible prior distal clavicle resection. Old healed fracture with mini mal deformity at the mid left clavicle. No acute fracture.Mild glenohumeral osteoarthritis with mild cephalad predominant nonuniform joint space narrowing. Soft tissues are unremarkable. Visualized por tion of the lungs are clear. IMPRESSION: 1. Old healed mid left clavicle fracture and change of likely distal left clavicle resection. No acut e osseous abnormality. 2. Mild left glenohumeral osteoarthritis. Reviewed, dictated and finalized at location A. IMPRESSION: 1. Old healed mid left clavicle fracture and change of likely distal left clavi yoseph resection. No acute osseous abnormality. 2. Mild left glenohumeral osteoarthritis.
--- NOTE | ~2023-06-17 | XR_ITS ---
XR hip LT min 3V w AP pelvis DATE: 06/17/2023 12:12 INDICATION: Fall. Left hip pain TECHNIQUE: AP pelvis. AP and lateral views of the left hip COMPARISON: None FINDINGS: Osteopenia. Normal alignment at the pubic symphysis and sacroiliac joints. No pelvic fractu re or bone destruction is detected. There is narrowing of the hip joints, left greater than right, consistent with osteoarthritis. No left hip fracture or dislocation, avascular necrosis or bone destruction is detected. IMPRESSION: No fracture or dislocation of the pelvis or left hip Osteopenia Bilateral hip mild to moderate osteoarthritis Reviewed, dictated and finalized at location B.
--- NOTE | ~2023-06-17 | CT_ITS ---
EXAMINATION: CT brain wo con DATE: 06/17/2023 11:52 INDICATION: Fall 2 days ago. Loss of consciousness. TECHNIQUE: Computed tomography (CT) of the head was performed without intravenous contrast. The mA wa s adjusted according to patient size. Iterative reconstruction technique was employed. Exam dose: 75 6.67 mGy-cm total exam DLP. COMPARISON: 05/22/2023 CT brain FINDINGS: Vertebral artery, basilar artery and prominent bilateral carotid siphon internal carotid ar erika calcifications. There is nonspecific diminished attenuation of the cerebral white matter, likely due to chronic small vessel ischemic changes. There is central and cortical cerebral and cerebellar atrophy. No intracranial mass lesion or hemorrhage or cerebrovascular accident is evident. No midline shift or mass effect. No subdural or epidural hematoma. Bilateral orbital rims replacements. No fracture or bone destruction of the cranial vault. Mastoid air cells and included paranasal sinuse s are unremarkable. IMPRESSION: Cerebral atherosclerosis and chronic small vessel ischemic changes of the cerebral white matter Cerebral and cerebellar atrophy No acute intracranial finding or skull fracture Reviewed, dictated and finalized at Location A. Reviewed, dictated and finalized at location B.
[2023-06-17 11:20] VITALS: BP 96/74; PULSE 72; RESP 20; TEMP 36.9; O2SAT 98
--- NOTE | 2023-06-17 11:37 | ED.FALL ---
HPI - Fall General Chief Complaint: Fall Stated Complaint: fall Time Seen by Provider: 06/17/23 11:22 Source: patient Mode of arrival: ambulatory Limitations: no limitations History of Present Illness HPI Narrative: patient is an 78-year-old male who has a longstanding history of alcoholism in remission at this time. He presents with a fall at home ground level 2 days ago. Patient fell on his left head and left shoulder and left hip onto a hard surface of tile. He said his legs gave out on him at that time. MD complaint: fall Onset (ago): day(s) (2) Fall from: standing Fall witnessed: no Place fall occurred: home Loss of consciousness: unsure Prolonged down time: unclear Symptoms prior to fall: none Context: tripped/slipped, alcohol use and history of frequent falls Location of injury: head and pelvis (left) Location of injury - extremities: Left: shoulder and thigh Severity: moderate Severity scale (1-10): 5 Quality: sharp Associated symptoms (after fall): denies Related Data Home Medications Medication Instructions Recorded Confirmed memantine 10 mg tablet 10 mg PO BID 07/01/21 05/22/23 [id number]-waolyznj-kfryzs tablet 1 tablet PO DAILY 10/19/21 05/22/23 vit C 250 mg-vit E 90 mg-zinc 40 1 tablet PO BID 10/19/21 05/22/23 mg-copper 1 gv-ucsoyc-jfwwjt capsule (PreserVision AREDS-2) acamprosate 333 mg tablet,delayed 333 mg PO BID 03/17/23 05/22/23 release thiamine HCl (vitamin B1) 100 mg 100 mg PO DAILY 03/17/23 05/22/23 tablet Allergies Allergy/AdvReac Type Severity Reaction Status Date / Time Penicillins Allergy Mild unknown Verified 05/09/23 15:38 Review of Systems Review of Systems: All systems reviewed & are unremarkable except as noted in HPI and below Constitutional: Constitutional: Reports no additional constitutional complaints Eyes: Eyes: Reports no additional eye complaints ENT: Reports system reviewed and no additional complaints, except as documented Cardiovascular: Cardiovascular: Reports no additional cardiovascular complaints Respiratory: Respiratory: Reports no additional respiratory complaints Gastrointestinal: Gastrointestinal: Reports no additional gastrointestinal complaints Genitourinary: Genitourinary: Reports no additional male genitourinary complaints Musculoskeletal: Musculoskeletal: Reports no additional musculoskeletal complaints Integumentary/Breasts: Skin/Breast: Reports system reviewed and no additional complaints, except as docu Neurologic: Reports system reviewed and no additional complaints, except as documented Psychiatric: Psychiatric: Reports no additional psychiatric complaints Endocrine: Endocrine: Reports no additional endocrine complaints Hematologic/Lymphatic: Hematologic/Lymphatic: Reports no additional hematologic/lymphatic complaints Allergic/Immunologic: Allergic/Immunologic: Reports no additional allergic/immunologic complaints PMFSH Past Medical History Medical History Alcohol abuse Dementia Depression Failed total knee replacement Fecal impaction of colon GERD (gastroesophageal reflux disease) Hematemesis Hip fracture HTN (hypertension) Hypertension Surgical History Surgical History History of appendectomy Family History Family History Mother Old age Father Old age Social History Social History Social History: Caffeine- coffee daily Years smoked: 25 Smoking status: Former smoker Tobacco type: cigarettes Second hand tobacco smoke exposure: No Smoking end date: 08/15/82 Alcohol intake: current Alcohol use details: occasional wine Substance use: never Substance use type: does not use Lack of Transportation: No Lack of Food: Never True Current Housing: I Have Housing Concer
[2023-06-17 12:35] VITALS: BP 98/56; PULSE 78; RESP 20; TEMP 36.9; O2SAT 95
== END 2023-06-17 12:48 | disposition home or self-care (01) ==
PROVIDERS: Emergency Provider Emergency Medicine; PCP Internal Medicine
DX: M79.10 Myalgia, unspecified site (principal); W18.30XA Fall on same level, unspecified, initial encounter; F10.21 Alcohol dependence, in remission; F03.90 Unspecified dementia, unspecified severity, without behavioral disturbance, psychotic disturbance, mood disturbance, and anxiety; I10 Essential (primary) hypertension; K21.9 Gastro-esophageal reflux disease without esophagitis; F32.A Depression, unspecified; Z87.891 Personal history of nicotine dependence
CPT/HCPCS: 70450; 72125; 73030; 73502; 99284

== ENCOUNTER 2023-08-31 13:26 | Outpatient (CLI) | payer MEDICARE, SELFPAY ==
[2023-09-07 23:47] LABS: Calprotectin, Stool 78 mcg/g; Pancreatic Elastase, Stool >500 mcg/g
== END 2023-08-31 13:27 | disposition home or self-care (01) ==
LOC: ANHLAB 13:26
PROVIDERS: PCP Internal Medicine; Visit Provider Nurse Practitioner
DX: A04.72 Enterocolitis due to Clostridium difficile, not specified as recurrent (principal); F10.10 Alcohol abuse, uncomplicated; K90.9 Intestinal malabsorption, unspecified; R63.4 Abnormal weight loss
CPT/HCPCS: 82653; 83993; 87045; 87427; 87449; 87493

== ENCOUNTER 2023-09-02 10:43 | Outpatient (CLI) | payer MEDICARE, SELFPAY ==
[2023-09-02 12:35] LABS: Toxigenic C. Diff NEGATIVE (NEGATIVE)
[2023-09-08 22:32] LABS: Calprotectin, Stool 56 mcg/g; Pancreatic Elastase, Stool >500 mcg/g
== END 2023-09-02 10:44 | disposition home or self-care (01) ==
LOC: CHSLAB 10:46
PROVIDERS: PCP Nurse Practitioner; Visit Provider Nurse Practitioner
DX: A04.72 Enterocolitis due to Clostridium difficile, not specified as recurrent (principal); K90.9 Intestinal malabsorption, unspecified; R63.4 Abnormal weight loss; F10.10 Alcohol abuse, uncomplicated; R82.90 Unspecified abnormal findings in urine
CPT/HCPCS: 82653; 83993; 87045; 87427; 87449; 87493

== ENCOUNTER 2023-09-08 09:36 | Emergency (ER) | payer MEDICARE, SELFPAY ==
--- NOTE | ~2023-09-08 | XR_ITS ---
XR knee RT 3V 09/08/2023 10:19 Indication: Right knee pain Procedure: 3 views right knee Comparison: 03/31/2020 Findings: There is a right total knee arthroplasty with patellar resurfacing. Prosthesis intact. No f racture or traumatic malalignment. No evidence for loosening. No significant joint effusion. No forei gn bodies. Impression: 1: No acute bone or joint abnormality. Reviewed, dictated and finalized at location L. [employer] Impression: 1: No acute bone or joint abnormality.
[2023-09-08 09:36] VITALS: BP 108/69; PULSE 62; RESP 12; TEMP 37.1; O2SAT 96
[2023-09-08] MEDS: SODIUM CHLORIDE 0.9% IV 1,000 ML 999 ML IV CONT (10:24)
[2023-09-08] MEDS: KETOROLAC 30 MG/ML VIAL (*BKC) IV PUSH (10:25)
--- NOTE | 2023-09-08 10:45 | ED.LOWEXIN ---
HPI - Extremity Injury (Lower) General Chief Complaint: Extremity Injury, Lower Stated Complaint: right knee pain Source: patient and family Mode of arrival: wheelchair Limitations: no limitations History of Present Illness HPI Narrative: this is 78-year-old gentleman that a history of osteoarthritis of the right knee with knee replacement presents with some knee pain on the right side with no known injuries, the knee is tender with palpation. The patient did not take any pain medication prior to arrival to the emergency department, no known injury the area is not warm not erythematous there is no calf pain no calf tenderness has good pedal pulse on the right. His vital signs are stable afebrile. complaint: other ( right knee pain) Onset (ago): day(s) Place: home Severity: moderate Severity scale (1-10): 8 Relieving factors: immobilization Exacerbating factors: weight bearing Associated symptoms: able to partially bear weight Related Data Home Medications Medication Instructions Recorded Confirmed memantine 10 mg tablet 10 mg PO BID 07/01/21 08/31/23 dlkgqwbancsn-ndzavpwo-udgmxk tablet 1 tablet PO DAILY 10/19/21 08/31/23 vit C 250 mg-vit E 90 mg-zinc 40 1 tablet PO BID 10/19/21 08/31/23 mg-copper 1 rz-ukqlax-bdxjhv capsule (PreserVision AREDS-2) acamprosate 333 mg tablet,delayed 333 mg PO BID 03/17/23 08/31/23 release thiamine HCl (vitamin B1) 100 mg 100 mg PO DAILY 03/17/23 08/31/23 tablet Allergies Allergy/AdvReac Type Severity Reaction Status Date / Time Penicillins Allergy Mild unknown Verified 09/08/23 10:54 Review of Systems Review of Systems: All systems reviewed & are unremarkable except as noted in HPI and below PMFSH Past Medical History Medical History Alcohol abuse Anal stenosis C. difficile colitis C. difficile diarrhea Collagenous colitis Dementia Depression Failed total knee replacement Fatty stools Fecal impaction of colon GERD (gastroesophageal reflux disease) Hematemesis Hip fracture HTN (hypertension) Hypertension Nonerosive esophageal reflux disease Schatzki's ring Weight loss Surgical History Surgical History History of appendectomy Family History Family History Mother Old age Father Old age Social History Social History Social History: Caffeine- coffee daily Years smoked: 25 Smoking status: Former smoker Tobacco type: cigarettes Second hand tobacco smoke exposure: No Smoking end date: 08/15/82 Alcohol intake: current Alcohol use details: occasional wine Substance use: never Substance use type: does not use Lack of Transportation: No Lack of Food: Never True Current Housing: I Have Housing Concerned About Future Housing: No Difficulty Paying Gas/Electric Bills: No Difficulty Paying for Meds: No Currently Unemployed: No Education: Bachelor's Degree Difficulty w/ Childcare or Family Care: No Living arrangements: alone Occupation/Education: retired Gender identity (if verbalized by the patient): Male Spiritual care concerns: No Exam Const: General: healthy appearing, no acute distress and alert Nutritional Appearance: thin Orientation/consciousness: patient oriented x3 Limitations: no limitations Neck: Neck: normal visual inspection, no lymphadenopathy and no meningeal signs Chest: Chest palpation & inspection: normal inspection of the chest Resp: Effort & Inspection: normal respiratory effort Auscultation: clear to auscultation bilaterally Cardio: Rate: regular rate Rhythm: regular rhythm GI: GI Palp: Yes Soft to palpation Skin: General skin exam: normal color Rashes: no rashes Wounds: no wounds Neuro: General: patient oriented x3, moves all extremities, no meningeal si
[2023-09-08 11:12] VITALS: BP 103/62; PULSE 63; RESP 12; TEMP 36.2; O2SAT 96
== END 2023-09-08 11:16 | disposition home or self-care (01) ==
PROVIDERS: Emergency Provider Emergency Medicine; PCP Internal Medicine
DX: M25.561 Pain in right knee (principal); I10 Essential (primary) hypertension; Z87.891 Personal history of nicotine dependence; Z96.651 Presence of right artificial knee joint
CPT/HCPCS: 73562; 96361; 96374; 99284; J1885; J7030

== ENCOUNTER 2023-10-14 11:19 | Emergency (ER) | payer MEDICARE, SELFPAY ==
--- NOTE | 2023-10-14 11:22 | ED.MALEGU ---
HPI - Male Genitourinary General Chief complaint: Urogenital-Male Stated complaint: urinary diff Source: patient Mode of arrival: ambulatory Limitations: no limitations History of Present Illness HPI Narrative: Patient is an 78-year-old male with some general malaise and possibly a urinary infection. Onset (ago): day(s) (2) Duration: intermittent Severity: mild Severity scale (1-10): 1 Relieving factors: none Exacerbating factors: none Associated symptoms: Reports denies other symptoms Related Data Sexually active: No Home Medications Medication Instructions Recorded Confirmed memantine 10 mg tablet 10 mg PO BID 07/01/21 08/31/23 [id number] tablet 1 tablet PO DAILY 10/19/21 08/31/23 vit C 250 mg-vit E 90 mg-zinc 40 1 tablet PO BID 10/19/21 08/31/23 mg-copper 1 tb-qcxoym-ihiipj capsule (PreserVision AREDS-2) acamprosate 333 mg tablet,delayed 333 mg PO BID 03/17/23 08/31/23 release thiamine HCl (vitamin B1) 100 mg 100 mg PO DAILY 03/17/23 08/31/23 tablet Allergies Allergy/AdvReac Type Severity Reaction Status Date / Time Penicillins Allergy Mild unknown Verified 09/08/23 10:54 Review of Systems Review of Systems: All systems reviewed & are unremarkable except as noted in HPI and below Constitutional: Constitutional: Reports no additional constitutional complaints Eyes: Eyes: Reports no additional eye complaints ENT: Reports system reviewed and no additional complaints, except as documented Cardiovascular: Cardiovascular: Reports no additional cardiovascular complaints Respiratory: Respiratory: Reports no additional respiratory complaints Gastrointestinal: Gastrointestinal: Reports no additional gastrointestinal complaints Genitourinary: Genitourinary: Reports no additional male genitourinary complaints Musculoskeletal: Musculoskeletal: Reports no additional musculoskeletal complaints Integumentary/Breasts: Skin/Breast: Reports system reviewed and no additional complaints, except as docu Neurologic: Reports system reviewed and no additional complaints, except as documented Psychiatric: Psychiatric: Reports no additional psychiatric complaints Endocrine: Endocrine: Reports no additional endocrine complaints Hematologic/Lymphatic: Hematologic/Lymphatic: Reports no additional hematologic/lymphatic complaints Allergic/Immunologic: Allergic/Immunologic: Reports no additional allergic/immunologic complaints PMFSH Past Medical History Medical History Alcohol abuse Anal stenosis C. difficile colitis C. difficile diarrhea Collagenous colitis Dementia Depression Failed total knee replacement Fatty stools Fecal impaction of colon GERD (gastroesophageal reflux disease) Hematemesis Hip fracture HTN (hypertension) Hypertension Nonerosive esophageal reflux disease Schatzki's ring Weight loss Surgical History Surgical History History of appendectomy Family History Family History Mother Old age Father Old age Social History Social History Social History: Caffeine- coffee daily Years smoked: 25 Smoking status: Former smoker Tobacco type: cigarettes Second hand tobacco smoke exposure: No Smoking end date: 08/15/82 Alcohol intake: current Alcohol use details: occasional wine Substance use: never Substance use type: does not use Lack of Transportation: No Lack of Food: Never True Current Housing: I Have Housing Concerned About Future Housing: No Difficulty Paying Gas/Electric Bills: No Difficulty Paying for Meds: No Currently Unemployed: No Education: Bachelor's Degree Difficulty w/ Childcare or Family Care: No Living arrangements: alone Occupation/Education: retired Gender identity (if verbalized by the
--- NOTE | 2023-10-14 11:25 | ECG_ITS ---
Measurements Intervals [place] Rate: 54 P: 46 SD: 187 QRS: -50 QRSD: 121 T: 20 QT: 431 QTc: 410 Interpretive Statements SINUS BRADYCARDIA RIGHT BUNDLE BRANCH BLOCK LEFT ANTERIOR FASCICULAR BLOCK BASELINE ARTIFACT- II, III ABNORMAL ECG COMPARED TO ECG 05/22/2023 13:22:34 SINUS BRADYCARDIA NOW PRESENT LEFT ANTERIOR FASCICULAR BLOCK NOW PRESENT Electronically Signed On 10-14-2023 12:16:30 [employer] by José Raymundo D.O.
[2023-10-14 11:36] LABS: Appearance Urine Clear (Clear); Bilirubin Urine Negative (Negative); Blood Urine Negative (Negative); Glucose Urine UA Negative (Negative); Ketones Urine Negative (Negative); Leukocyte Esterase Ur Trace LEU/UL (Negative); Nitrate Urine Negative (Negative); Protein Urine Negative (Negative); Specific Grav Ur 1.025 (1.010-1.020); Urobilinogen Urine 0.2 mg/dL (0.2-1.0); pH Urine 5.5 (5.0-8.0)
[2023-10-14 11:40] LABS: Add Urine Microscopic? YES; Bacteria Urine Trace /hpf; Color Urine Dark Yellow (Yellow); RBC Urine None seen /hpf (0-2); Squamous Epithelial Cell Urine Rare /hpf (Few); WBC Urine 0-3 /hpf (0-3)
[2023-10-14 11:42] VITALS: BP 95/72; PULSE 66; RESP 18; TEMP 36.6; O2SAT 99
[2023-10-14 11:45] LABS: Basophils Absolute Auto 0.04 K/mm3 (0.00-0.10); Basophils Percent Auto 0.4 % (0.0-1.0); Eosinophils Absolute Auto 0.17 K/mm3 (0.02-0.50); Eosinophils Percent Auto 1.9 % (1.0-6.0); Hematocrit 42.2 % (37.0-46.0); Hemoglobin 13.7 g/dL (12.4-15.3); Immature Granulocyte Absolute 0.03 K/mm3 (0.00-0.00); Immature Granulocyte Percent A 0.3 % (0.0-0.0); Lymphocytes Absolute Auto 2.69 K/mm3 (1.10-4.50); Lymphocytes Percent Auto 30.1 % (18.0-42.0); Mean Corpuscular HGB Conc 32.5 g/dL (32.0-36.0); Mean Corpuscular Hemoglobin 28.4 pg (27.0-31.0); Mean Corpuscular Volume 87.6 fL (78.0-102.0); Mean Platelet Volume 9.5 fl (8.7-11.0); Monocytes Absolute Auto 0.65 K/mm3 (0.10-0.90); Monocytes Percent Auto 7.3 % (2.0-11.0); Neutrophils Absolute Auto 5.4 K/mm3 (1.7-7.2); Platelet Count Result 223 K/mm3 (150-420); Red Blood Count 4.82 M/mm3 (4.70-6.10); Red Cell Distribution Width 14.6 % (11.6-14.4); White Blood Count 8.9 K/mm3 (4.8-10.8)
[2023-10-14 12:03] LABS: Alanine Aminotransferase 27 U/L (16-63); Albumin Level 3.7 g/dL (3.4-5.0); Alkaline Phosphatase 86 U/L (46-116); Anion Gap 8 mmol/L (8-16); Aspartate Amino Transferase 19 U/L (15-37); Bilirubin,Total 0.4 mg/dL (0.00-1.00); Blood Urea Nitrogen 20 mg/dL (7-18); Carbon Dioxide 28 mmol/L (21-32); Chloride 104 mmol/L (98-108); Estimated CRCL calculation 60 ml/min; Estimated Glomerular Filt Rate > 60; Glucose 81 mg/dL (70-99); Osmolality Calculated 291 mOsm/kg (285-295); Potassium 4.2 mmol/L (3.5-5.1); Sodium 140 mmol/L (136-145); Total Protein 7.3 g/dL (6.4-8.2)
[2023-10-14 12:11] LABS: Troponin I 5.7 ng/L (0.00-60.4)
[2023-10-14 12:22] VITALS: TEMP 37
[2023-10-14 12:24] LABS: Lactic Acid Reflex 0.8 mmol/L (0.4-2.0)
== END 2023-10-14 12:22 | disposition home or self-care (01) ==
PROVIDERS: Emergency Provider Emergency Medicine; PCP Internal Medicine
DX: N39.0 Urinary tract infection, site not specified (principal); R53.81 Other malaise; I10 Essential (primary) hypertension; F03.90 Unspecified dementia, unspecified severity, without behavioral disturbance, psychotic disturbance, mood disturbance, and anxiety; Z87.891 Personal history of nicotine dependence
CPT/HCPCS: 36415; 80053; 81001; 83605; 84484; 85025; 93005; 99283

== ENCOUNTER 2023-10-31 10:24 | Emergency (ER) | payer MEDICARE, SELFPAY ==
--- NOTE | ~2023-10-31 | CT_ITS ---
CT head without contrast Indication: Head injury COMPARISON: 06/17/2023 Technique: Serial scans were obtained through the brain without the administration of contrast. Dose reduction technique was used on this scan by utilizing automated exposure control and iterative recon struction technique. The dose-length product (DLP) was 681.00 mGy-cm. Findings: There is no evidence of intracranial hemorrhage, mass lesion, or acute infarct. The ventri cles and subarachnoid spaces are dilated, consistent with minimal atrophy. Low attenuation regions a re seen within the periventricular white matter bilaterally, likely representing changes from chronic microvascular ischemic disease. There is no evidence of edema, mass effect or midline shift. The v isualized paranasal sinuses and mastoid air cells are clear. Impression: No intracranial hemorrhage, mass, or acute infarct. Atrophy and chronic white matter changes, as above. Reviewed, dictated and finalized at [facility]. Impression: No intracranial hemorrhage, mass, or acute infarct. Atrophy and chronic white matter changes, as above.
--- NOTE | ~2023-10-31 | XR_ITS ---
Left Shoulder Technique: AP and scapular Y views were obtained. Clinical History: Pain Findings: No fracture or dislocation is seen. Osseous alignment is anatomic. Glenohumeral joint intac t. Probable prior distal clavicular resection/AC joint decompression. Soft tissues are unremarkable. Impression: No acute abnormality. No change from prior exam. Reviewed, dictated and finalized at location . Impression: No acute abnormality. No change from prior exam.
--- NOTE | ~2023-10-31 | CT_ITS ---
Noncontrast CT scan of the cervical spine Technique: Multiple contiguous axial [address] images of the cervical spine were obtained and rec onstructed in 2D sagittal and coronal planes on the acquisition scanner. Dose reduction technique was used on this scan by utilizing automated exposure control, adjustment of the mA and/or kV according to patient size. The dose-length product (DLP) was 175.90 mGy-cm. Clinical History: Pain Findings: No fractures or dislocations. There is mild to moderate degenerative disc narrowing at C5- C6 and C6-C7. No prevertebral soft tissue swelling. Impression: No fracture or subluxation of the cervical spine. Reviewed, dictated and finalized at location . Impression: No fracture or subluxation of the cervical spine.
[2023-10-31 10:24] VITALS: BP 129/92; PULSE 55; RESP 18; TEMP 36.1; O2SAT 100
--- NOTE | 2023-10-31 10:38 | ED.FALL ---
HPI - Fall General Chief Complaint: Fall Stated Complaint: fall; left shoulder pain Time Seen by Provider: 10/31/23 10:36 History of Present Illness HPI Narrative: This is an 78-year-old male, with history of hypertension, who presents to the emergency department complaining of left shoulder pain and headache after a fall. The patient states he rolled out of bed accidentally, landing on left shoulder and then hitting his head. He denies loss of consciousness. He complains of 9-10/10 dull left shoulder pain worse with movement.. He complains of 1/10 headache. He denies chest pain, shortness of breath, lightheadedness or recent change of medications. He was able to ambulate after the fall. He has no other complaints at this time. Related Data Home Medications Medication Instructions Recorded Confirmed memantine 10 mg tablet 10 mg PO BID 07/01/21 10/31/23 [id number]-[id number]-zaxcxy tablet 1 tablet PO DAILY 10/19/21 10/31/23 vit C 250 mg-vit E 90 mg-zinc 40 1 tablet PO BID 10/19/21 10/31/23 mg-copper 1 [id number]-pztvtg-jgcmuc capsule (PreserVision AREDS-2) acamprosate 333 mg tablet,delayed 333 mg PO BID 03/17/23 10/31/23 release thiamine HCl (vitamin B1) 100 mg 100 mg PO DAILY 03/17/23 10/31/23 tablet Allergies Allergy/AdvReac Type Severity Reaction Status Date / Time Penicillins Allergy Mild unknown Verified 10/31/23 11:08 Review of Systems Review of Systems: CONSTITUTIONAL: Denies fever, chills, or sweats. CARDIOVASCULAR: Denies chest pain, palpitations, or edema. RESPIRATORY: Denies cough or dyspnea. GASTROINTESTINAL: Denies abdominal pain, nausea, vomiting, or diarrhea. GENITOURINARY: Denies dysuria or hematuria. SKIN: Denies rash or itching. MUSCULOSKELETAL: Left shoulder pain, Denies back pain, or myalgia. NEUROLOGIC: Mild headache Denies numbness, dizziness, or weakness. PSYCHIATRIC: Denies anxiety or depression. [facility] Past Medical History Medical History Alcohol abuse Anal stenosis C. difficile colitis C. difficile diarrhea Collagenous colitis Dementia Depression Failed total knee replacement Fatty stools Fecal impaction of colon GERD (gastroesophageal reflux disease) Hematemesis Hip fracture HTN (hypertension) Hypertension Nonerosive esophageal reflux disease Schatzki's ring Weight loss Surgical History Surgical History History of appendectomy Family History Family History Mother Old age Father Old age Social History Social History Social History: Caffeine- coffee daily Years smoked: 25 Smoking status: Former smoker Tobacco type: cigarettes Second hand tobacco smoke exposure: No Smoking end date: 08/15/82 Alcohol intake: current Alcohol use details: occasional wine Substance use: never Substance use type: does not use Lack of Transportation: No Lack of Food: Never True Current Housing: I Have Housing Concerned About Future Housing: No Difficulty Paying Gas/Electric Bills: No Difficulty Paying for Meds: No Currently Unemployed: No Education: Bachelor's Degree Difficulty w/ Childcare or Family Care: No Living arrangements: alone Occupation/Education: retired Gender identity (if verbalized by the patient): Male Spiritual care concerns: No Exam Narrative: GENERAL: Well-developed, well-nourished, and in no acute distress. HEAD: Normocephalic, atraumatic. EYES: PERRLA and EOMI. ENT: Nares clear, no rhinorrhea or epistaxis. Mucous membranes moist. Oropharynx without tonsillar hypertrophy exudate or other lesions. NECK: Supple. No midline spine tenderness to palpation, no step-off or crepitus CHEST: Clear to auscultation. No respiratory distress. No wheezes rales or rhonchi HEART: Regular rate and
[2023-10-31 11:24] VITALS: O2SAT 100
[2023-10-31] MEDS: MORPHINE SULFATE (*CRX) 2 MG/ML INJ IV PUSH (11:28)
[2023-10-31 11:32] VITALS: BP 108/73; O2SAT 99
[2023-10-31 11:45] VITALS: O2SAT 96
[2023-10-31 11:46] VITALS: BP 97/68; PULSE 58; O2SAT 96
[2023-10-31 12:00] VITALS: O2SAT 94
== END 2023-10-31 12:23 | disposition home or self-care (01) ==
PROVIDERS: Emergency Provider Preventive Medicine Aerospace Medicine; PCP Internal Medicine
DX: S09.90XA Unspecified injury of head, initial encounter (principal); S40.012A Contusion of left shoulder, initial encounter; I10 Essential (primary) hypertension; F03.90 Unspecified dementia, unspecified severity, without behavioral disturbance, psychotic disturbance, mood disturbance, and anxiety; Z79.899 Other long term (current) drug therapy; Z87.891 Personal history of nicotine dependence; W06.XXXA Fall from bed, initial encounter
CPT/HCPCS: 70450; 72125; 73030; 96374; 99284; J2270

== ENCOUNTER 2023-11-14 10:10 | Outpatient (RCR) | payer MEDICARE, SELFPAY ==
--- NOTE | 2023-11-14 11:23 | OPREHPOC ---
Outpatient Therapy Plan of Care This is a Multidisciplinary Plan of Care that may contain components documented by all disciplines (PT, OT, and ST.) PT Problem 1 PT Problem #1 Knowledge Deficit PT Goal 1 Goal 1. independent and compliant with HEP Target Visit 4 PT Problem 2 PT Problem #2 Pain PT Goal 1 Goal 1. decrease pain at worst in the L shoulder to 4/ 10 or less to improve quality of life and functional reaching Target Visit 8 PT Problem 3 PT Problem #3 Impaired Range of Motion PT Goal 1 Goal 1. improve active L shoulder flexion to 120 degrees. 2. improve functional L shoulder ER reach to the shirt collar 3. improve functional L shoulder IR reach to the lower lumbar spine Target Visit 8 PT Problem 4 PT Problem #4 Impaired Functional Mobil PT Goal 1 Goal 1. quick dash to display less than 20% functional decline 2. tinetti to display moderate fall risk or less 3. no falls in the last 4 weeks 4. patient to use wheeled walker for all ambulation/standing Target Visit 8
--- NOTE | 2023-11-14 11:23 | PTOPEVAL1 ---
Assessment and note entered by JT File, PT Evaluation Information Assessment Status Evaluation Diagnosis L shoulder pain Onset 10/31/23 Subjective Information patient reports he has been having pain in the L shoulder. he report she fractured the shoulder last year, but has been having increased pain recently. his critical care rn is here today and reports his shoulder pain has been increased since his fall out of bed on 10/31/23. he also had an additional fall at home on 11/11/23. he reports he has been having R rib pain since the fall. patient has a history of multiple falls. Reported Pain Level Pain Score 5: Self Report Assessment PT Clinical Summary mr. johnson is an 78 yo man who presents to skilled PT services for evaluation and treatment of the L shoulder. he presents with L shoulder pain and deficits in L shoulder rom, strength, and functional use/reaching likely indicating an injury to the L rotator cuff. however, he also presents with a high fall risk and history of several falls. he would benefit from continued skilled PT to address his objective/functional shoulder deficits and improve his balance to improve his overall functional ability and decrease falls and risk for further injury. patient was educated to transition to a walker for all upright activities. Plan of Care Interventions Gait Training,Hot Pack/Cold Pack,Manual Therapy, Neuro Re-education,Patient/Caregiver Educati, Therapeutic Activities,Therapeutic Exercise PT Services Indicated Yes Treatment Frequency and 2x weekly for 8 visits Duration These treatments will address the objective and functional deficits as defined above. The patient will be advanced safely and appropriately in order for the patient to progress towards his/her prior level of function. Additional exercises will be introduced and as well as a comprehensive home exercise program upon discharge, if needed, ?to ensure carryover of functional gains achieved in the clinic. This treatment plan has been reviewed and agreement upon by the patient.
--- NOTE | 2023-12-28 11:03 | OPREHPOC ---
Outpatient Therapy Plan of Care This is a Multidisciplinary Plan of Care that may contain components documented by all disciplines (PT, OT, and ST.) PT Problem 1 PT Problem #1 Knowledge Deficit PT Goal 1 Goal 1. independent and compliant with HEP Target Visit 4 Progress Met PT Problem 2 PT Problem #2 Pain PT Goal 1 Goal 1. decrease pain at worst in the L shoulder to 4/ 10 or less to improve quality of life and functional reaching Target Visit 8 Progress Met PT Problem 3 PT Problem #3 Impaired Range of Motion PT Goal 1 Goal 1. improve active L shoulder flexion to 120 degrees. 2. improve functional L shoulder ER reach to the shirt collar 3. improve functional L shoulder IR reach to the lower lumbar spine Target Visit 8 Progress Met PT Problem 4 PT Problem #4 Impaired Functional Mobil PT Goal 1 Goal 1. quick dash to display less than 20% functional decline. not met 2. tinetti to display moderate fall risk or less. not met 3. no falls in the last 4 weeks. met 4. patient to use wheeled walker for all ambulation/standing. not met 5. patient to report confidence with standing and ambulation. Target Visit 8
--- NOTE | 2023-12-28 11:03 | PTOPREEVAL ---
Assessment and note entered by JT File, PT Evaluation Information Assessment Status Re-evaluation Diagnosis L shoulder pain Onset 10/31/23 Subjective Information patient reports his shoulder does not bother him anymore. his caregiver reports he has not been complaining of the L shoulder. larry reports he has nothad any falls recently. he reports he is still nervous about his balance, and worried about falling all the time. Reported Pain Level Pain Score 0: Self Report Assessment PT Clinical Summary mr. johnson presents to skilled PT services for his first visit since initial evaluation of the L shoulder on 11/14/23. he no longer has pain in the L shoulder, and displays full return of rom and strength of the shoulders. however, he continues to display a high fall risk per the tinetti, and reports fearing falling all the time. he would benefit from continued skilled PT with focus on transition to therapy for balance and falls risk. patient and caregiver agree with the new POC/ therapy direction. Plan of Care Interventions Gait Training,Manual Therapy,Neuro Re-education, Patient/Caregiver Educati,Therapeutic Activities, Therapeutic Exercise PT Services Indicated Yes Treatment Frequency and continue skilled PT 2x weekly for 6 more visits Duration from today. These treatments will address the objective and functional deficits as defined above. The patient will be advanced safely and appropriately in order for the patient to progress towards his/her prior level of function. Additional exercises will be introduced and as well as a comprehensive home exercise program upon discharge, if needed, ?to ensure carryover of functional gains achieved in the clinic. This treatment plan has been reviewed and agreement upon by the patient.
--- NOTE | 2024-01-19 11:00 | OPREHPOC ---
Outpatient Therapy Plan of Care This is a Multidisciplinary Plan of Care that may contain components documented by all disciplines (PT, OT, and ST.) PT Problem 1 PT Problem #1 Knowledge Deficit PT Goal 1 Goal 1. independent and compliant with HEP Target Visit 4 Progress Met PT Problem 2 PT Problem #2 Pain PT Goal 1 Goal 1. decrease pain at worst in the L shoulder to 4/ 10 or less to improve quality of life and functional reaching Target Visit 8 Progress Met PT Problem 3 PT Problem #3 Impaired Range of Motion PT Goal 1 Goal 1. improve active L shoulder flexion to 120 degrees. 2. improve functional L shoulder ER reach to the shirt collar 3. improve functional L shoulder IR reach to the lower lumbar spine Target Visit 8 Progress Met PT Problem 4 PT Problem #4 Impaired Functional Mobil PT Goal 1 Goal 1. quick dash to display less than 20% functional decline. not assessed 2. tinetti to display moderate fall risk or less. not met 3. no falls in the last 4 weeks. met 4. patient to use wheeled walker for all ambulation/standing. not met but is using cane 5. patient to report confidence with standing and ambulation. met Target Visit 8
--- NOTE | 2024-01-19 11:00 | PTOPDC ---
Assessment and note entered by Sally Palacio, PT Evaluation Information Assessment Status Discharge Diagnosis L shoulder pain, decreased balance Onset 10/31/23 Subjective Information Rik Thakur reports he is doing better and has not had any falls since he has been participating in PT. He reports he uses his cane at all times for balance support. He feels stable now and wants to return to fall prevention class. He has not been having left shoulder pain anymore and has no limitations due to the shoulder. Reported Pain Level Pain Score 0: Self Report Assessment PT Clinical Summary Rik Thakur has completed 8 skilled PT visits for left shoulder pain and decreased balance. He denies falls since he has been participating in PT and reports using a cane at all times. He also denies left shoulder pain. He is demonstrating improved left shoulder AROM, improved balance to baseline, and improved functional mobility. He will return to fall prevention class 2 days a week . He will be discharged to a home exercise program . Plan of Care PT Services Indicated No
== END 2024-01-19 10:00 | disposition home or self-care (01) ==
LOC: CHSPT 10:10
PROVIDERS: Visit Provider Internal Medicine
DX: M25.512 Pain in left shoulder (principal)
CPT/HCPCS: 97110; 97112; 97161; 97530; 97750

== ENCOUNTER 2023-11-14 11:15 | Emergency (ER) | payer MEDICARE, SELFPAY ==
[2023-11-14] VITALS (23 sets, daily range): BP systolic 88–101; BP diastolic 64–69; PULSE 56–64; RESP 11–20; TEMP 36.7; O2SAT 95–98
--- NOTE | ~2023-11-14 | CT_ITS ---
EXAMINATION: CT chest abdomen wo con DATE: 11/14/2023 11:57 INDICATION: Right chest pain. Fall. TECHNIQUE: Computed tomography (CT) of the chest and abdomen was performed without intravenous contra st. Automated exposure control and iterative reconstruction technique were employed. The dose-length product was 373.25 mGy-cm. COMPARISON: CT abdomen and pelvis 05/09/23 FINDINGS: CHEST CT: There is mild scarring at the lung apices. Calcified pulmonary nodules and calcified hilar and medias tinal lymph nodes are consistent with old granulomatous disease. There are nodules in right upper lob e measuring up to 4 mm, likely granulomatous disease. No pleural effusion. There is a 3.2 cm nodule i n right thyroid lobe. The heart size is normal. There are coronary artery calcifications. No pericard ial effusion. There is bilateral gynecomastia. There is mild thoracic spondylosis. There is mild quill skinner nel anterior wedging of multiple thoracic vertebral bodies. There is severe cervical spondylosis. The re is an old healed fracture of the sternum. There are acute fractures of right ninth and 10th ribs. There is a fracture of body of left scapula. ABDOMEN CT: The liver is normal. There are gallstones in the gallbladder, which is normal in size. Calcifications in the spleen are consistent with old granulomatous disease. The pancreas and adrenal glands are nor mal. There are multiple stones in right kidney measuring up to 2 mm. There is a 2 mm stone in left ki dney. There is a 12 mm cyst in left kidney. There is calcified atherosclerosis of the aorta and many of the other arteries. There are no dilated loops of bowel. There is liquid stool in the colon sugges ting diarrhea. There are no pathologically enlarged lymph nodes. There is no free intraperitoneal flu id. There is mild lumbar spondylosis. IMPRESSION: 1. Acute fractures of ninth and 10th ribs. 2. Nondisplaced fracture of left scapula. 3. Right thyroid nodule. Consider thyroid ultrasound for risk stratification. Reviewed, dictated and finalized at location A.
--- NOTE | 2023-11-14 11:34 | ED.GENADULT ---
HPI - General Adult General Chief complaint: Fall Stated complaint: FALL Time Seen by Provider: 11/14/23 11:17 History of Present Illness HPI narrative: Rik is an 78M with a PMH of GERD, C. diff, dementia, HTN, and etoh abuse that presented to the ED with left rip pain. He was out in the garden yesterday working hard out there and did trip and fall and hit his ribs. He did not hit his head or neck. No CP, dyspnea, fevers, N/V, headaches or neck pain. He does have some left shoulder pain that is chronic. His BP had been low and his PCP recently stopped his amlodipine. Related Data Home Medications Medication Instructions Recorded Confirmed memantine 10 mg tablet 10 mg PO BID 07/01/21 11/14/23 [id number]-[id number] tablet 1 tablet PO DAILY 10/19/21 11/14/23 vit C 250 mg-vit E 90 mg-zinc 40 1 tablet PO BID 10/19/21 11/14/23 mg-copper 1 ik-qigvwu-onlriy capsule (PreserVision AREDS-2) acamprosate 333 mg tablet,delayed 333 mg PO BID 03/17/23 11/14/23 release thiamine HCl (vitamin B1) 100 mg 100 mg PO DAILY 03/17/23 11/14/23 tablet Allergies Allergy/AdvReac Type Severity Reaction Status Date / Time Penicillins Allergy Mild unknown Verified 11/14/23 11:35 Review of Systems Review of Systems: All systems reviewed & are unremarkable except as noted in HPI and below PMFSH Past Medical History Medical History Alcohol abuse Anal stenosis C. difficile colitis C. difficile diarrhea Collagenous colitis Dementia Depression Failed total knee replacement Fatty stools Fecal impaction of colon GERD (gastroesophageal reflux disease) Hematemesis Hip fracture HTN (hypertension) Hypertension Nonerosive esophageal reflux disease Schatzki's ring Weight loss Surgical History Surgical History History of appendectomy Family History Family History Mother Old age Father Old age Social History Social History Social History: Caffeine- coffee daily Years smoked: 25 Smoking status: Former smoker Tobacco type: cigarettes Second hand tobacco smoke exposure: No Smoking end date: 08/15/82 Alcohol intake: current Alcohol use details: occasional wine Substance use: never Substance use type: does not use Lack of Transportation: No Lack of Food: Never True Current Housing: I Have Housing Concerned About Future Housing: No Difficulty Paying Gas/Electric Bills: No Difficulty Paying for Meds: No Currently Unemployed: No Education: Bachelor's Degree Difficulty w/ Childcare or Family Care: No Living arrangements: alone Occupation/Education: retired Gender identity (if verbalized by the patient): Male Spiritual care concerns: No Exam Const: General: cooperative, healthy appearing, comfortable, no acute distress, well developed, alert, awake and Physically active Orientation/consciousness: oriented to person, oriented to place and oriented to time HENMT: Head: normal to inspection, normocephalic and atraumatic Ears: hearing grossly normal bilaterally and external ears normal Face/Nose/Sinus: Normal external nose present Eyes: General: appearance normal, both eyes and all related structures Periorbital: periorbital findings normal Sclera: sclerae normal Pupils: Equal, round and reactive pupils present Neck: Neck: normal visual inspection Chest: Chest palpation & inspection: normal inspection of the chest Other: Left lateral and posterior chest are very TTP. Resp: Effort & Inspection: normal respiratory effort, able to speak in complete sentences and no respiratory distress Auscultation: clear to auscultation bilaterally Cardio: Jugular venous distension: no JVD Rate: regular rate Rhythm: regular rhythm GI: Inspection: normal to inspec
[2023-11-14] MEDS: HYDROcodone/acetaminophen (*CRX) 5-325 MG TABLET 1 TAB PO ×2 (11:43→13:59)
[2023-11-14] MEDS: SODIUM CHLORIDE 0.9% IV 1,000 ML 999 ML IV CONT (12:04)
--- NOTE | 2023-11-14 12:40 | PC.NURSE ---
PT IS RESTING ON STRETCHER WITH IVF INFUSING ORDERED WITHOUT DIFFICULTY. FAMILY AT BEDSIDE. NAD NOTED. PT IS AWAITING CT RESULTS AT THIS TIME. WILL CONTINUE TO MONITOR.
--- NOTE | 2023-11-14 13:25 | PC.NURSE ---
DELAY IN CT RESULTS DUE TO SYSTEM BEING DOWN. PT AND FAMILY ARE UPDATED. WILL CONTINUE TO MONITOR.
== END 2023-11-14 14:00 | disposition home or self-care (01) ==
PROVIDERS: Emergency Provider Family Medicine; PCP Internal Medicine
DX: S22.41XA Multiple fractures of ribs, right side, initial encounter for closed fracture (principal); S42.102A Fracture of unspecified part of scapula, left shoulder, initial encounter for closed fracture; W19.XXXA Unspecified fall, initial encounter; K21.9 Gastro-esophageal reflux disease without esophagitis; F03.90 Unspecified dementia, unspecified severity, without behavioral disturbance, psychotic disturbance, mood disturbance, and anxiety; I10 Essential (primary) hypertension; F10.10 Alcohol abuse, uncomplicated; Z87.891 Personal history of nicotine dependence
CPT/HCPCS: 71250; 74150; 96360; 97110; 97161; 99284; A4565; A9270; J7030

== ENCOUNTER 2024-03-06 10:03 | Outpatient (CLI) | payer MEDICARE, SELFPAY ==
--- NOTE | ~2024-03-06 | US_ITS ---
EXAMINATION: US thyroid DATE: 03/06/2024 10:50 INDICATION: Thyroid nodule TECHNIQUE: Multiple ultrasound images of the thyroid were obtained. COMPARISON: None. FINDINGS: The right thyroid lobe measures 3.7 x 2.8 x 2.6 cm. The left thyroid lobe measures 3.4 x 1.0 x 1.2 c m. Thyroid isthmus measures 5 mm in thickness. 3.3 x 2.5 x 2.8 cm solid heterogeneously isoechoic hyp oechoic nodule which is wider than tall with smooth margins and with both punctate echogenic foci and small shadowing coarse calcifications (TI-RADS 5, highly suspicious , FNA if >=1.0 cm, annual follow up is >0.5 cm) . There is normal echotexture, echogenicity and vascular flow throughout the thyroid g land. IMPRESSION: 1. 3.3 cm TI RADS 5 right thyroid nodule for which ultrasound-guided biopsy would be recommended. Rec ommend clinical followup with repeat imaging if there are changes on physical exam. Reviewed, dictated and finalized at location A. IMPRESSION: 1. 3.3 cm TI RADS 5 right thyroid nodule for which ultrasound-guided biopsy wou ld be recommended. Recommend clinical followup with repeat imaging if there are changes on physical exam.
[2024-03-06 10:37] LABS: Basophils Absolute Auto 0.04 K/mm3 (0.00-0.10); Basophils Percent Auto 0.6 % (0.0-1.0); Eosinophils Absolute Auto 0.11 K/mm3 (0.02-0.50); Eosinophils Percent Auto 1.7 % (1.0-6.0); Hematocrit 43.9 % (37.0-46.0); Hemoglobin 14.7 g/dL (12.4-15.3); Immature Granulocyte Absolute 0.02 K/mm3 (0.00-0.00); Immature Granulocyte Percent A 0.3 % (0.0-0.0); Lymphocytes Absolute Auto 2.74 K/mm3 (1.10-4.50); Lymphocytes Percent Auto 42.5 % (18.0-42.0); Mean Corpuscular HGB Conc 33.5 g/dL (32-36); Mean Corpuscular Hemoglobin 29.7 pg (27.0-31.0); Mean Corpuscular Volume 88.7 fL (78.0-102.0); Mean Platelet Volume 9.9 fl (8.7-11.0); Monocytes Absolute Auto 0.57 K/mm3 (0.10-0.90); Monocytes Percent Auto 8.9 % (2.0-11.0); Neutrophils Absolute Auto 2.96 K/mm3 (1.70-7.20); Platelet Count Result 182 K/mm3 (150-420); Red Blood Count 4.95 M/mm3 (4.70-6.10); Red Cell Distribution Width 13.7 % (11.6-14.4); White Blood Count 6.4 K/mm3 (4.8-10.8)
[2024-03-06 11:31] LABS: Alanine Aminotransferase 27 U/L (16-63); Albumin Level 4.5 g/dL (3.4-5.0); Alkaline Phosphatase 83 U/L (46-116); Anion Gap 8 mmol/L (4-12); Aspartate Amino Transferase 24 U/L (15-37); Bilirubin,Total 0.6 mg/dL (0.00-1.00); Blood Urea Nitrogen 16 mg/dL (7-18); Calcium 9.6 mg/dL (8.5-10.1); Carbon Dioxide 31 mmol/L (21-32); Chloride 101 mmol/L (98-108); Estimated Glomerular Filt Rate > 60; Free T3 2.24 pg/mL (2.18-3.98); Free T4 Free Thyroxine 0.76 ng/dL (0.76-1.46); Glucose 89 mg/dL (70-99); Osmolality Calculated 290 mOsm/kg (285-295); Potassium 4.2 mmol/L (3.5-5.1); Sodium 140 mmol/L (136-145); Thyroid Stimulating Hormone 2.18 uIU/mL (0.36-3.74); Total Protein 7.8 g/dL (6.4-8.2)
== END 2024-03-06 10:04 | disposition home or self-care (01) ==
PROVIDERS: PCP Internal Medicine; Visit Provider Internal Medicine
DX: E04.1 Nontoxic single thyroid nodule (principal)
CPT/HCPCS: 36415; 76536; 80053; 84439; 84443; 84481; 85025

== ENCOUNTER 2024-07-19 09:40 | Outpatient (CLI) | payer MEDICARE, SELFPAY ==
[2024-07-19 10:39] LABS: Cholesterol 161 mg/dL (0-200); HDL Direct 66 mg/dL (40-60); LDL Cholesterol Calculated 85 mg/dL (<130); Triglycerides 48 mg/dL (0-150)
== END 2024-07-19 09:41 | disposition home or self-care (01) ==
LOC: CHSLAB 09:45
PROVIDERS: PCP Internal Medicine
DX: E78.5 Hyperlipidemia, unspecified (principal)
CPT/HCPCS: 36415; 80061

== ENCOUNTER 2024-07-20 10:50 | Outpatient (CLI) | payer MEDICARE, SELFPAY ==
[2024-07-20 11:59] LABS: Toxigenic C. Diff NEGATIVE (NEGATIVE)
== END 2024-07-20 10:51 | disposition home or self-care (01) ==
LOC: CHSLAB 10:52
PROVIDERS: PCP Internal Medicine; Visit Provider Nurse Practitioner
DX: R19.7 Diarrhea, unspecified (principal)
CPT/HCPCS: 87045; 87427; 87449; 87493

== ENCOUNTER 2024-09-05 18:34 | Emergency (ER) | payer MEDICARE, SELFPAY ==
--- NOTE | ~2024-09-05 | XR_ITS ---
CHEST RADIOGRAPH CLINICAL HISTORY: right side facial weakness . COMPARISON: 05/22/2023 TECHNIQUE: Single portable view of the chest. FINDINGS The cardiomediastinal silhouette is unremarkable. Limited examination for evaluation of the bilateral apices, currently covered by the patient's mandib le. The remainder of the lungs are clear. IMPRESSION: No focal infiltrate or effusion within the visualized lung amaya, as detailed above. Reviewed, dictated and finalized at location A. L PINKER
--- NOTE | ~2024-09-05 | CT_ITS ---
CTA brain carotid Ordering provider: Robb Lopez MD History: . CVA . Comparison: No prior CTA examination of the head and neck have been performed. Multiple prior CT examinations of the brain were performed, most recently approximately 1 hour kelton correa, and dating back to 01/12/2019 Technique: CT angiogram head and neck was performed following timed intravenous injection of contrast . Thin slice axial images and reformatted coronal images were obtained. Three dimensional reformatted images of the brain were also obtained using a [employer] workstation. DLP: 1129 mGy-cm. Repeat noncontrast enhanced imaging of the brain was also performed. FINDINGS: HEAD: --ANTERIOR AND MIDDLE CEREBRAL ARTERIES AND BRANCHES: Normal caliber and contour. --INTERNAL CAROTID ARTERIES: Mild atheromatous disease (left greater than right) without significant stenosis. No occlusion. --BASILAR ARTERY AND BRANCHES: Normal caliber and contour. No significant atheromatous disease. --POSTERIOR CEREBRAL ARTERIES: Normal caliber and contour --POSTERIOR COMMUNICATING ARTERIES: Not well visualized likely related to congenital absence or small size. --ANEURYSM: None visualized. --BRAIN: The ventricles are enlarged. The dilatation of the ventricles is proportional to the degree of sulcal prominence, not uncommon in the senescent brain. Decreased attenuation is identified within the periventricular white matter, likely secondary to micr ovascular ischemic disease, in a patient of this age. There is no mass, mass effect or midline shift. There is no abnormal extra-axial fluid collection or intracranial hemorrhage. Visualized paranasal sinuses are clear. The mastoid air cells are well aerated. No acute displaced fractures within the overlying cranium. NECK: --RIGHT CERVICAL CAROTID SYSTEM: Mild atheromatous disease of the carotid bulb and proximal internal carotid artery without significant stenosis. Percent stenosis per NASCET criteria is 0%. No carotid dissection. --LEFT CERVICAL CAROTID SYSTEM: Mild atheromatous disease of the carotid bulb and proximal internal c arotid artery without significant stenosis. Marked tortuosity within the cervical internal carotid ar erika. Percent stenosis per NASCET criteria is 0%. No carotid dissection. --VERTEBRAL ARTERIES: Normal caliber and contour, with mild atheromatous disease. --VISUALIZED AORTIC ARCH AND BRANCHING VESSELS: Mild atheromatous disease but no significant stenosis . --SOFT TISSUES: Asymmetric nodule within the right lobe of the thyroid gland better evaluated on ultr asound examination performed 03/06 --CERVICAL SPINE: Age appropriate degenerative changes. IMPRESSION: 1. Unremarkable CTA head and neck. Percent stenosis per NASCET criteria is 0%. Reviewed, dictated and finalized at location A. OLOGY TECHNICIAN IMPRESSION: 1. Unremarkable CTA head and neck. Percent stenosis per NASCET criteria is 0% .
--- NOTE | ~2024-09-05 | CT_ITS ---
History: Right-sided facial weakness PROCEDURE: CT head without contrast. COMPARISON: 10/31/2023 TECHNIQUE: Axial imaging of the head performed from the skull base to the vertex without IV contrast. Sagittal a nd coronal reformations obtained. DLP: 681 mGy-cm FINDINGS: The ventricles are enlarged. The dilatation of the ventricles is proportional to the degree of sulcal prominence, not uncommon in the senescent brain. Decreased attenuation is identified within the periventricular white matter, likely secondary to micr ovascular ischemic disease, in a patient of this age. There is no mass, mass effect or midline shift. There is no abnormal extra-axial fluid collection or intracranial hemorrhage. Visualized paranasal sinuses are clear. The mastoid air cells are well aerated. No acute displaced fractures within the overlying cranium. Impression: No acute intracranial hemorrhage or suspicious mass effect. Reviewed, dictated and finalized at location A. PRESS OPERATOR Impression: No acute intracranial hemorrhage or suspicious mass effect.
[2024-09-05 18:34] VITALS: PULSE 63
[2024-09-05 18:35] VITALS: BP 139/64; PULSE 63; RESP 21; TEMP 36.9; O2SAT 100
--- NOTE | 2024-09-05 18:35 | ED_ITS ---
HPI - Weakness General Chief complaint: Suspected CVA Stated complaint: weakness Time Seen by Provider: 09/05/24 18:35 Source: patient and family Mode of arrival: ambulatory Limitations: no limitations History of Present Illness HPI Narrative: 79-year-old male with a history of dementia, depression, anxiety, prostate CA,alcoholic hepatitis, collagenous colitis with chronic diarrhea, hematemesis, presents to the ED with a 2 day history of -- right facial droop. This was noted 2 days ago. The patient had a right dental infection and was on antibiotics for that. The family thought it was related to his dental infection. Subsequently the patient has not had any are the neuro deficits. He is able to walk and move around without any difficulty. He is able to eat and drink. No speech difficulty. No headache. No visual complaints. -- Today the patient complained of weakness. He walked to the emergency room. MD Complaint: generalized weakness Onset (ago): day(s) ( Two days) Duration: constant Location: face ( right facial weakness with sagging the eyelid and the angle of the mouth) Migration: none Relieving factors: none Exacerbating factors: none Context: new medication Associated symptoms: denies other symptoms Related Data Home Medications ?Medication ?Instructions ?Recorded ?Confirmed ?Last Taken ?Type memantine 10 mg tablet 10 mg PO BID 07/01/21 05/08/24 Unknown History cbmeamskmjiy-sqrsfxfl-lqsnmr tablet 1 tablet PO DAILY 10/19/21 05/08/24 Unknown History vit C 250 mg-vit E 90 mg-zinc 40 1 tablet PO BID 10/19/21 05/08/24 Unknown History mg-copper 1 os-usqibf-lxohya capsule (PreserVision AREDS-2) thiamine HCl (vitamin B1) 100 mg 100 mg PO DAILY 03/17/23 05/08/24 Unknown History tablet midodrine 2.5 mg tablet 2.5 mg PO .prn 11/30/23 05/08/24 Unknown History trazodone 50 mg tablet 25 mg PO QHS PRN 01/19/24 05/08/24 Unknown History Allergies Allergy/AdvReac Type Severity Reaction Status Date / Time Penicillins Allergy Mild unknown Verified 05/08/24 13:08 Review of Systems 2 Review of Systems: All systems reviewed & are unremarkable except as noted in HPI and below Constitutional: Constitutional: Reports as per HPI, Reports no additional constitutional complaints and Reports weakness Eyes: Eyes: Reports as per HPI and Reports no additional eye complaints ENT: Reports system reviewed and no additional complaints, except as documented Cardiovascular: Cardiovascular: Reports as per HPI and Reports no additional cardiovascular complaints Respiratory: Respiratory: Reports as per HPI and Reports no additional respiratory complaints Gastrointestinal: Gastrointestinal: Reports as per HPI and Reports no additional gastrointestinal complaints Genitourinary: Genitourinary: Reports no additional male genitourinary complaints and Reports as per HPI Musculoskeletal: Musculoskeletal: Reports no additional musculoskeletal complaints and Reports as per HPI Integumentary/Breasts: Skin/Breast: Reports system reviewed and no additional complaints, except as docu and Reports as per HPI Neurologic: Reports system reviewed and no additional complaints, except as documented and Reports as per HPI Comments: right facial weakness no motor or sensory loss of the extremities. Psychiatric: Psychiatric: Reports no additional psychiatric complaints and Reports as per HPI Endocrine: Endocrine: Reports no additional endocrine complaints and Reports as per HPI Hematologic/Lymphatic: Hematologic/Lymphatic: Reports no additional hematologic/lymphatic complaints and Reports as per HPI Allergic/Immunologic: Allergic/Immunologic: Reports no additional allergic/immunologic complaints and Reports as per HPI [facility] Past Medical History Medical History Schatzki's ring Nonerosive esophageal reflux disease Anal stenosis Collagenous colitis Weight loss Fatty stools C. difficile colitis C. difficile diarrhea Dementia Hematemesis Fecal impaction of colon Depression Hypertension Hip fracture Failed total knee replacement GERD (gastroesophageal reflux disease) Alcohol abuse HTN (hypertension) Surgical History Surgical History History of appendectomy Family History Family History Mother Old age Father Old age Social History Social History Social History: Caffeine- coffee daily Years smoked: 25 Smoking status: Former smoker Tobacco type: cigarettes Second hand tobacco smoke exposure: No Smoking end date: 08/15/82 Alcohol intake: current Alcohol use details: occasional wine Substance use: never Substance use type: does not use Lack of Transportation: No Lack of Food: Never True Current Housing: I Have Housing Concerned About Future Housing: No Difficulty Paying Gas/Electric Bills: No Difficulty Paying for Meds: No Currently Unemployed: No Education: Bachelor's Degree Difficulty w/ Childcare or Family Care: No Living arrangements: alone Occupation/Education: retired Gender identity (if verbalized by the patient): Male Spiritual care concerns: No Exam 2 Narrative: vitals are stable. Const: General: ill appearing Orientation/consciousness: patient oriented x3 Limitations: no limitations HENMT: Head: normal to inspection Ears: external ears normal F jessica/Nose/Sinus: Normal external nose present Face and sinus: normal facial exam Mouth: Yes Normal oral and palatal mucosa present Throat: posterior oropharynx normal Eyes: Conjunctivae: conjunctivae normal Pupils: Equal, round and reactive pupils present EOM: EOMs intact bilaterally Direct Ophthalmoscopy: no photophobia Neck: Neck: normal visual inspection, no lymphadenopathy and no meningeal signs Chest: Chest palpation & inspection: normal inspection of the chest Resp: Effort & Inspection: normal respiratory effort Auscultation: clear to auscultation bilaterally Cardio: Rate: bradycardic Rhythm: regular rhythm GI: GI Palp: Yes Soft to palpation Auscultation: normal bowel sounds O ther: No tenderness/ rigidity /rebound. : General: Yes no CVA tenderness Back/Spine/Pelvis: Back: no CVA tenderness Skin: General skin exam: normal color Rashes: no rashes Wounds: no wounds Neuro: General: patient oriented x3, moves all extremities and no meningeal signs Cranial nerves: Yes Nystagmus not present Speech: normal speech O ther: Right facial weakness which appears to involve both upper and lower face suggestive of infra nuclear facial palsy Course Course Emergency Course: right facial droop-- has involvement of both supraorbital and right lower half of the face. This is suggestive of intranuclear facial Passy/Martinez's past . CT of the head did not show any acute findings. Repeated examination of the patient did not show any change in the neuro status. Patient has persistent right facial weakness. facial weakness involves both the upper and the lower part of the face. No eye involvement noted. Will treat with steroids. Cannot rule out a stroke with right-sided facial weakness. CT of the head and neck is negative. The The neuro deficit was 1st noted 2 days ago. Will discharge on aspirin. Will have the patient follow-up with the primary care physician to get an echocardiogram and lipid panel. While in the ED the patient had a swallow evaluation which did not show any evidence of aspiration. Vital Signs Vital signs: Vital Signs Pulse Rate 63 09/05/24 18:34 Temperature 36.9 C 09/05/24 18:35 Pulse Rate 63 09/05/24 18:35 Respiratory Rate 21 H 09/05/24 18:35 Blood Pressure 139/64 09/05/24 18:35 Pulse Oximetry 100 09/05/24 18:35 Oxygen Delivery Room Air 09/05/24 18:35 MDM - Weakness MDM Narrative Medical decision making narrative: CVA with right facial weakness-- CT of the head and the CTA did not show any vessel occlusion. Martinez's palsy Differential Diagnosis Differential diagnosis: Likely hypoglycemia and sepsis Medical Records Attestation: I reviewed the patient's medical records. Lab Data Attestation: I reviewed the patient's lab results. 09/05/24 19:20 09/05/24 19:20 Labs: Lab Results 09/05/24 09/05/24 09/05/24 Range/Units 18:58 19:19 19:20 WBC 6.9 (4.8-10.8) K/mm3 RBC 4.77 (4.70-6.10) M/mm3 Hgb 14.0 (12.4-15.3) g/dL Hct 42.6 (37.0-46.0) % MCV 89.3 (78.0-102.0) fL MCH 29.4 (27.0-31.0) pg MCHC 32.9 (32-36) g/dL RDW 13.8 (11.6-14.4) % Plt Count 199 (150-420) K/mm3 MPV 10.0 (8.7-11.0) fl Immature Gran % (Auto) 0.4 H (0.0-0.0) % Neut % (Auto) 51.4 (50.0-70.0) % Lymph % (Auto) 38.1 (18.0-42.0) % [place] % (Auto) 8.2 (2.0-11.0) % Eos % (Auto) 1.3 (1.0-6.0) % Baso % (Auto) 0.6 (0.0-1.0) % Lymph # (Auto) 2.63 (1.10-4.50) K/mm3 [place] # (Auto) 0.57 (0.10-0.90) K/mm3 Eos # (Auto) 0.09 (0.02-0.50) K/mm3 Baso # (Auto) 0.04 (0.00-0.10) K/mm3 Abs Immat Gran (auto) 0.03 H (0.00-0.00) K/mm3 Absolute Neuts (auto) 3.55 (1.70-7.20) K/mm3 Absolute Nucleated RBC 0.00 (0.00-0.00) K/mm3 Nucleated RBC % 0.0 (0-0.0) % PT 10.7 (9.50-12.1) Seconds INR 1.0 APTT 26.9 (23.9-30.70) Sec Sodium 136 (136-145) mmol/L Potassium 4.6 (3.5-5.1) mmol/L Chloride 96 L (98-108) mmol/L Carbon Dioxide 31 (21-32) mmol/L Anion Gap 9 (4-12) mmol/L BUN 22 H (7-18) mg/dL Creatinine 0.96 (0.70-1.30) mg/dL Estim Creat Clear Calc 48 ml/min Estimated GFR > 60 (59 - ) Glucose 88 (70-99) mg/dL Calculated Osmolality 284 L (285-295) mOsm/kg Lactic Acid 1.1 (0.4-2.0) mmol/L Calcium 9.2 (8.5-10.1) mg/dL Magnesium 1.9 (1.8-2.4) mg/dL Total Bilirubin 0.5 (0.00-1.00) mg/dL AST 27 (15-37) U/L ALT 37 (16-63) U/L Alkaline Phosphatase 71 (46-116) U/L Troponin I < 4.0 (0.00-60.4) ng/L NT-Pro-B Natriuret Pep 499 H (0-450) pg/mL Total Protein 7.1 (6.4-8.2) g/dL Albumin 4.2 (3.4-5.0) g/dL TSH 3.91 H (0.36-3.74) uIU/mL Urine Color Light yellow (Yellow) Urine Appearance Clear (Clear) Urine pH 6.5 (5.0-8.0) Ur Specific [place] <= 1.005 L (1.010-1.020) Urine Protein Negative (Negative) Urine Glucose (UA) Negative (Negative) Urine Ketones Negative (Negative) Ur Blood (Man) Negative (Negative) Urine Nitrate Negative (Negative) Urine Bilirubin Negative (Negative) Urine Urobilinogen 0.2 (0.2-1.0) mg/dL Leukocyte Esterase Rfl Negative (Negative) ROSANAN/UL Urine Opiates Screen Negative (Negative) Urine Methadone Screen Negative (Negative) Ur Barbiturates Screen Negative (Negative) Ur Phencyclidine Scrn Negative (Negative) Ur Amphetamine Screen Negative (Negative) U Benzodiazepines Scrn Negative (Negative) Urine Cocaine Screen Negative (Negative) U Cannabinoids Screen Negative (Negative) Ethyl Alcohol < 3 (0-6) mg/dL ECG Data EKG #1: ECG completion date: 09/05/24 ECG completion time: 19:15 Interpretation: sinus bradycardia. Left axis deviation. First-degree AV block. Right bundle- branch block pattern no ST elevation noted. Discharge Plan Discharge Clinical Impression: Acute CVA (cerebrovascular accident), Martinez's palsy Patient Disposition: Home, Self-Care Condition: Stable Instructions: Antibiotic Form, Martinez Palsy (ED), Stroke (DC) Patient Language: Cymro Prescriptions: New prednisone 50 mg tablet 50 mg PO DAILY Qty: 7 0RF aspirin 81 mg capsule 81 mg PO DAILY Qty: 30 0RF No Action fluoxetine [Prozac] 10 mg Capsule 20 mg PO QAM Qty: 60 0RF itrsxpzfgdia-sayvdpze-pgypkk Tablet 1 tablet PO DAILY PreserVision AREDS-2 250-90-40-1 mg Capsule 1 tablet PO BID tramadol 50 mg tablet 50 mg PO Q6H PRN (Reason: pain) Qty: 30 0RF lidocaine 5 % adhesive patch,medicated 1 patch topical DAILY Qty: 30 0RF Rx Instructions: leave on most painful area for up to 12 hrs hydrocodone-acetaminophen 5-325 mg tablet 1 tablet PO Q8H PRN (Reason: pain) Qty: 9 0RF trazodone 50 mg tablet 25 mg PO QHS PRN memantine 10 mg tablet 10 mg PO BID thiamine HCl (vitamin B1) 100 mg tablet 100 mg PO DAILY midodrine 2.5 mg tablet 2.5 mg PO .prn Rx Instructions: do not give last dose of day after 6PM or within 4 hrs of bedtime budesonide 3 mg capsule,delayed,extend.release 3 mg PO DAILY Qty: 112 0RF Rx Instructions: Take 3 capsules by mouth everyday for next 3 weeks, then 2 capsules by mouth for next 2 weeks, then 1 capsule by mouth there after. Follow-up/Referrals: Jarad Rodriguez MD [Primary Care Provider] - Time of Disposition: 21:24 Quality Stroke Date of last known normal: 09/03/24 Stroke Scale Stroke Scale 1: Stroke scale date:: 09/05/24 Stroke scale time:: 18:56 1a Level of consciousness: alert-0 1b Level of consciousness questions: answers both correctly-0 1c Level of consciousness commands: obeys both correctly-0 2 Best gaze: normal-0 3 Visual: no visual loss-0 4 Facial palsy: partial paralysis-2 5a Motor: left arm: no drift-0 5b Motor: right arm: no drift-0 6a Motor: left leg: no drift-0 6b Motor: right leg: no drift-0 7 Limb ataxia: absent-0 8 Sensory: normal-0 9 Best language: no aphasia-0 10 Dysarthria: normal-0 11 Extinction and inattention: no abnormality-0 Level:: 2
--- NOTE | 2024-09-05 18:46 | ECG_ITS ---
Test Date: 2024-09-05 19:15:29 Measurements Intervals [place] Rate: 53 P: 22 MO: 212 QRS: -27 QRSD: 128 T: -1 QT: 470 QTc: 442 Interpretive Statements SINUS BRADYCARDIA WITH FIRST DEGREE AV BLOCK BORDERLINE LEFT AXIS DEVIATION [QRS AXIS < -20] RIGHT BUNDLE BRANCH BLOCK [120+ ms QRS DURATION, UPRIGHT V1, 40+ ms S IN I/aVL/V4/V5/V6] No previous ECG available for comparison Electronically Signed On 09-06-2024 12:37:13 SOFTWARE CLERK by Naomi Herrera M.D.
[2024-09-05 19:01] LABS: Add Urine Microscopic? NO; Appearance Urine Clear (Clear); Bilirubin Urine Negative (Negative); Blood Urine Negative (Negative); Color Urine Light Yellow (Yellow); Glucose Urine UA Negative (Negative); Ketones Urine Negative (Negative); Leukocyte Esterase Ur Negative LEU/UL (Negative); Nitrate Urine Negative (Negative); Protein Urine Negative (Negative); Specific Grav Ur <= 1.005 (1.010-1.020); Urobilinogen Urine 0.2 mg/dL (0.2-1.0); pH Urine 6.5 (5.0-8.0)
--- NOTE | 2024-09-05 19:06 | PC.NURSE ---
REPORT TO REHANA KEENE
[2024-09-05 19:24] LABS: Basophils Absolute Auto 0.04 K/mm3 (0.00-0.10); Basophils Percent Auto 0.6 % (0.0-1.0); Eosinophils Absolute Auto 0.09 K/mm3 (0.02-0.50); Eosinophils Percent Auto 1.3 % (1.0-6.0); Hematocrit 42.6 % (37.0-46.0); Immature Granulocyte Absolute 0.03 K/mm3 (0.00-0.00); Immature Granulocyte Percent A 0.4 % (0.0-0.0); Lymphocytes Absolute Auto 2.63 K/mm3 (1.10-4.50); Lymphocytes Percent Auto 38.1 % (18.0-42.0); Mean Corpuscular HGB Conc 32.9 g/dL (32-36); Mean Corpuscular Hemoglobin 29.4 pg (27.0-31.0); Mean Corpuscular Volume 89.3 fL (78.0-102.0); Monocytes Absolute Auto 0.57 K/mm3 (0.10-0.90); Monocytes Percent Auto 8.2 % (2.0-11.0); Neutrophils Absolute Auto 3.55 K/mm3 (1.70-7.20); Neutrophils Percent Auto 51.4 % (50.0-70.0); Platelet Count Result 199 K/mm3 (150-420); Red Blood Count 4.77 M/mm3 (4.70-6.10); Red Cell Distribution Width 13.8 % (11.6-14.4); White Blood Count 6.9 K/mm3 (4.8-10.8)
[2024-09-05 19:36] LABS: Prothrombin Time 10.7 Seconds (9.50-12.1)
[2024-09-05 19:39] LABS: Partial Thromboplastin Time 26.9 Sec (23.9-30.70)
[2024-09-05 19:42] LABS: Lactic Acid Reflex 1.1 mmol/L (0.4-2.0)
[2024-09-05 19:48] LABS: Amphetamine Screen Urine Negative (Negative); Barbiturate Screen Urine Negative (Negative); Benzodiazepines Screen Urine Negative (Negative); Cannabinoid Screen Urine Negative (Negative); Cocaine Screen Urine Negative (Negative); Methadone Screen Urine Negative (Negative); Opiate Screen Urine Negative (Negative); Phencyclidine Screen Urine Negative (Negative)
[2024-09-05 19:51] LABS: Alanine Aminotransferase 37 U/L (16-63); Albumin Level 4.2 g/dL (3.4-5.0); Alkaline Phosphatase 71 U/L (46-116); Anion Gap 9 mmol/L (4-12); Aspartate Amino Transferase 27 U/L (15-37); Bilirubin,Total 0.5 mg/dL (0.00-1.00); Blood Urea Nitrogen 22 mg/dL (7-18); Calcium 9.2 mg/dL (8.5-10.1); Carbon Dioxide 31 mmol/L (21-32); Chloride 96 mmol/L (98-108); Estimated CRCL calculation 48 ml/min; Estimated Glomerular Filt Rate > 60; Glucose 88 mg/dL (70-99); Magnesium 1.9 mg/dL (1.8-2.4); NT Pro B Type Natriuretic Pept 499 pg/mL (0-450); Osmolality Calculated 284 mOsm/kg (285-295); Potassium 4.6 mmol/L (3.5-5.1); Sodium 136 mmol/L (136-145); Total Protein 7.1 g/dL (6.4-8.2)
[2024-09-05 19:54] LABS: Ethanol < 3 mg/dL (0-6)
[2024-09-05 19:55] LABS: Thyroid Stimulating Hormone 3.91 uIU/mL (0.36-3.74); Troponin I < 4.0 ng/L (0.00-60.4)
[2024-09-05] MEDS: LACTATED RINGERS 500 ML 999 ML IV CONT (21:23)
[2024-09-05] MEDS: predniSONE 20 MG TABLET 60 MG PO (21:33)
[2024-09-05] MEDS: ASPIRIN 81 MG CHEWABLE TABLET 324 MG PO (21:33)
[2024-09-05 22:43] VITALS: BP 156/85; PULSE 72; RESP 20; TEMP 36.6; O2SAT 98
--- OUTSIDE RECORDS SUMMARY | 2024-09-07 03:30 | XMS_ITS | Referral Summary ---
Author Organization [facility] Address [address] [place] [address] Care Team Providers Care Technical Specialist Name Role Phone Jarad Rodriguez MD Primary Care Provider [phone] Source Comments [facility],non-owned Affiliates and Associated Physician Practices is amultiple site organization consisting of ambulatory clinics and hospital sitesin [place], [place], [place] and [place]. This disclosure is being madepursuant to the Care Everywhere program and may not contain all information available regarding this patient. Last updated 18.[facility] Allergies Active Allergy Reactions Criticality Noted Date Comments Penicillin G Potassium Rash 06/23/2009 Blisters/ shock Medications * Be aware that medications may not be up to date on this document. Alwaysverify current medications with the patient. Medication Sig Dispensed Refills Start Date End Date Status lovastatin (MEVACOR) 20 MG tablet Take 20 mg by mouth at bedtime. Active timolol maleate (TIMOPTIC) 0.5 % ophthalmic solution 1 Drop 2 times daily. Both eyes Active Magnesium 250 MG TABS Take by mouth daily. Acti ve therapeutic multivitamin-film examiner als (THERAGRAN-M) tablet Take 1 Tab by mouth daily with breakfast. Active losartan (COZAAR) 25 MG tabletIndications: usually takes in PM Take 25 mg by mouth daily. Instructed to take AM of surgery Indications: usually takes in PM Active Rice-3 Fatty Acids (FISH OIL PO) Take by mouth. Active aspirin 81 MG tablet Take 81 mg by mouth once daily. Active thiamine (VITAMIN B-1) 100 MG tablet Take 100 mg by mouth once daily Active torsemide (DEMADEX) 10 MG tablet Take 10 mg by mouth once daily Active acetaminophen (TYLENOL) 500 MG tablet Take 1,000 mg by mouth every 6 hours as needed for Fever or Pain Maximum allowable Acetaminophen amount = 4 Grams (4000 mg) / 24 hours. Active loperamide (IMODIUM) 2 MG capsule Take 2 mg by mouth 2 times daily as needed for Diarrhea Active docusate sodium (COLACE) 100 MG capsule Take 100 mg by mouth once daily as needed for Constipation Active folic acid (FOLVITE) 1 MG tablet Take 1 mg by mouth once daily Active magnesium oxide (MAG-OX) 400 MG tablet Take 400 mg by mouth 2 times daily Active mirtazapine (REMERON) 15 MG tablet Take 15 mg by mouth at bedtime Active pantoprazole EC (PROTONIX) 20 MG tablet Take 20 mg by mouth once daily Active potassium chloride ER (KLOR-CON M) 20 MEQ tablet Take 20 mEq by mouth once daily Active oxyCODONE, immediate release, (ROXICODONE) 5 MG tablet Take 1 (one) tablet by mouth every 6 hours as needed for Pain 18 tablet 09/30/2020 Active Active Problems Problem Noted Date Diagnosed Date Incarcerated inguinal hernia 09/26/2020 Social History Tobacco Use Types Packs/Day Years Used Date Smoking Tobacco: Former Cigarettes Q uit: 06/29/1985 Smokeless Tobacco: Never Tobacco Cessation:Counseling Given: Yes Comments:not smoking Alcohol Use Standard Drinks/Week Comments Yes 0 (1 standard drink = 0.6 oz pur e alcohol) last drink in august Sex and Gender Information Value Date Recorded Sex Assigned at Not on file Gender Identity Not on file Sexual Orientation Not on file Last Filed Vital Signs Vital Sign Reading Time Taken Comments Blood Pressure 116/82 09/30/2020 7:48 AM INDUSTRIAL EDUCATION TEACHER Pulse 62 09/30/2020 7:48 AM INDUSTRIAL EDUCATION TEACHER Temperature 36.6 ??C (97.9 ??F) 09/30/2020 7:48 AM CS T Respiratory Rate 18 09/30/2020 7:48 AM INDUSTRIAL EDUCATION TEACHER Oxygen Saturation 98% 09/30/2020 7:48 AM INDUSTRIAL EDUCATION TEACHER Inhaled Oxygen Concentration - - Weight 61.5 kg (135 lb 9.3 oz) 09/27/2020 1:09 A M INDUSTRIAL EDUCATION TEACHER Height 177.8 cm (5' 10 ) 09/27/2020 1:09 AM INDUSTRIAL EDUCATION TEACHER Body Mass Index 19.45 09/27/2020 1:09 AM INDUSTRIAL EDUCATION TEACHER Functional Status Functional Status Response Date of Assess ment Is person deaf or have serious hearing difficult y? Yes 09/27/2020 Is person blind or have serious difficulty seein g? No 09/27/2020 Does person have serious dif ficulty walking/climbing stairs? Yes 09/27/2020 Does person have difficulty dressing/bathing? No 09/27/2020 Does person have difficulty doing errands alone? No 09/27/2020 Cognitive Status Response Date of Assessm ent Does person have difficulty concentrating/remembering/making decisions? No 09/27/2020 Plan of Treatment Not on file Medical Devices Implanted Type Area Animal Care Taker Device Identifier Shelf Expiration Date Model / Serial / Lot Mesh Srg Parietex Progrip 15x9cm Rect Implanted:Qty: 1 on 09/28/2020 by Erwin Diamond, DO at [facility] Left: Groin Covidien 04/14/2024 [id number] / / [id number] Mesh Srg Parietex Progrip 14x9cm Slf Implanted:Qty: 1 on 09/28/2020 by Erwin Diamond, DO at [facility] Right: Groin Covidien 10/12/2024 [id number] / / [id number] Advance Directives Documents on File Type Date Recorded Patient Manager Solar Expl anation Adv Directive/Living Will/POA 07/03/2010 1:31 PM Adv Directive/Living Will/POA 07/30/2009 12:18 PM * Full Code (Latest Code Status on File) Date Activated Date Inactivated Comments 09/27/2020 1:41 AM 09/30/2020 1:00 PM * Full Code Date Activated Date Inactivated Comments 06/29/2010 2:33 PM 07/02/2010 11:18 PM * Full Code Date Activated Date Inactivated Comments 07/23/2009 1:57 PM 07/27/2009 3:58 AM Care Teams Technical Specialist Relationship Specialty Start Date End Date Jarad Rodriguez MD [address] [place] [address] PCP - General 10/27/21
--- OUTSIDE RECORDS SUMMARY | 2024-09-07 03:30 | XMS_ITS | Referral Summary ---
Author Organization [facility] [address] [address] [place] [phone] Care Team Providers Care Java Scala Developer Name Role Phone Jarad Rodriguez MD Primary Care Provider [phone] Encounters Date Type Department Care Team Description 09/06/2024 Telephone [facility] Rim Technician at [address] [place] [phone] [place], [place] 07/18/2024 2:10 PM [facility] [address] [phone] Elevated PSA 07/18/2024 1:15 PM [facility] Office Visit [facility] Rim Technician at [address] [phone] Hortencia Reis NP Congestive heart failure, unspecified HF chronicity, unspecified heart failure type (HCC) (Primary Dx); Hypertension, unspecified type; Dyslipidemia 07/02/2024 Orders Only [facility] Urology [address] [address] Jeremi Gomes MD Elevated PSA (Primary Dx) from Last 3 Months Allergies Active Allergy Reactions Criticality Noted Date Comments Penicillins Rash,Other (See comments) Medium 9 Blisters/ shock Medications FLUoxetine (PROzac) 10 mg tablet/capsuleIn dications:major depressive disorder Take 2 tablet/capsule (20 mg total) by mouth daily 20 mg in the morning and 10 mg at night Active memantine (NAMENDA) 10 mg tabletIndication s:Moderate to Severe Alzheimer's Type Dementia Take 1 tablet (10 mg total) by mouth 2 (two) times a day Active vit A/vit C/vit E/zinc/copper (ICAPS AREDS ORAL)Indications :eye vitamin Take 1 capsule by mouth 2 (two) times a day Active timoloL (BETIMOL) 0.25 % ophthalmic solutionIndicati ons:open angle glaucoma Administer 1-2 drops into both eyes 2 (two) times a day Active multivit-min/FA/ lycopen/lutein (CENTRUM SILVER MEN ORAL)Indications :supplement Take 1 tablet by mouth every morning Active thiamine (VITAMIN B1) 100 mg tabletIndication s:Wernicke-Korsa koff Syndrome Take 1 tablet (100 mg total) by mouth daily Active midodrine (PROAMATINE) 5 mg tabletIndication s:Symptomatic Orthostatic Hypotension Take 1.5 tablets (7.5 mg total) by mouth 3 (three) times a day as needed (TID PRN for SBP <100 mmHg) For BP below 100 90 tablet 3 4 Active budesonide EC (ENTOCORT EC) 3 mg 24 hr capsule Take 2 capsules (6 mg total) by mouth every morning Active famotidine (PEPCID) 40 mg tablet Take 1 tablet (40 mg total) by mouth daily Active isosorbide mononitrate ER (IMDUR) 30 mg 24 hr tablet Take 1 tablet (30 mg total) by mouth daily 30 tablet 4 04/04/20 25 Active atorvastatin (LIPITOR) 20 mg tablet Take 1 tablet (20 mg total) by mouth daily 30 tablet 4 04/04/20 25 Active traZODone (DESYREL) 50 mg tablet Take 0.5 tablets (25 mg total) by mouth nightly Active acidophilus-pect in, citrus 100 million cell-10 mg capsule Take 1 capsule by mouth every morning Active Active Problems Problem Noted Date Diagnosed Date C. difficile colitis 07/14/2023 SARAH (acute kidney injury) 07/13/2023 Abnormal stress test 04/13/2023 Moderate dementia associated with alcoholism Chest pain 04/07/2023 Hypertension 04/07/2023 NSTEMI (non-ST elevated myocardial infarction) ( CMS/HCC) 02/28/2023 Prostate cancer 11/03/2021 Overview (11/03/2021): Added automatically from request for surgery [id number] Elevated PSA 08/28/2021 Overview (08/28/2021): Added automatically from request for surgery [id number] Weight decreased 03/20/2014 Overview (11/19/2016): Weight loss Social History Tobacco Use Types Packs/Day Years Used Date Smoking Tobacco: Former Cigarettes 1 40 1 960 - 2000 Smokeless Tobacco: Never Tobacco Cessation:Counseling Given: Not Answered Alcohol Use Standard Drinks/Week Comments Yes 0 (1 standard drink = 0.6 oz pur e alcohol) [facility] [email or web address] Answer Date Recorded In the past 12 months has e electric, gas, oil, or water [employer] [place] threatened to shut off services in your home? No 07/14/2023 Social Connection and Isolat ion Panel [NHANES] Answer Date Recorded In a typical week, how many times do you talk on the phone with family, friends, or neighbors? More than three times a week 07/14/2023 How often do you get togethe r with friends or relatives? Three times a week 07/14/2023 How often do you attend chur ch or protestant services? 1 to 4 times per year 07/14/2023 Do you belong to any clubs o r organizations such as zoroastrianism groups, unions, fraternal or athletic groups, or school groups? No 07/14/2023 How often do you attend meet ings of the clubs or organizations you belong to? Never 07/14/2023 Are you , , di vorced, , never , or living with a partner? 07/14/2023 AUDIT-C Answer Date Recorded Q1: How often do you have a drink containing alcohol? 4 or more times a week 07/13/2023 Q2: How many drinks containi ng alcohol do you have on a typical day when you are drinking? 10 or more Q3: How often do you have si x or more drinks on one occasion? Daily or almost daily 07/13/2023 Overall Financial Resource Strain (CARDIA) Answe r Date Recorded How hard is it for you to pa y for the very basics like food, housing, medical care, and heating? Not very hard 07/14/2023 Hunger Vital Sign Answer Date Recorded Within the past 12 months, y ou worried that your food would run out before you got the money to buy more. Never true 07/14/20 23 Within the past 12 months, t he food you bought just didn't last and you didn't have money to get more. Never true 07/14/2023 PRAPARE - Transportation Answer Date Re corded In the past 12 months, has l ack of transportation kept you from medical appointments or from getting medications? No 06/17 In the past 12 months, has l ack of transportation kept you from meetings, work, or from getting things needed for daily living? No 07/14/2023 Housing Stability Vital Sign Answer Demario e Recorded In the last 12 months, was t here a time when you were not able to pay the mortgage or rent on time? No 07/14/2023 In the last 12 months, how many places have you lived? 1 07/14/2023 In the last 12 months, was t here a time when you did not have a steady place to sleep or slept in a halfway (including now)? No 07/14/2023 Personal Safety Answer Date Recorded Have you ever been in or are you currently in a harmful physical or emotional relationship or is someone making you feel afraid or unsafe? Denies 03/28/2024 Sex and Gender Information Value Date Recorded Sex Assigned at Not on file Legal Sex Male 8:03 AM BRICK BURNER HEAD Gender Identity Not on file Sexual Orientation Not on file Last Filed Vital Signs Vital Sign Reading Time Taken Comments Blood Pressure 135/85 07/18/2024 1:35 PM BRICK BURNER HEAD Pulse 51 07/18/2024 1:35 PM BRICK BURNER [facility] Temperature 36 ??C (96.8 ??F) 03/28/2024 10:15 AM CDT Respiratory Rate 18 05/09/2024 1:26 PM CDT Oxygen Saturation 100% 03/28/2024 10:15 AM CDT Inhaled Oxygen Concentration - - Weight 68 kg (150 lb) 07/18/2024 1:35 PM BRICK BURNER HEAD Height 175.3 cm (5' 9 ) 07/18/2024 1:35 PM BRICK BURNER HEAD Body Mass Index 22.15 07/18/2024 1:35 PM BRICK [facility]URNER [facility] Plan of Treatment Not on file Procedures Procedure Name Priority Date/Time Associated Diagnosis Comments PSA DIAGNOSTIC Routine 07/18/2024 2:24 PM BRICK [facility]URNER HEAD Elevated PSA from Last 3 Months Results * PSA diagnostic (07/18/2024 2:24 PM [facility]URNER [facility]) PSA-Total 1.42 <=6.20 ng/mL Comment: Interpretive Data ?AGE ? SEX ?REFERENCE INTERVAL 0 minutes-150 years ?Female ?None 0 minutes-49 years ? Male ?None ? 50-59 years ? Male ?0-3.90 ? 60-69 years ? Male ?0-5.40 ? 70-79 years ? Male ?0-6.20 ? 80-150 years ?Male ?0-6.20 The Gilberto PSA Total assay procedure was used. Results from different manufacturers or methods may not be comparable. Serial testing should be performed using the same method. Current interpretive data last revised 21. Blood 07/18/2024 2:24 PM [facility] 07/18/2024 3:31 PM [facility] us Jeremi Gomes MD LAB BLOOD ORDERABLES Fi nal Result [facility] ([place]) 1 [facility] Department [place] [address] from Last 3 Months Additional Health Concerns Infection Onset Date Last Indicated C. difficile 07/13/2023 07/13/2023 Insurance MEDICARE [facility] MEDICARE MEDICARE [place] MEDICARE SUPPLEMENT Advance Directives For more information, please contact: [phone] Documents on File Type Date Recorded Patient I&C Technician Expl anation ADVANCE DIRECTIVE 11/11/2021 10:57 AM * Full Code (Latest Code Status on File) Date Activated Date Inactivated Comments 07/13/2023 6:41 PM 07/16/2023 7:47 PM * Full Code Date Activated Date Inactivated Comments 02/28/2023 1:36 PM 03/02/2023 11:06 PM Care Teams Java Scala Developer Relationship Specialty Start Date End Date Jarad Rodriguez MD PCP - General Internal Medicine 05/31/22
--- OUTSIDE RECORDS SUMMARY | 2024-09-07 03:30 | XMS_ITS | Clinical Summary ---
Author Organization [facility] [place] [facility] [address] [place] [phone] Care Team Providers Care Program Consultant Name Role Phone Jarad Rodriguez MD Primary Care Provider [phone] Allergies Active Allergy Reactions Criticality Noted Date [...] mg total) by mouth daily 30 tablet 04/04/20 25 Active atorvastatin (LIPITOR) 20 mg tablet Take 1 tablet (20 mg total) by mouth daily 30 tablet 04/04/20 25 Active traZODone (DESYREL) 50 mg [...] 04/07/2023 NSTEMI (non-ST elevated myocardial infarction) ( [facility]) 02/28/2023 Prostate cancer 11/03/2021 Overview (11/03/2021): Added automatically from request for surgery [id number] Elevated PSA 08/28/2021 Overview (08/28/2021): Added automatically from request for surgery [id number] Weight decreased 03/20/2014 Overview (11/19/2016): Weight loss Encounters Date Type Department Care Team Description 09/06/[address] [facility] T[facility] at [address] [place] [phone] [place] 07/18/2024 2:10 PM [facility] APPRENTICE Lab [address] [phone] Elevated PSA 07/18/2024 1:15 PM STEREOTYPER APPRENTICE Office Visit [facility] at [address] [phone] Hortencia Reis NP Congestive heart failure, unspecified HF chronicity, unspecified heart failure type (HCC) (Primary Dx); Hypertension, unspecified type; Dyslipidemia 07/02/2024 Orders Only [facility]) - [facility] Urology [address] [phone] Jeremi Gomes MD Elevated PSA (Primary Dx) from Last 3 Months Surgical History Surgery Date Site/Laterality Comments APPENDECTOMY ? INGUINAL HERNIA REPAIR 09/28/2020 Bilateral ESOPHAGOGASTRODUODENOSCOPY 03/16/2019, 10/2021 PROSTATE BIOPSY 10/14/2021 Medical History Medical History Date Comments Hx Other Medical Valvular Heart Disease trace AI Osteoarthritis Osteoarthritis Hx Other Medical Arrhythmias h/o bifascular block and palpitations Shingles 09/26/2021 H/O ETOH abuse Finished ETOH re hab 09/2020 Shingles Family History Medical History Relation Name Comments Dementia Mother Dementia; Anesthesia problems Neg Hx Relation Name Status Comments Mother Social History Tobacco Use Types Packs/Day Years Used Date Smoking Tobacco: Former Cigarettes 1 40 1 960 - 2000 Smokeless Tobacco: Never Tobacco Cessation:Counseling Given: Not Answered Alcohol Use Standard Drinks/Week Comments Yes 0 (1 standard drink = 0.6 oz pur e alcohol) [facility] Utilities Answer Date Recorded In the past 12 months has [employer], gas, oil, or water [employer] threatened to shut off services in your [...] often do you attend chur ch or jainism services? 1 to 4 times per year 07/14/2023 Do you belong to any clubs o r organizations such as baptism groups, unions, fraternal or athletic groups, or [...] place to sleep or slept in a nursing home (including now)? No 07/14/2023 Personal Safety Answer Date Recorded Have you ever been in or are you currently in a harmful physical or emotional relationship or is someone making you feel afraid or unsafe? Denies 03/28/2024 Sex and Gender Information Value Date Recorded Sex Assigned at Not on file Legal Sex Male 8:03 AM STEREOTYPER APPRENTICE Gender Identity Not on file Sexual Orientation Not on file Obstetrics History Last Filed Vital Signs Vital Sign Reading Time Taken Comments Blood Pressure 135/85 07/18/2024 1:35 PM STEREOTYPER APPRENTICE Pulse 51 07/18/2024 1:35 PM STEREOTYPER APPRENTICE Temperature 36 ??C (96.8 ??F) 03/28/2024 10:15 AM CDT Respiratory Rate 18 05/09/2024 1:26 PM CDT Oxygen Saturation 100% 03/28/2024 10:15 AM CDT Inhaled Oxygen Concentration - - Weight 68 kg (150 lb) 07/18/2024 1:35 PM STEREOTYPER APPRENTICE Height 175.3 cm (5' 9 ) 07/18/2024 1:35 PM STEREOTYPER APPRENTICE Body Mass Index 22.15 07/18/2024 1:35 PM STEREOTYPER APPRENTICE Plan of Treatment Health Maintenance Due Date Last Done Comments Depression Screening 1945 Hepatitis B Screening 1961 Zoster Vaccine (1 of 2) 1993 Well Visit 65+ 2008 Covid-19 Vaccine ( - 2023-2 5 season) 2024 06/02/2021, 10/30/2020, 10/09/2020 Influenza Vaccine (#1) 2024 , 05/21/2020, 05/29/2019, Additional history exists Fall Risk Assessment 03/28/2025 03/28/2024 DTaP/Tdap/Td Vaccine (2 - Td or Tdap) 02/24/2026 02/25/2016 Pneumococcal vaccine 65+ Completed 07/24/2015, 01/2009 Procedures Procedure Name Priority Date/Time Associated Diagnosis Comments PSA DIAGNOSTIC Routine 07/18/2024 2:24 PM STEREOTYPER APPRENTICE Elevated PSA from Last 3 Months Results * PSA diagnostic (07/18/2024 2:24 PM STEREOTYPER APPRENTICE) PSA-Total 1.42 <=6.20 ng/mL Comment: Interpretive Data [...] last revised 21. Blood 07/18/2024 2:24 PM STEREOTYPER APPRENTICE 07/18/2024 3:31 PM STEREOTYPER APPRENTICE us Jeremi Gomes MD LAB BLOOD ORDERABLES Fi nal Result [facility] ([place]) 1 [facility] Department [place] [address] from Last 3 Months Additional Health Concerns Infection Onset Date Last Indicated C. difficile 07/13/2023 07/13/2023 Insurance MEDICARE [facility] MEDICARE MEDICARE [place] MEDICARE SUPPLEMENT Advance Directives For more information, please contact: [phone] Documents on File Type Date Recorded Patient Sports Book Writer Expl anation ADVANCE DIRECTIVE 11/11/2021 10:57 AM * Full Code (Latest Code Status on File) Date Activated Date Inactivated Comments 07/13/2023 6:41 PM 07/16/2023 7:47 PM * Full Code Date Activated Date Inactivated Comments 02/28/2023 1:36 PM 03/02/2023 11:06 PM Care Teams Program Consultant Relationship Specialty Start Date End Date Jarad Rodriguez MD PCP - General Internal Medicine 05/31/22
--- OUTSIDE RECORDS SUMMARY | 2024-09-07 03:30 | XMS_ITS | Clinical Summary ---
Author Organization [facility] Address [address] [place] [address] Care Team Providers Care Forensic Document Examiner Name Role Phone Jarad Rodriguez MD Primary Care Provider [phone] Source Comments [facility],non-owned Affiliates and Associated Physician Practices is amultiple site organization consisting of ambulatory clinics and hospital sitesin [place], [place], [place] and [place]. This disclosure is being madepursuant to the Care Everywhere program and may not contain all information available regarding this patient. Last updated 18.[facility] Allergies Active Allergy Reactions Criticality Noted Date [...] Take by mouth daily. Acti ve therapeutic multivitamin-bore miner operator als (THERAGRAN-M) tablet Take 1 Tab by mouth daily with breakfast. Active losartan (COZAAR) 25 MG tabletIndications: usually takes in PM Take 25 mg by mouth daily. Instructed to take AM of surgery Indications: usually takes in PM Active [place]iting-3 Fatty Acids (FISH OIL PO) Take by [...] Comments Blood Pressure 116/82 09/30/2020 7:48 AM GREASE MAN Pulse 62 09/30/2020 7:48 AM GREASE MAN Temperature 36.6 ??C (97.9 ??F) 09/30/2020 7:48 AM CS T Respiratory Rate 18 09/30/2020 7:48 AM GREASE MAN Oxygen Saturation 98% 09/30/2020 7:48 AM GREASE MAN Inhaled Oxygen Concentration - - Weight 61.5 kg (135 lb 9.3 oz) 09/27/2020 1:09 A M GREASE MAN Height 177.8 cm (5' 10 ) 09/27/2020 1:09 AM GREASE MAN Body Mass Index 19.45 09/27/2020 1:09 AM GREASE MAN Plan of Treatment Health Maintenance Due Date Last Done Comments MEDICARE AWV ? 12 MONTHS 1945 DTAP/TDAP/TD VACCINES (1 - Tdap) 1962 PNEUMOCOCCAL VACCINE 50+ (1 of 1 - PCV) 1993 ZOSTER VACCINE (1 of 2) 1993 Respiratory Syncytial Virus (RSV) Vaccine Pt: or over 60 yrs (1 - 1-dose 75+ series) 2018 COVID-19 VACCINE (1 - 2023-2 5 season) 2024 INFLUENZA VACCINE (#1) 2024 DEPRESSION SCREENING 08/15/2024 HEPATITIS B VACCINE Aged Out No longe r eligible based on patient's age to complete this topic HIB VACCINE Aged Out No longer eligi ble based on patient's age to complete this topic HPV VACCINE Aged Out No longer eligi ble based on patient's age to complete this topic MENINGOCOCCAL (Group B) VACCINE Aged Out No longer eligible based on patient's age to complete this topic MENINGOCOCCAL VACCINE Aged Out No karol kwaku eligible based on patient's age to complete this topic Medical Devices Implanted Type Area Grass Farm Laborer Device Identifier Shelf Expiration Date Model / Serial / Lot Mesh Srg Parietex Progrip 15x9cm Rect Implanted:Qty: 1 on 09/28/2020 by Erwin Diamond DO at [facility] Left: Groin Covidien 04/14/2024 [id number] / / [id number] Mesh Srg Parietex Progrip 14x9cm Slf Implanted:Qty: 1 on 09/28/2020 by Erwin Diamond DO at [facility] Right: Groin Covidien 10/12/2024 [id number] / / [id number] Advance Directives Documents on File Type Date Recorded Patient Fryer Line Helper Expl anation Adv Directive/Living Will/POA 07/03/2010 1:31 PM Adv Directive/Living Will/POA 07/30/2009 12:18 PM * Full Code (Latest Code Status on File) Date Activated Date Inactivated Comments 09/27/2020 1:41 AM 09/30/2020 1:00 PM * Full Code Date Activated Date Inactivated Comments 06/29/2010 2:33 PM 07/02/2010 11:18 PM * Full Code Date Activated Date Inactivated Comments 07/23/2009 1:57 PM 07/27/2009 3:58 AM Care Teams Forensic Document Examiner Relationship Specialty Start Date End Date Jarad Rodriguez MD [address] [place] [address] PCP - General 10/27/21
--- OUTSIDE RECORDS SUMMARY | 2024-09-07 03:30 | XMS_ITS | Patient Health Summary ---
Author Organization [facility] Address [address] [place] [address] Care Team Providers Care Fishing Vessel Operator Name Role Phone Jarad Rodriguez MD Primary Care Provider [phone] Note from [facility],non-owned Affiliates and Associated Physician Practices is amultiple site organization consisting of ambulatory clinics and hospital sitesin [place], [place], [place] and [place]. This disclosure is being madepursuant to the Care Everywhere program and may not contain all information available regarding this patient. Last updated 18.[facility] NP [employer] Allergies * Penicillin G Potassium(Rash) Medications * Be aware that medications may not be up to date on this document. Alwaysverify current medications with the patient. * lovastatin (MEVACOR) 20 MG tablet Take 20 mg by mouth at bedtime. * timolol maleate (TIMOPTIC) 0.5 % ophthalmic solution 1 Drop 2 times daily. Both eyes * Magnesium 250 MG TABS Take by mouth daily. * therapeutic multivitamin-minerals (THERAGRAN-M) tablet Take 1 Tab by mouth daily with breakfast. * losartan (COZAAR) 25 MG tablet Take 25 mg by mouth daily. Instructed to take AM of surgery Indications: usually takes in PM * [place]-3 Fatty Acids (FISH OIL PO) Take by mouth. * aspirin 81 MG tablet Take 81 mg by mouth once daily. * thiamine (VITAMIN B-1) 100 MG tablet Take 100 mg by mouth once daily * torsemide (DEMADEX) 10 MG tablet Take 10 mg by mouth once daily * acetaminophen (TYLENOL) 500 MG tablet Take 1,000 mg by mouth every 6 hours as needed for Fever or Pain Maximum allowable Acetaminophen amount = 4 Grams (4000 mg) / 24 hours. * loperamide (IMODIUM) 2 MG capsule Take 2 mg by mouth 2 times daily as needed for Diarrhea * docusate sodium (COLACE) 100 MG capsule Take 100 mg by mouth once daily as needed for Constipation * folic acid (FOLVITE) 1 MG tablet Take 1 mg by mouth once daily * magnesium oxide (MAG-OX) 400 MG tablet Take 400 mg by mouth 2 times daily * mirtazapine (REMERON) 15 MG tablet Take 15 mg by mouth at bedtime * pantoprazole EC (PROTONIX) 20 MG tablet Take 20 mg by mouth once daily * potassium chloride ER (KLOR-CON M) 20 MEQ tablet Take 20 mEq by mouth once daily * oxyCODONE, immediate release, (ROXICODONE) 5 MG tablet(Started 09/30/2020) Take 1 (one) tablet by mouth every 6 hours as needed for Pain Active Problems Problem Noted Date Diagnosed Date [...] Comments Blood Pressure 116/82 09/30/2020 7:48 AM MULTIMEDIA ARTIST Pulse 62 09/30/2020 7:48 AM MULTIMEDIA ARTIST Temperature 36.6 ??C (97.9 ??F) 09/30/2020 7:48 AM CS T Respiratory Rate 18 09/30/2020 7:48 AM MULTIMEDIA ARTIST Oxygen Saturation 98% 09/30/2020 7:48 AM MULTIMEDIA ARTIST Inhaled Oxygen Concentration - - Weight 61.5 kg (135 lb 9.3 oz) 09/27/2020 1:09 A M MULTIMEDIA ARTIST Height 177.8 cm (5' 10 ) 09/27/2020 1:09 AM MULTIMEDIA ARTIST Body Mass Index 19.45 09/27/2020 1:09 AM MULTIMEDIA ARTIST Medical Devices Implanted Type Area Hydraulic Jack Operator Device Identifier Shelf Expiration Date Model / Serial / Lot Mesh Srg Parietex Progrip 15x9cm Rect Implanted:Qty: 1 on 09/28/2020 by Erwin Diamond DO at [facility] Left: Groin Covidien 04/14/2024 [id number] / / [id number] Mesh Srg Parietex Progrip 14x9cm Slf Implanted:Qty: 1 on 09/28/2020 by Erwin Diamond, at [facility] Right: Groin [employer]idien 10/12/2024 [id number] / / [id number] Procedures * URINALYSIS REFLEX TO MICROSCOPIC NO CULTURE(Performed 09/29/2020) * BASIC METABOLIC PANEL (CALCIUM TOTAL)(Performed 09/29/2020) * PHOSPHORUS BLOOD(Performed 09/29/2020) * MAGNESIUM BLOOD(Performed 09/29/2020) * BASIC METABOLIC PANEL (CALCIUM TOTAL)(Performed 09/29/2020) * CBC W AUTO DIFFERENTIAL(Performed 09/29/2020) * LAPAROSCOPIC REPAIR INGUINAL HERNIA(Performed 09/28/2020) Performed for Inguinal hernia without obstruction or gangrene, recurrence not specified, unspecified laterality * ENDOTRACHEAL TUBE NOTE(Performed 09/28/2020) * PHOSPHORUS BLOOD(Performed 09/28/2020) * MAGNESIUM BLOOD(Performed 09/28/2020) * BASIC METABOLIC PANEL (CALCIUM TOTAL)(Performed 09/28/2020) * CBC W AUTO DIFFERENTIAL(Performed 09/28/2020) * BASIC METABOLIC PANEL (CALCIUM TOTAL)(Performed 09/27/2020) * TYPE + SCREEN PANEL(Performed 09/27/2020) * PHOSPHORUS BLOOD(Performed 09/27/2020) * MAGNESIUM BLOOD(Performed 09/27/2020) * CBC W AUTO DIFFERENTIAL(Performed 09/27/2020) * COMPREHENSIVE METABOLIC PANEL(Performed 09/27/2020) * PTT SLH(Performed 09/27/2020) * SARS-COV-2 (COVID-19) IN HOUSE(Performed 09/27/2020) * XR KNEE BILAT 3VW(Performed 08/24/2011) Performed for Osteoarthrosis, unspecified whether generalized or localized, lower leg * CARDIAC EKG ORDER(Performed 07/03/2010) * HGB HCT PANEL(Performed 07/01/2010) * HGB HCT PANEL(Performed 06/30/2010) * CARDIAC EKG ORDER(Performed 05/19/2010) * CULTURE MSSA(Performed 05/18/2010) Performed for Preop examination * CULTURE MRSA(Performed 05/18/2010) Performed for Preop examination * CBC W AUTO DIFFERENTIAL(Performed 05/18/2010) Performed for Preop examination * COMPREHENSIVE METABOLIC PANEL(Performed 05/18/2010) Performed for Preop examination * HGB HCT PANEL(Performed 07/25/2009) Performed for Osteoarth NOS-Unspec * HGB HCT PANEL(Performed 07/24/2009) Performed for Osteoarth NOS-Unspec Results * (ABNORMAL) URINALYSIS REFLEX TO MICROSCOPIC NO CULTURE (09/29/2020 9:20 AM [facility]) Color UA Yellow Straw, Yellow, Colorless 09/29/2020 9:32 AM [facility] Clarity UA Clear Clear, Slt Cloudy 09/29/2020 9:32 AM [facility] Specific [place] UA 1.012 1.005 - 1.030 09/29/2020 9:32 AM [facility] pH UA 5.0 5.0 - 8.0 pH 09/29/2020 9:32 AM [facility] Protein UA Negative Negative mg/dL 09/29/2020 9:32 AM [facility] Glucose UA Negative Negative mg/dL 09/29/2020 9:32 AM [facility] Ketone UA Negative Negative mg/dL 09/29/2020 9:32 AM [facility] Bilirubin UA Negative Negative mg/dL 09/29/2020 9:32 AM [facility] Blood UA Negative Negative 09/29/2020 9:32 AM [facility] Nitrite UA Negative Negative 09/29/2020 9:32 AM [facility] Leukocyte Esterase Trace(A) Negative 09/29/2020 9:32 AM [facility] Urobilinogen UA Negative Negative mg/dL 09/29/2020 9:32 AM [facility] RBC UA 0-2 None Seen, 0-2, 3-5 /HPF 09/29/2020 9:32 AM [facility] WBC UA 21-50(A) None Seen, 0-5 /HPF 09/29/2020 9:32 AM [facility] Bacteria UA Trace None, Trace /HPF 09/29/2020 9:32 AM [facility] Squamous Epithelial Cells UA None Seen None Seen, 0-2 /HPF 09/29/2020 9:32 AM [facility] Hyaline Casts UA 0-2 None Seen, 0-2 /LPF 09/29/2020 9:32 AM [facility] Urine URINE SPECIMEN OBTAINED BY CLEAN CATCH PROCEDURE / Unknown Collection / Unknown 09/29/2020 9:20 AM M[facility]IMEDIA ARTIST 09/29/2020 9:26 AM [facility] - 09/29/2020 9:32 AM MULTIMEDIA ARTIST Erwin Diamond DO LAB - URINALYSIS ORD ERABLES [facility] [address] [place] [address], [facility] [phone] * (ABNORMAL) BASIC METABOLIC PANEL (CALCIUM TOTAL) (09/29/2020 6:52 AM MULTIMEDIA ARTIST) Only the most recent of4 resultswithin the time period is included. BUN 11 7 - 26 mg/dL 09/29/2020 7:25 AM [facility] Creatinine 0.7 0.6 - 1.2 mg/dL 09/29/2020 7:25 AM [facility] Sodium 134(L) 136 - 145 mmol/L 09/29/2020 7:25 AM [facility] Potassium 4.0 3.5 - 4.5 mmol/L 09/29/2020 7:25 AM [facility] Chloride 106 98 - 107 mmol/L 09/29/2020 7:25 AM [facility] CO2 21(L) 22 - 29 mmol/L 09/29/2020 7:25 AM [facility] Glucose 88 70 - 115 mg/dL 09/29/2020 7:25 AM [facility] Calcium 8.3(L) 8.4 - 10.2 mg/dL 09/29/2020 7:25 AM [facility] Anion Gap 11 8 - 18 09/29/2020 7:25 AM [facility] BUN/Creatinine Ratio 16 7 - 23 09/29/2020 7:25 AM [facility] Osmolality Calculated 277 270 - 300 mOsm/kg 09/29/2020 7:25 AM [facility] eGFR >60 >60 mL/min/1.7 3 m2 09/29/2020 7:25 AM [facility] Blood BLOOD SPECIMEN / Unknown Venipuncture / Unknown 09/29/2020 6:52 AM M[facility]IMEDIA ARTIST 09/29/2020 6:55 AM M[facility]IMEDIA ARTIST Erwin Diamond DO LAB - CHEMISTRY ORDE LIZ [facility] [address] [place] [address], [facility] [phone] * (ABNORMAL) CBC W AUTO DIFFERENTIAL (09/29/2020 4:59 AM [facility]) Only the most recent of4 resultswithin the time period is included. WBC 8.7 3.5 - 10.5 10? 3 /uL 09/29/2020 5:49 AM [facility] Comment:Confirmed by repeat analysis. RBC 3.47(L) 4.30 - 5.70 10? 6 /uL 09/29/2020 5:49 AM [facility] Hemoglobin 11.2(L) 13.5 - 17.5 g/dL 09/29/2020 5:49 AM [facility] Hematocrit 32.4(L) 39.0 - 50.0 % 09/29/2020 5:49 AM [facility] MCV 93.4 81.0 - 97.0 fL 09/29/2020 5:49 AM [facility] MCH 32.3 28.0 - 34.0 pg 09/29/2020 5:49 AM [facility] MCHC 34.6 32.0 - 36.0 g/dL 09/29/2020 5:49 AM [facility] Platelet Count 214 150 - 400 10? 3 /uL 09/29/2020 5:49 AM [facility] RDW-SD 51.3(H) 36.0 - 50.0 fL 09/29/2020 5:49 AM [facility] RDW-CV 15.0(H) 11.2 - 14.8 % 09/29/2020 5:49 AM [facility] MPV 10.2 9.3 - 12.8 fL 09/29/2020 5:49 AM [facility] nRBC Absolute 0.00 0 10? 3 /uL 09/29/2020 5:49 AM [facility] nRBC Auto 0.0 0 /100 WBC 09/29/2020 5:49 AM [facility] Neutrophils % 73.6(H) 35.0 - 70.0 % 09/29/2020 5:49 AM [facility] Lymphocytes % 16.6(L) 19.7 - 55.1 % 09/29/2020 5:49 AM [facility] Monocytes % 9.2 3.0 - 15.0 % 09/29/2020 5:49 AM [facility] Eosinophils % 0.1 0.0 - 6.0 % 09/29/2020 5:49 AM [facility] Basophil % 0.2 0.0 - 1.5 % 09/29/2020 5:49 AM [facility] Neutrophils Absolute 6.4 1.6 - 7.0 10? 3 /uL 09/29/2020 5:49 AM [facility] Lymphocyte Absolute 1.5 0.8 - 2.9 10? 3 /uL 09/29/2020 5:49 AM [facility] Monocytes Absolute 0.80(H) 0.14 - 0.66 10? 3 /uL 09/29/2020 5:49 AM [facility] Eosinophils Absolute 0.01 0.00 - 0.45 10? 3 /uL 09/29/2020 5:49 AM [facility] Basophils Absolute 0.02 0.00 - 0.06 10? 3 /uL 09/29/2020 5:49 AM [facility] Immature Granulocytes % 0.3 0.0 - 1.0 % 09/29/2020 5:49 AM [facility] Blood BLOOD SPECIMEN / Unknown Venipuncture / Unknown 09/29/2020 4:59 AM M[facility]IMEDIA ARTIST 09/29/2020 5:18 AM [facility] Erwin Hirschper DO LAB - HEMATOLOGY ORD LAURIE Performing Organization Address [facility] Co de Phone Number [address] [address], [facility] [phone] * (ABNORMAL) PHOSPHORUS BLOOD (09/29/2020 4:59 AM MULTIMEDIA ARTIST) Only the most recent of3 resultswithin the time period is included. Phosphorus 1.5(L) 2.3 - 4.7 mg/dL 09/29/2020 5:42 AM MULTIMEDIA ARTIST [facility] Blood BLOOD SPECIMEN / Unknown Venipuncture / Unknown 09/29/2020 4:59 AM M[facility]IMEDIA ARTIST 09/29/2020 5:18 AM M[facility]IM[facility]IA ARTIST Erwin Hirschper DO LAB - CHEMISTRY ORDCesar HILL Performing Organization Address [facility] Co de Phone Number [address] [address], [facility] [phone] * MAGNESIUM BLOOD (09/29/2020 4:59 AM MULTIMEDIA ARTIST) Only the most recent of3 resultswithin the time period is included. Magnesium 1.7 1.6 - 2.6 mg/dL 09/29/2020 5:42 AM MULTIMEDIA ARTIST [facility] Blood BLOOD SPECIMEN / Unknown Venipuncture / Unknown 09/29/2020 4:59 AM M[facility]IMEDIA ARTIST 09/29/2020 5:18 AM M[facility] ARTIST Erwin Vilma Dara BETHEA LAB - CHEMISTRY [place] Performing Organization Address [facility]/ZIP Co de Phone Number [address] [address], [facility] [phone] * ETT LINE PERFORMABLE (09/28/2020 10:12 AM MULTIMEDIA ARTIST) Narrative Hari Crook, DO - 09/28/2020 10:12 AM M[facility]IMEDIA ARTIST Hari Crook, DO ? 09/28/2020 10:12 AM Endotracheal Tube Placement: ? Patient Location: OR. Intubation Event Date/Time: ??09/28/2020 9:49 AM Procedure: intubation ([id number]). Procedure Section: ?? Sedation: under general anesthesia. Indications for Airway Management: ??anesthesia Induction: standard IV and inhalation Patient Position: ??sniffing Mask Ventilation: easy. Blade Type: Parker Blade Size: 4 Laryngoscopy View: grade 1 (full cords) Tube: endotracheal tube Placement: oral Tube type: cuff - inflated Tube Size (MM): 8 Depth of Insertion (CM): 24 Measured From: lips Cuff Inflated With: air Number of Attempts: 1. Placement Verified By: direct visualization, bilateral breath sounds, chest auscultation and CO2 monitor Tube secured with: ??adhesive tape. Difficult Airway? ??No. Procedure Start Time: 09/28/2020 9:49 AM. Staff Section ?? Anesthesia Provider: Hari Crook DO, Performed the procedure Jd Jimenez MD GENERAL ANESTHESIA ORDERABLES * TYPE + SCREEN PANEL (09/27/2020 5:31 AM MULTIMEDIA ARTIST) Antibody Screen NEG 6:17 AM [facility] ABO Rh A POS 09/27/2020 6:17 AM [facility] Blood Bank BLOOD SPECIMEN / Unknown Venipuncture / Unknown 09/27/2020 5:31 AM M[facility]IMEDIA ARTIST 09/27/2020 5:41 AM M[facility] ARTIST Erwin Diamond DO LAB - BLOOD BANK ORD ERABLES Performing Organization Address [facility]/State/ZIP Co de Phone Number [facility]OD [facility] [address] [place] [address], [facility] [phone] * PTT [facility] (09/27/2020 2:28 AM MULTIMEDIA ARTIST) APTT 30.1 23.0 - 38.4 Seconds 09/27/2020 2:47 AM MULTIMEDIA ARTIST [facility] Comment:Suggested therapeuti c range for full dose I.V. unfractionated heparin therapy for venous thromboembolism is 71 to 109 seconds. Blood BLOOD SPECIMEN / Unknown Lab Venipuncture / Unknown 09/27/2020 2:28 AM M[facility]IMEDIA ARTIST 09/27/2020 2:39 AM M[facility]IMEDIA ARTIST Erwin Hirschper DO LAB - COAGULATION OR DERABLES [facility] [address] [place] [address], [facility] [phone] * (ABNORMAL) COMPREHENSIVE METABOLIC PANEL (09/27/2020 2:28 AM [facility]) Only the most recent of2 resultswithin the time period is included. BUN 43(H) 7 - 26 mg/dL 09/27/2020 2:59 AM [facility] Creatinine 1.7(H) 0.6 - 1.2 mg/dL 09/27/2020 2:59 AM [facility] Sodium 136 136 - 145 mmol/L 09/27/2020 2:59 AM [facility] Potassium 3.6 3.5 - 4.5 mmol/L 09/27/2020 2:59 AM [facility] Chloride 101 98 - 107 mmol/L 09/27/2020 2:59 AM [facility] CO2 19(L) 22 - 29 mmol/L 09/27/2020 2:59 AM [facility] Glucose 99 70 - 115 mg/dL 09/27/2020 2:59 AM [facility] Calcium 8.4 8.4 - 10.2 mg/dL 09/27/2020 2:59 AM [facility] Protein Total 7.0 6.0 - 8.3 g/dL 09/27/2020 2:59 AM [facility] Albumin 3.8 3.4 - 5.0 g/dL 09/27/2020 2:59 AM [facility] Bilirubin Total 0.7 0.2 - 1.2 mg/dL 09/27/2020 2:59 AM [facility] Alkaline Phosphatase 75 40 - 150 Units/L 09/27/2020 2:59 AM [facility] ALT 75(H) 0 - 55 Units/L 09/27/2020 2:59 AM [facility] AST 40(H) 5 - 34 Units/L 09/27/2020 2:59 AM [facility] Anion Gap 20(H) 8 - 18 09/27/2020 2:59 AM [facility] BUN/Creatinine Ratio 25(H) 7 - 23 09/27/2020 2:59 AM M[facility]IA ARTIST [facility] Osmolality Calculated 293 270 - 300 mOsm/kg 09/27/2020 2:59 AM M[facility]IM[facility]IA ARTIST [facility] Albumin/Globulin Ratio 1.2 1.1 - 2.3 09/27/2020 2:59 AM M[facility]IA ARTIST [facility] eGFR 39(L) >60 mL/min/1.7 3 m2 09/27/2020 2:59 AM M[facility]IMEDIA ARTIST [facility] Blood BLOOD SPECIMEN / Unknown Lab Venipuncture / Unknown 09/27/2020 2:28 AM M[facility] ARTIST 09/27/2020 2:32 AM [facility]IST Erwin Diamond DO LAB - CHEMISTRY ORDE LIZ [facility] [address] [place] [address], [facility] [phone] * SARS-COV-2 (COVID-19) IN HOUSE (09/27/2020 2:27 AM MULTIMEDIA ARTIST) COVID-19 PCR Not detected Not detected 09/27/2020 6:58 AM MULTIMEDIA ARTIST [facility] MICROBIOLOGY Microbiology SPECIMEN FROM NASOPHARYNGEAL STRUCTURE / Unknown Collection / Unknown 09/27/2020 2:27 AM MULTIMEDIA ARTIST 09/27/2020 2:32 AM MULTIMEDIA ARTIST Narrative [facility]CRO[facility] - 09/27/2020 6:58 AM MULTIMEDIA ARTIST This nucleic acid amplification assay performance was validated by [facility]. This test has been authorized by the Food and Drug administration (FDA)under an Emergency??Use Authorization (EUA). This test has been validated in accordance with the FDA's guidance document Policy for Diagnostic Testing in Laboratories Certified to perform High Complexity Testing under CLIA prior to Emergency Use Authorization for Coronavirus Disease-2019 during the Public Health Emergency issued on October 13, 2019. FDA independent review of this validation is pending. This test is only authorized for the duration of time the declaration that circumstances exist justifying the authorization of emergency use of in vitro diagnostic tests for detection of SARS-CoV-2 virus and/or diagnosis of COVID-19 infection under section 564(b)(1) of the Act, 21 U.S.C 360bbb-3 (b)(1), unless the authorization is terminated or revoked sooner. Fact Sheets for this EUA assay are available upon request. Erwin Diamond DO LAB - MICROBIOLOGY O RDERABLES Performing Organization Address City/[facility]/ZIP Co de Phone Number [facility] [address] [place] [address], [facility] [phone] * XR KNEE BILAT 3 VIEWS (08/24/2011 5:54 PM MULTIMEDIA ARTIST) Anatomical Region Laterality Modality Lower Extremity Other Narrative 08/24/2011 5:54 PM MULTIMEDIA ARTIST Nancy Aragon, RT ? 08/24/2011 ??5:54 PM See progress notes for results Procedure Note Nancy Aragon, RT - 08/24/2011 5:54 PM CST See progress notes for results Hari Lopez MD DIAGNOSTIC IMAGING O RDERABLES * CARDIAC EKG ORDER (07/03/2010 4:48 PM M[facility]IMEDIA ARTIST) Only the most recent of2 resultswithin the time period is included. Narrative Procedure Note Document, Scanned - 07/03/2010 1:31 PM MULTIMEDIA ARTIST Scanned Document CARDIAC SERVICES ORD ERABLES * (ABNORMAL) HGB HCT PANEL (07/01/2010 1:10 AM M[facility]IMEDIA ARTIST) Only the most recent of4 resultswithin the time period is included. Hemoglobin 8.7(L) 13.0 - 18.0 gm/dl [facility] Hematocrit 25.5(L) 39.0 - 54.0 % [facility] BLOOD SPECIMEN / Unknown 07/01/2010 1:10 AM MULTIMEDIA ARTIST 07/01/2010 2:52 AM M[facility] ARTIST Hari Lopez MD LAB - HEMATOLOGY ORD ERABLES Performing Organization Address City/[facility]/ZIP Co de Phone Number [facility] [address] [place] [address] * CULTURE MSSA (05/18/2010 11:37 AM CDT) Result [facility] Comment: Final ?? CULTURE No MSSA isolated. SPECIMEN FROM NASAL FOSSAE / Unknown 05/18/2010 11:37 AM CDT 05/18/2010 11:37 AM CDT Narrative Resulting Agency Comment Performed By [facility];[address] [place] [id number] Hari Lopez MD LAB - MICROBIOLOGY O RDLAURIE Performing Organization Address [facility] de Phone Number [facility] [address] [place] [address] * CULTURE MRSA (05/18/2010 11:37 AM CDT) Result [facility] Comment: Final ?? CULTURE No MRSA isolated SPECIMEN FROM NASAL FOSSAE / Unknown 05/18/2010 11:37 AM CDT 05/18/2010 11:37 AM CDT Narrative Resulting Agency Comment Performed By [facility];[address] [place] [id number] Hari Lopez MD LAB - MICROBIOLOGY O ROBERT Performing Organization Address [facility] de Phone Number [facility] [address] [place] [address] Care Teams Fishing Vessel Operator Relationship Specialty Start Date End Date Jarad Rodriguez MD [address] [place] [address] PCP - General 10/27/21
--- OUTSIDE RECORDS SUMMARY | 2024-09-07 03:30 | XMS_ITS | Clinical Summary ---
Author Organization [facility] Address [address] [place] [address]. [place] [address] [place] [address] Care Team Providers Care Dry Kiln Loader Name Role Phone Jarad Rodriguez MD Primary Care Provider [phone] Allergies Active Allergy Reactions Criticality Noted Date Comments Penicillins Unknown 03/15/2019 Medications escitalopram 10 MG tablet Take 10 mg by mouth daily. 1 02/05/2019 Active meclizine 12.5 MG tablet Take 12.5 mg by mouth 3 (three) times daily as needed. 0 01/31/2019 Active Multiple Vitamins-Minera ls (THERAPEUTIC MULTIVIT/MINERA L) Tab Take 1 tablet by mouth daily. Active KLOR-CON M20 20 MEQ tablet Take 1 tablet by mouth 2 (two) times a day. 0 03/01/2019 Active timolol 0.5 % ophthalmic solution Apply 1 drop to eye 2 (two) times daily as needed. Active probiotic capsule Take 1 capsule by mouth daily. Active vitamin D3, cholecalciferol , 1000 UNIT Tab tablet Take 1 tablet by mouth daily. Active thiamine 100 MG Tab Take 100 mg by mouth daily. Active levofloxacin 500 MG tabletIndicatio ns:for 7 days Take 500 mg by mouth daily. Active Active Problems No known active problems Social History Tobacco Use Types Packs/Day Years Used Date Smoking Tobacco: Never Smokeless Tobacco: Never Alcohol Use Standard Drinks/Week Comments No 0 (1 standard drink = 0.6 oz pur e alcohol) 3 drinks a day AUDIT-C Answer Date Recorded Frequency of Alcohol Consumption Never 03/16/2019 Average Number of Drinks Not on file 019 Frequency of Binge Drinking Not on file 09/2018 Sex and Gender Information Value Date Recorded Sex Assigned at Not on file Legal Sex Male 6:36 PM CDT Gender Identity Not on file Sexual Orientation Not on file Last Filed Vital Signs Vital Sign Reading Time Taken Comments Blood Pressure 137/60 03/16/2019 10:40 AM CDT Pulse 68 03/16/2019 10:40 AM CDT Temperature 36.3 ??C (97.4 ??F) 03/16/2019 10:30 AM C DT Respiratory Rate 16 03/16/2019 10:40 AM CDT Oxygen Saturation 100% 03/16/2019 10:40 AM CDT Inhaled Oxygen Concentration - - Weight 51.7 kg (114 lb) 03/15/2019 8:27 AM CDT Height 172.7 cm (5' 8 ) 03/15/2019 8:27 AM CDT Body Mass Index 17.33 03/15/2019 8:27 AM CDT Plan of Treatment Health Maintenance Due Date Last Done Comments DTaP, Tdap and Td Vaccines ( 1 - Tdap) 1962 Zoster Vaccines (1 of 2) 1993 Annual Medicare Wellness Visit 2008 Pneumococcal Vaccine: 65+ Ye ars (1 of 1 - PCV) 2008 RSV Immunization or 60+ Years (1 - 1-dose 75+ series) 2018 COVID-19 Vaccine ( - 2023-2 5 season) 2024 Influenza Adult (#1) 2024 Meningococcal B Vaccine Aged Out No l onger eligible based on patient's age to complete this topic Meningococcal Vaccine Aged Out No karol kwaku eligible based on patient's age to complete this topic RSV Immunizations Under 20 Months Aged Out No longer eligible based on patient's age to complete this topic Insurance MEDICARE Care Teams Dry Kiln Loader Relationship Specialty Start Date End Date Jarad Rodriguez MD [address] [place] [address] PCP - General INTERNAL MEDICINE 02/04/20
--- OUTSIDE RECORDS SUMMARY | 2024-09-07 03:30 | XMS_ITS ---
Author Organization [facility] [place] [address] [place] [id number] Care Team Providers Care Equipment Service Associate Name Role Phone Jarad Rodriguez MD Primary Care Provider [phone] Active Problems Problem Noted Date Diagnosed Date C. difficile colitis 07/14/2023 SARAH (acute kidney injury) 07/13/2023 Abnormal stress test 04/13/2023 Moderate dementia associated with alcoholism Chest pain 04/07/2023 Hypertension 04/07/2023 NSTEMI (non-ST elevated myocardial infarction) ( [facility]) 02/28/2023 Prostate cancer 11/03/2021 Overview (11/03/2021): Added automatically from request for surgery [id number] Elevated PSA 08/28/2021 Overview (08/28/2021): Added automatically from request for surgery [id number] Weight decreased 03/20/2014 Overview (11/19/2016): Weight loss Current Oncology Plans No current plan information found. Past Plans No past plan information found. Radiation Treatments * No radiation treatments are documented for this patient in [facility]. Treatments may have been administered in another system. Lifetime Dose Tracking * Chemical Lifetime Dose Automatic Entry Manual Entr y DLP 417 mGycm 417 mGycm 0 mGycm
--- OUTSIDE RECORDS SUMMARY | 2024-09-07 03:31 | XMS_ITS ---
Author Organization [facility] Address [address] [place], [place] [id number] Care Team Providers Care Machine Shop Repair Technician Name Role Phone Jarad Rodriguez Unavailable Unavailable BEN MAURO Unavailable [phone] Allergies Allergen (clinical drug ingredient) Drug/Non Drug Allergy documented on EMR Reaction Allergy Type Onset Date Status Penicillin Unknown Drug Allergy Active REASON FOR VISIT *General care Medications Medication SIG (Take, Route, Frequency, Duration) Notes Start Date End Date Status chlordiazePOXIDE HCl 25 MG TAKE 1 CAPSUL E BY MOUTH EVERY 8 HOURS Oral for 4 Days Active Encounters Encounter Location Date Provider Diagnosis [address] [id number] 05/17/2024 MAURO CONTRERAS Other hammer toe(s) (acquired), right foot M20.41 ; Tinea unguium B35.1 ; Other hammer toe(s) (acquired), left foot M20.42 ; Pain in right toe(s) M79.674 ; Pain in left toe(s) M79.675 ; Unspecified atherosclerosis of [place] arteries of extremities, bilateral legs I70.203 and Acquired keratosis [keratoderma] palmaris et plantaris L85.1 Assessments Encounter Date Diagnosis (ICD Code) Assessment Notes Treatment Notes Treatment Clinical Notes Section Notes 05/17/2024 Other hammer toe(s) (acquired), right foot (ICD-10 - M20.41) The patient was educated regarding how to mechanically stabilize their deformity. The patient was given education about shoe recommendations specific for the condition. The patient was educated about custom orthotics and how appropriate shoes and orthotics can prevent further worsening of the deformity. The patient was educated about how bad shoe habits can worsen the condition. NSAIDS, P.T., injections and other conservative treatments were discussed. Both surgical and non surgical treatments were discussed, but conservative options were emphasized. 05/17/2024 Tinea unguium (ICD-10 - B35.1) Aseptic debridement of elongated thickened nails x 10 using sterile nippers, nails were debrided in length and thickness by 30% utilizing a nail nipper without incident. The patient was educated regarding all treatment options that include topical and oral antifungal treatments. I discussed the options of taking a sample of the nail to confirm diagnosis. Nail clippings were not sent for pathology analysis. The patient was educated why and how the fungal infection evolved in their feet and the patient was given information regarding how to prevent further infection. The patient was told to keep feet dry and change socks. The patient was told to be careful with old shoes and excessive sweating. The patient was educated regarding both OTC and prescription treatments. 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 After removal of overlying extensive hyperkeratosis, healthy tissue was noted and care was taken to assure that no undermining or probing was present. It should be noted that no probing was noted and no infection or drainage was noted. Plan Of Treatment Treatment Notes Assessment Notes Other hammer toe(s) (acquired), right fo ot The patient was educated regarding how to mechanically stabilize their deformity. The patient was given education about shoe recommendations specific for the condition. The patient was educated about custom orthotics and how appropriate shoes and orthotics can prevent further worsening of the deformity. The patient was educated about how bad shoe habits can worsen the condition. NSAIDS, P.T., injections and other conservative treatments were discussed. Both surgical and non surgical treatments were discussed, but conservative options were emphasized. Tinea unguium Aseptic debridement of elongated thickened nails x 10 using sterile nippers, nails were debrided in length and thickness by 30% utilizing a nail nipper without incident. The patient was educated regarding all treatment options that include topical and oral antifungal treatments. I discussed the options of taking a sample of the nail to confirm diagnosis. Nail clippings were not sent for pathology analysis. The patient was educated why and how the fungal infection evolved in their feet and the patient was given information regarding how to prevent further infection. The patient was told to keep feet dry and change socks. The patient was told to be careful with old shoes and excessive sweating. The patient was educated regarding both OTC and prescription treatments. 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 After removal of overlying extensive hyperkeratosis, healthy tissue was noted and care was taken to assure that no undermining or probing was present. It should be noted that no probing was noted and no infection or drainage was noted. Next Appt Details Follow Up: 3 Months, Reason: Provider Name:JONATHAN BRICENO, 10:10:00 AM, [address] [place] [place] [address], [id number], Progress Notes * ARLEN MARSHDOB:1945 (79 yo M)Acc No.[id number]:05/17/2024 Patient:?ARLEN MARSH Provider:?MAURO CONTRERAS :1945???Age:79 Y???Sex:Male Demario e:05/17/2024 [address] [id number] Subjective: * Chief Complaints: * ???1. *General care. * HPI: ???HPI:?General care?Patient presents to the office for at risk foot care. Patient states that their nails are thickened, elongated and painful. Patient states that it is aggravated by shoe gear. Onset is gradual. Patient denies being diabetic., Patient denies taking blood thinners., Date last seen by Dr. Rodriguez was 04/2024., Initials [facility].? * ROS:?General / Constitutional:?Patient denies?weakness.?Respiratory:?Patient denies?chronic cough, shortness of breath, sputum production.?Cardiovascular:?Patient denies?chest pain, history of [place], irregular heartbeat.?Musculoskeletal:?Patient complains of?hammertoes.?Peripheral Vascular:?Patient denies?blanching of skin, cold extremities, decreased sensation in extremities.?Skin:?Patient complains of?fungal nails, discoloration, nail changes.?Neurologic:?Patient denies?dizziness, gait abnormality, headache.? * Medical History:? * Medications:?Taking chlordia zePOXIDE HCl 25 MG Capsule TAKE 1 CAPSULE BY MOUTH EVERY 8 HOURS Oral * Allergies:?Penicillin. Objective: * Vitals:? * Examination: ???Physical Examination: ???Vascular: Dorsalis Pedis pulse noted at 1/4 right foot and 1/4 left foot and Posterior Tibial pulse noted at 1/4 right foot and 1/4 left foot, Capillary refill times noted to be less than three seconds x ten, Temperature gradient noted to be warm to cool to bilateral foot, pedal hair present to bilateral foot and no varicosities are noted Dermatologic: there are no open lesions, no signs of active clinical infection, no erythema noted, no ecchymoses, nails are elongated thickened and dystrophic with subungual debris x ten, hyperkeratotic lesion noted to plantar medial hallux bilateral foot Musculoskeletal: there is pain to palpation onto nail plate x ten, no calf pain noted bilaterally, arch height noted at 2/5 non-weight bearing bilaterally, first metatarsophalangeal joint range of motion 30 deg non-weight bearing bilaterally, flexible second digit hammer toe deformity noted to bilateral foot reducible with kelikian push up test Neurology: protective sensation intact to light touch bilateral digits one through five, vibratory sensation intact to first metatarsophalangeal joint bilaterally. Assessment: * Assessment: 1.?Tinea unguium - B35.1 (Pr imary)???2.?Other hammer toe(s) (acquired), right foot - M20.41???3.?Other hammer toe(s) (acquired), left foot - M20.42???4.?Pain in right toe(s) - M79.674???5.?Pain in left toe(s) - M79.675???6.?Unspecified atherosclerosis of [place] arteries of extremities, bilateral legs - I70.203???7.?Acquired keratosis [keratoderma] palmaris et plantaris - L85.1??? Plan: * Treatment: 2.?Other hammer toe(s) (acqu ired), right foot? Notes: The patient was educated regarding how to mechanically stabilize their deformity. The patient was given education about shoe recommendations specific for the condition. The patient was educated about custom orthotics and how appropriate shoes and orthotics can prevent further worsening of the deformity. The patient was educated about how bad shoe habits can worsen the condition. NSAIDS, P.T., injections and other conservative treatments were discussed. Both surgical and non surgical treatments were discussed, but conservative options were emphasized. ?? 3.?Unspecified atheroscleros is of [place] arteries of extremities, bilateral legs? Notes: Patient educated on risks and aggravating factors of PVD, including conservative treatment options such as a diet and exercise regimen to aid in slowing progression of vascular disease ?? 4.?Acquired keratosis [kerat oderma] palmaris et plantaris? 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 After removal of overlying extensive hyperkeratosis, healthy tissue was noted and care was taken to assure that no undermining or probing was present. It should be noted that no probing was noted and no infection or drainage was noted. ?? * Procedure Codes:?01489 TRIM SKIN LESIONS, 2 TO 4, Modifiers: Q8 , 24444 DEBRIDE NAIL, 6 OR MORE, Modifiers: 59 , Q8 * Follow Up:?3 Months * Billing Information: * Visit Code:? * Procedure Codes:? 70318 TRIM SKIN LESIONS, 2 TO 4. Modifiers: Q8 68540 DEBRIDE NAIL, 6 OR MORE. Modifiers: 59, Q8 * Sign off status: Completed true * Provider:NADER CONTRERAS Date:?05/17/2024 Generated for Yamilka zamorano/Diego/Michelle on:?09/07/2024 03:31 AM STAVE AND BOLT EQUALIZER History and Physical Notes * HPI (History of Present Illness) Category Sub-Category Detail Notes Category Not es HPI General care Patient presents to the office for at risk foot care. Patient states that their nails are thickened, elongated and painful. Patient states that it is aggravated by shoe gear. Onset is gradual. Patient denies being diabetic., Patient denies taking blood thinners., Date last seen by Dr. Rodriguez was 04/2024., Initials [facility] Examination Category Sub-Category Detail Notes Category Not es Physical Examination Vascular: Dorsalis Pedis pulse noted at 1/4 right foot and 1/4 left foot and Posterior Tibial pulse noted at 1/4 right foot and 1/4 left foot, Capillary refill times noted to be less than three seconds x ten, Temperature gradient noted to be warm to cool to bilateral foot, pedal hair present to bilateral foot and no varicosities are noted Dermatologic: there are no open lesions, no signs of active clinical infection, no erythema noted, no ecchymoses, nails are elongated thickened and dystrophic with subungual debris x ten, hyperkeratotic lesion noted to plantar medial hallux bilateral foot Musculoskeletal: there is pain to palpation onto nail plate x ten, no calf pain noted bilaterally, arch height noted at 2/5 non-weight bearing bilaterally, first metatarsophalangeal joint range of motion 30 deg non-weight bearing bilaterally, flexible second digit hammer toe deformity noted to bilateral foot reducible with kelikian push up test Neurology: protective sensation intact to light touch bilateral digits one through five, vibratory sensation intact to first metatarsophalangeal joint bilaterally
--- OUTSIDE RECORDS SUMMARY | 2024-09-07 03:31 | XMS_ITS ---
Author Organization [facility] Address [address] [place], [place] [id number] Care Team Providers Care Christmas Tree Farmer Name Role Phone Jarad Rodriguez Unavailable Unavailable MAURO CONTRERAS Unavailable [phone] Allergies Allergen (clinical drug ingredient) Drug/Non Drug Allergy documented on EMR Reaction Allergy Type Onset Date Status Penicillin Unknown Drug Allergy Active REASON FOR VISIT *General care Medications Medication SIG (Take, Route, Frequency, Duration) Notes Start Date End Date Status chlordiazePOXIDE HCl 25 MG TAKE 1 CAPSUL E BY MOUTH EVERY 8 HOURS Oral for 4 Days Active Vital Signs Weight 130 lbs 03/08/2024 Weight-kg 58.97 kg 03/08/2024 Height 68 in 03/08/2024 Height-cm 172.72 cm 03/08/2024 BMI 19.76 kg/m2 03/08/2024 Encounters Encounter Location Date Provider Diagnosis [address] [id number] 03/08/2024 MAURO CONTRERAS Other hammer toe(s) (acquired), right foot M20.41 ; Tinea unguium B35.1 ; Other hammer toe(s) (acquired), left foot M20.42 ; Pain in right toe(s) M79.674 ; Pain in left toe(s) M79.675 ; Unspecified atherosclerosis of [place] arteries of extremities, bilateral legs I70.203 and Acquired keratosis [keratoderma] palmaris et plantaris L85.1 Assessments Encounter Date Diagnosis (ICD Code) Assessment Notes Treatment Notes Treatment Clinical Notes Section Notes 03/08/2024 Other hammer toe(s) (acquired), right foot (ICD-10 [...] were discussed, but conservative options were emphasized. 03/08/2024 Tinea unguium (ICD-10 - B35.1) Aseptic debridement [...] educated regarding both OTC and prescription treatments. 03/08/2024 Other hammer toe(s) (acquired), left foot (ICD-10 - M20.42) 03/08/2024 Pain in right toe(s) (ICD-10 - M79.674) 03/08/2024 Pain in left toe(s) (ICD-10 - M79.675) 03/08/2024 Unspecified atherosclerosis of [place] arteries of extremities, bilateral legs (ICD-10 - I70.203) Patient educated on risks and aggravating factors of PVD, including conservative treatment options such as a diet and exercise regimen to aid in slowing progression of vascular disease 03/08/2024 Acquired keratosis [keratoderma] palmaris et plantaris (ICD-10 [...] OTC and prescription treatments. Unspecified atherosclerosis of [place] arteries of extremities, bilateral legs Patient educated [...] Months, Reason: Provider Name:JONATHAN BRICENO, 10:10:00 AM, [address] [place] [address], [id number], Progress Notes * ALEXANDER MARSH:1945 (79 yo M)Acc No.[id number]:03/08/2024 Patient:?ARLEN MARSH Provider:?MAURO CONTRERAS :1945???Age:78 Y???Sex:Male Demario e:03/08/2024 Address:[address] [place], [id number] Subjective: * Chief Complaints: * ???1. *General care. * HPI: ???HPI:?General care?Patient presents to the office for at risk foot care. Patient states that their nails are thickened, elongated and painful. Patient states that it is aggravated by shoe gear. Onset is gradual. Patient denies being diabetic., Patient denies taking blood thinners., Date last seen by Dr. Rodriguez? was December 2023., Initials SS.? * ROS:?General / Constitutional:?Patient denies?weakness.?Respiratory:?Patient denies?chronic cough, shortness of breath, sputum production.?Cardiovascular:?Patient denies?chest pain, history of [place], irregular heartbeat.?Musculoskeletal:?Patient complains of?hammertoes.?Peripheral Vascular:?Patient denies?blanching of skin, cold extremities, decreased sensation in extremities.?Skin:?Patient complains of?fungal nails, discoloration, nail changes.?Neurologic:?Patient denies?dizziness, gait abnormality, headache.? * Medical History:?Artificial joint, Prostate cancer, Heart Disease. * Medications:?Taking chlordia zePOXIDE HCl 25 MG Capsule TAKE 1 CAPSULE BY MOUTH EVERY 8 HOURS Oral * Allergies:?Penicillin. Objective: * Vitals:?Wt: 130 lbs, Wt-k.97 kg, Ht: 68 in, Ht-cm: 172.72 cm, BMI: 19.76 Index, Body Surface Area: 1.68. * Examination: ???Physical Examination: ???Vascular: Dorsalis Pedis [...] bilateral foot and no varicosities are noted ?Dermatologic: there are no open lesions, no signs of active clinical infection, no erythema noted, no ecchymoses, nails are elongated thickened and dystrophic with subungual debris x ten, hyperkeratotic lesion noted to plantar medial hallux bilateral foot ?Musculoskeletal: there is pain to palpation onto nail plate x ten, no calf pain noted bilaterally, arch height noted at 2/5 non-weight bearing bilaterally, first metatarsophalangeal joint range of motion 30 deg non-weight bearing bilaterally, flexible second digit hammer toe deformity noted to bilateral foot reducible with kelikian push up test ?Neurology: protective sensation intact to light touch bilateral digits one through five, vibratory sensation intact to first metatarsophalangeal joint bilaterally. Assessment: * Assessment: 1.?Tinea unguium - B35.1 (Pr imary)?2.?Other hammer toe(s) (acquired), right foot - M20.41?3.?Other hammer toe(s) (acquired), left foot - M20.42?4.?Pain in right toe(s) - M79.674?5.?Pain in left toe(s) - M79.675?6.?Unspecified atherosclerosis of [place] arteries of extremities, bilateral legs - I70.203?7.?Acquired keratosis [keratoderma] palmaris et plantaris - L85.1? Plan: * Treatment: 2.?Other hammer toe(s) (acqu [...] were emphasized. ?? 3.?Unspecified atheroscleros is of [place] arteries of extremities, bilateral legs? Notes: Patient [...] or drainage was noted. ?? * Procedure Codes:?59372 TRIM SKIN LESIONS, 2 TO 4, Modifiers: Q8 , 45203 DEBRIDE NAIL, 6 OR MORE, Modifiers: 59 , Q8 * Follow Up:?3 Months * Billing Information: * Visit Code:? * Procedure Codes:? 75160 TRIM SKIN LESIONS, 2 TO 4. Modifiers: Q8 93593 DEBRIDE NAIL, 6 OR MORE. Modifiers: 59, Q8 * Sign off status: Completed true * Provider:NADER CONTRERAS Date:?03/08/2024 Generated for Yamilka zamorano/Diego/Michelle on:?09/07/2024 03:31 AM WING COVERER History and Physical Notes * HPI (History [...] Date last seen by Dr. Rodriguez was December 2023., Initials SS Examination Category Sub-Category Detail Notes Category Not [...]
--- OUTSIDE RECORDS SUMMARY | 2024-09-07 03:32 | XMS_ITS ---
Author Organization [facility] Address [address] [place], [place] [phone] Care Team Providers Care Electrical Electronics Engineers Name Role Phone Jarad Rodriguez Unavailable Unavailable BENYAHIRUR Unavailable [phone] Allergies Allergen (clinical drug ingredient) Drug/Non Drug [...] Active Encounters Encounter Location Date Provider Diagnosis [address] [id number] 07/26/2024 MAURO CONTRERAS Other hammer toe(s) (acquired), right foot M20.41 ; Tinea unguium B35.1 ; Other hammer toe(s) (acquired), left foot M20.42 ; Pain in right toe(s) M79.674 ; Pain in left toe(s) M79.675 ; Unspecified atherosclerosis of [place] arteries of extremities, bilateral legs I70.203 and Acquired keratosis [keratoderma] palmaris et plantaris L85.1 Assessments Encounter Date Diagnosis (ICD Code) Assessment Notes Treatment Notes Treatment Clinical Notes Section Notes 07/26/2024 Other hammer toe(s) (acquired), right foot (ICD-10 [...] were discussed, but conservative options were emphasized. 07/26/2024 Tinea unguium (ICD-10 - B35.1) Aseptic debridement [...] educated regarding both OTC and prescription treatments. 07/26/2024 Other hammer toe(s) (acquired), left foot (ICD-10 - M20.42) 07/26/2024 Pain in right toe(s) (ICD-10 - M79.674) 07/26/2024 Pain in left toe(s) (ICD-10 - M79.675) 07/26/2024 Unspecified atherosclerosis of [place] arteries of extremities, bilateral legs (ICD-10 - I70.203) Patient educated on risks and aggravating factors of PVD, including conservative treatment options such as a diet and exercise regimen to aid in slowing progression of vascular disease 07/26/2024 Acquired keratosis [keratoderma] palmaris et plantaris (ICD-10 [...] OTC and prescription treatments. Unspecified atherosclerosis of [place] arteries of extremities, bilateral legs Patient educated [...] Months, Reason: Provider Name:JONATHAN BRICENO, 10:10:00 AM, [address] [place] [address], [id number], Progress Notes * ARLEN MARSHDOB:1945 (79 yo M)Acc No.[id number]:07/26/2024 Patient:?ARLEN MARSH Provider:?MAURO CONTRERAS :1945???Age:79 Y???Sex:Male Demario e:07/26/2024 [address] [facility] Subjective: * Chief Complaints: * ???1. *General care. * HPI: ???HPI:?General care?Patient presents to the office for at risk foot care. Patient states that their nails are thickened, elongated and painful. Patient states that it is aggravated by shoe gear. Onset is gradual. Patient denies being diabetic., Patient denies taking blood thinners., Date last seen by Dr. Rodriguez was 05/2024., Initials [facility].? * ROS:?General / Constitutional:?Patient denies?weakness.?Respiratory:?Patient denies?chronic cough, shortness of breath, sputum production.?Cardiovascular:?Patient denies?chest pain, history of [place], irregular heartbeat.?Musculoskeletal:?Patient complains of?hammertoes.?Peripheral Vascular:?Patient denies?blanching of [...] in left toe(s) - M79.675???6.?Unspecified atherosclerosis of [place] arteries of extremities, bilateral legs - I70.203???7.?Acquired [...] were emphasized. ?? 3.?Unspecified atheroscleros is of [place] arteries of extremities, bilateral legs? Notes: Patient [...] or drainage was noted. ?? * Procedure Codes:?06642 TRIM SKIN LESIONS, 2 TO 4, Modifiers: Q8 , 84404 DEBRIDE NAIL, 6 OR MORE, Modifiers: 59 , Q8 * Follow Up:?3 Months * Billing Information: * Visit Code:? * Procedure Codes:? 89286 TRIM SKIN LESIONS, 2 TO 4. Modifiers: Q8 99325 DEBRIDE NAIL, 6 OR MORE. Modifiers: 59, Q8 * Electronic signature of GRETCHEN CONTRERAS DPM on 09/07/2024 at 03:30 AM MANAGER OF QUALITY Sign off status: Pending * Provider:NADER CONTRERAS Date:?07/26/2024 Generated for Yamilka zamorano/Diego/Michelle on:?09/07/2024 03:30 AM MANAGER OF QUALITY History and Physical Notes * HPI (History [...] Date last seen by Dr. Rodriguez was 05/2024., Initials [facility] Examination Category Sub-Category Detail Notes [...]
--- OUTSIDE RECORDS SUMMARY | 2024-09-07 03:32 | XMS_ITS | Patient Health Record ---
Author Organization [facility] Address [address] [place], [place] [id number] Care Team Providers Care Automotive Glass Mechanic Name Role Phone Jarad Rodriguez Unavailable Unavailable MAURO CONTRERAS Unavailable [phone] Allergies Allergen (clinical drug ingredient) Drug/Non Drug Allergy documented on EMR Reaction Allergy Type Onset Date Status Penicillin Unknown Drug Allergy Active Reason For Referral No Information Medications Medication SIG (Take, Route, Frequency, Duration) Notes Start Date End Date Status chlordiazePOXIDE HCl 25 MG TAKE 1 CAPSUL E BY MOUTH EVERY 8 HOURS Oral for 4 Days Active Immunizations Vaccine Route Administration Date Status Comme nts Influenza, high dose seasonal Unknown 05/26/2023 Admini stered Vital Signs Height-cm 172.72 cm 03/08/2024 Weight-kg 58.97 kg 03/08/2024 Height 68 in 03/08/2024 Weight 130 lbs 03/08/2024 BMI 19.76 kg/m2 03/08/2024 Encounters Encounter Location Date Provider Diagnosis [address] [id number] 07/26/2024 MAURO CONTRERAS Other hammer toe(s) (acquired), right foot M20.41 ; Tinea unguium B35.1 ; Other hammer toe(s) (acquired), left foot M20.42 ; Pain in right toe(s) M79.674 ; Pain in left toe(s) M79.675 ; 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, bilateral legs I70.203 and Acquired keratosis [keratoderma] palmaris et plantaris L85.[address] [id number] 10/13/2023 MAURO CONTRERAS Other hammer toe(s) (acquired), right foot M20.41 ; Tinea unguium B35.1 ; Other hammer toe(s) (acquired), left foot M20.42 ; Pain in right toe(s) M79.674 ; Pain in left toe(s) M79.675 ; 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, bilateral legs I70.203 and Acquired keratosis [keratoderma] palmaris et plantaris L85.1 [facility] [address] [place], [place] [id number] 12/29/2023 MAURO CONTRERAS Other hammer toe(s) (acquired), right foot M20.41 ; Tinea unguium B35.1 ; Other hammer toe(s) (acquired), left foot M20.42 ; Pain in right toe(s) M79.674 ; Pain in left toe(s) M79.675 ; 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, bilateral legs I70.203 and Acquired keratosis [keratoderma] palmaris et plantaris L85.[address] [id number] 03/08/2024 MAURO CONTRERAS Other hammer toe(s) (acquired), right foot M20.41 ; Tinea unguium B35.1 ; Other hammer toe(s) (acquired), left foot M20.42 ; Pain in right toe(s) M79.674 ; Pain in left toe(s) M79.675 ; 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, bilateral legs I70.203 and Acquired keratosis [keratoderma] palmaris et plantaris L85.[address] [id number] 05/17/2024 MAURO OCNTRERAS Other hammer toe(s) (acquired), right foot M20.41 ; Tinea unguium B35.1 ; Other hammer toe(s) (acquired), left foot M20.42 ; Pain in right toe(s) M79.674 ; Pain in left toe(s) M79.675 ; 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 10/13/2023 Tinea unguium (ICD-10 - B35.1) Aseptic debridement [...] educated regarding both OTC and prescription treatments. 12/29/2023 Tinea unguium (ICD-10 - B35.1) Aseptic debridement [...] educated regarding both OTC and prescription treatments. 12/29/2023 Other hammer toe(s) (acquired), right foot (ICD-10 [...] discussed, but conservative options were emphasized. 03/08/2024 Other hammer toe(s) (acquired), right foot [...] regarding both OTC and prescription treatments. 05/17/2024 Tinea unguium (ICD-10 - B35.1) Aseptic [...] prescription treatments. 05/17/2024 Other hammer toe(s) (acquired), right foot [...] discussed, but conservative options were emphasized. 07/26/2024 Other hammer toe(s) (acquired), right foot [...] (acquired), left foot (ICD-10 - M20.42) 05/17/2024 Other hammer toe(s) (acquired), left foot (ICD-10 - M20.42) 03/08/2024 Other hammer toe(s) (acquired), left foot (ICD-10 - M20.42) 12/29/2023 Other hammer toe(s) (acquired), left foot (ICD-10 - M20.42) 10/13/2023 Other hammer toe(s) (acquired), left foot (ICD-10 - M20.42) 10/13/2023 Pain in right toe(s) (ICD-10 - M79.674) 12/29/2023 Pain in right toe(s) (ICD-10 - M79.674) 03/08/2024 Pain in right toe(s) (ICD-10 - M79.674) 05/17/2024 Pain in right toe(s) (ICD-10 - M79.674) 07/26/2024 Pain in right toe(s) (ICD-10 - M79.674) 07/26/2024 Pain in left toe(s) (ICD-10 - M79.675) 05/17/2024 Pain in left toe(s) (ICD-10 - M79.675) 03/08/2024 Pain in left toe(s) (ICD-10 - M79.675) 12/29/2023 Pain in left toe(s) (ICD-10 - M79.675) 10/13/2023 Pain in left toe(s) (ICD-10 - M79.675) 12/29/2023 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, bilateral legs (ICD-10 - I70.203) Patient educated on risks and aggravating factors of PVD, including conservative treatment options such as a diet and exercise regimen to aid in slowing progression of vascular disease 10/13/2023 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, bilateral legs (ICD-10 - I70.203) Patient educated on risks and aggravating factors of PVD, including conservative treatment options such as a diet and exercise regimen to aid in slowing progression of vascular disease 05/17/2024 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, bilateral legs (ICD-10 - I70.203) Patient educated on risks and aggravating factors of PVD, including conservative treatment options such as a diet and exercise regimen to aid in slowing progression of vascular disease 03/08/2024 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, bilateral legs (ICD-10 - I70.203) Patient educated on risks and aggravating factors of PVD, including conservative treatment options such as a diet and exercise regimen to aid in slowing progression of vascular disease 07/26/2024 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, bilateral legs (ICD-10 - [...] and no infection or drainage was noted. 03/08/2024 Acquired keratosis [keratoderma] palmaris et plantaris [...] and no infection or drainage was noted. 05/17/2024 Acquired keratosis [keratoderma] palmaris et plantaris [...] and no infection or drainage was noted. 10/13/2023 Acquired keratosis [keratoderma] palmaris et plantaris (ICD-10 [...] and no infection or drainage was noted. 12/29/2023 Acquired keratosis [keratoderma] palmaris et plantaris (ICD-10 [...] or drainage was noted. Plan Of Treatment Next Appt Details Provider Name:JONATHAN BRICENO, 10:10:00 AM, [address] [place] [address], [phone], Insurance Providers Payer Name Payer Address Payer Phone Subscriber Number Group Number Insured Name Patient Relationship to Insured Coverage Start Date Coverage End Date Medicare Part B [place] [address] [place] [phone] [id number] ARLEN MARSH Self - patient is the insured [facility] ([facility]) ATTN CLAIMS [address] [place] [address] [id number] ARLEN MARSH Self - patient is the insured Medical (General) History Medical History History ICD Code artificial joint prostate cancer Heart Disease
== END 2024-09-05 22:43 | disposition home or self-care (01) ==
PROVIDERS: Emergency Provider Internal Medicine Critical Care Medicine; PCP Internal Medicine
DX: I63.9 Cerebral infarction, unspecified (principal); G51.0 Bell's palsy; I10 Essential (primary) hypertension; F03.90 Unspecified dementia, unspecified severity, without behavioral disturbance, psychotic disturbance, mood disturbance, and anxiety; Z87.891 Personal history of nicotine dependence; Z85.46 Personal history of malignant neoplasm of prostate; Z79.899 Other long term (current) drug therapy
CPT/HCPCS: 36415; 70450; 70496; 70498; 71045; 80053; 80307; 81003; 82077; 83605; 83735; 83880; 84443; 84484; 85025; 85610; 85730; 93005; 99284; A9270; J7120; J7512; Q9967

== ENCOUNTER 2024-09-14 19:55 | Emergency (ER) | payer MEDICARE, SELFPAY ==
[2024-09-14 19:55] VITALS: BP 93/62; PULSE 82; RESP 18; TEMP 36.6; O2SAT 95
--- OUTSIDE RECORDS SUMMARY | 2024-09-14 19:56 | XMS_ITS | Clinical Summary ---
Author Organization [facility] Address [address] [place] [address] Care Team Providers Care Economic Manager Name Role Phone Jarad Rodriguez MD Primary Care Provider [phone] Source Comments [facility],non-owned Affiliates and Associated Physician Practices is amultiple site organization consisting of ambulatory clinics and hospital sitesin [place], [place], [place] and [place]. This disclosure is being madepursuant to the Care Everywhere program and may not contain all information available regarding this patient. Last updated 18.[facility] Allergies Active Allergy Reactions Criticality Noted Date [...] Take by mouth daily. Acti ve therapeutic multivitamin-title examiner als (THERAGRAN-M) tablet Take 1 Tab by mouth daily with breakfast. Active losartan (COZAAR) 25 MG tabletIndications: usually takes in PM Take 25 mg by mouth daily. Instructed to take AM of surgery Indications: usually takes in PM Active [place]-3 Fatty Acids (FISH OIL PO) Take by [...] Comments Blood Pressure 116/82 09/30/2020 7:48 AM DUPLICATE MAKER Pulse 62 09/30/2020 7:48 AM DUPLICATE MAKER Temperature 36.6 ??C (97.9 ??F) 09/30/2020 7:48 AM CS T Respiratory Rate 18 09/30/2020 7:48 AM DUPLICATE MAKER Oxygen Saturation 98% 09/30/2020 7:48 AM DUPLICATE MAKER Inhaled Oxygen Concentration - - Weight 61.5 kg (135 lb 9.3 oz) 09/27/2020 1:09 A M DUPLICATE MAKER Height 177.8 cm (5' 10 ) 09/27/2020 1:09 AM DUPLICATE MAKER Body Mass Index 19.45 09/27/2020 1:09 AM DUPLICATE MAKER Plan of Treatment Health Maintenance Due Date [...] this topic Medical Devices Implanted Type Area Physical Science Aide Device Identifier Shelf Expiration Date Model / Serial / Lot Mesh Srg Parietex Progrip 15x9cm Rect Implanted:Qty: 1 on 09/28/2020 by Erwin Diamond DO at [facility] Left: Groin Covidien 04/14/2024 [id number] / / [id number] Mesh Srg Parietex Progrip 14x9cm Slf Implanted:Qty: 1 on 09/28/2020 by Erwin Diamond DO at [facility] Right: Groin Covidien 10/12/2024 [id number] / / [id number] Advance Directives Documents on File Type Date Recorded Patient Sales Representative Electric Service Expl anation Adv Directive/Living Will/POA 07/03/2010 1:31 PM Adv Directive/Living Will/POA 07/30/2009 12:18 PM * Full Code (Latest Code Status on File) Date Activated Date Inactivated Comments 09/27/2020 1:41 AM 09/30/2020 1:00 PM * Full Code Date Activated Date Inactivated Comments 06/29/2010 2:33 PM 07/02/2010 11:18 PM * Full Code Date Activated Date Inactivated Comments 07/23/2009 1:57 PM 07/27/2009 3:58 AM Care Teams Economic Manager Relationship Specialty Start Date End Date Jarad Rodriguez MD [address] [place] [address] PCP - General 10/27/21
--- OUTSIDE RECORDS SUMMARY | 2024-09-14 19:56 | XMS_ITS | Referral Summary ---
Author Organization [facility] Address [address] [place] [address] Care Team Providers Care Supervisor Liquefaction Name Role Phone Jarad oRdriguez MD Primary Care Provider [phone] Source Comments [facility],non-owned Affiliates and Associated Physician Practices is amultiple site organization consisting of ambulatory clinics and hospital sitesin [place]. This disclosure is being madepursuant to the Care Everywhere program and may not contain all information available regarding this patient. Last updated 18.[facility] Allergies Active Allergy Reactions Criticality Noted Date [...] Take by mouth daily. Acti ve therapeutic multivitamin-bank examiner als (THERAGRAN-M) tablet Take 1 Tab by mouth daily with breakfast. Active losartan (COZAAR) 25 MG tabletIndications: usually takes in PM Take 25 mg by mouth daily. Instructed to take AM of surgery Indications: usually takes in PM Active [place]-3 Fatty Acids (FISH OIL PO) Take by [...] Comments Blood Pressure 116/82 09/30/2020 7:48 AM MICROSOFT DYNAMICS CONSULTANT Pulse 62 09/30/2020 7:48 AM MICROSOFT DYNAMICS CONSULTANT Temperature 36.6 ??C (97.9 ??F) 09/30/2020 7:48 AM CS T Respiratory Rate 18 09/30/2020 7:48 AM MICROSOFT DYNAMICS CONSULTANT Oxygen Saturation 98% 09/30/2020 7:48 AM MICROSOFT DYNAMICS CONSULTANT Inhaled Oxygen Concentration - - Weight 61.5 kg (135 lb 9.3 oz) 09/27/2020 1:09 A M [employer]OSOFT DYNAM[employer] CONSULTANT Height 177.8 cm (5' 10 ) 09/27/2020 1:09 AM MICROSOFT DYNAMICS CONSULTANT Body Mass Index 19.45 09/27/2020 1:09 AM MICROSOFT DYNAMICS CONSULTANT Functional Status Functional Status Response Date of [...] on file Medical Devices Implanted Type Area Commercial Engineer Device Identifier Shelf Expiration Date Model / Serial / Lot Mesh Srg Parietex Progrip 15x9cm Rect Implanted:Qty: 1 on 09/28/2020 by Erwin Diamond, DO at [facility] Left: Groin Covidien 04/14/2024 [id number] / / [id number] Mesh Srg Parietex Progrip 14x9cm Slf Implanted:Qty: 1 on 09/28/2020 by Erwin Diamond, DO at [facility] Right: Groin Covidien 10/12/2024 [id number] / / [id number] Advance Directives Documents on File Type Date Recorded Patient Small Engine Specialist Expl anation Adv Directive/Living Will/POA 07/03/2010 1:31 PM Adv Directive/Living Will/POA 07/30/2009 12:18 PM * Full Code (Latest Code Status on File) Date Activated Date Inactivated Comments 09/27/2020 1:41 AM 09/30/2020 1:00 PM * Full Code Date Activated Date Inactivated Comments 06/29/2010 2:33 PM 07/02/2010 11:18 PM * Full Code Date Activated Date Inactivated Comments 07/23/2009 1:57 PM 07/27/2009 3:58 AM Care Teams Supervisor Liquefaction Relationship Specialty Start Date End Date Jarad Rodriguez MD [address] [place] [address] PCP - General 10/27/21
--- OUTSIDE RECORDS SUMMARY | 2024-09-14 19:57 | XMS_ITS | Clinical Summary ---
Author Organization [facility] Address [address] [place] [address]. [place] [address] [place] [address] Care Team Providers Care Clay Plant Treater Name Role Phone Jarad Rodriguez MD Primary Care Provider [phone] Allergies Active Allergy Reactions Criticality Noted Date [...] complete this topic Insurance MEDICARE Care Teams Clay Plant Treater Relationship Specialty Start Date End Date Jarad Rodriguez MD [address] [place] [address] PCP - General INTERNAL MEDICINE 02/04/20
--- OUTSIDE RECORDS SUMMARY | 2024-09-14 19:57 | XMS_ITS | Patient Health Summary ---
Author Organization [facility] Address [address] [place] [address] Care Team Providers Care Research Associate Professor Name Role Phone Jarad Rodriguez MD Primary Care Provider [phone] Note from [facility],non-owned Affiliates and Associated Physician Practices is amultiple site organization consisting of ambulatory clinics and hospital sitesin [place], [place], [place] and [place]. This disclosure is being madepursuant to the Care Everywhere program and may not contain all information available regarding this patient. Last updated 18.[facility] [x+1] Allergies * Penicillin G Potassium(Rash) Medications * [...] surgery Indications: usually takes in PM * [place]-3 Fatty Acids (FISH OIL PO) Take by [...] Comments Blood Pressure 116/82 09/30/2020 7:48 AM BUN MACHINE OPERATOR Pulse 62 09/30/2020 7:48 AM BUN MACHINE OPERATOR Temperature 36.6 ??C (97.9 ??F) 09/30/2020 7:48 AM CS T Respiratory Rate 18 09/30/2020 7:48 AM BUN MACHINE OPERATOR Oxygen Saturation 98% 09/30/2020 7:48 AM BUN MACHINE OPERATOR Inhaled Oxygen Concentration - - Weight 61.5 kg (135 lb 9.3 oz) 09/27/2020 1:09 A M BUN MACHINE OPERATOR Height 177.8 cm (5' 10 ) 09/27/2020 1:09 AM BUN MACHINE OPERATOR Body Mass Index 19.45 09/27/2020 1:09 AM BUN MACHINE OPERATOR Medical Devices Implanted Type Area Head Housekeeper Device Identifier Shelf Expiration Date Model / Serial / Lot Mesh Srg Parietex Progrip 15x9cm Rect Implanted:Qty: 1 on 09/28/2020 by Erwin Diamond DO at [facility] Left: Groin Covidien 04/14/2024 [id number] / / [id number] Mesh Srg Parietex Progrip 14x9cm Slf Implanted:Qty: 1 on 09/28/2020 by Erwin Diamond, at [facility] Right: Groin [employer]ien 10/12/2024 [id number] / / [id number] Procedures * URINALYSIS REFLEX TO MICROSCOPIC NO [...] TO MICROSCOPIC NO CULTURE (09/29/2020 9:20 AM [facility]) Color UA Yellow Straw, Yellow, Colorless 09/29/2020 9:32 AM [facility] Clarity UA Clear Clear, Slt Cloudy 09/29/2020 9:32 AM [facility] Specific [place] UA 1.012 1.005 - 1.030 09/29/2020 9:32 AM [facility] pH UA 5.0 5.0 - 8.0 pH 09/29/2020 9:32 AM [facility] Protein UA Negative Negative mg/dL 09/29/2020 9:32 AM [facility] Glucose UA Negative Negative mg/dL 09/29/2020 9:32 AM [facility] Ketone UA Negative Negative mg/dL 09/29/2020 9:32 AM [facility] Bilirubin UA Negative Negative mg/dL 09/29/2020 9:32 AM [facility] Blood UA Negative Negative 09/29/2020 9:32 AM [facility] Nitrite UA Negative Negative 09/29/2020 9:32 AM [facility] Leukocyte Esterase Trace(A) Negative 09/29/2020 9:32 AM [facility] Urobilinogen UA Negative Negative mg/dL 09/29/2020 9:32 AM [facility] RBC UA 0-2 None Seen, 0-2, 3-5 /HPF 09/29/2020 9:32 AM [facility] WBC UA 21-50(A) None Seen, 0-5 /HPF 09/29/2020 9:32 AM [facility] Bacteria UA Trace None, Trace /HPF 09/29/2020 9:32 AM [facility] Squamous Epithelial Cells UA None Seen None Seen, 0-2 /HPF 09/29/2020 9:32 AM [facility] Hyaline Casts UA 0-2 None Seen, 0-2 /LPF 09/29/2020 9:32 AM [facility] Urine URINE SPECIMEN OBTAINED BY CLEAN CATCH PROCEDURE / Unknown Collection / Unknown 09/29/2020 9:20 AM BUN MACHINE OPERATOR 09/29/2020 9:26 AM [facility] - 09/29/2020 9:32 AM BUN MACHINE OPERATOR Erwin Diamond DO LAB - URINALYSIS ORD ERABLES [facility] [address] [place] [address], [facility] [phone] * (ABNORMAL) BASIC METABOLIC PANEL (CALCIUM TOTAL) (09/29/2020 6:52 AM BUN MACHINE OPERATOR) Only the most recent of4 resultswithin the time period is included. BUN 11 7 - 26 mg/dL 09/29/2020 7:25 AM [facility] Creatinine 0.7 0.6 - 1.2 mg/dL 09/29/2020 7:25 AM [facility] Sodium 134(L) 136 - 145 mmol/L 09/29/2020 7:25 AM [facility] Potassium 4.0 3.5 - 4.5 mmol/L 09/29/2020 7:25 AM [facility] Chloride 106 98 - 107 mmol/L 09/29/2020 7:25 AM [facility] CO2 21(L) 22 - 29 mmol/L 09/29/2020 7:25 AM [facility] Glucose 88 70 - 115 mg/dL 09/29/2020 7:25 AM [facility] Calcium 8.3(L) 8.4 - 10.2 mg/dL 09/29/2020 7:25 AM [facility] Anion Gap 11 8 - 18 09/29/2020 7:25 AM [facility] BUN/Creatinine Ratio 16 7 - 23 09/29/2020 7:25 AM [facility] Osmolality Calculated 277 270 - 300 mOsm/kg 09/29/2020 7:25 AM [facility] eGFR >60 >60 mL/min/1.7 3 m2 09/29/2020 7:25 AM [facility] Blood BLOOD SPECIMEN / Unknown Venipuncture / Unknown 09/29/2020 6:52 AM BUN MACHINE OPERATOR 09/29/2020 6:55 AM BUN MACHINE OPERATOR Erwin Diamond DO LAB - CHEMISTRY ORDE LIZ [facility] [address] [place] [address], [facility] [phone] * (ABNORMAL) CBC W AUTO DIFFERENTIAL (09/29/2020 4:59 AM [facility]) Only the most recent of4 resultswithin the time period is included. WBC 8.7 3.5 - 10.5 10? 3 /uL 09/29/2020 5:49 AM [facility] Comment:Confirmed by repeat analysis. RBC 3.47(L) 4.30 - 5.70 10? 6 /uL 09/29/2020 5:49 AM [facility] Hemoglobin 11.2(L) 13.5 - 17.5 g/dL 09/29/2020 5:49 AM [facility] Hematocrit 32.4(L) 39.0 - 50.0 % 09/29/2020 5:49 AM [facility] MCV 93.4 81.0 - 97.0 fL 09/29/2020 5:49 AM [facility] MCH 32.3 28.0 - 34.0 pg 09/29/2020 5:49 AM [facility] MCHC 34.6 32.0 - 36.0 g/dL 09/29/2020 5:49 AM [facility] Platelet Count 214 150 - 400 10? 3 /uL 09/29/2020 5:49 AM [facility] RDW-SD 51.3(H) 36.0 - 50.0 fL 09/29/2020 5:49 AM [facility] RDW-CV 15.0(H) 11.2 - 14.8 % 09/29/2020 5:49 AM [facility] MPV 10.2 9.3 - 12.8 fL 09/29/2020 5:49 AM [facility] nRBC Absolute 0.00 0 10? 3 /uL 09/29/2020 5:49 AM [facility] nRBC Auto 0.0 0 /100 WBC 09/29/2020 5:49 AM [facility] Neutrophils % 73.6(H) 35.0 - 70.0 % 09/29/2020 5:49 AM [facility] Lymphocytes % 16.6(L) 19.7 - 55.1 % 09/29/2020 5:49 AM [facility] Monocytes % 9.2 3.0 - 15.0 % 09/29/2020 5:49 AM [facility] Eosinophils % 0.1 0.0 - 6.0 % 09/29/2020 5:49 AM [facility] Basophil % 0.2 0.0 - 1.5 % 09/29/2020 5:49 AM [facility] Neutrophils Absolute 6.4 1.6 - 7.0 10? 3 /uL 09/29/2020 5:49 AM [facility] Lymphocyte Absolute 1.5 0.8 - 2.9 10? 3 /uL 09/29/2020 5:49 AM [facility] Monocytes Absolute 0.80(H) 0.14 - 0.66 10? 3 /uL 09/29/2020 5:49 AM [facility] Eosinophils Absolute 0.01 0.00 - 0.45 10? 3 /uL 09/29/2020 5:49 AM [facility] Basophils Absolute 0.02 0.00 - 0.06 10? 3 /uL 09/29/2020 5:49 AM [facility] Immature Granulocytes % 0.3 0.0 - 1.0 % 09/29/2020 5:49 AM [facility] Blood BLOOD SPECIMEN / Unknown Venipuncture / Unknown 09/29/2020 4:59 AM BUN MACHINE OPERATOR 09/29/2020 5:18 AM [facility] Erwin Hirschper DO LAB - HEMATOLOGY ORD LAURIE Performing Organization Address [facility] Co de Phone Number [address] [address], [facility] [phone] * (ABNORMAL) PHOSPHORUS BLOOD (09/29/2020 4:59 AM BUN MACHINE OPERATOR) Only the most recent of3 resultswithin the time period is included. Phosphorus 1.5(L) 2.3 - 4.7 mg/dL 09/29/2020 5:42 AM BUN MACHINE OPERATOR [facility] Blood BLOOD SPECIMEN / Unknown Venipuncture / Unknown 09/29/2020 4:59 AM BUN MACHINE OPERATOR 09/29/2020 5:18 AM BUN MACHINE OPERATOR Erwin Hirschper DO LAB - CHEMISTRY ORDCesar HILL Performing Organization Address [facility] Co de Phone Number [address] [address], [facility] [phone] * MAGNESIUM BLOOD (09/29/2020 4:59 AM BUN MACHINE OPERATOR) Only the most recent of3 resultswithin the time period is included. Magnesium 1.7 1.6 - 2.6 mg/dL 09/29/2020 5:42 AM BUN MACHINE OPERATOR [facility] Blood BLOOD SPECIMEN / Unknown Venipuncture / Unknown 09/29/2020 4:59 AM BUN MACHINE OPERATOR 09/29/2020 5:18 AM BUN MACHINE OPERATOR Erwin Vilma Dara BETHEA LAB - CHEMISTRY ADRIA HILL Performing Organization Address [facility]/ZIP Co de Phone Number [address] [address], [facility] [phone] * ETT LINE PERFORMABLE (09/28/2020 10:12 AM BUN MACHINE OPERATOR) Narrative Hari Crook, DO - 09/28/2020 10:12 AM BUN MACHINE OPERATOR Hari Crook, DO ? 09/28/2020 10:12 AM Endotracheal Tube Placement: ? Patient Location: OR. Intubation Event Date/Time: ??09/28/2020 9:49 AM Procedure: intubation (50288). Procedure Section: ?? Sedation: under general anesthesia. [...] TYPE + SCREEN PANEL (09/27/2020 5:31 AM BUN MACHINE OPERATOR) Antibody Screen NEG 6:17 AM [facility] BLOOD BANK LAB ABO Rh A POS 09/27/2020 6:17 AM [facility] BLOOD BANK LAB Blood Bank BLOOD SPECIMEN / Unknown Venipuncture / Unknown 09/27/2020 5:31 AM BUN MACHINE OPERATOR 09/27/2020 5:41 AM BUN MACHINE OPERATOR Erwin Diamond DO LAB - BLOOD BANK ORD ERABLES Performing Organization Address [facility]/State/ZIP Co de Phone Number [facility] BLOOD BANK LAB [address] [place] [address], [facility] [phone] * PTT [facility] (09/27/2020 2:28 AM BUN MACHINE OPERATOR) APTT 30.1 23.0 - 38.4 Seconds 09/27/2020 2:47 AM BUN MACHINE OPERATOR [facility] Comment:Suggested therapeuti c range for full dose I.V. unfractionated heparin therapy for venous thromboembolism is 71 to 109 seconds. Blood BLOOD SPECIMEN / Unknown Lab Venipuncture / Unknown 09/27/2020 2:28 AM BUN MACHINE OPERATOR 09/27/2020 2:39 AM BUN MACHINE OPERATOR Erwin Hirschper DO LAB - COAGULATION OR DERABLES [facility] [address] [place] [address], [facility] [phone] * (ABNORMAL) COMPREHENSIVE METABOLIC PANEL (09/27/2020 2:28 AM [facility]) Only the most recent of2 resultswithin the time period is included. BUN 43(H) 7 - 26 mg/dL 09/27/2020 2:59 AM [facility] Creatinine 1.7(H) 0.6 - 1.2 mg/dL 09/27/2020 2:59 AM [facility] Sodium 136 136 - 145 mmol/L 09/27/2020 2:59 AM [facility] Potassium 3.6 3.5 - 4.5 mmol/L 09/27/2020 2:59 AM [facility] Chloride 101 98 - 107 mmol/L 09/27/2020 2:59 AM [facility] CO2 19(L) 22 - 29 mmol/L 09/27/2020 2:59 AM [facility] Glucose 99 70 - 115 mg/dL 09/27/2020 2:59 AM [facility] Calcium 8.4 8.4 - 10.2 mg/dL 09/27/2020 2:59 AM [facility] Protein Total 7.0 6.0 - 8.3 g/dL 09/27/2020 2:59 AM [facility] Albumin 3.8 3.4 - 5.0 g/dL 09/27/2020 2:59 AM [facility] Bilirubin Total 0.7 0.2 - 1.2 mg/dL 09/27/2020 2:59 AM [facility] Alkaline Phosphatase 75 40 - 150 Units/L 09/27/2020 2:59 AM [facility] ALT 75(H) 0 - 55 Units/L 09/27/2020 2:59 AM [facility] AST 40(H) 5 - 34 Units/L 09/27/2020 2:59 AM [facility] Anion Gap 20(H) 8 - 18 09/27/2020 2:59 AM [facility] BUN/Creatinine Ratio 25(H) 7 - 23 09/27/2020 2:59 AM BUN MACHINE OPERATOR [facility] Osmolality Calculated 293 270 - 300 mOsm/kg 09/27/2020 2:59 AM BUN MACHINE OPERATOR [facility] Albumin/Globulin Ratio 1.2 1.1 - 2.3 09/27/2020 2:59 AM BUN MACHINE OPERATOR [facility] eGFR 39(L) >60 mL/min/1.7 3 m2 09/27/2020 2:59 AM BUN MACHINE OPERATOR [facility] Blood BLOOD SPECIMEN / Unknown Lab Venipuncture / Unknown 09/27/2020 2:28 AM BUN MACHINE OPERATOR 09/27/2020 2:32 AM BUN MACHINE OPERATOR Erwin Diamond DO LAB - CHEMISTRY ORDE LIZ [facility] [address] [place] [address], [facility] [phone] * SARS-COV-2 (COVID-19) IN HOUSE (09/27/2020 2:27 AM BUN MACHINE OPERATOR) COVID-19 PCR Not detected Not detected 09/27/2020 6:58 AM BUN MACHINE OPERATOR [facility] Microbiology SPECIMEN FROM NASOPHARYNGEAL STRUCTURE / Unknown Collection / Unknown 09/27/2020 2:27 AM BUN MACHINE OPERATOR 09/27/2020 2:32 AM BUN MACHINE OPERATOR Narrative [facility] - 09/27/2020 6:58 AM BUN MACHINE OPERATOR This nucleic acid amplification assay performance was validated by [facility]. This test has been authorized [...] - MICROBIOLOGY O RDERABLES Performing Organization Address City/[facility]/ZIP Co de Phone Number [facility] [address] [place] [address], [facility] [phone] * XR KNEE BILAT 3 VIEWS (08/24/2011 5:54 PM BUN MACHINE OPERATOR) Anatomical Region Laterality Modality Lower Extremity Other Narrative 08/24/2011 5:54 PM BUN MACHINE OPERATOR Nancy Aragon, RT ? 08/24/2011 ??5:54 PM See progress notes for results Procedure Note Nancy Aragon, RT - 08/24/2011 5:54 PM CST See progress notes for results Hari Lopez MD DIAGNOSTIC IMAGING O RDERABLES * CARDIAC EKG ORDER (07/03/2010 4:48 PM BUN MACHINE OPERATOR) Only the most recent of2 resultswithin the time period is included. Narrative Procedure Note Document, Scanned - 07/03/2010 1:31 PM BUN MACHINE OPERATOR Scanned Document CARDIAC SERVICES ORD ERABLES * (ABNORMAL) HGB HCT PANEL (07/01/2010 1:10 AM BUN MACHINE OPERATOR) Only the most recent of4 resultswithin the time period is included. Hemoglobin 8.7(L) 13.0 - 18.0 gm/dl [facility] Hematocrit 25.5(L) 39.0 - 54.0 % [facility] BLOOD SPECIMEN / Unknown 07/01/2010 1:10 AM BUN MACHINE OPERATOR 07/01/2010 2:52 AM BUN MACHINE OPERATOR Hari Lopez MD LAB - HEMATOLOGY ORD ERABLES Performing Organization Address City/[facility]/ZIP Co de Phone Number [facility] [address] [place] [address] * CULTURE MSSA (05/18/2010 11:37 AM CDT) Result [facility] Comment: Final ?? CULTURE No MSSA isolated. SPECIMEN FROM NASAL FOSSAE / Unknown 05/18/2010 11:37 AM CDT 05/18/2010 11:37 AM CDT Narrative Resulting Agency Comment Performed By [facility];[address] [place] [address] Hari Lopez MD LAB - MICROBIOLOGY O RDLAURIE Performing Organization Address [facility] de Phone Number [facility] [address] [place] [address] * CULTURE MRSA (05/18/2010 11:37 AM CDT) Result [facility] Comment: Final ?? CULTURE No MRSA isolated SPECIMEN FROM NASAL FOSSAE / Unknown 05/18/2010 11:37 AM CDT 05/18/2010 11:37 AM CDT Narrative Resulting Agency Comment Performed By [facility];[address] [place] [address] Hari Lopez MD LAB - MICROBIOLOGY O ROBERT Performing Organization Address [facility] de Phone Number [facility] [address] [place] [address] Care Teams Research Associate Professor Relationship Specialty Start Date End Date Jarad Rodriguez MD [address] [place] [address] PCP - General 10/27/21
--- OUTSIDE RECORDS SUMMARY | 2024-09-14 19:57 | XMS_ITS | Referral Summary ---
Author Organization [facility] [place] [address] [place] [address] Care Team Providers Care Luggage Liner Name Role Phone Jarad Rodriguez MD Primary Care Provider [phone] Encounters Date Type Department Care Team Description 09/06/2024 Telephone [facility] at [address] [place] [phone] [place], [place] 07/18/2024 2:10 PM RESOURCE MANAGEMENT SPECIALIST Lab [address] [address] Elevated PSA 07/18/2024 1:15 PM RESOURCE MANAGEMENT SPECIALIST Office Visit [facility] at [address] [phone] Hortencia Reis NP Congestive heart failure, unspecified HF chronicity, unspecified heart failure type (HCC) (Primary Dx); Hypertension, unspecified type; Dyslipidemia 07/02/2024 Orders Only [facility] [id number] [address] Jeremi Gomes MD Elevated PSA [...] (11/03/2021): Added automatically from request for surgery [id number] Elevated PSA 08/28/2021 Overview (08/28/2021): Added automatically from request for surgery [id number] Weight decreased 03/20/2014 Overview (11/19/2016): Weight loss Social History Tobacco Use Types Packs/Day Years Used Date Smoking Tobacco: Former Cigarettes 1 40 1 960 - 2000 Smokeless Tobacco: Never Tobacco Cessation:Counseling Given: Not Answered Alcohol Use Standard Drinks/Week Comments Yes 0 (1 standard drink = 0.6 oz pur e alcohol) [facility] Dailyeventities Answer Date Recorded In the past 12 months has e electric, gas, oil, or water [employer] threatened to shut off services in your [...] often do you attend chur ch or amish services? 1 to 4 times per year 07/14/2023 Do you belong to any clubs o r organizations such as roman catholic groups, unions, fraternal or athletic groups, or [...] place to sleep or slept in a alf (including now)? No 07/14/2023 Personal Safety Answer Date Recorded Have you ever been in or are you currently in a harmful physical or emotional relationship or is someone making you feel afraid or unsafe? Denies 03/28/2024 Sex and Gender Information Value Date Recorded Sex Assigned at Not on file Legal Sex Male 8:03 AM RESOURCE MANAGEMENT SPECIALIST Gender Identity Not on file Sexual Orientation Not on file Last Filed Vital Signs Vital Sign Reading Time Taken Comments Blood Pressure 135/85 07/18/2024 1:35 PM RESOURCE MANAGEMENT SPECIALIST Pulse 51 07/18/2024 1:35 PM RESOURCE MANAGEMENT SPECIALIST Temperature 36 ??C (96.8 ??F) 03/28/2024 10:15 AM CDT Respiratory Rate 18 05/09/2024 1:26 PM CDT Oxygen Saturation 100% 03/28/2024 10:15 AM CDT Inhaled Oxygen Concentration - - Weight 68 kg (150 lb) 07/18/2024 1:35 PM RESOURCE MANAGEMENT SPECIALIST Height 175.3 cm (5' 9 ) 07/18/2024 1:35 PM RESOURCE MANAGEMENT SPECIALIST Body Mass Index 22.15 07/18/2024 1:35 PM RESOURCE MANAGEMENT SPECIALIST Plan of Treatment Not on file Procedures Procedure Name Priority Date/Time Associated Diagnosis Comments PSA DIAGNOSTIC Routine 07/18/2024 2:24 PM RESOURCE MANAGEMENT SPECIALIST Elevated PSA from Last 3 Months Results * PSA diagnostic (07/18/2024 2:24 PM RESOURCE MANAGEMENT SPECIALIST) PSA-Total 1.42 <=6.20 ng/mL Comment: Interpretive Data [...] last revised 21. Blood 07/18/2024 2:24 PM RESOURCE MANAGEMENT SPECIALIST 07/18/2024 3:31 PM RESOURCE MANAGEMENT SPECIALIST us Jeremi Gomes MD LAB BLOOD ORDERABLES Fi nal Result KRISTINE LUONG ([place]) [facility] Department [place] [address] from Last 3 Months Additional Health Concerns Infection Onset Date Last Indicated C. difficile 07/13/2023 07/13/2023 Insurance MEDICARE [facility] MEDICARE MEDICARE [place] MEDICARE SUPPLEMENT Advance Directives For more information, please contact: [phone] Documents on File Type Date Recorded Patient Director Market Intelligence Expl anation ADVANCE DIRECTIVE 11/11/2021 10:57 AM * Full Code (Latest Code Status on File) Date Activated Date Inactivated Comments 07/13/2023 6:41 PM 07/16/2023 7:47 PM * Full Code Date Activated Date Inactivated Comments 02/28/2023 1:36 PM 03/02/2023 11:06 PM Care Teams Luggage Liner Relationship Specialty Start Date End Date Jarad Rodriguez MD PCP - General Internal Medicine 05/31/22
--- OUTSIDE RECORDS SUMMARY | 2024-09-14 19:57 | XMS_ITS ---
Author Organization [facility] [place] [address] [place] [address] Care Team Providers Care Road Driver Name Role Phone Jarad Rodriguez MD Primary Care Provider [phone] Active Problems Problem Noted Date Diagnosed Date C. difficile colitis 07/14/2023 SARAH (acute kidney injury) 07/13/2023 Abnormal stress test 04/13/2023 Moderate dementia associated with alcoholism Chest pain 04/07/2023 Hypertension 04/07/2023 NSTEMI (non-ST elevated myocardial infarction) ( [facility]) 02/28/2023 Prostate cancer 11/03/2021 Overview (11/03/2021): Added automatically from request for surgery [id number] Elevated PSA 08/28/2021 Overview (08/28/2021): Added automatically from request for surgery [id number] Weight decreased 03/20/2014 Overview (11/19/2016): Weight loss Current Oncology Plans No current plan information found. Past Plans No past plan information found. Radiation Treatments * No radiation treatments are documented for this patient in [facility]. Treatments may have been administered in another system. Lifetime Dose Tracking * Chemical Lifetime Dose Automatic Entry Manual Entr y DLP 417 mGycm 417 mGycm 0 mGycm
--- OUTSIDE RECORDS SUMMARY | 2024-09-14 19:57 | XMS_ITS | Continuity of Care Document ---
Author Organization [facility] Address [address] [place] [address] [place] [address] Phone Care Team Providers Care Cooler Room Worker Name Role Phone Massimo Castro MD Unavailable Unavailable Procedures Procedure Date Eye Exam, New Patient Advance Directives Directive Yes / No Effective Date File Name No Information Encounters Encounter Description Practice Location Reason(s) For Visit Diagnoses Date Provider Providers Copied on Encounter [facility], [address] [place], [place], [id number], [place] tel:[phone] [facility] No Information [address] [facility] [place], [place], [place], [id number], [place]. tel:[phone] Family History Family Member Type Diagnosis Age At Onset No Information Payers Payer name Insurance type Covered green party ID Authoriza tion(s) No Information Social History [...]
--- OUTSIDE RECORDS SUMMARY | 2024-09-14 19:57 | XMS_ITS | Clinical Summary ---
Author Organization [facility] [place] [address] [place] [phone] Care Team Providers Care Clinic Physician Name Role Phone Jarad Rodriguez MD Primary Care Provider [phone] Allergies Active Allergy Reactions Criticality Noted Date [...] 04/07/2023 NSTEMI (non-ST elevated myocardial infarction) ( [facility]) 02/28/2023 Prostate cancer 11/03/2021 Overview (11/03/2021): Added automatically from request for surgery [id number] Elevated PSA 08/28/2021 Overview (08/28/2021): Added automatically from request for surgery [id number] Weight decreased 03/20/2014 Overview (11/19/2016): Weight loss Encounters Date Type Department Care Team Description 09/06/[address] [facility] Hostess at [address] [place] [phone] [place] 07/18/2024 2:10 PM LAWN MOWER SHARPENER Lab [address] [address] Elevated PSA 07/18/2024 1:15 PM LAWN MOWER SHARPENER Office Visit [facility]ess at [address] [address] Hortencia Reis NP Congestive heart failure, unspecified HF chronicity, unspecified heart failure type (HCC) (Primary Dx); Hypertension, unspecified type; Dyslipidemia 07/02/2024 Orders Only [facility]) - [facility] Urology [address] [address] Jeremi Gomes MD Elevated PSA [...] drink = 0.6 oz pur e alcohol) [facility] Utilities Answer Date Recorded In the past 12 months has [employer], gas, oil, or water [employer] threatened to shut off services in your [...] often do you attend chur ch or latter day services? 1 to 4 times per year 07/14/2023 Do you belong to any clubs o r organizations such as mandaen groups, unions, fraternal or athletic groups, or [...] place to sleep or slept in a long term (including now)? No 07/14/2023 Personal Safety Answer Date Recorded Have you ever been in or are you currently in a harmful physical or emotional relationship or is someone making you feel afraid or unsafe? Denies 03/28/2024 Sex and Gender Information Value Date Recorded Sex Assigned at Not on file Legal Sex Male 8:03 AM LAWN MOWER SHARPENER Gender Identity Not on file Sexual Orientation Not on file Obstetrics History Last Filed Vital Signs Vital Sign Reading Time Taken Comments Blood Pressure 135/85 07/18/2024 1:35 PM LAWN MOWER SHARPENER Pulse 51 07/18/2024 1:35 PM LAWN MOWER SHARPENER Temperature 36 ??C (96.8 ??F) 03/28/2024 10:15 AM CDT Respiratory Rate 18 05/09/2024 1:26 PM CDT Oxygen Saturation 100% 03/28/2024 10:15 AM CDT Inhaled Oxygen Concentration - - Weight 68 kg (150 lb) 07/18/2024 1:35 PM LAWN MOWER SHARPENER Height 175.3 cm (5' 9 ) 07/18/2024 1:35 PM LAWN MOWER SHARPENER Body Mass Index 22.15 07/18/2024 1:35 PM LAWN MOWER SHARPENER Plan of Treatment Health Maintenance Due Date [...] Comments PSA DIAGNOSTIC Routine 07/18/2024 2:24 PM LAWN MOWER SHARPENER Elevated PSA from Last 3 Months Results * PSA diagnostic (07/18/2024 2:24 PM LAWN MOWER SHARPENER) PSA-Total 1.42 <=6.20 ng/mL Comment: Interpretive Data [...] last revised 21. Blood 07/18/2024 2:24 PM LAWN MOWER SHARPENER 07/18/2024 3:31 PM LAWN MOWER SHARPENER us Jeremi Gomes MD LAB BLOOD ORDERABLES Fi nal Result [facility] ([facility]) 1 [facility] Department [place] [address] from Last 3 Months Additional Health Concerns Infection Onset Date Last Indicated C. difficile 07/13/2023 07/13/2023 Insurance MEDICARE [facility] MEDICARE MEDICARE BLUE CROSS MEDICARE SUPPLEMENT Advance Directives For more information, please contact: [phone] Documents on File Type Date Recorded Patient Oil Field Tester Expl anation ADVANCE DIRECTIVE 11/11/2021 10:57 AM * Full Code (Latest Code Status on File) Date Activated Date Inactivated Comments 07/13/2023 6:41 PM 07/16/2023 7:47 PM * Full Code Date Activated Date Inactivated Comments 02/28/2023 1:36 PM 03/02/2023 11:06 PM Care Teams Clinic Physician Relationship Specialty Start Date End Date Jarad Rodriguez MD PCP - General Internal Medicine 05/31/22
--- NOTE | 2024-09-14 20:37 | PC.NURSE ---
Caregiver stated she is just going to take the patient home and give him his medication to help bring his blood pressure up and will come back if needed.
--- OUTSIDE RECORDS SUMMARY | 2024-09-14 20:46 | XMS_ITS ---
Author Organization [facility] [place] [address] [place] [phone] Care Team Providers Care Food And Drink Factory Workers Name Role Phone Jarad Rodriguez MD Primary Care Provider [phone] Active Problems Problem Noted Date Diagnosed Date C. difficile colitis 07/14/2023 SARAH (acute kidney injury) 07/13/2023 Abnormal stress test 04/13/2023 Moderate dementia associated with alcoholism Chest pain 04/07/2023 Hypertension 04/07/2023 NSTEMI (non-ST elevated myocardial infarction) ( [facility]) 02/28/2023 Prostate cancer 11/03/2021 Overview (11/03/2021): Added automatically from request for surgery [id number] Elevated PSA 08/28/2021 Overview (08/28/2021): Added automatically from request for surgery [id number] Weight decreased 03/20/2014 Overview (11/19/2016): Weight loss Current Oncology Plans No current plan information found. Past Plans No past plan information found. Radiation Treatments * No radiation treatments are documented for this patient in [facility]. Treatments may have been administered in another system. Lifetime Dose Tracking * Chemical Lifetime Dose Automatic Entry Manual Entr y DLP 417 mGycm 417 mGycm 0 mGycm
--- OUTSIDE RECORDS SUMMARY | 2024-09-14 20:46 | XMS_ITS | Clinical Summary ---
Author Organization [facility] [place] [address] [place] [phone] Care Team Providers Care Warehouse Distribution Specialist Name Role Phone Jarad Rodriguez MD Primary Care Provider [phone] Allergies Active Allergy Reactions Criticality Noted Date [...] 04/07/2023 NSTEMI (non-ST elevated myocardial infarction) ( [facility]) 02/28/2023 Prostate cancer 11/03/2021 Overview (11/03/2021): Added automatically from request for surgery [id number] Elevated PSA 08/28/2021 Overview (08/28/2021): Added automatically from request for surgery [id number] Weight decreased 03/20/2014 Overview (11/19/2016): Weight loss Encounters Date Type Department Care Team Description 09/06/[address] [facility] Operator at [address] [place] [phone] Jeet Meg, [place] 07/18/2024 2:10 PM BUSINESS CONTINUITY SPECIALIST Lab [address] [phone] Elevated PSA 07/18/2024 1:15 PM BUSINESS CONTINUITY SPECIALIST Office Visit [facility] at [address] [phone] Hortencia Reis NP Congestive heart failure, unspecified HF chronicity, unspecified heart failure type (HCC) (Primary Dx); Hypertension, unspecified type; Dyslipidemia 07/02/2024 Orders Only [facility]) - [facility] Urology [address] [address] Jeremi Gomes MD Elevated PSA [...] drink = 0.6 oz pur e alcohol) [facility] Utilities Answer Date Recorded In the past 12 months has [employer], gas, oil, or water [employer] threatened to shut off services in your [...] place to sleep or slept in a group home (including now)? No 07/14/2023 Personal Safety Answer Date Recorded Have you ever been in or are you currently in a harmful physical or emotional relationship or is someone making you feel afraid or unsafe? Denies 03/28/2024 Sex and Gender Information Value Date Recorded Sex Assigned at Not on file Legal Sex Male 8:03 AM BUSINESS CONTINUITY SPECIALIST Gender Identity Not on file Sexual Orientation Not on file Obstetrics History Last Filed Vital Signs Vital Sign Reading Time Taken Comments Blood Pressure 135/85 07/18/2024 1:35 PM BUSINESS CONTINUITY SPECIALIST Pulse 51 07/18/2024 1:35 PM BUSINESS CONTINUITY SPECIALIST Temperature 36 ??C (96.8 ??F) 03/28/2024 10:15 AM CDT Respiratory Rate 18 05/09/2024 1:26 PM CDT Oxygen Saturation 100% 03/28/2024 10:15 AM CDT Inhaled Oxygen Concentration - - Weight 68 kg (150 lb) 07/18/2024 1:35 PM BUSINESS CONTINUITY SPECIALIST Height 175.3 cm (5' 9 ) 07/18/2024 1:35 PM BUSINESS CONTINUITY SPECIALIST Body Mass Index 22.15 07/18/2024 1:35 PM BUSINESS CONTINUITY SPECIALIST Plan of Treatment Health Maintenance Due Date [...] Comments PSA DIAGNOSTIC Routine 07/18/2024 2:24 PM BUSINESS CONTINUITY SPECIALIST Elevated PSA from Last 3 Months Results * PSA diagnostic (07/18/2024 2:24 PM BUSINESS CONTINUITY SPECIALIST) PSA-Total 1.42 <=6.20 ng/mL Comment: Interpretive [...] last revised 21. Blood 07/18/2024 2:24 PM BUSINESS CONTINUITY SPECIALIST 07/18/2024 3:31 PM BUSINESS CONTINUITY SPECIALIST us Jeremi Gomes MD LAB BLOOD ORDERABLES Fi nal Result [facility] ([place]) 1 [facility] [place] [address] from Last 3 Months Additional Health Concerns Infection Onset Date Last Indicated C. difficile 07/13/2023 07/13/2023 Insurance MEDICARE [facility] MEDICARE MEDICARE BLUE CROSS MEDICARE SUPPLEMENT Advance Directives For more information, please contact: [phone] Documents on File Type Date Recorded Patient Resident Assistant [employer] Expl anation ADVANCE DIRECTIVE 11/11/2021 10:57 AM * Full Code (Latest Code Status on File) Date Activated Date Inactivated Comments 07/13/2023 6:41 PM 07/16/2023 7:47 PM * Full Code Date Activated Date Inactivated Comments 02/28/2023 1:36 PM 03/02/2023 11:06 PM Care Teams Warehouse Distribution Specialist Relationship Specialty Start Date End Date Jarad Rodriguez MD PCP - General Internal Medicine 05/31/22
--- OUTSIDE RECORDS SUMMARY | 2024-09-14 20:46 | XMS_ITS | Patient Health Summary ---
Author Organization [facility] Address [address] [place] [address] Care Team Providers Care Clinical Lab Scientist Name Role Phone Jarad Rodriguez MD Primary Care Provider [phone] Note from [facility],non-owned Affiliates and Associated Physician Practices is amultiple site organization consisting of ambulatory clinics and hospital sitesin [place], [place], [place] and [place]. This disclosure is being madepursuant to the Care Everywhere program and may not contain all information available regarding this patient. Last updated [email or web address] Allergies * Penicillin G Potassium(Rash) Medications * [...] surgery Indications: usually takes in PM * [place]-3 Fatty Acids (FISH OIL PO) Take by [...] Comments Blood Pressure 116/82 09/30/2020 7:48 AM BRIQUETTING MACHINE OPERATOR Pulse 62 09/30/2020 7:48 AM BRIQUETTING MACHINE OPERATOR Temperature 36.6 ??C (97.9 ??F) 09/30/2020 7:48 AM CS T Respiratory Rate 18 09/30/2020 7:48 AM BRIQUETTING MACHINE OPERATOR Oxygen Saturation 98% 09/30/2020 7:48 AM BRIQUETTING MACHINE OPERATOR Inhaled Oxygen Concentration - - Weight 61.5 kg (135 lb 9.3 oz) 09/27/2020 1:09 A M BRIQUETTING MACHINE OPERATOR Height 177.8 cm (5' 10 ) 09/27/2020 1:09 AM BRIQUETTING MACHINE OPERATOR Body Mass Index 19.45 09/27/2020 1:09 AM BRIQUETTING MACHINE OPERATOR Medical Devices Implanted Type Area Head Custodian Device Identifier Shelf Expiration Date Model / Serial / Lot Mesh Srg Parietex Progrip 15x9cm Rect Implanted:Qty: 1 on 09/28/2020 by Erwin Diamond DO at [facility] Left: Groin Covidien 04/14/2024 [id number] / / [id number] Mesh Srg Parietex Progrip 14x9cm Slf Implanted:Qty: 1 on 09/28/2020 by Erwin Diamond, at [facility] Right: Groin Covidien 10/12/2024 [id number] / / [id number] Procedures * URINALYSIS REFLEX TO MICROSCOPIC NO [...] TO MICROSCOPIC NO CULTURE (09/29/2020 9:20 AM [facility]) Color UA Yellow Straw, Yellow, Colorless 09/29/2020 9:32 AM [facility] Clarity UA Clear Clear, Slt Cloudy 09/29/2020 9:32 AM [facility] Specific [place] UA 1.012 1.005 - 1.030 09/29/2020 9:32 AM [facility] pH UA 5.0 5.0 - 8.0 pH 09/29/2020 9:32 AM [facility] Protein UA Negative Negative mg/dL 09/29/2020 9:32 AM [facility] Glucose UA Negative Negative mg/dL 09/29/2020 9:32 AM [facility] Ketone UA Negative Negative mg/dL 09/29/2020 9:32 AM [facility] Bilirubin UA Negative Negative mg/dL 09/29/2020 9:32 AM [facility] Blood UA Negative Negative 09/29/2020 9:32 AM [facility] Nitrite UA Negative Negative 09/29/2020 9:32 AM [facility] Leukocyte Esterase Trace(A) Negative 09/29/2020 9:32 AM [facility] Urobilinogen UA Negative Negative mg/dL 09/29/2020 9:32 AM [facility] RBC UA 0-2 None Seen, 0-2, 3-5 /HPF 09/29/2020 9:32 AM [facility] WBC UA 21-50(A) None Seen, 0-5 /HPF 09/29/2020 9:32 AM [facility] Bacteria UA Trace None, Trace /HPF 09/29/2020 9:32 AM [facility] Squamous Epithelial Cells UA None Seen None Seen, 0-2 /HPF 09/29/2020 9:32 AM [facility] Hyaline Casts UA 0-2 None Seen, 0-2 /LPF 09/29/2020 9:32 AM [facility] Urine URINE SPECIMEN OBTAINED BY CLEAN CATCH PROCEDURE / Unknown Collection / Unknown 09/29/2020 9:20 AM BRIQUETTING MACHINE OPERATOR 09/29/2020 9:[address] [facility] - 09/29/2020 9:32 AM BRIQUETTING MACHINE OPERATOR Erwin Diamond DO LAB - URINALYSIS ORD ERABLES [facility] [address] [place] [address], [facility] [phone] * (ABNORMAL) BASIC METABOLIC PANEL (CALCIUM TOTAL) (09/29/2020 6:52 AM BRIQUETTING MACHINE OPERATOR) Only the most recent of4 resultswithin the time period is included. BUN 11 7 - 26 mg/dL 09/29/2020 7:25 AM [facility] Creatinine 0.7 0.6 - 1.2 mg/dL 09/29/2020 7:25 AM [facility] Sodium 134(L) 136 - 145 mmol/L 09/29/2020 7:25 AM [facility] Potassium 4.0 3.5 - 4.5 mmol/L 09/29/2020 7:25 AM [facility] Chloride 106 98 - 107 mmol/L 09/29/2020 7:25 AM [facility] CO2 21(L) 22 - 29 mmol/L 09/29/2020 7:25 AM [facility] Glucose 88 70 - 115 mg/dL 09/29/2020 7:25 AM [facility] Calcium 8.3(L) 8.4 - 10.2 mg/dL 09/29/2020 7:25 AM [facility] Anion Gap 11 8 - 18 09/29/2020 7:25 AM [facility] BUN/Creatinine Ratio 16 7 - 23 09/29/2020 7:25 AM [facility] Osmolality Calculated 277 270 - 300 mOsm/kg 09/29/2020 7:25 AM [facility] eGFR >60 >60 mL/min/1.7 3 m2 09/29/2020 7:25 AM [facility] Blood BLOOD SPECIMEN / Unknown Venipuncture / Unknown 09/29/2020 6:52 AM BRIQUETTING MACHINE OPERATOR 09/29/2020 6:55 AM BRIQUETTING MACHINE OPERATOR Erwin Diamond DO LAB - CHEMISTRY ORDE LIZ [facility] [address] [place] [address], [facility] [phone] * (ABNORMAL) CBC W AUTO DIFFERENTIAL (09/29/2020 4:59 AM [facility]) Only the most recent of4 resultswithin the time period is included. WBC 8.7 3.5 - 10.5 10? 3 /uL 09/29/2020 5:49 AM [facility] Comment:Confirmed by repeat analysis. RBC 3.47(L) 4.30 - 5.70 10? 6 /uL 09/29/2020 5:49 AM [facility] Hemoglobin 11.2(L) 13.5 - 17.5 g/dL 09/29/2020 5:49 AM [facility] Hematocrit 32.4(L) 39.0 - 50.0 % 09/29/2020 5:49 AM [facility] MCV 93.4 81.0 - 97.0 fL 09/29/2020 5:49 AM [facility] MCH 32.3 28.0 - 34.0 pg 09/29/2020 5:49 AM [facility] MCHC 34.6 32.0 - 36.0 g/dL 09/29/2020 5:49 AM [facility] Platelet Count 214 150 - 400 10? 3 /uL 09/29/2020 5:49 AM [facility] RDW-SD 51.3(H) 36.0 - 50.0 fL 09/29/2020 5:49 AM [facility] RDW-CV 15.0(H) 11.2 - 14.8 % 09/29/2020 5:49 AM [facility] MPV 10.2 9.3 - 12.8 fL 09/29/2020 5:49 AM [facility] nRBC Absolute 0.00 0 10? 3 /uL 09/29/2020 5:49 AM [facility] nRBC Auto 0.0 0 /100 WBC 09/29/2020 5:49 AM [facility] Neutrophils % 73.6(H) 35.0 - 70.0 % 09/29/2020 5:49 AM [facility] Lymphocytes % 16.6(L) 19.7 - 55.1 % 09/29/2020 5:49 AM [facility] Monocytes % 9.2 3.0 - 15.0 % 09/29/2020 5:49 AM [facility] Eosinophils % 0.1 0.0 - 6.0 % 09/29/2020 5:49 AM [facility] Basophil % 0.2 0.0 - 1.5 % 09/29/2020 5:49 AM [facility] Neutrophils Absolute 6.4 1.6 - 7.0 10? 3 /uL 09/29/2020 5:49 AM [facility] Lymphocyte Absolute 1.5 0.8 - 2.9 10? 3 /uL 09/29/2020 5:49 AM [facility] Monocytes Absolute 0.80(H) 0.14 - 0.66 10? 3 /uL 09/29/2020 5:49 AM [facility] Eosinophils Absolute 0.01 0.00 - 0.45 10? 3 /uL 09/29/2020 5:49 AM [facility] Basophils Absolute 0.02 0.00 - 0.06 10? 3 /uL 09/29/2020 5:49 AM [facility] Immature Granulocytes % 0.3 0.0 - 1.0 % 09/29/2020 5:49 AM [facility] Blood BLOOD SPECIMEN / Unknown Venipuncture / Unknown 09/29/2020 4:59 AM BRIQUETTING MACHINE OPERATOR 09/29/2020 5:18 AM [facility] Erwin Hirschper DO LAB - HEMATOLOGY ORD LAURIE Performing Organization Address [place] Co de Phone Number [address] [address], [facility] [phone] * (ABNORMAL) PHOSPHORUS BLOOD (09/29/2020 4:59 AM BRIQUETTING MACHINE OPERATOR) Only the most recent of3 resultswithin the time period is included. Phosphorus 1.5(L) 2.3 - 4.7 mg/dL 09/29/2020 5:42 AM BRIQUETTING MACHINE OPERATOR [facility] Blood BLOOD SPECIMEN / Unknown Venipuncture / Unknown 09/29/2020 4:59 AM BRIQUETTING MACHINE OPERATOR 09/29/2020 5:18 AM BRIQUETTING MACHINE OPERATOR Erwin Hirschper DO LAB - CHEMISTRY ORDCesar HILL Performing Organization Address [place] Co de Phone Number [address] [address], [facility] [phone] * MAGNESIUM BLOOD (09/29/2020 4:59 AM BRIQUETTING MACHINE OPERATOR) Only the most recent of3 resultswithin the time period is included. Magnesium 1.7 1.6 - 2.6 mg/dL 09/29/2020 5:42 AM BRIQUETTING MACHINE OPERATOR [facility] Blood BLOOD SPECIMEN / Unknown Venipuncture / Unknown 09/29/2020 4:59 AM BRIQUETTING MACHINE OPERATOR 09/29/2020 5:18 AM BRIQUETTING MACHINE OPERATOR Erwin Vilma Dara BETHEA LAB - CHEMISTRY ADRIA HILL Performing Organization Address [place]/[facility]/ZIP Co de Phone Number [address] [address], [facility] [phone] * ETT LINE PERFORMABLE (09/28/2020 10:12 AM BRIQUETTING MACHINE OPERATOR) Narrative Hari Crook, DO - 09/28/2020 10:12 AM BRIQUETTING MACHINE OPERATOR Hari Crook, DO ? 09/28/2020 10:12 AM Endotracheal Tube Placement: ? Patient Location: OR. Intubation Event Date/Time: ??09/28/2020 9:49 AM Procedure: intubation (19554). Procedure Section: ?? Sedation: under general anesthesia. [...] TYPE + SCREEN PANEL (09/27/2020 5:31 AM BRIQUETTING MACHINE OPERATOR) Antibody Screen NEG 6:17 AM [facility] ABO Rh A POS 09/27/2020 6:17 AM [facility] Blood Bank BLOOD SPECIMEN / Unknown Venipuncture / Unknown 09/27/2020 5:31 AM BRIQUETTING MACHINE OPERATOR 09/27/2020 5:41 AM BRIQUETTING MACHINE OPERATOR Erwin Diamond DO LAB - BLOOD BANK ORD ERABLES Performing Organization Address [place]/State/ZIP Co de Phone Number [facility] [address] [place] [address], [facility] [phone] * PTT [facility] (09/27/2020 2:28 AM BRIQUETTING MACHINE OPERATOR) APTT 30.1 23.0 - 38.4 Seconds 09/27/2020 2:47 AM BRIQUETTING MACHINE OPERATOR [facility] Comment:Suggested therapeuti c range for full dose I.V. unfractionated heparin therapy for venous thromboembolism is 71 to 109 seconds. Blood BLOOD SPECIMEN / Unknown Lab Venipuncture / Unknown 09/27/2020 2:28 AM BRIQUETTING MACHINE OPERATOR 09/27/2020 2:39 AM BRIQUETTING MACHINE OPERATOR Erwin Hirschper DO LAB - COAGULATION OR DERABLES [facility] [address] [place] [address], [facility] [phone] * (ABNORMAL) COMPREHENSIVE METABOLIC PANEL (09/27/2020 2:28 AM [facility]) Only the most recent of2 resultswithin the time period is included. BUN 43(H) 7 - 26 mg/dL 09/27/2020 2:59 AM [facility] Creatinine 1.7(H) 0.6 - 1.2 mg/dL 09/27/2020 2:59 AM [facility] Sodium 136 136 - 145 mmol/L 09/27/2020 2:59 AM [facility] Potassium 3.6 3.5 - 4.5 mmol/L 09/27/2020 2:59 AM [facility] Chloride 101 98 - 107 mmol/L 09/27/2020 2:59 AM [facility] CO2 19(L) 22 - 29 mmol/L 09/27/2020 2:59 AM [facility] Glucose 99 70 - 115 mg/dL 09/27/2020 2:59 AM [facility] Calcium 8.4 8.4 - 10.2 mg/dL 09/27/2020 2:59 AM [facility] Protein Total 7.0 6.0 - 8.3 g/dL 09/27/2020 2:59 AM [facility] Albumin 3.8 3.4 - 5.0 g/dL 09/27/2020 2:59 AM [facility] Bilirubin Total 0.7 0.2 - 1.2 mg/dL 09/27/2020 2:59 AM [facility] Alkaline Phosphatase 75 40 - 150 Units/L 09/27/2020 2:59 AM [facility] ALT 75(H) 0 - 55 Units/L 09/27/2020 2:59 AM [facility] AST 40(H) 5 - 34 Units/L 09/27/2020 2:59 AM [facility] Anion Gap 20(H) 8 - 18 09/27/2020 2:59 AM [facility] BUN/Creatinine Ratio 25(H) 7 - 23 09/27/2020 2:59 AM BRIQUETTING MACHINE OPERATOR [facility] Osmolality Calculated 293 270 - 300 mOsm/kg 09/27/2020 2:59 AM BRIQUETTING MACHINE OPERATOR [facility] Albumin/Globulin Ratio 1.2 1.1 - 2.3 09/27/2020 2:59 AM BRIQUETTING MACHINE OPERATOR [facility] eGFR 39(L) >60 mL/min/1.7 3 m2 09/27/2020 2:59 AM BRIQUETTING MACHINE OPERATOR [facility] Blood BLOOD SPECIMEN / Unknown Lab Venipuncture / Unknown 09/27/2020 2:28 AM BRIQUETTING MACHINE OPERATOR 09/27/2020 2:32 AM BRIQUETTING MACHINE OPERATOR Erwin Diamond DO LAB - CHEMISTRY ORDE LIZ [facility] [address] [place] [address], [facility] [phone] * SARS-COV-2 (COVID-19) IN HOUSE (09/27/2020 2:27 AM BRIQUETTING MACHINE OPERATOR) COVID-19 PCR Not detected Not detected 09/27/2020 6:58 AM BRIQUETTING MACHINE OPERATOR [facility] MICROBIOLOGY Microbiology SPECIMEN FROM NASOPHARYNGEAL STRUCTURE / Unknown Collection / Unknown 09/27/2020 2:27 AM BRIQUETTING MACHINE OPERATOR 09/27/2020 2:32 AM BRIQUETTING MACHINE OPERATOR Narrative [facility]CRO[facility]OLOG[facility] - 09/27/2020 6:58 AM BRIQUETTING MACHINE OPERATOR This nucleic acid amplification assay performance was validated by [facility]. This test has been [...] - MICROBIOLOGY O RDERABLES Performing Organization Address City/[facility]/ZIP Co de Phone Number [facility]CRO[facility] [address] [place] [address], [facility] [phone] * XR KNEE BILAT 3 VIEWS (08/24/2011 5:54 PM BRIQUETTING MACHINE OPERATOR) Anatomical Region Laterality Modality Lower Extremity Other Narrative 08/24/2011 5:54 PM BRIQUETTING MACHINE OPERATOR Nancy Aragon, RT ? 08/24/2011 ??5:54 PM See progress notes for results Procedure Note Nancy Aragon, RT - 08/24/2011 5:54 PM CST See progress notes for results Hari Lopez MD DIAGNOSTIC IMAGING O RDERABLES * CARDIAC EKG ORDER (07/03/2010 4:48 PM BRIQUETTING MACHINE OPERATOR) Only the most recent of2 resultswithin the time period is included. Narrative Procedure Note Document, Scanned - 07/03/2010 1:31 PM BRIQUETTING MACHINE OPERATOR Scanned Document CARDIAC SERVICES ORD ERABLES * (ABNORMAL) HGB HCT PANEL (07/01/2010 1:10 AM BRIQUETTING MACHINE OPERATOR) Only the most recent of4 resultswithin the time period is included. Hemoglobin 8.7(L) 13.0 - 18.0 gm/dl [facility] Hematocrit 25.5(L) 39.0 - 54.0 % [facility] BLOOD SPECIMEN / Unknown 07/01/2010 1:10 AM BRIQUETTING MACHINE OPERATOR 07/01/2010 2:52 AM BRIQUETTING MACHINE OPERATOR Hari Lopez MD LAB - HEMATOLOGY ORD ERABLES Performing Organization Address City/[facility]/ZIP Co de Phone Number [facility] [address] [place] [address] * CULTURE MSSA (05/18/2010 11:37 AM CDT) Result [facility] Comment: Final ?? CULTURE No MSSA isolated. SPECIMEN FROM NASAL FOSSAE / Unknown 05/18/2010 11:37 AM CDT 05/18/2010 11:37 AM CDT Narrative Resulting Agency Comment Performed By [facility];[address] [place] [address] Hari Lopez MD LAB - MICROBIOLOGY O RDLAURIE Performing Organization Address [place]/[facility] de Phone Number [facility] [address] [place] [address] * CULTURE MRSA (05/18/2010 11:37 AM CDT) Result [facility] Comment: Final ?? CULTURE No MRSA isolated SPECIMEN FROM NASAL FOSSAE / Unknown 05/18/2010 11:37 AM CDT 05/18/2010 11:37 AM CDT Narrative Resulting Agency Comment Performed By [facility];[address] [place] [address] Hari Lopez MD LAB - MICROBIOLOGY O ROBERT Performing Organization Address [place]/[facility] de Phone Number [facility] [address] [place] [address] Care Teams Clinical Lab Scientist Relationship Specialty Start Date End Date Jarad Rodriguez MD [address] [place] [address] PCP - General 10/27/21
--- OUTSIDE RECORDS SUMMARY | 2024-09-14 20:46 | XMS_ITS | Continuity of Care Document ---
Author Organization [facility] Address [address] [place] [address] [place] [address] Phone Care Team Providers Care Pizzamaker Name Role Phone Massimo Castro MD Unavailable Unavailable Procedures Procedure Date Eye Exam, New Patient Advance Directives Directive Yes / No Effective Date File Name No Information Encounters Encounter Description Practice Location Reason(s) For Visit Diagnoses Date Provider Providers Copied on Encounter [facility], [address], [place], [place], [id number], [place] tel:[phone] [facility] No Information [address] Matthew Keys. [address] [facility] [place], [place], [id number], [place]. tel:[phone] Family History Family Member Type Diagnosis Age [...]
--- OUTSIDE RECORDS SUMMARY | 2024-09-14 20:46 | XMS_ITS | Referral Summary ---
Author Organization [facility] Address [address] [place] [address] Care Team Providers Care Change Booth Attendant Name Role Phone Jarad Rodriguez MD Primary Care Provider [phone] Source Comments [facility],non-owned Affiliates and Associated Physician Practices is amultiple site organization consisting of ambulatory clinics and hospital sitesin [place], [place], [place] and [place]. This disclosure is being madepursuant to the Care Everywhere program and may not contain all information available regarding this patient. Last updated 18.[facility] Allergies Active Allergy Reactions Criticality Noted Date [...] Take by mouth daily. Acti ve therapeutic multivitamin-examiner rating clerk als (THERAGRAN-M) tablet Take 1 Tab by mouth daily with breakfast. Active losartan (COZAAR) 25 MG tabletIndications: usually takes in PM Take 25 mg by mouth daily. Instructed to take AM of surgery Indications: usually takes in PM Active [place]-3 Fatty Acids (FISH OIL PO) Take by [...] Comments Blood Pressure 116/82 09/30/2020 7:48 AM NUCLEAR EQUIPMENT RESEARCH ENGINEER Pulse 62 09/30/2020 7:48 AM NUCLEAR EQUIPMENT RESEARCH ENGINEER Temperature 36.6 ??C (97.9 ??F) 09/30/2020 7:48 AM CS T Respiratory Rate 18 09/30/2020 7:48 AM NUCLEAR EQUIPMENT RESEARCH ENGINEER Oxygen Saturation 98% 09/30/2020 7:48 AM NUCLEAR EQUIPMENT RESEARCH ENGINEER Inhaled Oxygen Concentration - - Weight 61.5 kg (135 lb 9.3 oz) 09/27/2020 1:09 A M NUCLEAR EQUIPMENT RESEARCH ENGINEER Height 177.8 cm (5' 10 ) 09/27/2020 1:09 AM NUCLEAR EQUIPMENT RESEARCH ENGINEER Body Mass Index 19.45 09/27/2020 1:09 AM NUCLEAR EQUIPMENT RESEARCH ENGINEER Functional Status Functional Status Response Date of [...] on file Medical Devices Implanted Type Area Plant Custodian Device Identifier Shelf Expiration Date Model / Serial / Lot Mesh Srg Parietex Progrip 15x9cm Rect Implanted:Qty: 1 on 09/28/2020 by Erwin Diamond, DO at [facility] Left: Groin Covidien 04/14/2024 [id number] / / [id number] Mesh Srg Parietex Progrip 14x9cm Slf Implanted:Qty: 1 on 09/28/2020 by Erwin Diamond, DO at [facility] Right: Groin Covidien 10/12/2024 [id number] / / [id number] Advance Directives Documents on File Type Date Recorded Patient Massage Coordinator Expl anation Adv Directive/Living Will/POA 07/03/2010 1:31 PM Adv Directive/Living Will/POA 07/30/2009 12:18 PM * Full Code (Latest Code Status on File) Date Activated Date Inactivated Comments 09/27/2020 1:41 AM 09/30/2020 1:00 PM * Full Code Date Activated Date Inactivated Comments 06/29/2010 2:33 PM 07/02/2010 11:18 PM * Full Code Date Activated Date Inactivated Comments 07/23/2009 1:57 PM 07/27/2009 3:58 AM Care Teams Change Booth Attendant Relationship Specialty Start Date End Date Jarad Rodriguez MD [address] [place] [address] PCP - General 10/27/21
--- OUTSIDE RECORDS SUMMARY | 2024-09-14 20:46 | XMS_ITS | Clinical Summary ---
Author Organization [facility] Address [address] [place] [address]. [place] [address] [place] [address] Care Team Providers Care Legal Document Specialist Name Role Phone Jarad Rodriguez MD Primary Care Provider [phone] Allergies Active Allergy Reactions Criticality Noted Date [...] complete this topic Insurance MEDICARE Care Teams Legal Document Specialist Relationship Specialty Start Date End Date Jarad Rodriguez MD [address] [place] [address] PCP - General INTERNAL MEDICINE 02/04/20
--- OUTSIDE RECORDS SUMMARY | 2024-09-14 20:46 | XMS_ITS | Clinical Summary ---
Author Organization [facility] Address [address] [facility] [place] [address] Care Team Providers Care Cold Working Inspector Name Role Phone Jarad Rodriguez MD Primary Care Provider [phone] Source Comments [facility],non-owned Affiliates and Associated Physician Practices is amultiple site organization consisting of ambulatory clinics and hospital sitesin [place], [place] and [place]. This disclosure is being madepursuant to the Care Everywhere program and may not contain all information available regarding this patient. Last updated 18.[facility] Allergies Active Allergy Reactions Criticality Noted Date [...] Take by mouth daily. Acti ve therapeutic multivitamin-miner pick als (THERAGRAN-M) tablet Take 1 Tab by mouth daily with breakfast. Active losartan (COZAAR) 25 MG tabletIndications: usually takes in PM Take 25 mg by mouth daily. Instructed to take AM of surgery Indications: usually takes in PM Active [place]-3 Fatty Acids (FISH OIL PO) Take by [...] Comments Blood Pressure 116/82 09/30/2020 7:48 AM CAUSTIC PURIFICATION OPERATOR Pulse 62 09/30/2020 7:48 AM CAUSTIC PURIFICATION OPERATOR Temperature 36.6 ??C (97.9 ??F) 09/30/2020 7:48 AM CS T Respiratory Rate 18 09/30/2020 7:48 AM CAUSTIC PURIFICATION OPERATOR Oxygen Saturation 98% 09/30/2020 7:48 AM CAUSTIC PURIFICATION OPERATOR Inhaled Oxygen Concentration - - Weight 61.5 kg (135 lb 9.3 oz) 09/27/2020 1:09 A M CAUSTIC PURIFICATION OPERATOR Height 177.8 cm (5' 10 ) 09/27/2020 1:09 AM CAUSTIC PURIFICATION OPERATOR Body Mass Index 19.45 09/27/2020 1:09 AM CAUSTIC PURIFICATION OPERATOR Plan of Treatment Health Maintenance Due Date [...] this topic Medical Devices Implanted Type Area Community Outreach Advocate Device Identifier Shelf Expiration Date Model / Serial / Lot Mesh Srg Parietex Progrip 15x9cm Rect Implanted:Qty: 1 on 09/28/2020 by Erwin Diamond DO at [facility] Left: Groin Covidien 04/14/2024 [id number] / / [id number] Mesh Srg Parietex Progrip 14x9cm Slf Implanted:Qty: 1 on 09/28/2020 by Erwin Diamond DO at [facility] Right: Groin Covidien 10/12/2024 [id number] / / [id number] Advance Directives Documents on File Type Date Recorded Patient Maxillofacial Pathology Expl anation Adv Directive/Living Will/POA 07/03/2010 1:31 PM Adv Directive/Living Will/POA 07/30/2009 12:18 PM * Full Code (Latest Code Status on File) Date Activated Date Inactivated Comments 09/27/2020 1:41 AM 09/30/2020 1:00 PM * Full Code Date Activated Date Inactivated Comments 06/29/2010 2:33 PM 07/02/2010 11:18 PM * Full Code Date Activated Date Inactivated Comments 07/23/2009 1:57 PM 07/27/2009 3:58 AM Care Teams Cold Working Inspector Relationship Specialty Start Date End Date Jarad Rodriguez MD [address] [place] [address] PCP - General 10/27/21
--- OUTSIDE RECORDS SUMMARY | 2024-09-14 20:46 | XMS_ITS | Referral Summary ---
Author Organization [facility] [place] [id number] [place] [id number] Care Team Providers Care Ripsaw Matcher Name Role Phone Jarad Rodriguez MD Primary Care Provider Encounters Date Type Department Care Team Description 09/06/2024 Telephone [facility] at [address] [place] [phone] [place], [place] 07/18/2024 2:10 PM [facility] [address] [phone] Elevated PSA 07/18/2024 1:15 PM [facility] Office Visit [facility] at [address] [phone] Hortencia Reis NP Congestive heart failure, unspecified HF chronicity, unspecified heart failure type (HCC) (Primary Dx); Hypertension, unspecified type; Dyslipidemia 07/02/2024 Orders Only [facility] [address] [phone] Jeremi Gomes MD Elevated PSA [...] (11/03/2021): Added automatically from request for surgery [id number] Elevated PSA 08/28/2021 Overview (08/28/2021): Added automatically from request for surgery [id number] Weight decreased 03/20/2014 Overview (11/19/2016): Weight loss Social History Tobacco Use Types Packs/Day Years Used Date Smoking Tobacco: Former Cigarettes 1 40 1 960 - 2000 Smokeless Tobacco: Never Tobacco Cessation:Counseling Given: Not Answered Alcohol Use Standard Drinks/Week Comments Yes 0 (1 standard drink = 0.6 oz pur e alcohol) [facility] [employer] Answer Date Recorded In the past 12 months has e electric, gas, oil, or water [employer] threatened to shut off services in your [...] often do you attend chur ch or latter-day services? 1 to 4 times per year 07/14/2023 Do you belong to any clubs o r organizations such as cheondoism groups, unions, fraternal or athletic groups, or [...] place to sleep or slept in a assisted (including now)? No 07/14/2023 Personal Safety Answer Date Recorded Have you ever been in or are you currently in a harmful physical or emotional relationship or is someone making you feel afraid or unsafe? Denies 03/28/2024 Sex and Gender Information Value Date Recorded Sex Assigned at Not on file Legal Sex Male 8:03 AM [facility] Gender Identity Not on file Sexual Orientation Not on file Last Filed Vital Signs Vital Sign Reading Time Taken Comments Blood Pressure 135/85 07/18/2024 1:35 PM [facility] Pulse 51 07/18/2024 1:35 PM [facility] Temperature 36 ??C (96.8 ??F) 03/28/2024 10:15 AM CDT Respiratory Rate 18 05/09/2024 1:26 PM CDT Oxygen Saturation 100% 03/28/2024 10:15 AM CDT Inhaled Oxygen Concentration - - Weight 68 kg (150 lb) 07/18/2024 1:35 PM [facility] Height 175.3 cm (5' 9 ) 07/18/2024 1:35 PM [facility] Body Mass Index 22.15 07/18/2024 1:35 PM [facility] Plan of Treatment Not on file Procedures Procedure Name Priority Date/Time Associated Diagnosis Comments PSA DIAGNOSTIC Routine 07/18/2024 2:24 PM [facility] Elevated PSA from Last 3 Months Results * PSA diagnostic (07/18/2024 2:24 PM [facility]) PSA-Total 1.42 <=6.20 ng/mL Comment: Interpretive Data [...] last revised 21. Blood 07/18/2024 2:24 PM [facility] 07/18/2024 3:31 PM [facility] us Jeremi Gomes MD LAB BLOOD ORDERABLES Fi nal Result KRISTINE LUONG ([place]) [address] [facility] Department [place] [address] from Last 3 Months Additional Health Concerns Infection Onset Date Last Indicated C. difficile 07/13/2023 07/13/2023 Insurance MEDICARE [facility] MEDICARE MEDICARE [employer] MEDICARE SUPPLEMENT Advance Directives For more information, please contact: [phone] Documents on File Type Date Recorded Patient Engineering Test Specialist Expl anation ADVANCE DIRECTIVE 11/11/2021 10:57 AM * Full Code (Latest Code Status on File) Date Activated Date Inactivated Comments 07/13/2023 6:41 PM 07/16/2023 7:47 PM * Full Code Date Activated Date Inactivated Comments 02/28/2023 1:36 PM 03/02/2023 11:06 PM Care Teams Ripsaw Matcher Relationship Specialty Start Date End Date Jarad Rodriguez MD PCP - General Internal Medicine 05/31/22
--- NOTE | 2024-09-14 23:17 | ED_ITS ---
HPI - Weakness General Chief complaint: Weakness Stated complaint: hypotension History of Present Illness HPI Narrative: LWBS Related Data Home Medications ?Medication ?Instructions ?Recorded ?Confirmed ?Last Taken ?Type memantine 10 mg tablet 10 mg PO BID 07/01/21 05/08/24 Unknown History tnzkzhrjgfom-zdatzbjf-poyqvx tablet 1 tablet PO DAILY 10/19/21 05/08/24 Unknown History vit C 250 mg-vit E 90 mg-zinc 40 1 tablet PO BID 10/19/21 05/08/24 Unknown History mg-copper 1 jp-kojatd-jpwcax capsule (PreserVision AREDS-2) thiamine HCl (vitamin B1) 100 mg 100 mg PO DAILY 03/17/23 05/08/24 Unknown Histo ry tablet midodrine 2.5 mg tablet 2.5 mg PO .prn 11/30/23 05/08/24 Unknown History trazodone 50 mg tablet 25 mg PO QHS PRN 01/19/24 05/08/24 Unknown History Allergies Allergy/AdvReac Type Severity Reaction Status Date / Time Penicillins Allergy Mild unknown Verified 05/08/24 13:08 [facility] Past Medical History Medical History Schatzki's ring Nonerosive esophageal reflux disease Anal stenosis Collagenous colitis Weight loss Fatty stools C. difficile colitis C. difficile diarrhea Dementia Hematemesis Fecal impaction of colon Depression Hypertension Hip fracture Failed total knee replacement GERD (gastroesophageal reflux disease) Alcohol abuse HTN (hypertension) Surgical History Surgical History History of appendectomy Family History Family History Mother Old age Father Old age Social History Social History Social History: Caffeine- coffee daily Years smoked: 25 Smoking status: Former smoker Tobacco type: cigarettes Second hand tobacco smoke exposure: No Smoking end date: 08/15/82 Alcohol intake: current Alcohol use details: occasional wine Substance use: never Substance use type: does not use Lack of Transportation: No Lack of Food: Never True Current Housing: I Have Housing Concerned About Future Housing: No Difficulty Paying Gas/Electric Bills: No Difficulty Paying for Meds: No Currently Unemployed: No Education: Bachelor's Degree Difficulty w/ Childcare or Family Care: No Living arrangements: alone Occupation/Education: retired Gender identity (if verbalized by the patient): Male Spiritual care concerns: No Course Vital Signs Vital signs: Vital Signs Temperature 36.6 C 09/14/24 19:55 Pulse Rate 82 09/14/24 19:55 Respiratory Rate 18 09/14/24 19:55 Blood Pressure 93/62 L 09/14/24 19:55 Pulse Oximetry 95 09/14/24 19:55 Oxygen Delivery Room Air 09/14/24 19:55 Temperature 36.6 C 09/14/24 19:55 Pulse Rate 82 09/14/24 19:55 Respiratory Rate 18 09/14/24 19:55 Blood Pressure 93/62 L 09/14/24 19:55 Pulse Oximetry 95 09/14/24 19:55 Oxygen Delivery Room Air 09/14/24 19:55 Discharge Plan Discharge Patient Disposition: Left Without Being Seen Patient Language: Bruneian Prescriptions: No Action fluoxetine [Prozac] 10 mg Capsule 20 mg PO QAM Qty: 60 0RF jdwhtcpcevrl-kdzgxlkt-pmqhjd Tablet 1 tablet PO DAILY PreserVision AREDS-2 250-90-40-1 mg Capsule 1 tablet PO BID tramadol 50 mg tablet 50 mg PO Q6H PRN (Reason: pain) Qty: 30 0RF lidocaine 5 % adhesive patch,medicated 1 patch topical DAILY Qty: 30 0RF Rx Instructions: leave on most painful area for up to 12 hrs hydrocodone-acetaminophen 5-325 mg tablet 1 tablet PO Q8H PRN (Reason: pain) Qty: 9 0RF prednisone 50 mg tablet 50 mg PO DAILY Qty: 7 0RF aspirin 81 mg capsule 81 mg PO DAILY Qty: 30 0RF trazodone 50 mg tablet 25 mg PO QHS PRN memantine 10 mg tablet 10 mg PO BID thiamine HCl (vitamin B1) 100 mg tablet 100 mg PO DAILY midodrine 2.5 mg tablet 2.5 mg PO .prn Rx Instructions: do not give last dose of day after 6PM or within 4 hrs of bedtime budesonide 3 mg capsule,delayed,extend.release 3 mg PO DAILY Qty: 112 0RF Rx Instructions: Take 3 capsules by mouth everyday for next 3 weeks, then 2 capsules by mouth for next 2 weeks, then 1 capsule by mouth there after. Follow-up/Referrals: Jarad Rodriguez MD [Primary Care Provider] -
--- NOTE | 2024-09-14 23:18 | ED_ITS ---
HPI - Weakness General Chief complaint: Weakness Stated complaint: hypotension History of Present Illness HPI Narrative: LWBS Related Data Home Medications ?Medication ?Instructions ?Recorded ?Confirmed ?Last Taken ?Type memantine 10 mg tablet 10 mg PO BID 07/01/21 05/08/24 Unknown History aptupincprsa-csdbwzrn-ehchmg tablet 1 tablet PO DAILY 10/19/21 05/08/24 Unknown History vit C 250 mg-vit E 90 mg-zinc 40 1 tablet PO BID 10/19/21 05/08/24 Unknown History mg-copper 1 iv-czpduw-hbdgyn capsule (PreserVision AREDS-2) thiamine HCl (vitamin B1) 100 mg 100 mg PO DAILY 03/17/23 05/08/24 Unknown Histo ry tablet midodrine 2.5 mg tablet 2.5 mg PO .prn 11/30/23 05/08/24 Unknown History trazodone 50 mg tablet 25 mg PO QHS PRN 01/19/24 05/08/24 Unknown History Allergies Allergy/AdvReac Type Severity Reaction Status Date / Time Penicillins Allergy Mild unknown Verified 05/08/24 13:08 [facility] Past Medical History Medical History Schatzki's ring Nonerosive esophageal reflux disease Anal stenosis Collagenous colitis Weight loss Fatty stools C. difficile colitis C. difficile diarrhea Dementia Hematemesis Fecal impaction of colon Depression Hypertension Hip fracture Failed total knee replacement GERD (gastroesophageal reflux disease) Alcohol abuse HTN (hypertension) Surgical History Surgical History History of appendectomy Family History Family History Mother Old age Father Old age Social History Social History Social History: Caffeine- coffee daily Years smoked: 25 Smoking status: Former smoker Tobacco type: cigarettes Second hand tobacco smoke exposure: No Smoking end date: 08/15/82 Alcohol intake: current Alcohol use details: occasional wine Substance use: never Substance use type: does not use Lack of Transportation: No Lack of Food: Never True Current Housing: I Have Housing Concerned About Future Housing: No Difficulty Paying Gas/Electric Bills: No Difficulty Paying for Meds: No Currently Unemployed: No Education: Bachelor's Degree Difficulty w/ Childcare or Family Care: No Living arrangements: alone Occupation/Education: retired Gender identity (if verbalized by the patient): Male Spiritual care concerns: No Course Vital Signs Vital signs: Vital Signs Temperature 36.6 C 09/14/24 19:55 Pulse Rate 82 09/14/24 19:55 Respiratory Rate 18 09/14/24 19:55 Blood Pressure 93/62 L 09/14/24 19:55 Pulse Oximetry 95 09/14/24 19:55 Oxygen Delivery Room Air 09/14/24 19:55 Temperature 36.6 C 09/14/24 19:55 Pulse Rate 82 09/14/24 19:55 Respiratory Rate 18 09/14/24 19:55 Blood Pressure 93/62 L 09/14/24 19:55 Pulse Oximetry 95 09/14/24 19:55 Oxygen Delivery Room Air 09/14/24 19:55 Discharge Plan Discharge Clinical Impression: Weakness Patient Disposition: Left Without Being Seen Patient Language: Yoruba Prescriptions: No Action fluoxetine [Prozac] 10 mg Capsule 20 mg PO QAM Qty: 60 0RF sqyoiuozxhwh-qbynnqyo-xecjpc Tablet 1 tablet PO DAILY PreserVision AREDS-2 250-90-40-1 mg Capsule 1 tablet PO BID tramadol 50 mg tablet 50 mg PO Q6H PRN (Reason: pain) Qty: 30 0RF lidocaine 5 % adhesive patch,medicated 1 patch topical DAILY Qty: 30 0RF Rx Instructions: leave on most painful area for up to 12 hrs hydrocodone-acetaminophen 5-325 mg tablet 1 tablet PO Q8H PRN (Reason: pain) Qty: 9 0RF prednisone 50 mg tablet 50 mg PO DAILY Qty: 7 0RF aspirin 81 mg capsule 81 mg PO DAILY Qty: 30 0RF trazodone 50 mg tablet 25 mg PO QHS PRN memantine 10 mg tablet 10 mg PO BID thiamine HCl (vitamin B1) 100 mg tablet 100 mg PO DAILY midodrine 2.5 mg tablet 2.5 mg PO .prn Rx Instructions: do not give last dose of day after 6PM or within 4 hrs of bedtime budesonide 3 mg capsule,delayed,extend.release 3 mg PO DAILY Qty: 112 0RF Rx Instructions: Take 3 capsules by mouth everyday for next 3 weeks, then 2 capsules by mouth for next 2 weeks, then 1 capsule by mouth there after. Follow-up/Referrals: Jarad Rodriguez MD [Primary Care Provider] -
== END 2024-09-14 20:40 | disposition left against medical advice (07) ==
PROVIDERS: Emergency Provider Emergency Medicine; PCP Internal Medicine
DX: Z53.21 Procedure and treatment not carried out due to patient leaving prior to being seen by health care provider (principal)
CPT/HCPCS: 99199

== ENCOUNTER 2025-03-10 13:05 | Outpatient (CLI) | payer MEDICARE, SELFPAY ==
--- OUTSIDE RECORDS SUMMARY | 2025-03-10 13:08 | XMS_ITS ---
Author Organization [facility] Address [address] [place], [place] [id number] Care Team Providers Care Pharmacy Customer Care Specialist Name Role Phone JONATHAN BRICENO Unavailable [phone] Jennifer Jarad Unavailable Unavailable MAURO CONTRERAS Unavailable [phone] Allergies Allergen (clinical drug ingredient) Drug/Non Drug Allergy documented on EMR Reaction Allergy Type Onset Date Status Penicillin Unknown Drug Allergy Active REASON FOR VISIT *General care Medications Medication SIG (Take, Route, Frequency, Duration) Notes Start Date End Date Status chlordiazePOXIDE HCl 25 MG TAKE 1 CAPSUL E BY MOUTH EVERY 8 HOURS Oral; Duration: 4 Days Active Encounters Encounter Location Date Provider Diagnosis [address] [id number] 07/26/2024 MAURO CONTRERAS Other hammer toe(s) (acquired), right foot M20.41 ; Tinea unguium B35.1 ; Other hammer toe(s) (acquired), left foot M20.42 ; Pain in right toe(s) M79.674 ; Pain in left toe(s) M79.675 ; Unspecified atherosclerosis of [place] arteries of extremities, bilateral legs I70.203 and [...] educated regarding both OTC and prescription treatments. FUNGAL TOENAILS: Discussed various treatment options for fungal toenails including debridement, topical antifungals, oral antifungals, toenail avulsion, or toenail matrixectomy. NAIL DEBRIDEMENT: Nails 1-5 Bilateral were debrided extensively with nail nippers and emery board, reducing length and girth to pink healthy tissue with any subungual debris and necrotic tissue removed 07/26/2024 Other hammer toe(s) (acquired), left foot (ICD-10 - M20.42) 07/26/2024 Pain in right toe(s) (ICD-10 - M79.674) 07/26/2024 Pain in left toe(s) (ICD-10 - M79.675) 07/26/2024 Unspecified atherosclerosis of [place] arteries of extremities, bilateral legs (ICD-10 - [...] educated regarding both OTC and prescription treatments. FUNGAL TOENAILS: Discussed various treatment options for fungal toenails including debridement, topical antifungals, oral antifungals, toenail avulsion, or toenail matrixectomy. NAIL DEBRIDEMENT: Nails 1-5 Bilateral were debrided extensively with nail nippers and emery board, reducing length and girth to pink healthy tissue with any subungual debris and necrotic tissue removed Unspecified atherosclerosis of [place] arteries of extremities, bilateral legs Patient educated [...] noted. Next Appt Details Follow Up: 3 Months. 10-12 [place], Reason: At Risk Foot care, sooner if problems arise Provider Name:HILLARY CAROLINA, 03/14/2025 10:30:00 AM, [address] [place] [address], [phone], Progress Notes * SALMA ARLENDOB:1945 (79 yo M)Acc No.[id number]:07/26/2024 Patient: ARLEN ROQUE Provider: Gema CONTRERAS :1945 A ge:79 Y S ex:Male Date:07/26/2024 Address:[address] [place], [place] [id number] Subjective: * Chief Complaints: * 1 . *General care. * HPI: H PI: General care P atient presents to the office for at risk foot care. Patient states that their nails are thickened, elongated and painful. Patient states that it is aggravated by shoe gear. Onset is gradual. Patient denies being diabetic., Patient denies taking blood thinners., Date last seen by Dr. Rodriguez was 05/2024., Initials [facility]. sample. * ROS: G eneral / Constitutional: Patient denies w eakness. R espiratory: Patient denies c hronic cough, shortness of breath, sputum production. C ardiovascular: Patient denies c hest pain, history of AL, irregular heartbeat. M usculoskeletal: Patient complains of h ammertoes. P eripheral Vascular: Patient denies b lanching of skin, cold extremities, decreased sensation in extremities. S kin: Patient complains of f ungal nails, discoloration, nail changes. N eurologic: Patient denies d izziness, gait abnormality, headache. * Medical History: * Medications: T aking chlordiazePOXIDE HCl 25 MG Capsule TAKE 1 CAPSULE BY MOUTH EVERY 8 HOURS Oral , Medication List reviewed and reconciled with the patient * Allergies: P enicillin. Objective: * Vitals: * Examination: P hysical Examination: V ascular: Dorsalis Pedis pulse noted at 1/4 right [...] sensation intact to first metatarsophalangeal joint bilaterally. C onstitutional: Constitutional T he patient is awake, alert, well developed, well groomed and well nourished. D ermatologic: Skin findings: S kin is thin, atrophic and lacking pedal hair. Nail pathology: N ails 1, 2, 3, 4, and 5 bilateral are elongated, thick, discolored, and dystrophic with subungual debris. They are painful to palpation. ? V ascular: Dorsalis pedis pulse: 1 /4 b ilateral. Posterior tibial pulse: 0 /4 b ilateral. Capillary refill: g reater than 3 seconds. Edema: N o edema, bilateral. N eurologic: Gross sensation G ross sensation is intact to light touch.? M usculoskeletal: Muscle Strength M uscle strength is 5/5 in regards to dorsiflexion, plantarflexion, inversion, and eversion in bilateral lower extremities. ? Assessment: * Assessment: 1. T inea unguium - B35.1 (Primary) 2 . O ther hammer toe(s) (acquired), right foot - M20.41 3 . O ther hammer toe(s) (acquired), left foot - M20.42 ? 4 . P ain in right toe(s) - M79.674 5 . P ain in left toe(s) - M79.675 6 . U nspecified atherosclerosis of [place] arteries of extremities, bilateral legs - I70.203 7 . A cquired keratosis [keratoderma] palmaris et plantaris - L85.1 Plan: * Treatment: 2. O ther hammer toe(s) (acquired), right foot Notes: The patient was educated regarding how [...] were discussed, but conservative options were emphasized. 3. U nspecified atherosclerosis of [place] arteries of extremities, bilateral legs Notes: Patient educated on risks and aggravating factors of PVD, including conservative treatment options such as a diet and exercise regimen to aid in slowing progression of vascular disease ? 4. 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 After removal of overlying extensive hyperkeratosis, healthy tissue was noted and care was taken to assure that no undermining or probing was present. It should be noted that no probing was noted and no infection or drainage was noted. * Procedure Codes: 1 1056 TRIM SKIN LESIONS, 2 TO 4, Modifiers: Q8 , 04702 DEBRIDE NAIL, 6 OR MORE, Modifiers: 59 , Q8 * Follow Up: 3 Months. 10-12 Weeks (Reason: At Risk Foot care, sooner if problems arise) * Billing Information: * Visit Code: * Procedure Codes: 66349 TRIM SKIN LESIONS, 2 TO 4. Modifiers: Q8 62922 DEBRIDE NAIL, 6 OR MORE. Modifiers: 59, Q8 * Electronic signature of GRETCHEN CONTRERAS DPM on 03/10/2025 at 01:07 PM CDT Sign off status: Pending * Provider: Gema CONTRERAS Date: 09/26/2023 Generated for Yamilka zamorano/Faxing/eTransmitting on: 0 03/10/2025 01:07 PM CDT History and Physical Notes * HPI (History [...] by Dr. Rodriguez was 05/2024., Initials [facility] sample Examination Category Sub-Category Detail Notes Category Not es Dermatologic Skin findings: Skin is thin, at rophic and lacking pedal hair Nail pathology: Nails 1, 2, 3, 4, an d 5 bilateral are elongated, thick, discolored, and dystrophic with subungual debris. They are painful to palpation Neurologic Gross sensation Gross sensation is intact to light touch Vascular Dorsalis pedis pulse: 1/4 bilateral Edema: No edema, bilateral Capillary refill: greater than 3 secon ds Posterior tibial pulse: 0/4 bilateral Physical Examination Vascular: Dorsalis Pedis pulse noted [...] sensation intact to first metatarsophalangeal joint bilaterally Musculoskeletal Muscle Strength Muscle strength is 5/5 in regards to dorsiflexion, plantarflexion, inversion, and eversion in bilateral lower extremities Constitutional Constitutional The patient is a wake, alert, well developed, well groomed and well nourished
--- OUTSIDE RECORDS SUMMARY | 2025-03-10 13:08 | XMS_ITS | Patient Health Record ---
Author Organization [facility] Address [address] [place], [place] [address] Care Team Providers Care Plug Stitcher Name Role Phone JONATHAN BRICENO Unavailable [phone] Jarad Rodriguez Unavailable Unavailable MAURO CONTRERAS Unavailable [phone] HILLARY BEASLEY Unavailable [phone] Allergies Allergen (clinical drug ingredient) Drug/Non Drug Allergy documented on EMR Reaction Allergy Type Onset Date Status Penicillin Unknown Drug Allergy Active Reason For Referral No Information Medications Medication SIG (Take, Route, Frequency, Duration) Notes Start Date End Date Status chlordiazePOXIDE HCl 25 MG TAKE 1 CAPSUL E BY MOUTH EVERY 8 HOURS Oral; Duration: 4 Days Active Immunizations Vaccine Route Administration Date Status Comme nts Influenza, high dose seasonal Unknown 05/26/2023 Admini stered Vital Signs Height-cm 172.72 cm 01/10/2025 Weight-kg 58.97 kg 01/10/2025 Height 68 in 01/10/2025 Weight 130 lbs 01/10/2025 BMI 19.76 kg/m2 01/10/2025 Encounters Encounter Location Date Provider Diagnosis [address] [id number] 07/26/2024 MAURO CONTRERAS Other hammer toe(s) (acquired), right foot M20.41 ; Tinea unguium B35.1 ; Other hammer toe(s) (acquired), left foot M20.42 ; Pain in right toe(s) M79.674 ; Pain in left toe(s) M79.675 ; Unspecified atherosclerosis of lower [place] arteries of extremities, bilateral legs I70.203 and Acquired keratosis [keratoderma] palmaris et plantaris L85.[address] [id number] 01/10/2025 HILLARY BEASLEY Tinea unguium B35.1 ; Pain in right toe(s) M79.674 ; Pain in left toe(s) M79.675 ; Atherosclerosis of lower [place] arteries of extremities with intermittent claudication, bilateral legs I70.213 and Acquired keratoderma L85.[address] [id number] 05/17/2024 MAURO CONTRERAS Other hammer toe(s) (acquired), right foot M20.41 ; Tinea unguium B35.1 ; Other hammer toe(s) (acquired), left foot M20.42 ; Pain in right toe(s) M79.674 ; Pain in left toe(s) M79.675 ; Unspecified atherosclerosis of lower [place] arteries of extremities, bilateral legs I70.203 and Acquired keratosis [keratoderma] palmaris et plantaris L85.[address] [id number] 10/18/2024 JONATHAN BRICENO Tinea unguium B35.1 ; Pain in right toe(s) M79.674 ; Pain in left toe(s) M79.675 and Atherosclerosis of lower [place] arteries of extremities with intermittent claudication, bilateral legs I70.213 Assessments Encounter Date Diagnosis (ICD Code) Assessment Notes Treatment Notes Treatment Clinical Notes Section Notes 05/17/2024 Tinea unguium (ICD-10 - B35.1) Aseptic [...] any subungual debris and necrotic tissue removed 10/18/2024 Tinea unguium (ICD-10 - B35.1) FUNGAL TOENAILS: Discussed various treatment options for fungal toenails including debridement, topical antifungals, oral antifungals, toenail avulsion, or toenail matrixectomy. NAIL DEBRIDEMENT: Nails 1-5 Bilateral were debrided extensively with nail nippers and emery board, reducing length and girth to pink healthy tissue with any subungual debris and necrotic tissue removed 10/18/2024 Pain in right toe(s) (ICD-10 - M79.674) 01/10/2025 Tinea unguium (ICD-10 - B35.1) FUNGAL TOENAILS: Discussed various treatment options for fungal toenails including debridement, topical antifungals, oral antifungals, toenail avulsion, or toenail matrixectomy. NAIL DEBRIDEMENT: Nails 1-5 Bilateral were debrided extensively with nail nippers and emery board, reducing length and girth to pink healthy tissue with any subungual debris and necrotic tissue removed 01/10/2025 Pain in right toe(s) (ICD-10 - M79.674) 01/10/2025 Pain in left toe(s) (ICD-10 - M79.675) 10/18/2024 Pain in left toe(s) (ICD-10 - M79.675) 07/26/2024 Other hammer toe(s) (acquired), left foot (ICD-10 - M20.42) 05/17/2024 Other hammer toe(s) (acquired), left foot (ICD-10 - M20.42) 05/17/2024 Pain in right toe(s) (ICD-10 - M79.674) 07/26/2024 Pain in right toe(s) (ICD-10 - M79.674) 10/18/2024 Atherosclerosis of lower [place] arteries of extremities with intermittent claudication, bilateral legs (ICD-10 - I70.213) 01/10/2025 Atherosclerosis of lower [place] arteries of extremities with intermittent claudication, bilateral legs (ICD-10 - I70.213) 01/10/2025 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) 07/26/2024 Pain in left toe(s) (ICD-10 - M79.675) 05/17/2024 Pain in left toe(s) (ICD-10 - M79.675) 05/17/2024 Unspecified atherosclerosis of lower [place] arteries of extremities, bilateral legs (ICD-10 - I70.203) Patient educated on risks and aggravating factors of PVD, including conservative treatment options such as a diet and exercise regimen to aid in slowing progression of vascular disease 07/26/2024 Unspecified atherosclerosis of lower [place] arteries of extremities, bilateral legs (ICD-10 - [...] Plan Of Treatment Next Appt Details Provider Name:HILLARY CAROLINA, 03/14/2025 10:30:00 AM, [address] [place] [address], [phone], Insurance Providers Payer Name Payer Address Payer Phone Subscriber Number Group Number Insured Name Patient Relationship to Insured Coverage Start Date Coverage End Date Medicare Part B [place] [address] JUMAGALIEClaritza ANTONINATERESA [id number] ARLEN MARSH Self - patient is the insured [facility] ([facility] ATTN CLAIMS [address] [place] [address] [id number] ARLEN MARSH Self - patient is the insured Medical (General) History Medical History History ICD Code artificial joint prostate cancer Heart Disease
--- OUTSIDE RECORDS SUMMARY | 2025-03-10 13:08 | XMS_ITS | Clinical Summary ---
Author Organization [facility] Address [address] [place] [address] Care Team Providers Care Peoplesoft Financial Developer Name Role Phone Jarad Rodriguez MD Primary Care Provider [phone] Allergies Active Allergy Reactions Criticality Noted Date [...] 68 03/16/2019 10:40 AM CDT Temperature 36.3 C (97.4 F) 03/16/2019 10:30 AM CDT Respiratory Rate 16 03/16/2019 10:40 AM CDT Oxygen Saturation 100% 03/16/2019 10:40 AM CDT Inhaled Oxygen Concentration - - Weight 51.7 kg (114 lb) 03/15/2019 8:27 AM CDT Height 172.7 cm (5' 8) 03/15/2019 8:27 AM CDT Body Mass Index 17.33 03/15/2019 8:27 AM CDT Plan of Treatment Health Maintenance Due Date Last Done Comments DTaP, Tdap and Td Vaccines ( 1 - Tdap) 1962 Pneumococcal Vaccine: 50+ Ye ars (1 of 1 - PCV) 1993 Zoster Vaccines (1 of 2) 1993 Annual Medicare Wellness Visit 2008 RSV Immunization or 60+ Years (1 - 1-dose 75+ series) 2018 COVID-19 Vaccine ( - 2023-2 5 season) 2024 Meningococcal B Vaccine Aged Out No l onger eligible based on patient's age to complete this topic Meningococcal Vaccine Aged Out No karol kwaku eligible based on patient's age to complete this topic RSV Immunizations Under 20 Months Aged Out No longer eligible based on patient's age to complete this topic Insurance MEDICARE Care Teams Peoplesoft Financial Developer Relationship Specialty Start Date End Date Jarad Rodriguez MD [address] [place] [address] PCP - General INTERNAL MEDICINE 02/04/20
--- OUTSIDE RECORDS SUMMARY | 2025-03-10 13:08 | XMS_ITS ---
Author Organization [facility] Address [address] [place], [place] [id number] Care Team Providers Care First Officer And Flight Instructor Name Role Phone JONATHAN BRICENO Unavailable [phone] JenniferJarad elizondo Unavailable Unavailable HILLARY EBASLEY Unavailable [phone] Allergies Allergen (clinical drug ingredient) Drug/Non Drug Allergy documented on EMR Reaction Allergy Type Onset Date Status Penicillin Unknown Drug Allergy Active REASON FOR VISIT *General care Medications Medication SIG (Take, Route, Frequency, Duration) Notes Start Date End Date Status chlordiazePOXIDE HCl 25 MG TAKE 1 CAPSUL E BY MOUTH EVERY 8 HOURS Oral; Duration: 4 Days Active Vital Signs Height 68 in 01/10/2025 Weight 130 lbs 01/10/2025 BMI 19.76 kg/m2 01/10/2025 Height-cm 172.72 cm 01/10/2025 Weight-kg 58.97 kg 01/10/2025 Encounters Encounter Location Date Provider Diagnosis [address] [id number] 01/10/2025 HILLARY BEASLEY Tinea unguium B35.1 ; Pain in right toe(s) M79.674 ; Pain in left toe(s) M79.675 ; Atherosclerosis of [place] arteries of extremities with intermittent claudication, bilateral legs I70.213 and Acquired keratoderma L85.1 Assessments Encounter Date Diagnosis (ICD Code) Assessment Notes Treatment Notes Treatment Clinical Notes Section Notes 01/10/2025 Tinea unguium (ICD-10 - B35.1) FUNGAL [...] Pain in left toe(s) (ICD-10 - M79.675) 01/10/2025 Atherosclerosis of [place] arteries of extremities with intermittent claudication, bilateral legs (ICD-10 - I70.213) 01/10/2025 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 NAIL DEBRIDEMENT: Nails 1-5 Bilateral were debrided extensively with nail nippers and emery board, reducing length and girth to pink healthy tissue with any subungual debris and necrotic tissue removed Next Appt Details Follow Up: 10-12 Weeks, Reas on: At Risk Foot care, sooner if problems arise Provider Name:HILLARY CAROLINA, 03/14/2025 10:30:00 AM, [address] [place] [address], [phone], Progress Notes * ARLEN MARSHDOB:1945 (79 yo M)Acc No.[id number]:01/10/2025 Patient: Sherwin CASTILLOBROWNARLEN Provider: Duc BEASLEY :1945 A ge:79 Y S ex:Male Date:01/10/2025 Address:[address] [place], [place] [id number] Subjective: * Chief Complaints: * 1 . *General care. * HPI: H PI: General care P atient presents to the office for at risk foot care. Patient states that their nails are thickened, elongated and painful. Patient states that it is aggravated by shoe gear. Onset is gradual. Patient denies being diabetic., Patient denies taking blood thinners., Date last seen by Dr.Mathur pisano as September 2024. I nitials LB. * ROS: G eneral / Constitutional: Patient denies w eakness. M usculoskeletal: Patient complains of h ammertoes. P eripheral Vascular: Patient denies b lanching of skin, cold extremities, decreased sensation in extremities. S kin: Patient complains of f ungal nails, discoloration, nail changes. N eurologic: Patient denies d izziness, gait abnormality, headache. * Medical History: A rtificial joint, Prostate cancer, Heart Disease. * Family History: N o Family History documented.. * Medications: T aking chlordiazePOXIDE HCl 25 MG Capsule TAKE 1 CAPSULE BY MOUTH EVERY 8 HOURS Oral , Medication List reviewed and reconciled with the patient * Allergies: P enicillin. Objective: * Vitals: S hoe Size: 7.5, Wt: 130 lbs, Wt-k.97 kg, Ht: 68 in, Ht-cm: 172.72 cm, BMI: 19.76 Index, Body Surface Area: 1.68. * Examination: C onstitutional: Constitutional T he patient is [...] inea unguium - B35.1 (Primary) 2 . P ain in right toe(s) - M79.674? 3. P ain in left toe(s) - M79.675 4 . A therosclerosis of [place] arteries of extremities with intermittent claudication, bilateral legs - I70.213 5 . A cquired keratoderma - L85.1 Plan: * Treatment: * Immunizations: Immunization record has been reviewed and updated. * Procedure Codes: 1 1055 TRIM SKIN LESION, Modifiers: Q8 , 92822 DEBRIDE NAIL, 6 OR MORE, Modifiers: 59 , Q8 * Follow Up: 1 0-12 Weeks (Reason: At Risk Foot care, sooner if problems arise) * Billing Information: * Visit Code: * Procedure Codes: 78557 TRIM SKIN LESION. Modifiers: Q8 67198 DEBRIDE NAIL, 6 OR MORE. Modifiers: 59, Q8 * Electronic signature of ANGEL BEASLEY DPM on 03/10/2025 at 01:08 PM CDT Sign off status: Pending * Provider: Duc BEASLEY Date: 0 01/10/2025 Generated for Yamilka zamorano/Diego/Michelle on: 0 03/10/2025 01:08 PM CDT History and Physical Notes * [...] taking blood thinners., Date last seen by was September 2024. Initials LB Examination Category Sub-Category Detail Notes Category Not [...] secon ds Posterior tibial pulse: 0/4 bilateral Musculoskeletal Muscle Strength Muscle strength is 5/5 in regards to dorsiflexion, plantarflexion, inversion, and eversion in bilateral lower extremities Constitutional Constitutional The patient is a wake, alert, well developed, well groomed and well nourished
[2025-03-10 15:44] LABS: Toxigenic C. Diff NEGATIVE (NEGATIVE)
[2025-03-13 07:09] LABS: Calprotectin, Fecal 309 ug/g (0-120)
[2025-03-13 18:08] LABS: Pancreatic Elastase, Fecal >800 (>200)
== END 2025-03-10 13:06 | disposition home or self-care (01) ==
LOC: CHSLAB 13:07
PROVIDERS: PCP Internal Medicine; Visit Provider Nurse Practitioner Family
DX: R19.7 Diarrhea, unspecified (principal)
CPT/HCPCS: 82653; 83993; 87493

== ENCOUNTER 2025-06-20 16:35 | Outpatient (CLI) | payer MEDICARE, SELFPAY ==
--- OUTSIDE RECORDS SUMMARY | 2007-07-10 03:22 | XMS_ITS | Continuity of Care Document ---
Author Organization [facility] Address [address] [place] [address] [place] [address] Phone Care Team Providers Care Inventory Specialist Manager Name Role Phone Massimo Castro MD Unavailable Unavailable Procedures Procedure Date Eye Exam, New Patient Advance Directives Directive Yes / No Effective Date File Name No Information Encounters Encounter Description Practice Location Reason(s) For Visit Diagnoses Date Provider Providers Copied on Encounter [facility], [address] [place], [place], [id number], [place] tel:[phone] [facility] No Information 6-200 7 Matthew Keys. [address] [facility], [place], [facility], [place], [place], [id number], [place]. tel:[phone] Family History Family Member Type Diagnosis Age At Onset No Information Payers Payer name Insurance type Covered democrat ID Authoriza tion(s) No Information Social History Type Description Quantity Date Captured Comments Sex Male Smoking Status No Information Chief Complaint And Reason For Visit No Information Reason For Referral Reason For Referral No Information History Of Present Illness Encounter Date Complaint History Of Prese nt Illness No Information Functional Status Date Functional Assessmen t No Information Instructions Date Instruction Additional Infor mation No Information Assessments Type Assessment Date No Information Patient Care Teams Name Effective Dates (start - stop) Status Members No Information
--- OUTSIDE RECORDS SUMMARY | 2025-06-20 21:08 | XMS_ITS | Clinical Summary ---
Author Organization [facility] Address [address] [place] [address] Care Team Providers Care Director Of Community Life Name Role Phone Jarad Rodriguez MD Primary Care Provider [phone] Allergies Active Allergy Reactions Criticality Noted Date [...] 75+ series) 2018 COVID-19 Vaccine ( - 2024-2 6 season) 2025 Influenza Adult (#1) 2025 Hepatitis A Vaccines Aged Out No long er eligible based on patient's age to complete this topic Meningococcal B Vaccine Aged Out No l onger eligible based on patient's age to complete this topic Meningococcal Vaccine Aged Out No karol kwaku eligible based on patient's age to complete this topic RSV Immunizations Under 20 Months Aged Out No longer eligible based on patient's age to complete this topic Insurance MEDICARE Care Teams Director Of Community Life Relationship Specialty Start Date End Date Jarad Rodriguez MD [address] [place] [address] PCP - General INTERNAL MEDICINE 02/04/20
--- OUTSIDE RECORDS SUMMARY | 2025-06-20 21:08 | XMS_ITS | Encounter Summary ---
Author Organization [facility] Address [address] [place] [address] Care Team Providers Care Charge Account Identification Clerk Name Role Phone Jarad Rodriguez MD Primary Care Provider [phone] Encounter Details Date Type Department Care Team (Late st Contact Info) Description 04/29/2025 Results Follow-Up [facility] Diabetes Endocrine Care at [address] [place] [phone] Amanda Herrera, [address] [place] [address] [address] [place] [address] Thyroid Function [place] Social History Tobacco Use Types Packs/Day Years Used Date Smoking Tobacco: Former Cigarettes 1 40 1 960 - 2000 Smokeless Tobacco: Never Alcohol Use Standard Drinks/Week Comments Yes 0 (1 standard drink = 0.6 oz pur e alcohol) [facility] Utilities Answer Date Recorded In the past 12 months has [employer], gas, oil, or water company threatened to shut off services in your home? No 07/14/2023 Social Connection and Isolation Panel Answer Date Recorded In a typical week, how many times do you talk on the phone with family, friends, or neighbors? More than three times a week 07/14/2023 How often do you get togethe r with friends or relatives? Three times a week 07/14/2023 How often do you attend chur ch or taoist services? 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 difficile 07/13/2023 07/13/2023 documented as of this encounter Care Teams Charge Account Identification Clerk Relationship Specialty Start Date End Date Jarad Rodriguez MD PCP - General Internal Medicine 05/31/22 documented as of this encounter
--- OUTSIDE RECORDS SUMMARY | 2025-06-20 21:08 | XMS_ITS | Clinical Summary ---
Author Organization [facility] [place] [address] [place] [address] Care Team Providers Care School Curriculum Developer Name Role Phone Jarad Rodriguez MD Primary Care Provider [phone] Allergies Active Allergy Reactions Criticality Noted Date Comments Penicillins Rash,Other (See comments) Medium 9 Blisters/ shock Medications FLUoxetine (PROzac) 10 mg tablet/capsuleI ndications:priscilla r depressive disorder Take 2 tablet/capsule (20 mg total) by mouth daily 20 mg in the morning and 10 mg at night Active memantine (NAMENDA) 10 mg tabletIndicatio ns:Moderate to Severe Alzheimer's Type Dementia Take 1 tablet (10 mg total) by mouth 2 (two) times a day Active vit A/vit C/vit E/zinc/copper (ICAPS AREDS ORAL)Indication s:eye vitamin Take 1 capsule by mouth 2 (two) times a day Active timoloL (BETIMOL) 0.25 % ophthalmic solutionIndicat ions:open angle glaucoma Administer 1-2 drops into both eyes 2 (two) times a day Active multivit-min/FA /lycopen/lutein (CENTRUM SILVER MEN ORAL)Indication s:supplement Take 1 tablet by mouth every morning Active thiamine (VITAMIN B1) 100 mg tabletIndicatio ns:Wernicke-Kor sakoff Syndrome Take 1 tablet (100 mg total) by mouth daily Active budesonide EC (ENTOCORT EC) 3 mg 24 hr capsule Take 2 capsules (6 mg total) by mouth every morning Active famotidine (PEPCID) 40 mg tablet Take 1 tablet (40 mg total) by mouth daily Active traZODone (DESYREL) 50 mg tablet Take 0.5 tablets (25 mg total) by mouth nightly Active acidophilus-pec tin, citrus 100 million cell-10 mg capsule Take 1 capsule by mouth every morning Active midodrine (PROAMATINE) 5 mg tabletIndicatio ns:Symptomatic Orthostatic Hypotension Take 1.5 tablets (7.5 mg total) by mouth 3 (three) times a day as needed (TID PRN for SBP <100 mmHg) For BP below 100 90 tablet 3 02/27/20 25 Active aspirin 81 mg capsule Take 81 mg by mouth 09/05/19 25 Active melatonin 10 mg tablet 1.2 tablets (12 mg total) nightly Active atorvastatin (LIPITOR) 20 mg tablet TAKE ONE TABLET BY MOUTH DAILY 30 tablet 11 04/29/20 25 Active isosorbide mononitrate ER (IMDUR) 30 mg 24 hr tablet TAKE ONE TABLET BY MOUTH DAILY 30 tablet 06/05/20 25 Active isosorbide mononitrate ER (IMDUR) 30 mg 24 hr tablet TAKE ONE TABLET BY MOUTH DAILY 30 tablet 04/29/20 25 025 Discontinued Active Problems Problem Noted Date Diagnosed Date C. difficile colitis 07/14/2023 SARAH (acute kidney injury) 07/13/2023 Abnormal stress test 04/13/2023 Moderate dementia associated with alcoholism Chest pain 04/07/2023 Hypertension 04/07/2023 NSTEMI (non-ST elevated myocardial infarction) 0 02/28/2023 Prostate cancer 11/03/2021 Overview (11/03/2021): Added automatically from request for surgery [id number] Elevated PSA 08/28/2021 Overview (08/28/2021): Added automatically from request for surgery [id number] Weight decreased 03/20/2014 Overview (11/19/2016): Weight loss Encounters Date Type Department Care Team Description 04/29/2025 Results Follow-Up [facility] Diabetes Endocrine Care at [address] [address] Amanda Herrera, Thyroid Function [place] 04/26/2025 1:00 PM CDT Lab [facility] [address] [place] [address] Thyroid nodule 04/26/2025 10:30 AM CDT Office Visit [facility] Diabetes Endocrine Care at [address] [place] [phone] Amanda Herrera, DO Thyroid nodule (Primary Dx) 03/27/2025 Results Follow-Up [facility] Diabetes Endocrine Care at [address] [place] [address] Amanda Herrera, DO [place] Thyroid from Last 3 Months Surgical History Surgery [...] drink = 0.6 oz pur e alcohol) [facility] Utilities Answer Date Recorded In the past 12 months has e [employer], gas, oil, or water [employer] threatened to shut off services in your [...] 07/14/2023 How often do you attend chur or judaism services? 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 Gender Identity Not on file Sexual Orientation Not on file Last Filed Vital Signs Vital Sign Reading Time Taken Comments Blood Pressure 96/64 04/26/2025 10:24 AM CDT Pulse 58 01/16/2025 1:05 PM CDT Temperature 36 C (96.8 F) 03/28/2024 10:15 AM CDT Respiratory Rate 18 01/16/2025 1:05 PM CDT Oxygen Saturation 100% 03/28/2024 10:15 AM CDT Inhaled Oxygen Concentration - - Weight 62.7 kg (138 lb 4.8 oz) 04/26/2025 10:24 AM CDT Height 175.3 cm (5' 9) 04/26/2025 10:24 AM CDT Body Mass Index 20.42 04/26/2025 10:24 AM CDT Plan of Treatment Health Maintenance Due Date Last Done Comments Depression Screening 1945 Hepatitis B Screening 1961 Zoster Vaccine (1 of 2) 1993 Well Visit 65+ 2008 Fall Risk Assessment 03/28/2025 03/28/2024 Covid-19 Vaccine ( - 2024-2 6 season) 2025 06/02/2021, 10/30/2020, 10/09/2020 Influenza Vaccine (#1) 2025 , 05/21/2020, 05/29/2019, Additional history exists DTaP/Tdap/Td Vaccine (2 - Td or Tdap) 02/24/2026 02/25/2016 Pneumococcal vaccine 65+ Completed 07/24/2015, 01/2009 Procedures Procedure Name Priority Date/Time Associated Diagnosis Comments THYROID FUNCTION CASCADE Routine 04/26/2025 1:08 PM CDT Thyroid nodule from Last 3 Months Results * Thyroid Function [place] (04/26/2025 1:08 PM CDT) TSH 3.83 0.30 - 4.20 mcIUnit/mL KRISTINE LUONG ([place]) Blood 04/26/2025 1:08 PM CDT 04/26/2025 1:26 PM CDT Liyahtej Jeovanny Herrera DO LAB BLOOD ORDERABLES Final Result [facility] ([place] Department [place] [address] from Last 3 Months Additional Health Concerns Infection Onset Date Last Indicated C. difficile 07/13/2023 07/13/2023 Insurance MEDICARE [facility] MEDICARE MEDICARE [facility] MEDICARE SUPPLEMENT Advance Directives For more information, please contact: [phone] Documents on File Type Date Recorded Patient Astrobiologist Expl anation ADVANCE DIRECTIVE 11/11/2021 10:57 AM * Full Code (Latest Code Status on File) Date Activated Date Inactivated Comments 07/13/2023 6:41 PM 07/16/2023 7:47 PM * Full Code Date Activated Date Inactivated Comments 02/28/2023 1:36 PM 03/02/2023 11:06 PM Care Teams School Curriculum Developer Relationship Specialty Start Date End Date Jarad Rodriguez MD PCP - General Internal Medicine 05/31/22
--- OUTSIDE RECORDS SUMMARY | 2025-06-20 21:08 | XMS_ITS ---
Author Organization [facility] [place] [address] [place] [address] Care Team Providers Care Kitchen Manager Name Role Phone Jarad Rodriguez MD Primary Care Provider [phone] Active Problems Problem Noted Date Diagnosed Date C. difficile colitis 07/14/2023 SARAH (acute kidney injury) 07/13/2023 Abnormal stress test 04/13/2023 Moderate dementia associated with alcoholism Chest pain 04/07/2023 Hypertension 04/07/2023 NSTEMI (non-ST elevated myocardial infarction) 0 02/28/2023 Prostate cancer 11/03/2021 Overview (11/03/2021): Added automatically from request for surgery [id number] Elevated PSA 08/28/2021 Overview (08/28/2021): Added automatically from request for surgery [id number] Weight decreased 03/20/2014 Overview (11/19/2016): Weight loss Current Treatment and Therapy Plans No current plan information found. Past Treatment and Therapy Plans No past plan information found. Lifetime Dose Tracking * Chemical Lifetime Dose Automatic Entry Manual Entr y DLP 417 mGycm 417 mGycm 0 mGycm
--- OUTSIDE RECORDS SUMMARY | 2025-06-20 21:08 | XMS_ITS | Clinical Summary ---
Author Organization [facility] Address [address] [place] [address] Care Team Providers Care Retail Customer Service Specialist Name Role Phone Jarad Rodriguez MD Primary Care Provider [phone] Source Comments [facility],non-owned Affiliates and Associated Physician Practices is amultiple site organization consisting of ambulatory clinics and hospital sitesin [place], [place], [place] and [place]. This disclosure is being madepursuant to the Care Everywhere program and may not contain all information available regarding this patient. Last updated 18.[facility] Allergies Active Allergy Reactions Criticality Noted Date Comments Penicillin G Potassium Rash 06/23/2009 Blisters/ shock Medications * Be aware that medications may not be up to date on this document. Alwaysverify current medications with the patient. lovastatin (MEVACOR) 20 MG tablet Take 20 mg by mouth at bedtime. Active timolol maleate (TIMOPTIC) 0.5 % ophthalmic solution 1 Drop 2 times daily. Both eyes Active Magnesium 250 MG TABS Take by mouth daily. Active therapeutic multivitamin-m inerals (THERAGRAN-M) tablet Take 1 Tab by mouth daily with breakfast. Active losartan (COZAAR) 25 MG tabletIndicati ons:usually takes in PM Take 25 mg by mouth daily. Instructed to take AM of surgery Indications: usually takes in PM Active Royal-3 Fatty Acids (FISH OIL PO) Take by mouth. 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 Gender Identity Not on file Sexual Orientation Not on file Last Filed Vital Signs Vital Sign Reading Time Taken Comments Blood Pressure 116/82 09/30/2020 7:48 AM EXTRACTOR OPERATOR Pulse 62 09/30/2020 7:48 AM EXTRACTOR OPERATOR Temperature 36.6 C (97.9 F) 09/30/2020 7:48 AM EXTRACTOR OPERATOR Respiratory Rate 18 09/30/2020 7:48 AM EXTRACTOR OPERATOR Oxygen Saturation 98% 09/30/2020 7:48 AM EXTRACTOR OPERATOR Inhaled Oxygen Concentration - - Weight 61.5 kg (135 lb 9.3 oz) 09/27/2020 1:09 A M EXTRACTOR OPERATOR Height 177.8 cm (5' 10) 09/27/2020 1:09 AM EXTRACTOR OPERATOR Body Mass Index 19.45 09/27/2020 1:09 AM EXTRACTOR OPERATOR Plan of Treatment Health Maintenance Due Date Last Done Comments DTAP/TDAP/TD VACCINES (1 - Tdap) 1962 PNEUMOCOCCAL VACCINE 50+ (1 of 1 - PCV) 1993 ZOSTER VACCINE (1 of 2) 1993 Respiratory Syncytial Virus (RSV) Vaccine Pt: or over 60 yrs (1 - 1-dose 75+ series) 2018 DEPRESSION SCREENING 08/15/2024 COVID-19 VACCINE (1 - 2023-2 5 season) 2025 INFLUENZA VACCINE (#1) 2025 HEPATITIS B VACCINE Aged Out No longe r eligible based on patient's age to complete this topic HIB VACCINE Aged Out No longer eligi ble based on patient's age to complete this topic HPV VACCINE Aged Out No longer eligi ble based on patient's age to complete this topic MENINGOCOCCAL (Group B) VACC INE SHARED DECISION-MAKING Aged Out No longer eligibl e based on patient's age to complete this topic MENINGOCOCCAL GROUPS A/C/Y/W VACCINE Aged Out No longer eligible b ased on patient's age to complete this topic Medical Devices Implanted Type Area Pharmaceutical Assistant Device Identifier Shelf Expiration Date Model / Serial / Lot Mesh Srg Parietex Progrip 15x9cm Rect Implanted:Qty: 1 on 09/28/2020 by Erwin Diamond DO at [facility] Left: Groin Covidien 04/14/2024 [id number] / / [id number] Mesh Srg Parietex Progrip 14x9cm Slf Implanted:Qty: 1 on 09/28/2020 by Erwin Diamond DO at [facility] Right: Groin Covidien 10/12/2024 [id number] / / [id number] Insurance MEDICARE MEDICARE Advance Directives Documents on File Type Date Recorded Patient [employer] Manager Expl anation Adv Directive/Living Will/POA 07/03/2010 1:31 PM Adv Directive/Living Will/POA 07/30/2009 12:18 PM * Full Code (Latest Code Status on File) Date Activated Date Inactivated Comments 09/27/2020 1:41 AM 09/30/2020 1:00 PM * Full Code Date Activated Date Inactivated Comments 06/29/2010 2:33 PM 07/02/2010 11:18 PM * Full Code Date Activated Date Inactivated Comments 07/23/2009 1:57 PM 07/27/2009 3:58 AM Care Teams Retail Customer Service Specialist Relationship Specialty Start Date End Date Jarad Rodriguez MD [address] [place] [address] PCP - General 10/27/21
[2025-06-26 07:09] LABS: Calprotectin, Fecal 66 ug/g (0-120)
== END 2025-06-20 16:36 | disposition home or self-care (01) ==
LOC: CHSLAB 16:37
PROVIDERS: PCP Internal Medicine; Visit Provider Nurse Practitioner
DX: K52.831 Collagenous colitis (principal)
CPT/HCPCS: 83993